=== PATIENT | male | born 1965 | race Caucasian/White ===

== ENCOUNTER 2019-04-13 23:27 | Inpatient (IN) | payer MEDICARE, SELFPAY ==
[2019-04-13 23:29] VITALS: BP 181/84; PULSE 90; RESP 18; TEMP 36.6; O2SAT 83; BMI 29.2
[2019-04-13 23:38] VITALS: O2SAT 95
--- NOTE | 2019-04-13 23:43 | EKG12_ITS ---
Test Reason : SOB Blood Pressure : / mmHG Vent. Rate : 078 BPM Atrial Rate : 078 BPM P-R Int : 150 ms QRS Dur : 082 ms QT Int : 392 ms P-R-T Axes : 083 072 093 degrees QTc Int : 446 ms Normal sinus rhythm Normal ECG Confirmed by RADHA MILLER, ADRIENNE ([id number]), research editor YAZAN VILLALTA ([id number]) on 04/18/2019 2:13:55 PM Referred By: KALPANA Confirmed By:ADRIENNE GARCIA MD
--- NOTE | 2019-04-13 23:44 | ED.DCSUM_ITS ---
History of Present Illness Chief Complaint: Shortness of Breath Narrative: Patient is a 54-year-old male who presents with shortness of breath. He does have a history of COPD and only a quarter of my lung on the left side due to a defect. He uses 2 L of oxygen by nasal cannula at night only at baseline. He was sick last week with congestion cough sore throat and subjective fevers. The symptoms are actually improving except he is continued to feel more short of breath. He has had increased oxygen requirements needing to use 4 L even during the day. He denies any pain. No vomiting or diarrhea. Past Medical History - Allergies and Home Meds Allergies/Adverse Reactions: Allergies aspirin Allergy (Verified 04/13/19 23:32) Unknown zolpidem [From Ambien] Allergy (Verified 04/13/19 23:32) Unknown Primary Care Physician: NOT,DEFINED [NON-STAFF] - Prior records reviewed: No Past Medical History: - - COPD, hypertension Surgical History: - - Shoulder surgeries, hernia repair Review of Systems All systems negative except as indicated General: Reports: Fever, Subjective ENT: Reports: Sore throat, - - Congestion Cardiovascular: Denies: Chest pain Respiratory: Reports: Dyspnea, Cough Gastrointestinal: Denies: Nausea, Vomiting, Diarrhea Physical Exam Vital Signs/Narrative: Vital Signs Temp Pulse Resp BP Pulse Ox 04/13/19 23:38 95 04/13/19 23:29 97.9 F 90 18 181/84 H 83 Inital Vital Signs reviewed: Yes General: Well nourished Head: Normocephalic Eyes: EOMI ENT: Moist mucous membranes Neck: Supple Cardiovascular: Regular rate, Regular rhythm Respiratory: No distress, Decreased Air Movement Abdomen: Soft Skin: Normal color Neurological: Alert Psychological: Normal affect Diagnostic/Tx/Re-eval Impressions Chest X-Ray 04/13/19 23:55 IMPRESSION: No demonstrated acute cardiopulmonary process. Electronically Signed: Diane Nolasco, at 1:37 EST Tel , Service support , 04/13/19 23:55 Chest PA and Lateral [RAD] Stat Laboratory Results 04/13/19 04/13/19 04/14/19 23:55 23:55 00:37 WBC 11.0 RBC 5.21 Hgb 15.3 Hct 49.1 MCV 94.2 H MCH 29.4 MCHC 31.2 L RDW Std Deviation 44.8 H RDW Coeff of [place] 13.2 Plt Count 204 MPV 9.6 Immature Gran % (Auto) 0.400 Neut % (Auto) 88.6 H Lymph % (Auto) 8.3 L [place] % (Auto) 2.3 Eos % (Auto) 0.0 Baso % (Auto) 0.4 Absolute Neuts (auto) 9.8 H Absolute Lymphs (auto) 0.91 Nucleated RBC % 0 Specimen Type ART Sample Site R Radial pH 7.36 Bicarbonate Actual 37.3 H POC Total CO2 39 Base Excess 12 H O2 Saturation 96 ABG pCO2 65.8 H ABG pO2 85 Shaheen Test POS O2 Delivery Device Nasal Can Liter Flow 4.0 Blood Gas Notified Whom ED MD Blood Gas Notified Time 30 Sodium 139 Potassium 4.4 Chloride 100 Carbon Dioxide 34.0 H Anion Gap 5 BUN 13 Creatinine 0.80 Estim Creat Clear Calc 112.43 Est GFR (MDRD) Af Amer 129 Est GFR (MDRD) Non-Af 106 BUN/Creatinine Ratio 16.2 Glucose 154 H Calcium 9.2 - Medical Decision Making Patient was placed on oxygen by nasal cannula here. Even on 4 L his oxygen saturation is 93 to 94%. Laboratory studies as above unremarkable. Chest x-ray shows no acute process. EKG shows normal sinus rhythm at a rate of 78 with no acute ischemic changes. ABG shows normal pH, PCO2 of 65. Patient was treated here with albuterol and Atrovent aerosols as well as IV Solu-Medrol and IV Levaquin. Patient will be discussed with hospitalist and admitted. ED Disposition - Plan for ED Patient: Disposition: Acute Care Hospital [facility] Diagnosis: COPD exacerbation Referrals: NOT,DEFINED [NON-STAFF] -
--- NOTE | 2019-04-13 23:51 | ED.RN ---
NO OLD EKG
--- NOTE | 2019-04-13 23:55 | RAD_ITS ---
STUDY: X-RAY CHEST REASON FOR EXAM: Male, 54 years old. PT HAS BEEN CONFUSED,SOB. Hx of COPD, Anatomical defects. TECHNIQUE: Single AP portable view of the chest. COMPARISON: None. FINDINGS: Subsegmental atelectasis in the left lung base. There is no demonstrated pleural abnormality. Normal size heart. Normal mediastinum and eliazar. Normal visualized pulmonary arteries. Normal visualized aortic arch and descending thoracic aorta. There is a dextroscoliosis of the thoracic spine. Normal visualized ribs, clavicles, and shoulders. There is no demonstrated abnormality of the visualized soft tissue structures of the upper abdomen. RAD/Chest PA and Lateral IMPRESSION: No demonstrated acute cardiopulmonary process. Electronically Signed: Diane Nolasco, at 1:37 EST Tel , Service support ,
[2019-04-13 23:57] LABS: Absolute Lymphocyte Count 0.91 X10^3/uL (0.83-4.51); Absolute Neutrophil Count 9.8 X10^3/uL (2.0-7.7); Basophil# 0.04 X10^3/uL; Basophil% 0.4 % (0-1); Hematocrit 49.1 % (40-54); Hemoglobin 15.3 g/dL (13.0-16.5); Lymphocyte # 0.91 X10^3/ul (4.0); Lymphocyte % 8.3 % (19-41); Mean Corp Hgb Conc 31.2 g/dL (32-36); Mean Corpuscular Hgb 29.4 pg (27.0-32.0); Mean Corpuscular Volume 94.2 fL (80-94); Mean Platelet Vol. 9.6 fl (6.2-12.0); Monocyte# 0.25 X10^3/uL; Monocyte% 2.3 % (0-10); NRBC Flagged by Analyzer 0 % (0-5); Neutrophil # 9.79 X10^3/uL (2.7-7.7); Neutrophil % 88.6 % (47-70); Platelet Count 204 K/mm3 (150-450); RBC Distribution Width CV 13.2 % (11.6-14.6); RBC Distribution Width SD 44.8 fl (35.1-43.9); Red Blood Count 5.21 M/mm3 (4.6-6.2)
[2019-04-14] VITALS (14 sets, daily range): BP systolic 132–163; BP diastolic 67–83; PULSE 77–100; RESP 12–22; TEMP 36.3–37.1; O2SAT 93–98; BMI 28.1; BMI 28.2
[2019-04-14] MEDS: Albuterol 2.5 MG/3 ML VIAL.NEB. INHALATION
[2019-04-14] MEDS: MethylPREDNISolone 125 MG/2 ML Vial IV (00:09)
[2019-04-14 00:16] LABS: Anion Gap 5 (5-15); BUN 13 mg/dL (7-18); BUN/Creat Ratio 16.2 RATIO (10-20); Calcium,Total 9.2 mg/dL (8.5-10.1); Chloride 100 mmol/L (98-107); EST Glomerular Filtration Rate 106 mL/min (>60); Est Glom Filt Rate - Afr Amer 129 mL/min (>60); Estimated Creatinine Clearance 112.43 ml/min; Glucose 154 mg/dL (74-106); Potassium 4.4 mmol/L (3.5-5.1); Sodium Level 139 mmol/L (136-145)
[2019-04-14 00:45] LABS: Allen Test POS; Base Excess 12 mmol/L (-2 to +2); Bicarbonate 37.3 mmol/L (22-26); Blood Gas Specimen Type ART; O2 Delivery Device Nasal Can; PO2 85 mmHG (75-100); SITE R Radial; SO2 96 % (95-99); Time Given 30; Total Carbon Dioxide 39 mmol/L; pCO2 65.8 mmHg (35-45); pH 7.36 (7.35-7.45)
--- NOTE | 2019-04-14 01:50 | HP.PCM_ITS ---
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 Associated with her symptoms is wheezing and a cough productive for white- greenish thick sputum. Patient reported that recently his spouse and nephew had flulike/cold symptoms. Patient was also started on a Medrol Dosepak about a week ago for cough. Past Medical History Medical History: Medical History (Last Updated 04/14/19 @ 03:43 by Sanket Beltran MD) COPD (chronic obstructive pulmonary disease) J44.9 Allergies aspirin Allergy (Verified 04/13/19 23:32) Unknown zolpidem [From Ambien] Allergy (Verified 04/13/19 23:32) Unknown Home Medications: Ambulatory Orders Medication Instructions Recorded Albuterol Inhaler [Ventolin Hfa 2 puff INHALATION Q6H PRN PRN 04/14/19 (SP)] Amlodipine Benzoate 5 mg PO DAILY 04/14/19 Citalopram [Celexa] 10 mg PO DAILY 04/14/19 Fluticasone/Vilanterol [Breo 1 ea IH DAILY 04/14/19 Ellipta Inhaler] Hydrocodone/Acetaminophen [[place] 1 ea PO Q8 PRN 04/14/19 5-325 Tablet] Methadone HCl 10 mg PO Q6H 04/14/19 Methylprednisolone [Medrol] 4 mg PO DAILY 04/14/19 Triamterene/Hctz 37.5/25Mg 1 tab PO DAILY 04/14/19 [Triamterene-Hctz 37.5-25 mg Tb] Surgical History: - - Shoulder surgeries, hernia repair Lives: Spouse/ Significant Other Smoking Status: Current some day smoker Tobacco Use: - - snuff tobacco Alcohol: Occasional - *Family History Maternal History Items: Cancer, Diabetes Paternal History Items: Cancer Review of Systems Constitutional: Denies: Chills, Fever, Weight Change HEENT: Denies: Head Aches, Sinus Congestion, Sinus Drainage Cardiovascular: Denies: Chest Pain, Palpitations Respiratory: Reports: Cough, Shortness of Breath, Sputum production, Wheezing Gastrointestinal: Denies: Abdominal Pain, Nausea, Vomiting Genitourinary: Denies: Dysuria Musculoskeletal: Denies: Joint Pain, Joint Tenderness Skin: Denies: Rash, Wounds Neurological: Denies: Numbness, Tingling, Focal weakness Psychiatric: Denies: Anxiety, Depression, Homicidal Ideations, Suicidal Ideations Hematologic/ Lymphatic: Denies: Easy Bruising, Easy Bleeding VTE Information - Inpt Only VTE Present on Admission: No VTE Mechan Device Prophylaxis: None VTE Pharm Prophylaxis ordered?: Yes Patient Problems: Active and Suspected Problems (Last Updated 04/14/19 @ 03:43 by Sanket Beltran MD) COPD exacerbation (Acute) - Physical Exam Vitals/I&O's: Vital Signs Temp Pulse Resp BP Pulse Ox 97.3 F L 87 18 150/79 H 93 04/14/19 00:44 04/14/19 00:44 04/14/19 00:44 04/14/19 00:44 04/14/19 00:44 Oxygen Flow Rate (L/min) 2 Oxygen Delivery Method Nasal Cannula Weight: 95.254 kg Body Mass Index (BMI) 29.2 General: Alert, Oriented x3, Cooperative HEENT: Atraumatic, PERRLA, EOMI, Normocephalic Neck: Supple, No JVD, Negative Carotid Bruits Lungs: Wheezes Cardiovascular: Regular rate, No murmurs Abdomen: Bowel Sounds Present, Soft, Non Tender Extremities: No edema, Capillary Refill Less than 3 Seconds, - - Aplasia of left upper extremity. Skin: No rashes, No breakdown Musculoskeletal: No Tenderness to Palpation of Joints or Extremities Neurological: Cranial nerves II-XII grossly intact Psych/Mental Status: Normal Affect, Appropriate Laboratory Results 04/13/19 23:55: WBC 11.0, RBC 5.21, Hgb 15.3, Hct 49.1, MCV 94.2 H, MCH 29.4, MCHC 31.2 L, RDW Std Deviation 44.8 H, RDW Coeff of [place] 13.2, Plt Count 204, MPV 9.6, Immature Gran % (Auto) 0.400, Neut % (Auto) 88.6 H, Lymph % (Auto) 8.3 L, [place] % (Auto) 2.3, Eos % (Auto) 0.0, Baso % (Auto) 0.4, Absolute Neuts (auto) 9.8 H, Absolute Lymphs (auto) 0.91, Nucleated RBC % 0 04/13/19 23:55: Sodium 139, Potassium 4.4, Chloride 100, Carbon Dioxide 34.0 H, Anion Gap 5, BUN 13, Creatinine 0.80, Estim Creat Clear Calc 112.43, Est GFR (MDRD) Af Amer 129, Est GFR (MDRD) Non-Af 106, BUN/Creatinine Ratio 16.2, Glucose 154 H, Calcium 9.2 04/14/19 00:37: Specimen Type ART, Sample Site R Radial, pH 7.36, Bicarbonate Actual 37.3 H, POC Total CO2 39, Base Excess 12 H, O2 Saturation 96, ABG pCO2 65.8 H, ABG pO2 85, Shaheen Test POS, O2 Delivery Device Nasal Can, Liter Flow 4.0, Blood Gas Notified Whom ED MD, Blood Gas Notified Time 30 Current Medications Levofloxacin (Levaquin Iv) 500 mg in 100 mls @ 100 mls/hr IV X1 ONE Stop: 04/14/19 02:40 Assessment/Plan All Active Problems (Last Updated 04/14/19 @ 03:43 by Sanket Beltran MD) COPD exacerbation (Acute) The patient is a 54 year old M with a significant history of COPD on 2 L of home oxygen; congenital aplasia of left upper extremity; 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 Acute exacerbation of COPD ABG reviewed. Showed normal pH with elevated bicarbonate and PCO2. Showing a chronic CO2 retainer. CXR independently reviewed confirms no acute cardia pulmonary process. Received DuoNeb at the emergency department. Scheduled DuoNeb ordered. Albuterol as needed On home ICS?lab. ICS continued. Received Solu-Medrol at the emergency department. Solu-Medrol continued. Mucinex ordered. Levaquin was ordered at the emergency department. Levaquin was continued. Oxygen as needed to keep oxygen saturation more than 92%. Chronic right shoulder pain Methadone and [place] continued Hypertension On presentation his blood pressure was not within goal Triamterene and hydrochlorothiazide continued. Trend blood pressures and adjust blood pressure medication Depression Celexa continued Tobacco abuse Many years ago patient tried smoking cigarettes. Now he snuffs tobacco. Counseled. Declined nicotine patch. DVT prophylaxis Subcutaneous Lovenox. Code Visit Inpatient E&M: 82085 Init Hosp L3
[2019-04-14] MEDS: levoFLOXacin IV 500 MG/100 ML BAG 100 MG IV ×2 (02:04→21:49)
[2019-04-14] MEDS: 0.9% Saline Lock 10 ML Syringe IV ×4 (03:52→15:19)
[2019-04-14] MEDS: HYDROcodone Bitartrate/Apap 5/325 Tablet PO ×2 (03:53→20:08)
[2019-04-14] MEDS: Ipratropium/Albuterol Sulfate 3 ML AMPUL.NEB INHALATION ×5 (07:11→18:49)
--- NOTE | 2019-04-14 08:30 | NURSING ---
Pt states he noticed last night they forgot to bring in a cpap. Pt notified that home cpap can be brought in- states he will have his bring.
[2019-04-14] MEDS: Enoxaparin 40 MG/0.4 ML Syringe SC (08:34)
[2019-04-14] MEDS: amLODIPine 5 MG Tablet PO ×2 (08:34→15:16)
[2019-04-14] MEDS: guaiFENesin 1,200 MG Tablet 1200 MG PO ×2 (08:34→21:49)
[2019-04-14] MEDS: Citalopram 10 MG Tablet PO (08:34)
[2019-04-14] MEDS: Triamterene 37.5MG/Hctz 25MG Capsule 1 CAP PO (08:34)
--- NOTE | 2019-04-14 08:46 | NURSING ---
Abena from pharmacy called and notified methadone is not on unit. Verbalized understanding and states will send.
[2019-04-14] MEDS: Methadone 10 MG Tablet PO ×4 (08:52→23:35)
--- NOTE | 2019-04-14 11:40 | CASEMGMT ---
CLEO MARKHAM Face to Face with patient for initial transition planning/care coordination assessment. CLEO MARKHAM introduced self and role at [facility]. Patient sitting in chair, alert and oriented. Patient willing to participate in assessment and is able to answer all questions appropriately. Care providers, pharmacy, and demographics verified. Patient wishes to discharge home, denies need for home health at this time. Patient states he has no further needs or concerns at this time. CM to follow for discharge planning needs that may arise. PCP: Breonna Hassan Specialists: Rhoda buckler and lacer in [facility] Preferred Pharmacy: [facility] Insurance: [facility] Prescription Benefit: yes Living Will/HPOA: none LNOK: Living Arrangements: Patient lives with in 2 story home with bed an bath on first floor. Patient is independent at home. Transportation: self, DME/HHC: Patient states he has cane, Cpap, pulse ox, and oxgyen at home 2lpm at night through [facility] in [place]. CLEO MARKHAM called [facility] and patient has order for 2lpm continuous with concentrator and portability. Disposition Plan: Patient to discharge home with family support and follow-up plans in place. Merry JJ, RN, CM
--- NOTE | 2019-04-14 13:50 | PN_ITS ---
Patient Problems: Active and Suspected Problems (Last Updated 04/14/19 @ 03:43 by Sanket Beltran MD) COPD exacerbation (Acute) Subjective: Patient admitted with shortness of breath progressive worsening for about 1 week along with worsening of cough more than his baseline sputum. Denies fever or chills. 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 Vitals/I&O's: Vital Signs Temp Pulse Resp BP Pulse Ox 97.5 F L 84 12 132/67 H 93 04/14/19 07:57 04/14/19 10:50 04/14/19 10:50 04/14/19 07:57 04/14/19 08:06 Oxygen Flow Rate (L/min) 2 Oxygen Delivery Method Nasal Cannula Weight: 202 lb 1 oz Body Mass Index (BMI) 28.1 Intake and Output for Last 24 Hours 04/12/19 04/13/19 04/14/19 23:59 23:59 23:59 Intake Total 210 / 210 Output Total 100 / 100 Balance 110 / 110 General: Alert, Oriented x3, Cooperative HEENT: Atraumatic, PERRLA, EOMI, Normocephalic Neck: Supple, No JVD, Negative Carotid Bruits Lungs: Diminished - Air entry severely and diffusely diminished in all lung base. Expiratory rhonchi present., Rhonchi, Short of Breath Cardiovascular: Regular rate, Regular Rhythm, Normal S1, Normal S2, No murmurs Abdomen: Bowel Sounds Present, Soft, Non Tender, Non-Distended Extremities: No edema, Capillary Refill Less than 3 Seconds Skin: No rashes, No breakdown Musculoskeletal: No Tenderness to Palpation of Joints or Extremities, - - Left upper extremity agenesis, congenital Neurological: Cranial nerves II-XII grossly intact, Deep Tendon Reflexes 2+/4 and Symmetrical, Neuro grossly intact Psych/Mental Status: Normal Affect, Appropriate Laboratory Results 04/13/19 23:55: WBC 11.0, RBC 5.21, Hgb 15.3, Hct 49.1, MCV 94.2 H, MCH 29.4, MCHC 31.2 L, RDW Std Deviation 44.8 H, RDW Coeff of [place] 13.2, Plt Count 204, MPV 9.6, Immature Gran % (Auto) 0.400, Neut % (Auto) 88.6 H, Lymph % (Auto) 8.3 L, [place] % (Auto) 2.3, Eos % (Auto) 0.0, Baso % (Auto) 0.4, Absolute Neuts (auto) 9.8 H, Absolute Lymphs (auto) 0.91, Nucleated RBC % 0 04/13/19 23:55: Sodium 139, Potassium 4.4, Chloride 100, Carbon Dioxide 34.0 H, Anion Gap 5, BUN 13, Creatinine 0.80, Estim Creat Clear Calc 112.43, Est GFR (MDRD) Af Amer 129, Est GFR (MDRD) Non-Af 106, BUN/Creatinine Ratio 16.2, Glucose 154 H, Calcium 9.2 04/14/19 00:37: Specimen Type ART, Sample Site R Radial, pH 7.36, Bicarbonate Actual 37.3 H, POC Total CO2 39, Base Excess 12 H, O2 Saturation 96, ABG pCO2 65.8 H, ABG pO2 85, Shaheen Test POS, O2 Delivery Device Nasal Can, Liter Flow 4.0, Blood Gas Notified Whom ED MD, Blood Gas Notified Time 30 Current Medications Acetaminophen (Tylenol) 650 mg PO Q6H PRN PRN PRN Reason: Pain Score 1-3/Temp > 100.7 F Hydrocodone Bitart/Acetaminophen ([place] 5mg-325mg) 1 tablet PO Q8H PRN PRN PRN Reason: Pain Score 4-10/10 Last Admin: 04/14/19 03:53 Dose: 1 tablet Documented by: Albuterol Sulfate (Ventolin Aerosols) 2.5 mg INHALATION Q2H PRN PRN PRN Reason: Shortness of Breath/Wheezing Albuterol/Ipratropium (Duoneb) 3 ml INHALATION Q4HWA.RT [facility] Last Admin: 04/14/19 10:50 Dose: 3 ml Documented by: Amlodipine Besylate (Norvasc) 5 mg PO DAILY [facility] Last Admin: 04/14/19 08:34 Dose: 5 mg Documented by: Citalopram Hydrobromide (Celexa) 10 mg PO DAILY [facility] Last Admin: 04/14/19 08:34 Dose: 10 mg Documented by: Dextrose (D50w Syringe) 0 gm IV X1 PRN; Protocol PRN Reason: Hypoglycemia Enoxaparin Sodium (Lovenox) 40 mg SC DAILY@1000 [facility] Last Admin: 04/14/19 08:34 Dose: 40 mg Documented by: Glucagon () 1 mg IM .X1 PRN PRN Reason: Hypoglycemia Guaifenesin (Mucinex) 1,200 mg PO BID [facility] Last Admin: 04/14/19 08:34 Dose: 1,200 mg Documented by: Hydralazine HCl (Apresoline Iv) 5 mg IV Q4H PRN PRN PRN Reason: SBP > 160 Sodium Chloride () 250 mls @ 15 mls/hr IV .[id number] PRN PRN Reason: Saline Flush Levofloxacin (Levaquin Iv) 500 mg in 100 mls @ 100 mls/hr IV Q24H [facility] Stop: 04/18/19 22:59 Melatonin (Melatonin) 3 mg PO QHS PRN PRN PRN Reason: INSOMNIA Methadone HCl () 10 mg PO Q6H [facility] Last Admin: 04/14/19 13:41 Dose: 10 mg Documented by: Methylprednisolone (Solu-Medrol) 40 mg IV Q8 [facility] Last Admin: 04/14/19 08:38 Dose: 40 mg Documented by: Non-Formulary Medication (Fluticasone/Vilanterol) 1 ea IH DAILY [facility] Ondansetron HCl (Zofran) 4 mg IV Q8H PRN PRN PRN Reason: NAUSEA/VOMITING Sodium Chloride () 10 - 40 ml IV UD PRN PRN Reason: SALINE FLUSH Last Admin: 04/14/19 08:35 Dose: 10 ml Documented by: Triamterene/HCTZ (Dyazide (G)) 1 cap PO DAILY [facility] Last Admin: 04/14/19 08:34 Dose: 1 cap Documented by: STROKE Vital Signs/Narrative: Vital Signs Pulse Resp 04/14/19 10:50 84 12 Medical Necessity - Tobacco Use Smoking Status: Current some day smoker Tobacco Use: - Assessment/Plan All Active Problems (Last Updated 04/14/19 @ 03:43 by Sanket Beltran MD) COPD exacerbation (Acute) The patient is a 54 year old M with a significant history of COPD on 2 L of home oxygen; congenital aplasia of left upper extremity; 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 1. Acute exacerbation of COPD: ABG reviewed. 7. on 4 L of oxygen through nasal cannula. Calculated bicarbonate 37. Does not have previous ABG to compare. On DuoNeb, albuterol as needed, IV Solu-Medrol, Mucinex, incentive spirometry and chest physiotherapy. Patient is ambulatory in home and in the community and requires home oxygen with portability. Oxygen therapy to keep pulse ox 90%. ER physician ordered Levaquin continued by admitting hospitalist. Sputum culture, urinary antigens, MRSA nasal screen and respiratory panel ordered. Patient had remote history of smoking in teenage for total about 5 years. 2. Chronic right shoulder pain: On methadone [place] home medication continued. 3. Hypertension: Blood pressure was elevated at time of admission. Currently 149/67. On hydrochlorothiazide, amlodipine and triamterene. Amlodipine increased to 10 mg daily. 4. Anxiety depression: Stable. 5. DVT prophylaxis: On Lovenox. 04/13/19 23:55: WBC 11.0, RBC 5.21, Hgb 15.3, Hct 49.1, MCV 94.2 H, MCH 29.4, MCHC 31.2 L, RDW Std Deviation 44.8 H, RDW Coeff of [place] 13.2, Plt Count 204, MPV 9.6, Immature Gran % (Auto) 0.400, Neut % (Auto) 88.6 H, Lymph % (Auto) 8.3 L, [place] % (Auto) 2.3, Eos % (Auto) 0.0, Baso % (Auto) 0.4, Absolute Neuts (auto) 9.8 H, Absolute Lymphs (auto) 0.91, Nucleated RBC % 0 04/13/19 23:55: Sodium 139, Potassium 4.4, Chloride 100, Carbon Dioxide 34.0 H, Anion Gap 5, BUN 13, Creatinine 0.80, Estim Creat Clear Calc 112.43, Est GFR (MDRD) Af Amer 129, Est GFR (MDRD) Non-Af 106, BUN/Creatinine Ratio 16.2, Glucose 154 H, Calcium 9.2 04/14/19 00:37: Specimen Type ART, Sample Site R Radial, pH 7.36, Bicarbonate Actual 37.3 H, POC Total CO2 39, Base Excess 12 H, O2 Saturation 96, ABG pCO2 65.8 H, ABG pO2 85, Shaheen Test POS, O2 Delivery Device Nasal Can, Liter Flow 4.0, Blood Gas Notified Whom ED MD, Blood Gas Notified Time 30 Clinical Impression(s) from Imaging Studies Chest X-Ray 04/13/19 23:55 IMPRESSION: No demonstrated acute cardiopulmonary process.
[2019-04-14 18:00] LABS: M R Staph aureus DNA By PCR Negative (Negative); Probe Check PASS; Specimen Processing Control PASS
[2019-04-15] VITALS (9 sets, daily range): BP systolic 148–168; BP diastolic 77–95; PULSE 69–92; RESP 16–18; TEMP 36.2–36.9; O2SAT 90–98
[2019-04-15] MEDS: HYDROcodone Bitartrate/Apap 5/325 Tablet PO ×2 (04:05→19:27)
[2019-04-15] MEDS: Methadone 10 MG Tablet PO ×3 (05:34→17:54)
[2019-04-15] MEDS: Ipratropium/Albuterol Sulfate 3 ML AMPUL.NEB INHALATION ×4 (06:47→19:50)
[2019-04-15] MEDS: Triamterene 37.5MG/Hctz 25MG Capsule 1 CAP PO (09:16)
[2019-04-15] MEDS: amLODIPine 5 MG Tablet 10 MG PO (09:16)
[2019-04-15] MEDS: guaiFENesin 1,200 MG Tablet 1200 MG PO ×2 (09:16→21:47)
[2019-04-15] MEDS: Enoxaparin 40 MG/0.4 ML Syringe SC (09:16)
[2019-04-15] MEDS: Citalopram 10 MG Tablet PO (09:16)
--- NOTE | 2019-04-15 12:22 | PCM.PN.HOSP ---
Patient Problems: Active and Suspected Problems (Last Reviewed 04/14/19 @ 14:[address]) COPD exacerbation (Acute) Subjective: Patient shortness of breath is improved. Wheezing and oxygen need has also decreased. No fever or chills. Vitals/I&O's: Vital Signs Temp Pulse Resp BP Pulse Ox 98.1 F 80 18 148/95 H 94 04/15/19 09:11 04/15/19 11:34 04/15/19 11:34 04/15/19 09:11 04/15/19 11:34 Oxygen Flow Rate (L/min) 2 Oxygen Delivery Method Nasal Cannula Weight: 202 lb 1 oz Body Mass Index (BMI) 28.1 Intake and Output for Last 24 Hours 04/13/19 04/14/19 04/15/19 23:59 23:59 23:59 Intake Total 1160 / 1760 900 / 900 Output Total 100 / 100 475 / 475 Balance 1060 / 1660 425 / 425 General: Alert, Oriented x3, Cooperative HEENT: Atraumatic, PERRLA, EOMI, Normocephalic Neck: Supple, No JVD, Negative Carotid Bruits Lungs: Diminished - Air entry is diminished in all lung field mainly left lung base but overall improved compared to yesterday., Rhonchi - Expiratory rhonchi present Cardiovascular: Regular rate, Regular Rhythm, Normal S1, Normal S2, No murmurs Abdomen: Bowel Sounds Present, Soft, Non Tender, Non-Distended Extremities: No edema, Capillary Refill Less than 3 Seconds Skin: No rashes, No breakdown Musculoskeletal: No Tenderness to Palpation of Joints or Extremities, Arthritic Changes, - - Left upper extremity congenital aplasia Neurological: Cranial nerves II-XII grossly intact, Deep Tendon Reflexes 2+/4 and Symmetrical, Neuro grossly intact Psych/Mental Status: Normal Affect, Appropriate Microbiology Past 72 Hours 04/14/19 15:07 Mucosa - Nose Respiratory Panel (PCR) - Final 04/14/19 15:50 Urine, Clean Catch Legionella Antigen - Final 04/14/19 15:50 Urine, Clean Catch Streptococcus pneumoniae Antigen (M - Final Laboratory Results 04/14/19 15:23: MRSA (PCR) Negative Current Medications Acetaminophen (Tylenol) 650 mg PO Q6H PRN PRN PRN Reason: Pain Score 1-3/Temp > 100.7 F Hydrocodone Bitart/Acetaminophen ([place] 5mg-325mg) 1 tablet PO Q8H PRN PRN PRN Reason: Pain Score 4-10/10 Last Admin: 04/15/19 04:05 Dose: 1 tablet Documented by: Albuterol Sulfate (Ventolin Aerosols) 2.5 mg INHALATION Q2H PRN PRN PRN Reason: Shortness of Breath/Wheezing Albuterol/Ipratropium (Duoneb) 3 ml INHALATION Q4HWA.RT [facility] Last Admin: 04/15/19 11:34 Dose: 3 ml Documented by: Amlodipine Besylate (Norvasc) 10 mg PO DAILY [facility] Last Admin: 04/15/19 09:16 Dose: 10 mg Documented by: Citalopram Hydrobromide (Celexa) 10 mg PO DAILY [facility] Last Admin: 04/15/19 09:16 Dose: 10 mg Documented by: Dextrose (D50w Syringe) 0 gm IV X1 PRN; Protocol PRN Reason: Hypoglycemia Enoxaparin Sodium (Lovenox) 40 mg SC DAILY@1000 [facility] Last Admin: 04/15/19 09:16 Dose: 40 mg Documented by: Glucagon () 1 mg IM .X1 PRN PRN Reason: Hypoglycemia Guaifenesin (Mucinex) 1,200 mg PO BID [facility] Last Admin: 04/15/19 09:16 Dose: 1,200 mg Documented by: Hydralazine HCl (Apresoline Iv) 10 mg IV Q4H PRN PRN PRN Reason: SBP > 180 Sodium Chloride () 250 mls @ 15 mls/hr IV .[id number] PRN PRN Reason: Saline Flush Levofloxacin (Levaquin Iv) 500 mg in 100 mls @ 100 mls/hr IV Q24H [facility] Stop: 04/18/19 22:59 Last Infusion: 04/14/19 22:59 Dose: Infused Documented by: Melatonin (Melatonin) 3 mg PO QHS PRN PRN PRN Reason: INSOMNIA Methadone HCl () 10 mg PO Q6H [facility] Last Admin: 04/15/19 12:16 Dose: 10 mg Documented by: Methylprednisolone (Solu-Medrol) 40 mg IV Q8 [facility] Last Admin: 04/15/19 05:35 Dose: 40 mg Documented by: Non-Formulary Medication (Fluticasone/Vilanterol) 1 ea IH DAILY [facility] Ondansetron HCl (Zofran) 4 mg IV Q8H PRN PRN PRN Reason: NAUSEA/VOMITING Sodium Chloride () 10 - 40 ml IV UD PRN PRN Reason: SALINE FLUSH Last Admin: 04/14/19 15:19 Dose: 10 ml Documented by: Triamterene/HCTZ (Dyazide (G)) 1 cap PO DAILY [facility] Last Admin: 04/15/19 09:16 Dose: 1 cap Documented by: STROKE Vital Signs/Narrative: Vital Signs Temp Pulse Resp BP Pulse Ox 04/15/19 11:34 80 18 94 04/15/19 09:23 16 04/15/19 09:11 98.1 F 86 16 148/95 H 95 Medical Necessity - Tobacco Use Smoking Status: Current some day smoker Tobacco Use: - Assessment/Plan All Active Problems (Last Reviewed 04/14/19 @ 14:[address]) COPD exacerbation (Acute) The patient is a 54 year old M with a significant history of COPD on 2 L of home oxygen; congenital aplasia of left upper extremity; 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 1. Acute exacerbation of COPD: ABG reviewed. 7.3660 on 4 L of oxygen through nasal cannula. Calculated bicarbonate 37. Does not have previous ABG to compare. On DuoNeb, albuterol as needed, IV Solu-Medrol, Mucinex, incentive spirometry and chest physiotherapy. Patient is ambulatory in home and in the community and requires home oxygen with portability. Oxygen therapy to keep pulse ox 90%. ER physician ordered Levaquin continued by admitting hospitalist. Sputum culture, urinary antigens, MRSA nasal screen and respiratory panel ordered. Patient had remote history of smoking in teenage for total about 5 years. 04/15/2019: Sputum culture is pending. MRSA nasal screen negative. Urinary antigens for Legionella and Streptococcus are negative. Respiratory panel negative. 2. Chronic right shoulder pain: On methadone [place] home medication continued. 3. Hypertension: Blood pressure was elevated at time of admission. Currently 149/67. On hydrochlorothiazide, amlodipine and triamterene. Amlodipine increased to 10 mg daily. 04/15/2019 blood pressure is stable. Overall blood pressure profile is better than yesterday 4. Anxiety depression: Stable. 5. DVT prophylaxis: On Lovenox. Microbiology Past 72 Hours 04/14/19 15:07 Mucosa - Nose Respiratory Panel (PCR) - Final 04/14/19 15:50 Urine, Clean Catch Legionella Antigen - Final 04/14/19 15:50 Urine, Clean Catch Streptococcus pneumoniae Antigen (M - Final Laboratory Results 04/14/19 15:23: MRSA (PCR) Negative 04/14/19 00:37: Specimen Type ART, Sample Site R Radial, pH 7.36, Bicarbonate Actual 37.3 H, POC Total CO2 39, Base Excess 12 H, O2 Saturation 96, ABG pCO2 65.8 H, ABG pO2 85, [place] Test POS, O2 Delivery Device Nasal Can, Liter Flow 4.0, Blood Gas Notified Whom ED MD, Blood Gas Notified Time 30 Clinical Impression(s) from Imaging Studies Chest X-Ray 04/13/19 23:55 IMPRESSION: No demonstrated acute cardiopulmonary process. Code Visit Inpatient E&M: 33107 Subs Hosp L2
[2019-04-15] MEDS: 0.9% Saline Lock 10 ML Syringe IV ×2 (13:55→21:46)
[2019-04-15] MEDS: levoFLOXacin IV 500 MG/100 ML BAG 100 MG IV (21:46)
[2019-04-16] VITALS (7 sets, daily range): BP systolic 139–157; BP diastolic 80–84; PULSE 80–108; RESP 18; TEMP 36.8; O2SAT 88–93
[2019-04-16] MEDS: 0.9% Saline Lock 10 ML Syringe IV ×2 (00:06→05:23)
[2019-04-16] MEDS: Methadone 10 MG Tablet PO ×3 (00:06→13:08)
[2019-04-16] MEDS: Ipratropium/Albuterol Sulfate 3 ML AMPUL.NEB INHALATION ×2 (07:16→11:24)
[2019-04-16] MEDS: HYDROcodone Bitartrate/Apap 5/325 Tablet PO (08:27)
--- NOTE | 2019-04-16 10:09 | DCINST_ITS ---
- Discharge Diagnoses Current Active Problems: Current Active and Chronic Problems (Last Reviewed 04/14/19 @ 14:[address]) COPD exacerbation (Acute) You will use the following diet at home:: Cardiac Your food should be the consistency of: Regular Discharge Activity: May Not Drive Call your doctor if you observe: Fever of 101 or Higher, Coldness, Increased Pain, Inability to urinate, Inability to have a bowel movement, Shortness of breath, Dizziness, Fainting spells, Swelling in the ankles, Prolonged hiccoughing, Increased palpitations (irregular heartbeat), Uncontrolled pain Allergies/Adverse Reactions: Allergies aspirin Allergy (Verified 04/13/19 23:32) Unknown zolpidem [From Ambien] Allergy (Verified 04/13/19 23:32) Unknown Medications to take at Discharge Albuterol Inhaler [Ventolin Hfa] 2 puff INHALATION Q6H PRN PRN 04/14/19 Citalopram [Celexa] 10 mg PO DAILY 04/14/19 Fluticasone/Vilanterol [Breo Ellipta 100-25 Mcg INH] 1 ea IH DAILY 04/14/19 Hydrocodone/Acetaminophen [[place] 5-325 Tablet] 1 ea PO Q8 PRN 04/14/19 Methadone HCl 10 mg PO Q6H 04/14/19 Triamterene/Hctz 37.5/25Mg [Triamterene-Hctz 37.5-25 mg Tb] 1 tab PO DAILY 04/14/19 Amlodipine [Norvasc] 10 mg PO DAILY #30 tab 04/16/19 Guaifenesin [Mucinex] 1,200 mg PO BID #14 tab 04/16/19 Ipratropium/Albuterol Sulfate [Duoneb] 3 ml INHALATION Q4H PRN PRN #30 ampul.neb 04/16/19 Prednisone 10 mg PO UD #30 tab 04/16/19 The following prescriptions were given: Ipratropium/Albuterol Sulfate [Duoneb] 3 ml INHALATION Q4H PRN PRN #30 ampul.neb PRN Reason: Shortness Of Breath Prescription Printed Guaifenesin [Mucinex] 1,200 mg PO BID #14 tab Prescription Printed Amlodipine [Norvasc] 10 mg PO DAILY #30 tab Prednisone 10 mg PO UD #30 tab Prescription Printed Primary Care Physician: NOT,DEFINED [NON-STAFF] - Please follow up with your Primary Care Physician in: IN 1-2 WEEK Test Results: Test results from this visit will be discussed in further detail at your follow- up appointment, if applicable. Please Follow Up With: Panda Walls, DO When: IN 2-3 WEEKS
--- NOTE | 2019-04-16 10:10 | PCM.DC.SUM ---
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 1. Acute exacerbation of COPD: ABG reviewed. 7. on 4 L of oxygen through nasal cannula. Calculated bicarbonate 37. Does not have previous ABG to compare. On DuoNeb, albuterol as needed, IV Solu-Medrol, Mucinex, incentive spirometry and chest physiotherapy. Patient is ambulatory in home and in the community and requires home oxygen with portability. Oxygen therapy to keep pulse ox 90%. ER physician ordered Levaquin continued by admitting hospitalist. Sputum culture, urinary antigens, MRSA nasal screen and respiratory panel ordered. Patient had remote history of smoking in teenage for total about 5 years. 04/15/2019: Sputum culture is pending. MRSA nasal screen negative. Urinary antigens for Legionella and Streptococcus are negative. Respiratory panel negative. On 04/16/2019: Patient urinary antigens are negative. Respiratory panel negative. Preliminary sputum culture shows normal respiratory irineo. Patient had about 3 days of Levaquin and does not need further. No objective evidence of infection or pneumonia. 2. Chronic right shoulder pain: On methadone [place] home medication continued. 3. Hypertension: Blood pressure was elevated at time of admission. Currently 149/67. On hydrochlorothiazide, amlodipine and triamterene. Amlodipine increased to 10 mg daily. 04/15/2019 blood pressure is stable. Overall blood pressure profile is better than yesterday 4. Anxiety depression: Stable. 5. DVT prophylaxis: On Lovenox. Discharge medication reconciliation done. Discharge follow-up instructions completed. Discharge process discussed with the patient and all questions were answered to patient's satisfaction. Prescription given for tapering dose of prednisone, Mucinex and amlodipine. Amlodipine dose increased to 10 mg daily. Follow with PCP. Follow-up with pulmonary clinic Dr. Walls in 2 to 3 weeks. Need PFT. Total time spent, exact 35 minutes on discharge meds reconciliation, examination, review of imaging and blood test and discussion with the patient on follow-up instructions. Microbiology Past 72 Hours 04/15/19 09:05 Sputum, Expectorated/Coughed Gram Stain - Final 04/15/19 09:05 Sputum, Expectorated/Coughed Respiratory Culture - Preliminary Appears to be normal respiratory irineo. Further studies to follow. 04/14/19 15:07 Mucosa - Nose Respiratory Panel (PCR) - Final 04/14/19 15:50 Urine, Clean Catch Legionella Antigen - Final 04/14/19 15:50 Urine, Clean Catch Streptococcus pneumoniae Antigen (M - Final Patient Problems: Active and Suspected Problems (Last Reviewed 04/14/19 @ 14:[address]) COPD exacerbation (Acute) Subjective: Seen and examined. Patient shortness of breath has resolved. No wheezing. Patient looks comfortable. - Physical Exam Vitals/I&O's: Vital Signs Temp Pulse Resp BP Pulse Ox 98.2 F 108 H 18 157/84 H 92 04/16/19 08:23 04/16/19 09:10 04/16/19 08:23 04/16/19 08:23 04/16/19 08:23 Oxygen Flow Rate (L/min) 2 Oxygen Delivery Method Nasal Cannula Weight: 202 lb 1 oz Body Mass Index (BMI) 28.1 Intake and Output for Last 24 Hours 04/14/19 04/15/19 04/16/19 23:59 23:59 23:59 Intake Total 1160 / 1760 1000 / 1000 Output Total 100 / 100 475 / 475 Balance 1060 / 1660 525 / 525 General: Alert, Oriented x3, Cooperative HEENT: Atraumatic, PERRLA, EOMI, Normocephalic Neck: Supple, No JVD, Negative Carotid Bruits Lungs: Clear to auscultation, No rhonchi, No wheeze, No rales, Diminished - Air entry is diminished but has improved. Cardiovascular: Regular rate, Regular Rhythm, Normal S1, Normal S2, No murmurs Abdomen: Bowel Sounds Present, Soft, Non Tender Extremities: No edema, Capillary Refill Less than 3 Seconds Skin: No rashes, No breakdown Musculoskeletal: No Tenderness to Palpation of Joints or Extremities, - - Congenital left upper extremity APLASIA Neurological: Cranial nerves II-XII grossly intact, Neuro grossly intact Psych/Mental Status: Normal Affect, Appropriate Microbiology Past 72 Hours 04/15/19 09:05 Sputum, Expectorated/Coughed Gram Stain - Final 04/14/19 15:07 Mucosa - Nose Respiratory Panel (PCR) - Final 04/14/19 15:50 Urine, Clean Catch Legionella Antigen - Final 04/14/19 15:50 Urine, Clean Catch Streptococcus pneumoniae Antigen (M - Final Current Medications Acetaminophen (Tylenol) 650 mg PO Q6H PRN PRN PRN Reason: Pain Score 1-3/Temp > 100.7 F Hydrocodone Bitart/Acetaminophen ([place] 5mg-325mg) 1 tablet PO Q8H PRN PRN PRN Reason: Pain Score 4-10/10 Last Admin: 04/16/19 08:27 Dose: 1 tablet Documented by: Albuterol Sulfate (Ventolin Aerosols) 2.5 mg INHALATION Q2H PRN PRN PRN Reason: Shortness of Breath/Wheezing Albuterol/Ipratropium (Duoneb) 3 ml INHALATION Q4HWA.RT COUNTS INCLUDE 234 BEDS AT [facility] Last Admin: 04/16/19 07:16 Dose: 3 ml Documented by: Amlodipine Besylate (Norvasc) 10 mg PO DAILY COUNTS INCLUDE 234 BEDS AT [facility] Last Admin: 04/15/19 09:16 Dose: 10 mg Documented by: Citalopram Hydrobromide (Celexa) 10 mg PO DAILY COUNTS INCLUDE 234 BEDS AT [facility] Last Admin: 04/15/19 09:16 Dose: 10 mg Documented by: Dextrose (D50w Syringe) 0 gm IV X1 PRN; Protocol PRN Reason: Hypoglycemia Enoxaparin Sodium (Lovenox) 40 mg SC DAILY@1000 COUNTS [facility]CLUDE 234 BEDS AT [facility] Last Admin: 04/15/19 09:16 Dose: 40 mg Documented by: Glucagon () 1 mg IM .X1 PRN PRN Reason: Hypoglycemia Guaifenesin (Mucinex) 1,200 mg PO BID COUNTS [facility]CLUDE 234 BEDS AT [facility] Last Admin: 04/15/19 21:47 Dose: 1,200 mg Documented by: Hydralazine HCl (Apresoline Iv) 10 mg IV Q4H PRN PRN PRN Reason: SBP > 180 Sodium Chloride () 250 mls @ 15 mls/hr IV .[id number] PRN PRN Reason: Saline Flush Levofloxacin (Levaquin Iv) 500 mg in 100 mls @ 100 mls/hr IV Q24H COUNTS INCLUDE 234 BEDS AT [facility] Stop: 04/18/19 22:59 Last Infusion: 04/15/19 22:46 Dose: Infused Documented by: Melatonin (Melatonin) 3 mg PO QHS PRN PRN PRN Reason: INSOMNIA Methadone HCl () 10 mg PO Q6H COUNTS INCLUDE 234 BEDS AT [facility] Last Admin: 04/16/19 05:26 Dose: 10 mg Documented by: Methylprednisolone (Solu-Medrol) 40 mg IV Q8 COUNTS INCLUDE 234 BEDS AT [facility] Last Admin: 04/16/19 05:23 Dose: 40 mg Documented by: Non-Formulary Medication (Fluticasone/Vilanterol) 1 ea IH DAILY COUNTS [facility]CLUDE 234 BEDS AT [facility] Ondansetron HCl (Zofran) 4 mg IV Q8H PRN PRN PRN Reason: NAUSEA/VOMITING Sodium Chloride () 10 - 40 ml IV UD PRN PRN Reason: SALINE FLUSH Last Admin: 04/16/19 05:23 Dose: 10 ml Documented by: Triamterene/HCTZ (Dyazide (G)) 1 cap PO DAILY [facility]S [facility]CLUDE 234 BEDS AT [facility] Last Admin: 04/15/19 09:16 Dose: 1 cap Documented by: Discharge Activity: May Not Drive Call your doctor if you observe: Fever of 101 or Higher, Coldness, Increased Pain, Inability to urinate, Inability to have a bowel movement, Shortness of breath, Dizziness, Fainting spells, Swelling in the ankles, Prolonged hiccoughing, Increased palpitations (irregular heartbeat), Uncontrolled pain Home Medications: Medications to take at Discharge Albuterol Inhaler [Ventolin Hfa] 2 puff INHALATION Q6H PRN PRN 04/14/19 Citalopram [Celexa] 10 mg PO DAILY 04/14/19 Fluticasone/Vilanterol [Breo Ellipta 100-25 Mcg INH] 1 ea IH DAILY 04/14/19 Hydrocodone/Acetaminophen [[place] 5-325 Tablet] 1 ea PO Q8 PRN 04/14/19 Methadone HCl 10 mg PO Q6H 04/14/19 Triamterene/Hctz 37.5/25Mg [Triamterene-Hctz 37.5-25 mg Tb] 1 tab PO DAILY 04/14/19 Amlodipine [Norvasc] 10 mg PO DAILY #30 tab 04/16/19 Guaifenesin [Mucinex] 1,200 mg PO BID #14 tab 04/16/19 Prednisone 10 mg PO UD #30 tab 04/16/19 Following Prescrptions Were Given to Patient: Guaifenesin [Mucinex] 1,200 mg PO BID #14 tab Prescription Printed Amlodipine [Norvasc] 10 mg PO DAILY #30 tab Prednisone 10 mg PO UD #30 tab Prescription Printed Primary Care Physician: NOT,DEFINED [NON-STAFF] - Please follow up with your Primary Care Physician in: IN 1-2 WEEK Please Follow Up With: Panda Walls, DO When: IN 2-3 WEEKS Medical Necessity - Tobacco Use Smoking Status: Current some day smoker Tobacco Use: - Meaningful Use Info Meaningful Use Diagnoses (Choose all that apply): None applicable Code Visit Inpatient E&M: 91433 Disch Hosp
[2019-04-16] MEDS: Triamterene 37.5MG/Hctz 25MG Capsule 1 CAP PO (11:19)
[2019-04-16] MEDS: guaiFENesin 1,200 MG Tablet 1200 MG PO (11:19)
[2019-04-16] MEDS: Citalopram 10 MG Tablet PO (11:19)
[2019-04-16] MEDS: amLODIPine 5 MG Tablet 10 MG PO (11:20)
--- NOTE | 2019-04-16 13:10 | NURSING ---
PULSE OX 88% ON ROOM AIR. ALREADY WEARS OXYGEN AT HOME, WILL HAVE O2 TANK IN TRUCK WHEN FAMILY ARRIVES.
--- NOTE | 2019-04-16 13:30 | NURSING ---
DOESN'T HAVE NEBULZIER AT HOME SO CHARLIE SCRIPT D/C'ED BY .
== END 2019-04-16 14:10 | disposition home or self-care (01) | DRG 190 ==
LOC: ED 04-14 01:43 → MS3 04-14 02:08
PROVIDERS: Admitting Provider Hospitalist; Emergency Provider Emergency Medicine; Visit Provider Internal Medicine
DX: J44.1 Chronic obstructive pulmonary disease with (acute) exacerbation (principal); Q33.6 Congenital hypoplasia and dysplasia of lung; I10 Essential (primary) hypertension; M25.511 Pain in right shoulder; G89.29 Other chronic pain; F32.9 Major depressive disorder, single episode, unspecified; F17.220 Nicotine dependence, chewing tobacco, uncomplicated; Z99.81 Dependence on supplemental oxygen; Z79.899 Other long term (current) drug therapy
CPT/HCPCS: 36600; 71046; 80048; 82803; 85025; 87070; 87205; 87449; 87633; 87641; 93005; 94640; 99283; 99406; J7050; A4216

== ENCOUNTER 2019-04-26 19:24 | Inpatient (IN) | payer MEDICARE, SELFPAY ==
[2019-04-14 02:37] VITALS: BMI 28.1
[2019-04-26] VITALS (11 sets, daily range): BP systolic 143–195; BP diastolic 76–88; PULSE 86–103; RESP 18–105; TEMP 36.4–37.2; O2SAT 90–98; BMI 29.0; BMI 27.8; BMI 27.9
--- NOTE | 2019-04-26 19:52 | EKG12_ITS ---
Test Reason : Blood Pressure : / mmHG Vent. Rate : 104 BPM Atrial Rate : 104 BPM P-R Int : 132 ms QRS Dur : 076 ms QT Int : 326 ms P-R-T Axes : 084 075 089 degrees QTc Int : 428 ms Sinus tachycardia Right atrial enlargement Borderline ECG Confirmed by GAMA MILLER, TAZ ([id number]), health editor YAZAN VILLALTA ([id number]) on 04/28/2019 12:39:18 PM Referred By: DC Confirmed By:JATINDER MALLOY MD
--- NOTE | 2019-04-26 19:55 | RAD_ITS ---
STUDY: X-RAY CHEST REASON FOR EXAM: Male, 54 years old. Shortness of breath TECHNIQUE: Frontal view of the chest COMPARISON: X-Ray Chest April 14, 2019 FINDINGS: Evaluation is limited due to rotation. Decreased left hemithorax volume is present. There is a right lower lung zone infiltrate. Left base atelectasis and/or infiltrate is present. The visualized left lung is clear. There is no significant pleural effusion. There is no pneumothorax. The heart is normal in size. The visualized osseous structures are within normal limits. RAD/Chest 1 View (Portable) IMPRESSION: Decreased left hemithorax volume. Right lower lung zone infiltrate. Left base atelectasis and/or infiltrate. Electronically Signed: Brian Buenrostro, at 20:18 EST Tel , Service support ,
[2019-04-26] MEDS: MethylPREDNISolone 125 MG/2 ML Vial IV (20:08)
[2019-04-26] MEDS: Ipratropium/Albuterol Sulfate 3 ML AMPUL.NEB INHALATION (20:21)
[2019-04-26 20:31] LABS: Absolute Lymphocyte Count 0.85 X10^3/uL (0.83-4.51); Absolute Neutrophil Count 18.5 X10^3/uL (2.0-7.7); Basophil# 0.08 X10^3/uL; Basophil% 0.4 % (0-1); Eosinophil# 0.06 X10^3/uL; Eosinophils% 0.3 % (0-5); Hematocrit 51.4 % (40-54); Hemoglobin 16.7 g/dL (13.0-16.5); Lymphocyte # 0.85 X10^3/ul (4.0); Lymphocyte % 4.1 % (19-41); Mean Corp Hgb Conc 32.5 g/dL (32-36); Mean Corpuscular Hgb 30.3 pg (27.0-32.0); Mean Corpuscular Volume 93.3 fL (80-94); Mean Platelet Vol. 10.7 fl (6.2-12.0); Monocyte# 1.01 X10^3/uL; Monocyte% 4.9 % (0-10); NRBC Flagged by Analyzer 0 % (0-5); Neutrophil # 18.54 X10^3/uL (2.7-7.7); Neutrophil % 89.8 % (47-70); POSITIVE MORPHOLOGY YES; Platelet Count 195 K/mm3 (150-450); RBC Distribution Width CV 13.7 % (11.6-14.6); Red Blood Count 5.51 M/mm3 (4.6-6.2); White Blood Count 20.7 K/mm3 (4.4-11.0)
[2019-04-26 20:32] LABS: Differential Indicated SCAN CRITERIA MET
[2019-04-26 20:51] LABS: Anion Gap 7 (5-15); BUN 12 mg/dL (7-18); BUN/Creat Ratio 13.7 RATIO (10-20); Calcium,Total 9.2 mg/dL (8.5-10.1); Chloride 91 mmol/L (98-107); Creatinine, Serum 0.88 mg/dL (0.70-1.30); EST Glomerular Filtration Rate 96 mL/min (>60); Est Glom Filt Rate - Afr Amer 117 mL/min (>60); Estimated Creatinine Clearance 99.08 ml/min; Glucose 250 mg/dL (74-106); Potassium 3.9 mmol/L (3.5-5.1); Sodium Level 130 mmol/L (136-145)
[2019-04-26 20:54] LABS: Differential Comment SCANNED
--- NOTE | 2019-04-26 21:40 | PCM.HP.STD ---
Problem List (1) Sepsis Status: Acute Qualifiers: Sepsis type: sepsis due to unspecified organism Sepsis acute organ dysfunction status: unspecified Qualified Code(s): A41.9 - Sepsis, unspecified organism (2) HCAP (healthcare-associated pneumonia) Status: Acute (3) COPD exacerbation Status: Acute (4) Acute and chronic respiratory failure with hypoxia Status: Acute (5) Hyperglycemia Status: Acute (6) Hyponatremia Status: Acute (7) HTN (hypertension) Status: Chronic Qualifiers: Hypertension type: essential hypertension Qualified Code(s): I10 - Essential (primary) hypertension (8) HLD (hyperlipidemia) Status: Chronic Qualifiers: Hyperlipidemia type: unspecified Qualified Code(s): E78.5 - Hyperlipidemia, unspecified (9) Anxiety and depression Status: Chronic (10) Chronic pain syndrome Status: Chronic (11) Congenital aplasia of lung Status: Chronic History of Present Illness Date of Admission: 04/26/19 Chief Complaint: Dyspnea, cough, chest pain, hypoxic at home The patient is a 54 y/o M w/ PMHx: Congential aplasia LUE, Hx Abnormal L side Lung congenital developement, Chronic COPD w/ Chronic Hypoxic Respiratory Failure (2L NC), HTN, HLD, Anxiety and Depression, Chronic Pain Syndrome who presents to the [facility] ED on 04/26/19 with history of progressively worsening dyspnea, productive cough (yellow-green), wheezing x 2-3 days with subjective fever and chills and concurrent right sided primarily pleuritic chest pain, worse with coughing and with deep breath attempts, 8/10 severity, sharp, admitted recently to the hospital 04/14/19-04/16/19 for COPD exacerbations, noted to have completed his abx and steroids at that time with initial improvement, but worsened recently prompting return to the ED. Work-up in the ED included T 97.9, heart rate 103, BP 171/84, respiratory rate 35, 98% on 4 L nasal cannula, CBC with WC 20.7, hemoglobin 16.7, platelet 195 with left shift, BMP with sodium 130, chloride 91, glucose 250, troponin less than 0.015, lactic acid 1.8, blood culture x2 obtained per ED, chest x-ray with decreased left hemithorax volume with right lower lung zone infiltrate as well as left base atelectasis and/or infiltrate. In the ED patient administered vancomycin, Zosyn, DuoNeb therapies as well as Solu-Medrol. Past Medical History Past Medical History (Chronic Problems): Chronic Problems (Last Reviewed 04/14/19 @ 14:[address]) HTN (hypertension) (Chronic) HLD (hyperlipidemia) (Chronic) Anxiety and depression (Chronic) Chronic pain syndrome (Chronic) Congenital aplasia of lung (Chronic) Medical History: Medical History (Last Reviewed 04/14/19 @ 14:[address]) COPD (chronic obstructive pulmonary disease) J44.9 Allergies aspirin Allergy (Verified 04/26/19 19:28) Unknown zolpidem [From Ambien] Allergy (Verified 04/26/19 19:28) Unknown Home Medications: Ambulatory Orders Medication Instructions Recorded Albuterol Inhaler [Ventolin Hfa] 2 puff INHALATION Q6H PRN PRN 04/14/19 Citalopram [Celexa] 10 mg PO DAILY 04/14/19 Fluticasone/Vilanterol [Breo 1 ea IH DAILY 04/14/19 Ellipta 100-25 Mcg INH] Hydrocodone/Acetaminophen [Ranger 1 ea PO Q8H PRN PRN 04/14/19 5-325 Tablet] Methadone HCl 10 mg PO Q6H 04/14/19 Triamterene/Hctz 37.5/25Mg 1 tab PO DAILY PRN PRN 04/14/19 [Triamterene-Hctz 37.5-25 mg Tb] Amlodipine [Norvasc] 10 mg PO DAILY #30 tab 04/16/19 Guaifenesin [Mucinex] 1,200 mg PO BID #14 tab 04/16/19 Prednisone 10 mg PO UD #30 tab 04/16/19 Dextromethorphan HBr [Robitussin] 15 - 30 mg PO Q6H PRN PRN 04/26/19 Phenylephrine HCl [Sudogest PE] 10 mg PO Q4H PRN PRN 04/26/19 Surgical History: - - Right shoulder surgery x2, appendectomy, hernia repair x6. Psychiatric History: Anxiety, Depression Lives: Spouse/ Significant Other Smoking Status: Former smoker - Patient quit cigarette and tobacco usage approximately 25 years prior to current presentation, prior to this smoked approximately 1 pack/week. Tobacco Use: Non-smoker Alcohol: None Drugs: None - *Family History Maternal History Items: Cancer, Diabetes, Heart Disease Paternal History Items: Cancer, Diabetes, Heart Disease Review of Systems Constitutional: Reports: Anorexia, Chills, Fever, Malaise, Weakness, Fatigue. Denies: Weight Change HEENT: Denies: Head Aches, Sinus Congestion, Sinus Drainage Cardiovascular: Reports: Chest Pain. Denies: Palpitations Respiratory: Reports: Cough, Pleuritic Pain, Shortness of Breath, Shortness of breath at rest, Shortness of breath upon exertion, Sputum production, Wheezing Gastrointestinal: Denies: Abdominal Pain, Nausea, Vomiting Genitourinary: Denies: Dysuria Musculoskeletal: Reports: Back Pain, Joint Pain. Denies: Joint Tenderness Skin: Denies: Rash, Wounds Neurological: Denies: Numbness, Tingling, Focal weakness Psychiatric: Reports: Anxiety, Depression. Denies: Homicidal Ideations, Suicidal Ideations Hematologic/ Lymphatic: Denies: Easy Bruising, Easy Bleeding VTE Information - Inpt Only VTE Present on Admission: No VTE Mechan Device Prophylaxis: SCD's VTE Pharm Prophylaxis ordered?: Yes Patient Problems: Active and Suspected Problems (Last Reviewed 04/14/19 @ 14:[address]) Sepsis (Acute) HCAP (healthcare-associated pneumonia) (Acute) Acute and chronic respiratory failure with hypoxia (Acute) Hyperglycemia (Acute) Hyponatremia (Acute) Subjective: Seated upright in ED bed, fatigued appearance, flushed, mildly diaphoretic, mild increased work of breathing with some accessory muscle usage. Objective: Physical Examination: General: awake, alert, oriented x 3 and cooperative, seated upright in the ED bed, fatigued and ill-appearing, mildly diaphoretic, mildly increased work of breathing with some accessory muscle usage. Skin: Washed color, turgor, no icterus, cyanosis. HEENT: AT/NC, EOMI, PERRLA, dry MM, no carotid bruits or JVD noted. Lungs: Diminished breath sounds throughout, greater bilateral bases, soft distant and expiratory wheeze, mild increased work of breathing and some accessory muscle usage, no rales or obvious rhonchi. Heart: Mildly tachycardic with regular rhythm; no gallop, rub audible. Abdomen: soft, NTTP, ND, normal BS, no HSM. Extremities: no cyanosis, clubbing, or edema, congenital left upper extremity and left chest aplasia. Neurological: patient awake, alert, oriented x 3; cognitive function intact; pupils equally reactive to light and accomodation; cranial nerves II-XII grossly normal, moving all right upper extremity and bilateral lower extremity, chronic left upper extremity and left side of chest aplasia, strength severely global decrease secondary to acute presentation. Psychiatric: affect appears fatigued, ill, no acute evidence of depressive or anxiety feelings. - Physical Exam Vitals/I&O's: Vital Signs Temp Pulse Resp BP Pulse Ox 98.0 F 94 23 H 156/88 H 93 04/26/19 21:27 04/26/19 21:27 04/26/19 21:27 04/26/19 21:27 04/26/19 21:27 Oxygen Flow Rate (L/min) 4 Oxygen Delivery Method Nasal Cannula Weight: 202 lb Body Mass Index (BMI) 29.0 Laboratory Results 04/26/19 19:45: WBC 20.7 H, RBC 5.51, Hgb 16.7 H, Hct 51.4, MCV 93.3, MCH 30.3, MCHC 32.5, RDW Std Deviation 47.0 H, RDW Coeff of [place] 13.7, Plt Count 195, MPV 10.7, Immature Gran % (Auto) 0.500, Neut % (Auto) 89.8 H, Lymph % (Auto) 4.1 L, Holt % (Auto) 4.9, Eos % (Auto) 0.3, Baso % (Auto) 0.4, Absolute Neuts (auto) 18.5 H, Absolute Lymphs (auto) 0.85, Nucleated RBC % 0, Differential Comment SCANNED 04/26/19 19:45: Sodium 130 L, Potassium 3.9, Chloride 91 L, Carbon Dioxide 32.0, Anion Gap 7, BUN 12, Creatinine 0.88, Estim Creat Clear Calc 99.08, Est GFR (MDRD) Af Amer 117, Est GFR (MDRD) Non-Af 96, BUN/Creatinine Ratio 13.7, Glucose 250 H, Calcium 9.2, Troponin I < 0.015 Current Medications Vancomycin HCl 1,250 mg/ (Dextrose) 275 mls @ 250 mls/hr IV X1 ONE Stop: 04/26/19 22:32 Piperacillin Sod/Tazobactam (Sod 4.5 gm/ Sodium Chloride) 100 mls @ 200 mls/hr IV X1 ONE Stop: 04/26/19 21:56 Assessment/Plan All Active Problems (Last Reviewed 04/14/19 @ 14:[address]) COPD exacerbation (Acute) Sepsis (Acute) HCAP (healthcare-associated pneumonia) (Acute) Acute and chronic respiratory failure with hypoxia (Acute) Hyperglycemia (Acute) Hyponatremia (Acute) The patient is a 54 y/o M w/ PMHx: Congential aplasia LUE, Hx Abnormal L side Lung congenital developement, Chronic COPD w/ Chronic Hypoxic Respiratory Failure (2L NC), HTN, HLD, Anxiety and Depression, Chronic Pain Syndrome who presents to the [facility] ED on 04/26/19 with history of progressively worsening dyspnea, productive cough, wheezing x 2-3 days with subjective fever and chills and concurrent right sided primarily pleuritic chest pain, worse with coughing and with deep breath attempts. 1. Acute Sepsis secondary to HCAP Pneumonia and concurrent Acute on Chronic COPD Exacerbation w/ Acute on Chronic Hypoxic Respiratory Failure: Patient with increased work of breathing, accessory muscle usage, increased oxygen use above baseline upon ED presentation. Will admit to the PCU, maintain on oxygen with wean as tolerated to home oxygen supplementation, continue ATC duonebs, PRN albuterol, maintain on IV solumedrol, maintained on IV Zosyn and Vancomycin, HOB, IS parameters w/ pending sputum cultures, respiratory viral panel and urine antigens. Bld cx x 2 obtained in the ED. 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 2. Chest Pain: Likely secondary to #1, more pleuritic in nature however given history will be cautious. EKG in ED with no acute evidence of ischemia, CXR w/ evidence of pneumonia as noted above in #1, initial trop x1. Will place on a monitored bed to assure no acute myocardial infarction with serial cardiac enzymes and EKGs. ASA, NG, morphine. 3. Hyperglycemia: Admission glucose 250, likely from recent steroid usage and stress response, hemoglobin A1c requested. 4. Hyponatremia, mild, hypovolemic: Admission sodium 130, suspected secondary to mild hypovolemia, continue IV fluids, repeat BMP in a.m. 5. Congential Aplasia L Side: Patient with aplasia of the LUE as well as history of abnormal L side Lung congenital developement, complicates #1. 6. Hypertension: Continue home regimen including Norvasc, hydrochlorthiazide, triamterene with hold parameters, PRN hydralazine. 7. Hyperlipidemia: Not on statin, defer to outpatient. 8. Anxiety and depression: We will continue patient home Celexa regimen. 9. Chronic pain syndrome: We will continue patient home methadone regimen. Encourage frequent position changes. 10. DVT prophylaxis: SCDs, Lovenox. 11. 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 He states he does not have a living will currently in place but this was discussed and encourage this to be set up. Discussed CODE status at length including difference between FULL code, DNR-CCA and DNR-CC status. Following discussions about the differences in these status, requested full CODE STATUS. Advanced Care Planning Face to Face Time: 16 minutes. Code Visit Inpatient E&M: 47133 Init Hosp L3 Procedures: 47936 Advncd Care Plan 30 Min
--- NOTE | 2019-04-26 22:41 | ED.DCSUM_ITS ---
- ER Visit Summary Date of Service: 04/26/19 Chief Complaint: Shortness of breath, chest pain, cough, low oxygen. History of Present Illness: The patient is a 54 M with a history of COPD and a recent admission for exacerbation. He presents today with increasing shortness of breath, cough, sputum, and today he is having chest pain which is new. Symptoms are worse with exertion. He denies any history of heart disease, PE, or aortic disease. Denies fevers. Patient is on home oxygen, 2 L. Physical Examination: Blood pressure 195/80 and heart rate 103. Afebrile. 97% on 2 L. Patient in no acute distress. Lungs show extra Tory wheeze diffusely. Heart regular. Lower extremities nontender with no edema. Skin normal in color. Test Results: EKG shows sinus rhythm at a rate of 104 with right atrial enlargement. No sign of acute ischemia or infarction pattern. White count 20.7, hemoglobin 16.7. Sodium 130, chloride 91, glucose 250. Troponin normal. Lactate pending. Cultures pending. Chest x-ray shows right lower lobe infiltrate. Emergency Department Course and Treatment: Patient was placed on a monitor. EKG was done, as above. He was treated with DuoNeb and Solu-Medrol. On reevaluation, he was feeling somewhat better. His white count he otherwise and a right lower lobe infiltrate. He was treated with Zosyn and vancomycin. Cultures are pending. Lactate is pending. Patient will need inpatient care. He was discussed with the hospitalist who will admit for further care. Treatment Plan: As above Disposition: Admission Impression: 1. Right lower lobe pneumonia This note was generated with [employer] dictation software. It may contain incorrect words, spelling, and punctuation that were not noted in review of the chart prior to signing ED Disposition - Plan for ED Patient: Referrals: [facility] Doctor,Out of [Primary Care Provider] -
[2019-04-26 22:50] LABS: Lactic Acid 1.8 mmol/L (0.4-2.0)
[2019-04-26 23:58] LABS: Magnesium 2.1 mg/dL (1.6-2.6)
[2019-04-27] VITALS (16 sets, daily range): BP systolic 124–165; BP diastolic 68–76; PULSE 69–97; RESP 16–24; TEMP 36.4–36.8; O2SAT 92–97
[2019-04-27 00:25] LABS: Hemoglobin A1c 6.9 % (4.2-6.3)
[2019-04-27] MEDS: 0.9% Normal Saline 1,000 ML 125 ML IV ×2 (00:30→09:57)
[2019-04-27 00:35] LABS: Bedside Glucose 250 mg/dL (70-110)
--- NOTE | 2019-04-27 00:42 | PCM.RX.CS ---
Consult Pharmacy has been consulted to manage selected antiobiotic: Vancomycin Type of Consult: New start Suspected Infection: Sepsis, Pneumonia Labs: Sodium 130 mmol/L (136-145) L 04/26/19 19:45 Potassium 3.9 mmol/L (3.5-5.1) 04/26/19 19:45 Chloride 91 mmol/L (98-107) L 04/26/19 19:45 Carbon Dioxide 32.0 mmol/L (21.0-32.0) 04/26/19 19:45 Anion Gap 7 (5-15) 04/26/19 19:45 BUN 12 mg/dL (7-18) 04/26/19 19:45 Creatinine 0.88 mg/dL (0.70-1.30) 04/26/19 19:45 Est GFR (MDRD) Af Amer 117 mL/min (>60) 04/26/19 19:45 Est GFR (MDRD) Non-Af 96 mL/min (>60) 04/26/19 19:45 BUN/Creatinine Ratio 13.7 RATIO (10-20) 04/26/19 19:45 Glucose 250 mg/dL (74-106) H 04/26/19 19:45 Weight used for dosin.1 kg Estimated Creatinine Clearance: 107.28 Goal Trough: 15-20 mcg/mL Pharmacy Plan for Drug Dosing: Pharmacy Service will continue to monitor and adjust dosing as required. Medications Vancomycin HCl (Vancomycin) 1,000 mg in 200 mls @ 200 mls/hr IV Q8H MICHELL Discontinued Medications Vancomycin HCl 1,250 mg/ (Sodium Chloride) 275 mls @ 250 mls/hr IV X1 ONE Stop: 04/26/19 22:50 Last Admin: 04/26/19 22:54 Dose: 250 mls/hr Documented by: Follow-Up Labs: Trough Vancomycin Labs to be done on [date and time ordered]: 04/27 @ [id number]
[2019-04-27] MEDS: guaiFENesin 10 ML UDC (200MG/10ML) 20 ML PO ×2 (00:48→05:41)
[2019-04-27] MEDS: HYDROcodone Bitartrate/Apap 5/325 Tablet PO ×3 (00:48→23:34)
[2019-04-27] MEDS: Insulin Lispro 100 UNIT/ML INSULN.PEN SC ×5 (00:49→21:46)
[2019-04-27] MEDS: Methadone 10 MG Tablet PO ×5 (00:49→23:34)
[2019-04-27 04:12] LABS: Absolute Lymphocyte Count 0.86 X10^3/uL (0.83-4.51); Absolute Neutrophil Count 14.9 X10^3/uL (2.0-7.7); Basophil% 0.6 % (0-1); Eosinophil# 0.06 X10^3/uL; Eosinophils% 0.4 % (0-5); Hematocrit 47.5 % (40-54); Hemoglobin 15.5 g/dL (13.0-16.5); Lymphocyte # 0.86 X10^3/ul (4.0); Lymphocyte % 5.3 % (19-41); Mean Corp Hgb Conc 32.6 g/dL (32-36); Mean Corpuscular Hgb 30.2 pg (27.0-32.0); Mean Corpuscular Volume 92.6 fL (80-94); Mean Platelet Vol. 9.9 fl (6.2-12.0); Monocyte# 0.35 X10^3/uL; Monocyte% 2.1 % (0-10); NRBC Flagged by Analyzer 0 % (0-5); Neutrophil # 14.86 X10^3/uL (2.7-7.7); POSITIVE MORPHOLOGY YES; Platelet Count 149 K/mm3 (150-450); RBC Distribution Width CV 13.7 % (11.6-14.6); RBC Distribution Width SD 46.7 fl (35.1-43.9); Red Blood Count 5.13 M/mm3 (4.6-6.2); White Blood Count 16.3 K/mm3 (4.4-11.0)
[2019-04-27 04:16] LABS: Differential Indicated SCAN CRITERIA MET
[2019-04-27 04:49] LABS: Anion Gap 9 (5-15); BUN 12 mg/dL (7-18); Calcium,Total 8.5 mg/dL (8.5-10.1); Chloride 98 mmol/L (98-107); Cholesterol 146 mg/dL (200); Creatinine, Serum 0.67 mg/dL (0.70-1.30); EST Glomerular Filtration Rate 132 mL/min (>60); Est Glom Filt Rate - Afr Amer 160 mL/min (>60); Estimated Creatinine Clearance 130.14 ml/min; Glucose 240 mg/dL (74-106); High Density Lipoprotein 40 mg/dL; Sodium Level 135 mmol/L (136-145); Triglycerides 110 mg/dL; Very Low Density Lipoprotein 22 mg/dL (5-40)
--- NOTE | 2019-04-27 05:55 | EKG12_ITS ---
Test Reason : CP ADMIT Blood Pressure : / mmHG Vent. Rate : 089 BPM Atrial Rate : 089 BPM P-R Int : 144 ms QRS Dur : 084 ms QT Int : 382 ms P-R-T Axes : 083 073 078 degrees QTc Int : 464 ms Normal sinus rhythm Right atrial enlargement Cannot rule out Anterior infarct , age undetermined Abnormal ECG When compared with ECG of 14-APR-2019 00:07, No significant change was found Confirmed by RADHA MILLER, ADRIENNE ([id number]), news assignment editor YAZAN VILLALTA ([id number]) on 05/01/2019 10:02:26 AM Referred By: OSMANY Confirmed By:ADRIENNE GARCIA MD
[2019-04-27] MEDS: Ipratropium/Albuterol Sulfate 3 ML AMPUL.NEB INHALATION ×4 (06:52→20:37)
--- NOTE | 2019-04-27 06:56 | PCM.CONS.PUL ---
Reason for Consult Date of Consultation: 04/27/19 Reason for Consultation: HCAP, COPD exacerbation, recurrent admission History of Present Illness: The patient is a 54-year-old male, with a history as outlined below, who presented to the emergency department on April 26 with complaints of shortness of breath, hypoxemia and chest pain. 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 The patient reports that he is currently prescribed Breo and as needed albuterol in his home environment. He states that he was previously a social smoker, but quit smoking completely 25 years ago. He did grow up in a smoking household, nonetheless. Over the last few days, the patient has been utilizing his rescue inhaler with increasing frequency. He does report the presence of shortness of breath, chest tightness, wheezing and a productive cough. 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 The patient was just recently admitted to the hospital April 14-, during which time, he was treated for a COPD exacerbation. It appears that the patient was treated for approximately 3 days with Levaquin, which was then discontinued after infectious work-up was unrevealing. The patient was discharged home on Breo, Ventolin and prednisone. Although pulmonary medicine was not consulted to see the patient at that time, he was instructed to follow-up in the pulmonary medicine clinic within 2 weeks of his discharge. The patient reports that he attempted to contact his prior pulmonary provider to schedule a follow-up office visit, at which time, he was notified that the provider had retired. On presentation to the emergency department, the patient was noted to be afebrile and hypertensive with a blood pressure documented to be 195/80 mmHg. Initial laboratory evaluation revealed an elevated white blood cell count to 21,000. Chemistry profile was notable for a sodium of 130 and chloride of 91. Lactate was within normal limits. Troponin was negative. Initial chest x-ray was rotated in nature and revealed a right lower lobe infiltrate. The patient was subsequently started on bronchodilators, steroids and antibiotics. He was admitted to the progressive care unit for further management. Past Medical History Past Medical History (Chronic Problems): Chronic Problems (Last Reviewed 04/14/19 @ 14:[address]) HTN (hypertension) (Chronic) HLD (hyperlipidemia) (Chronic) Anxiety and depression (Chronic) Chronic pain syndrome (Chronic) Congenital aplasia of lung (Chronic) Medical History: Medical History (Last Reviewed 04/14/19 @ 14:[address]) COPD (chronic obstructive pulmonary disease) J44.9 Allergies aspirin Allergy (Verified 04/26/19 19:28) Unknown zolpidem [From Ambien] Allergy (Verified 04/26/19 19:28) Unknown Home Medications: Ambulatory Orders Medication Instructions Recorded Albuterol Inhaler [Ventolin Hfa] 2 puff INHALATION Q6H PRN PRN 04/14/19 Citalopram [Celexa] 10 mg PO DAILY 04/14/19 Fluticasone/Vilanterol [Breo 1 ea IH DAILY 04/14/19 Ellipta 100-25 Mcg INH] Hydrocodone/Acetaminophen [Sunset 1 ea PO Q8H PRN PRN 04/14/19 5-325 Tablet] Methadone HCl 10 mg PO Q6H 04/14/19 Triamterene/Hctz 37.5/25Mg 1 tab PO DAILY PRN PRN 04/14/19 [Triamterene-Hctz 37.5-25 mg Tb] Amlodipine [Norvasc] 10 mg PO DAILY #30 tab 04/16/19 Guaifenesin [Mucinex] 1,200 mg PO BID #14 tab 04/16/19 Prednisone 10 mg PO UD #30 tab 04/16/19 Dextromethorphan HBr [Robitussin] 15 - 30 mg PO Q6H PRN PRN 04/26/19 Phenylephrine HCl [Sudogest PE] 10 mg PO Q4H PRN PRN 04/26/19 Surgical History: - - Right shoulder surgery x2, appendectomy, hernia repair x6. Psychiatric History: Anxiety, Depression Lives: Spouse/ Significant Other Smoking Status: Former smoker Tobacco Use: Non-smoker Alcohol: None Drugs: None - *Family History Maternal History Items: Cancer, Diabetes, Heart Disease Paternal History Items: Cancer, Diabetes, Heart Disease Review of Systems Constitutional: Denies: Chills, Fever Eyes: Denies: Blurred vision, Double vision HEENT: Denies: Head Aches, Sinus Congestion, Sinus Drainage Cardiovascular: Reports: Chest Tightness Respiratory: Reports: Cough, Shortness of Breath, Sputum production, Wheezing Gastrointestinal: Denies: Abdominal Pain, Nausea, Vomiting Genitourinary: Denies: Dysuria Musculoskeletal: Reports: Shoulder Pain Skin: Denies: Rash, Wounds Neurological: Denies: Numbness, Tingling, Focal weakness Psychiatric: Denies: Anxiety, Depression, Homicidal Ideations, Suicidal Ideations Hematologic/ Lymphatic: Denies: Easy Bruising, Easy Bleeding Patient Problems: Active and Suspected Problems (Last Reviewed 04/14/19 @ 14:[address]) Sepsis (Acute) HCAP (healthcare-associated pneumonia) (Acute) Acute and chronic respiratory failure with hypoxia (Acute) Hyperglycemia (Acute) Hyponatremia (Acute) Objective: The patient's most recent lab work, culture data and imaging studies have all been personally reviewed. Strep and urine Legionella antigens were both negative. Respiratory viral panel, sputum culture and blood cultures are pending. - Physical Exam Vitals/I&O's: Vital Signs Temp Pulse Resp BP Pulse Ox 97.5 F L 73 20 H 124/74 H 97 04/27/19 05:22 04/27/19 05:22 04/27/19 05:22 04/27/19 05:22 04/27/19 05:22 Oxygen Flow Rate (L/min) 4 Oxygen Delivery Method Nasal Cannula Weight: 194 lb 3.636 oz Body Mass Index (BMI) 27.8 Intake and Output for Last 24 Hours 04/25/19 04/26/19 04/27/19 23:59 23:59 23:59 Intake Total 300 / 300 375 / 375 Output Total 400 / 400 400 / 400 Balance -100 / -100 -25 / -25 General: Alert, Cooperative, No apparent distress HEENT: Atraumatic, PERRLA, Normocephalic Oral: No Gingival or Mucosal Lesions/ Ulcerations Neck: Supple, No Nodes, Trachea Midline Lungs: Diminished, - - Bilateral expiratory wheezes noted. No conversational dyspnea or accessory muscle use. Cardiovascular: Regular rate, Regular Rhythm, Normal S1, Normal S2 Abdomen: Bowel Sounds Present, Soft, Non Tender Extremities: No clubbing, No cyanosis, No edema, - - Left upper extremity congenital aplasia Skin: No breakdown Musculoskeletal: - - Exaggerated kyphoscoliosis Lymphatic: No Cervical, Supraclavicular, or Inguinal Adenopathy Neurological: Cranial nerves II-XII grossly intact, Neuro grossly intact Psych/Mental Status: Normal Affect, Appropriate Labs (Last 48 Hours) 04/26/19 04/26/19 04/26/19 19:45 19:45 19:45 WBC 20.7 H RBC 5.51 Hgb 16.7 H Hct 51.4 MCV 93.3 MCH 30.3 MCHC 32.5 RDW Std Deviation 47.0 H RDW Coeff of [place] 13.7 Plt Count 195 MPV 10.7 Immature Gran % (Auto) 0.500 Neut % (Auto) 89.8 H Lymph % (Auto) 4.1 L [place] % (Auto) 4.9 Eos % (Auto) 0.3 Baso % (Auto) 0.4 Absolute Neuts (auto) 18.5 H Absolute Lymphs (auto) 0.85 Nucleated RBC % 0 Differential Comment SCANNED Sodium 130 L Potassium 3.9 Chloride 91 L Carbon Dioxide 32.0 Anion Gap 7 BUN 12 Creatinine 0.88 Estim Creat Clear Calc 99.08 Est GFR (MDRD) Af Amer 117 Est GFR (MDRD) Non-Af 96 BUN/Creatinine Ratio 13.7 Glucose 250 H Hemoglobin A1c Lactic Acid Calcium 9.2 Magnesium 2.1 Troponin I < 0.015 Triglycerides Cholesterol LDL Cholesterol VLDL Cholesterol HDL Cholesterol POC Glucose 04/26/19 04/26/19 04/27/19 19:45 21:55 00:28 WBC RBC Hgb Hct MCV MCH MCHC RDW Std Deviation RDW Coeff of [place] Plt Count MPV Immature Gran % (Auto) Neut % (Auto) Lymph % (Auto) [place] % (Auto) Eos % (Auto) Baso % (Auto) Absolute Neuts (auto) Absolute Lymphs (auto) Nucleated RBC % Differential Comment Sodium Potassium Chloride Carbon Dioxide Anion Gap BUN Creatinine Estim Creat Clear Calc Est GFR (MDRD) Af Amer Est GFR (MDRD) Non-Af BUN/Creatinine Ratio Glucose Hemoglobin A1c 6.9 H Lactic Acid 1.8 Calcium Magnesium Troponin I Triglycerides Cholesterol LDL Cholesterol VLDL Cholesterol HDL Cholesterol POC Glucose 250 H 04/27/19 04/27/19 04/27/19 03:52 03:52 03:52 WBC 16.3 H RBC 5.13 Hgb 15.5 Hct 47.5 MCV 92.6 MCH 30.2 MCHC 32.6 RDW Std Deviation 46.7 H RDW Coeff of [place] 13.7 Plt Count 149 L MPV 9.9 Immature Gran % (Auto) 0.600 Neut % (Auto) 91.0 H Lymph % (Auto) 5.3 L [place] % (Auto) 2.1 Eos % (Auto) 0.4 Baso % (Auto) 0.6 Absolute Neuts (auto) 14.9 H Absolute Lymphs (auto) 0.86 Nucleated RBC % 0 Differential Comment Sodium 135 L Potassium 4.0 Chloride 98 Carbon Dioxide 28.0 Anion Gap 9 BUN 12 Creatinine 0.67 L Estim Creat Clear Calc 130.14 Est GFR (MDRD) Af Amer 160 Est GFR (MDRD) Non-Af 132 BUN/Creatinine Ratio 18.0 Glucose 240 H Hemoglobin A1c Lactic Acid Calcium 8.5 Magnesium Troponin I < 0.015 Triglycerides 110 Cholesterol 146 LDL Cholesterol 84 VLDL Cholesterol 22 HDL Cholesterol 40 POC Glucose 04/27/19 06:10 WBC RBC Hgb Hct MCV MCH MCHC RDW Std Deviation RDW Coeff of [place] Plt Count MPV Immature Gran % (Auto) Neut % (Auto) Lymph % (Auto) [place] % (Auto) Eos % (Auto) Baso % (Auto) Absolute Neuts (auto) Absolute Lymphs (auto) Nucleated RBC % Differential Comment Sodium Potassium Chloride Carbon Dioxide Anion Gap BUN Creatinine Estim Creat Clear Calc Est GFR (MDRD) Af Amer Est GFR (MDRD) Non-Af BUN/Creatinine Ratio Glucose Hemoglobin A1c Lactic Acid Calcium Magnesium Troponin I Pending Triglycerides Cholesterol LDL Cholesterol VLDL Cholesterol HDL Cholesterol POC Glucose Microbiology 04/27/19 01:05 Urine, Clean Catch Streptococcus pneumoniae Antigen (M - Final 04/27/19 01:05 Urine, Clean Catch Legionella Antigen - Final Clinical Impression(s) from Imaging Studies Chest X-Ray 04/26/19 19:55 IMPRESSION: Decreased left hemithorax volume. Right lower lung zone infiltrate. Left base atelectasis and/or infiltrate. Electronically Signed: Brian Buenrostro, at 20:18 EST Tel , Service support , Current Medications Acetaminophen (Tylenol) 650 mg PO Q6H PRN PRN PRN Reason: Non-cardiac pain (mod-severe) Hydrocodone Bitart/Acetaminophen (Sunset 5mg-325mg) 1 tablet PO Q8H PRN PRN PRN Reason: Pain Score 1-10/10 Last Admin: 04/27/19 00:48 Dose: 1 tablet Documented by: Al Hydroxide/Mg Hydroxide (Mylanta Ii) 15 - 30 ml PO Q4H PRN PRN PRN Reason: INDIGESTION Albuterol Sulfate (Ventolin Aerosols) 2.5 mg INHALATION Q2H PRN PRN PRN Reason: dyspnea, wheezing Albuterol/Ipratropium (Duoneb) 3 ml INHALATION Q4HWA.RT [facility] Last Admin: 04/27/19 06:52 Dose: 3 ml Documented by: Amlodipine Besylate (Norvasc) 10 mg PO DAILY [facility] Citalopram Hydrobromide (Celexa) 10 mg PO DAILY [facility] Dextrose (D50w Syringe) 0 gm IV X1 PRN; Protocol PRN Reason: Hypoglycemia Enoxaparin Sodium (Lovenox) 40 mg SC DAILY@1000 MICHELL Glucagon () 1 mg IM .X1 PRN PRN Reason: Hypoglycemia Guaifenesin (Robitussin) 20 ml PO Q4H PRN PRN PRN Reason: COUGH Last Admin: 04/27/19 05:41 Dose: 20 ml Documented by: Hydralazine HCl (Apresoline Iv) 10 mg IV Q4H PRN PRN PRN Reason: SBP > 160 Sodium Chloride () 250 mls @ 15 mls/hr IV .[id number] PRN PRN Reason: Saline Flush Sodium Chloride () 1,000 mls @ 125 mls/hr IV .Q8H [facility] Last Admin: 04/27/19 00:30 Dose: 125 mls/hr Documented by: Vancomycin IV Pharmacy to Dose (1 ea/ Sodium Chloride) 500 mls @ 250 mls/hr IV X1 PRN; Protocol PRN Reason: Rx to Dose Piperacillin Sod/Tazobactam (Sod 3.375 gm/ Sodium Chloride) 50 mls @ 12.5 mls/hr IV Q8 [facility] Stop: 05/04/19 06:01 Last Admin: 04/27/19 05:29 Dose: 12.5 mls/hr Documented by: Vancomycin HCl (Vancomycin) 1,000 mg in 200 mls @ 200 mls/hr IV Q8H [facility] Insulin Human Lispro (Humalog Harpreetikpen (Bkc)) 0 unit SC ACHS [facility]; Protocol Last Admin: 04/27/19 00:49 Dose: 3 units Documented by: Magnesium Hydroxide (Milk Of Magnesia) 30 ml PO DAILY PRN PRN Reason: Constipation Melatonin (Melatonin) 3 mg PO QHS PRN PRN PRN Reason: INSOMNIA Methadone HCl () 10 mg PO Q6 [facility] Last Admin: 04/27/19 05:41 Dose: 10 mg Documented by: Methylprednisolone (Solu-Medrol) 40 mg IV Q8 [facility] Last Admin: 04/27/19 05:29 Dose: 40 mg Documented by: Morphine Sulfate () 2 - 4 mg IV Q4H PRN PRN PRN Reason: Pain Score 1-10/10 Morphine Sulfate () 2 - 4 mg IV Q4H PRN PRN PRN Reason: Pain Score 1-10/10 Nitroglycerin (Nitrostat) 0.4 mg SUBLINGUAL Q5M PRN PRN Reason: CARDIAC/CHEST PAIN Ondansetron HCl (Zofran) 4 mg IV Q8H PRN PRN PRN Reason: NAUSEA/VOMITING Sodium Chloride () 10 - 40 ml IV UD PRN PRN Reason: SALINE FLUSH Throat Lozenges (Cepacol Sore Throat Lozenge) 1 lozenge MUCOUS MEM Q2H PRN PRN PRN Reason: Sore Throat/Cough Triamterene/HCTZ (Dyazide (G)) 1 cap PO DAILY PRN PRN PRN Reason: Swelling Assessment/Plan All Active Problems (Last Reviewed 04/14/19 @ 14:[address]) COPD exacerbation (Acute) Sepsis (Acute) HCAP (healthcare-associated pneumonia) (Acute) Acute and chronic respiratory failure with hypoxia (Acute) Hyperglycemia (Acute) Hyponatremia (Acute) RECOMMENDATIONS: 1. Continue empiric antimicrobials, pending infectious work-up. 2. Continue bronchodilators and IV steroids. 3. Wean supplemental oxygen as tolerated. 4. Continue nocturnal trilogy use, per home regimen. 5. Encourage incentive spirometer use and mobilize patient as tolerated. 6. Discontinue supplemental IV fluids. 7. Outpatient pulmonary follow-up within 2 weeks of discharge is recommended. IMPRESSIONS: 1. Acute on chronic combined respiratory failure due to COPD with exacerbation secondary to HCAP The patient has a baseline 2 L/min supplemental oxygen requirement and is a chronic CO2 retainer. The patient was previously being followed by a pulmonary provider in [facility], who has since retired. He currently utilizes a trilogy noninvasive ventilator on a nightly basis. The patient's presenting plain film chest x-ray did reveal evidence of a right lower lobe infiltrate. Therefore, I agree with continuing empiric antimicrobials. Continue bronchodilators and steroids as ordered as well. Respiratory viral panel is pending. Wean supplemental oxygen as tolerated. Encourage incentive spirometer use while in bed. 2. Hypovolemic hyponatremia Resolved with supplemental IV fluids. Given that the patient is tolerating p.o. intake, recommend discontinuation of supplemental IV fluids. 3. Congenital aplasia of left upper extremity/hypertension/hyperlipidemia/anxiety/depression/chronic pain syndrome Complicates care, management, recovery and prognosis. Continue home medications as indicated. This note was generated with [employer] dictation software. It may contain incorrect words, spelling, and punctuation that were not noted in checking the note before signing. Code Visit Inpatient E&M: 85475 Init Hosp L3
--- NOTE | 2019-04-27 07:59 | NURSING ---
Vancomycin not given at this time due to incompatibility of antibiotics and pt. only has 1 IV site. Will pass on to day shift. 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 Primary RN, Philipp Beam aware.
[2019-04-27] MEDS: Vancomycin IV 1,000 MG/200 ML BAG 200 MG IV ×3 (08:15→23:29)
[2019-04-27 09:30] LABS: Bedside Glucose 343 mg/dL (70-110)
[2019-04-27] MEDS: amLODIPine 10 MG Tablet PO (09:34)
[2019-04-27] MEDS: Enoxaparin 40 MG/0.4 ML Syringe SC (09:34)
[2019-04-27] MEDS: Citalopram 10 MG Tablet PO (09:34)
--- NOTE | 2019-04-27 11:07 | PN_ITS ---
<Nadia Cardona - Last Filed: 04/27/19 11:30> Patient Problems: Active and Suspected Problems (Last Reviewed 04/14/19 @ 14:[address]) Sepsis (Acute) HCAP (healthcare-associated pneumonia) (Acute) Acute and chronic respiratory failure with hypoxia (Acute) Hyperglycemia (Acute) Hyponatremia (Acute) Subjective: Patient seen and examined. Feels his breathing is improved. Intermittent productive cough. Denies fever, chills. - Physical Exam Vitals/I&O's: Vital Signs Temp Pulse Resp BP Pulse Ox 97.5 F L 78 16 124/74 H 92 04/27/19 05:22 04/27/19 07:04 04/27/19 06:52 04/27/19 05:22 04/27/19 06:52 Oxygen Flow Rate (L/min) 4 Oxygen Delivery Method Nasal Cannula Weight: 194 lb 3.636 oz Body Mass Index (BMI) 27.8 Intake and Output for Last 24 Hours 04/25/19 04/26/19 04/27/19 23:59 23:59 23:59 Intake Total 300 / 300 1604.17 / 1604.17 Output Total 400 / 400 400 / 400 Balance -100 / -100 1204.17 / 1204.17 General: Alert, Oriented x3, Cooperative HEENT: Atraumatic, PERRLA, EOMI, Normocephalic Neck: Supple, No JVD, Negative Carotid Bruits Lungs: Diminished, Wheezes Cardiovascular: Regular rate, Regular Rhythm, Normal S1, Normal S2, No murmurs Abdomen: Bowel Sounds Present, Soft, Non Tender, Non-Distended Extremities: No clubbing, No cyanosis, No edema, Capillary Refill Less than 3 Seconds, - - Left chest aplasia. Skin: No rashes, No breakdown Musculoskeletal: No Tenderness to Palpation of Joints or Extremities Neurological: Cranial nerves II-XII grossly intact, Neuro grossly intact Psych/Mental Status: Normal Affect, Appropriate Microbiology Past 72 Hours 04/27/19 01:05 Urine, Clean Catch Streptococcus pneumoniae Antigen (M - Final 04/27/19 01:05 Urine, Clean Catch Legionella Antigen - Final Laboratory Results 04/26/19 19:45: WBC 20.7 H, RBC 5.51, Hgb 16.7 H, Hct 51.4, MCV 93.3, MCH 30.3, MCHC 32.5, RDW Std Deviation 47.0 H, RDW Coeff of [place] 13.7, Plt Count 195, MPV 10.7, Immature Gran % (Auto) 0.500, Neut % (Auto) 89.8 H, Lymph % (Auto) 4.1 L, [place] % (Auto) 4.9, Eos % (Auto) 0.3, Baso % (Auto) 0.4, Absolute Neuts (auto) 18.5 H, Absolute Lymphs (auto) 0.85, Nucleated RBC % 0, Differential Comment SCANNED 04/26/19 19:45: Sodium 130 L, Potassium 3.9, Chloride 91 L, Carbon Dioxide 32.0, Anion Gap 7, BUN 12, Creatinine 0.88, Estim Creat Clear Calc 99.08, Est GFR (MDRD) Af Amer 117, Est GFR (MDRD) Non-Af 96, BUN/Creatinine Ratio 13.7, Glucose 250 H, Calcium 9.2, Troponin I < 0.015 04/26/19 19:45: Magnesium 2.1 04/26/19 19:45: Hemoglobin A1c 6.9 H 04/26/19 21:55: Lactic Acid 1.8 04/27/19 00:28: POC Glucose 250 H 04/27/19 03:52: WBC 16.3 H, RBC 5.13, Hgb 15.5, Hct 47.5, MCV 92.6, MCH 30.2, MCHC 32.6, RDW Std Deviation 46.7 H, RDW Coeff of [place] 13.7, Plt Count 149 L, MPV 9.9, Immature Gran % (Auto) 0.600, Neut % (Auto) 91.0 H, Lymph % (Auto) 5.3 L, [place] % (Auto) 2.1, Eos % (Auto) 0.4, Baso % (Auto) 0.6, Absolute Neuts (auto) 14.9 H, Absolute Lymphs (auto) 0.86, Nucleated RBC % 0 04/27/19 03:52: Sodium 135 L, Potassium 4.0, Chloride 98, Carbon Dioxide 28.0, Anion Gap 9, BUN 12, Creatinine 0.67 L, Estim Creat Clear Calc 130.14, Est GFR (MDRD) Af Amer 160, Est GFR (MDRD) Non-Af 132, BUN/Creatinine Ratio 18.0, Glucose 240 H, Calcium 8.5, Triglycerides 110, Cholesterol 146, LDL Cholesterol 84, VLDL Cholesterol 22, HDL Cholesterol 40 04/27/19 03:52: Troponin I < 0.015 04/27/19 06:10: Troponin I < 0.015 04/27/19 09:17: Troponin I < 0.015 04/27/19 09:26: POC Glucose 343 H Current Medications Acetaminophen (Tylenol) 650 mg PO Q6H PRN PRN PRN Reason: Non-cardiac pain (mod-severe) Hydrocodone Bitart/Acetaminophen (Spencer 5mg-325mg) 1 tablet PO Q8H PRN PRN PRN Reason: Pain Score 1-10/10 Last Admin: 04/27/19 00:48 Dose: 1 tablet Documented by: Al Hydroxide/Mg Hydroxide (Mylanta Ii) 15 - 30 ml PO Q4H PRN PRN PRN Reason: INDIGESTION Albuterol Sulfate (Ventolin Aerosols) 2.5 mg INHALATION Q2H PRN PRN PRN Reason: dyspnea, wheezing Albuterol/Ipratropium (Duoneb) 3 ml INHALATION Q4HWA.RT [facility] Last Admin: 04/27/19 11:00 Dose: 3 ml Documented by: Amlodipine Besylate (Norvasc) 10 mg PO DAILY [facility] Last Admin: 04/27/19 09:34 Dose: 10 mg Documented by: Citalopram Hydrobromide (Celexa) 10 mg PO DAILY [facility] Last Admin: 04/27/19 09:34 Dose: 10 mg Documented by: Dextrose (D50w Syringe) 0 gm IV X1 PRN; Protocol PRN Reason: Hypoglycemia Enoxaparin Sodium (Lovenox) 40 mg SC DAILY@1000 [facility] Last Admin: 04/27/19 09:34 Dose: 40 mg Documented by: Glucagon () 1 mg IM .X1 PRN PRN Reason: Hypoglycemia Guaifenesin (Robitussin) 20 ml PO Q4H PRN PRN PRN Reason: COUGH Last Admin: 04/27/19 05:41 Dose: 20 ml Documented by: Hydralazine HCl (Apresoline Iv) 10 mg IV Q4H PRN PRN PRN Reason: SBP > 160 Sodium Chloride () 250 mls @ 15 mls/hr IV .[id number] PRN PRN Reason: Saline Flush Vancomycin IV Pharmacy to Dose (1 ea/ Sodium Chloride) 500 mls @ 250 mls/hr IV X1 PRN; Protocol PRN Reason: Rx to Dose Piperacillin Sod/Tazobactam (Sod 3.375 gm/ Sodium Chloride) 50 mls @ 12.5 mls/hr IV Q8 [facility] Stop: 05/04/19 06:01 Last Infusion: 04/27/19 09:29 Dose: Infused Documented by: Vancomycin HCl (Vancomycin) 1,000 mg in 200 mls @ 200 mls/hr IV Q8H [facility] Last Infusion: 04/27/19 09:53 Dose: Infused Documented by: Insulin Human Lispro (Humalog Kwikpen (Bkc)) 0 unit SC ACHS [facility]; Protocol Last Admin: 04/27/19 09:35 Dose: 5 units Documented by: Magnesium Hydroxide (Milk Of Magnesia) 30 ml PO DAILY PRN PRN Reason: Constipation Melatonin (Melatonin) 3 mg PO QHS PRN PRN PRN Reason: INSOMNIA Methadone HCl () 10 mg PO Q6 [facility] Last Admin: 04/27/19 05:41 Dose: 10 mg Documented by: Methylprednisolone (Solu-Medrol) 40 mg IV Q8 [facility] Last Admin: 04/27/19 05:29 Dose: 40 mg Documented by: Nitroglycerin (Nitrostat) 0.4 mg SUBLINGUAL Q5M PRN PRN Reason: CARDIAC/CHEST PAIN Ondansetron HCl (Zofran) 4 mg IV Q8H PRN PRN PRN Reason: NAUSEA/VOMITING Sodium Chloride () 10 - 40 ml IV UD PRN PRN Reason: SALINE FLUSH Throat Lozenges (Cepacol Sore Throat Lozenge) 1 lozenge MUCOUS MEM Q2H PRN PRN PRN Reason: Sore Throat/Cough Triamterene/HCTZ (Dyazide (G)) 1 cap PO DAILY PRN PRN PRN Reason: Swelling Medical Necessity - Tobacco Use Smoking Status: Former smoker Tobacco Use: Non-smoker Assessment/Plan All Active Problems (Last Reviewed 04/14/19 @ 14:[address]) COPD exacerbation (Acute) Sepsis (Acute) HCAP (healthcare-associated pneumonia) (Acute) Acute and chronic respiratory failure with hypoxia (Acute) Hyperglycemia (Acute) Hyponatremia (Acute) 1. Acute sepsis secondary to healthcare associated pneumonia and acute on chronic COPD exacerbation with chronic hypoxic respiratory failure-chest x-ray admission with right lower lobe infiltrate. Left base atelectasis versus infiltrate. Pulmonary medicine consulted. Continue IV Zosyn and IV vancomycin. IV Solu-Medrol. Albuterol and DuoNeb aerosols. Respiratory panel pending. Urine for strep and Legionella negative. Sputum culture pending. Patient on nocturnal trilogy, continue. Continue supplement oxygen to maintain O2 at or above 90%. Patient wears 2 L nasal cannula at bedtime at baseline. 2. Chest pain, suspect pleuritic as a result of #1-EKG without ST-T changes. Troponin negative. ACS ruled out. 3. Hypovolemic hyponatremia-improved with IV fluids. Trend BMP. 4. Hyperglycemia-hemoglobin A1c 6.9%. Patient has been on frequent steroids recently. Recommend carb control diet and repeat hemoglobin A1c by primary care provider with addition of oral agent if hemoglobin A1c still remains elevated. Accu-Cheks ACHS with SSI. 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 Hypertension-stable, continue home Norvasc, HCTZ, triamterene. 7. Hyperlipidemia- not on statin. 8. Anxiety/depression-continue home Celexa regimen. 9. Chronic pain syndrome-continue home methadone regimen. DVT prophylaxis-Lovenox subcu This patient was seen by Nadia Cardona NP-Joshua under the supervision of Dr. Dupree. <Jose Dupree - Last Filed: 04/27/19 16:14> Subjective: I have seen the patient when he was admitted last time for COPD exacerbation. At that time pneumonia work-up including urinary antigens, respiratory panel sputum culture was negative although patient got Levaquin 500 mg x 3 doses. At that time, patient had commissioning engineer and was advised to follow-up in 2 weeks. After discharge, patient found that his commissioning engineer has retired. Patient claimed that he was using his home inhalers. Patient got admitted for productive cough, shortness of breath but no fever. Patient was seen by commissioning engineer. - Physical Exam Vitals/I&O's: Vital Signs Temp Pulse Resp BP Pulse Ox 98.2 F 83 16 152/68 H 94 04/27/19 14:07 04/27/19 15:02 04/27/19 15:02 04/27/19 14:07 04/27/19 14:07 Oxygen Flow Rate (L/min) 4 Oxygen Delivery Method Nasal Cannula Weight: 194 lb 3.636 oz Body Mass Index (BMI) 27.8 Intake and Output for Last 24 Hours 04/25/19 04/26/19 04/27/19 23:59 23:59 23:59 Intake Total 300 / 300 1844.17 / 1844.17 Output Total 400 / 400 875 / 875 Balance -100 / -100 969.17 / 969.17 General: Alert, Oriented x3, Cooperative HEENT: Atraumatic, PERRLA, EOMI, Normocephalic Neck: Supple, No JVD, Negative Carotid Bruits Lungs: Diminished - Is diffusely diminished., Rhonchi, Short of Breath, Tachypneic, Wheezes Cardiovascular: Regular rate, No murmurs Abdomen: Bowel Sounds Present, Soft, Non Tender, Non-Distended Extremities: No edema, Capillary Refill Less than 3 Seconds, - - Left chest aplasia. 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 Skin: No rashes, No breakdown Musculoskeletal: No Tenderness to Palpation of Joints or Extremities, Arthritic Changes Neurological: Cranial nerves II-XII grossly intact, Deep Tendon Reflexes 2+/4 and Symmetrical, Neuro grossly intact Psych/Mental Status: Normal Affect, Appropriate Microbiology Past 72 Hours 04/26/19 23:40 Mucosa - Nasopharyngeal Respiratory Panel (PCR) - Final 04/27/19 00:20 Sputum, Expectorated/Coughed Gram Stain - Final 04/27/19 01:05 Urine, Clean Catch Streptococcus pneumoniae Antigen (M - Final 04/27/19 01:05 Urine, Clean Catch Legionella Antigen - Final Laboratory Results 04/26/19 19:45: WBC 20.7 H, RBC 5.51, Hgb 16.7 H, Hct 51.4, MCV 93.3, MCH 30.3, MCHC 32.5, RDW Std Deviation 47.0 H, RDW Coeff of [place] 13.7, Plt Count 195, MPV 10.7, Immature Gran % (Auto) 0.500, Neut % (Auto) 89.8 H, Lymph % (Auto) 4.1 L, [place] % (Auto) 4.9, Eos % (Auto) 0.3, Baso % (Auto) 0.4, Absolute Neuts (auto) 18.5 H, Absolute Lymphs (auto) 0.85, Nucleated RBC % 0, Differential Comment SCANNED 04/26/19 19:45: Sodium 130 L, Potassium 3.9, Chloride 91 L, Carbon Dioxide 32.0, Anion Gap 7, BUN 12, Creatinine 0.88, Estim Creat Clear Calc 99.08, Est GFR (MDRD) Af Amer 117, Est GFR (MDRD) Non-Af 96, BUN/Creatinine Ratio 13.7, Glucose 250 H, Calcium 9.2, Troponin I < 0.015 04/26/19 19:45: Magnesium 2.1 04/26/19 19:45: Hemoglobin A1c 6.9 H 04/26/19 21:55: Lactic Acid 1.8 04/27/19 00:28: POC Glucose 250 H 04/27/19 03:52: WBC 16.3 H, RBC 5.13, Hgb 15.5, Hct 47.5, MCV 92.6, MCH 30.2, MCHC 32.6, RDW Std Deviation 46.7 H, RDW Coeff of [place] 13.7, Plt Count 149 L, MPV 9.9, Immature Gran % (Auto) 0.600, Neut % (Auto) 91.0 H, Lymph % (Auto) 5.3 L, [place] % (Auto) 2.1, Eos % (Auto) 0.4, Baso % (Auto) 0.6, Absolute Neuts (auto) 14.9 H, Absolute Lymphs (auto) 0.86, Nucleated RBC % 0 04/27/19 03:52: Sodium 135 L, Potassium 4.0, Chloride 98, Carbon Dioxide 28.0, Anion Gap 9, BUN 12, Creatinine 0.67 L, Estim Creat Clear Calc 130.14, Est GFR (MDRD) Af Amer 160, Est GFR (MDRD) Non-Af 132, BUN/Creatinine Ratio 18.0, Glucose 240 H, Calcium 8.5, Triglycerides 110, Cholesterol 146, LDL Cholesterol 84, VLDL Cholesterol 22, HDL Cholesterol 40 04/27/19 03:52: Troponin I < 0.015 04/27/19 06:10: Troponin I < 0.015 04/27/19 09:17: Troponin I < 0.015 04/27/19 09:26: POC Glucose 343 H 04/27/19 11:54: POC Glucose 290 H Current Medications Acetaminophen (Tylenol) 650 mg PO Q6H PRN PRN PRN Reason: Non-cardiac pain (mod-severe) Hydrocodone Bitart/Acetaminophen (Spencer 5mg-325mg) 1 tablet PO Q8H PRN PRN PRN Reason: Pain Score 1-10/10 Last Admin: 04/27/19 16:00 Dose: 1 tablet Documented by: Al Hydroxide/Mg Hydroxide (Mylanta Ii) 15 - 30 ml PO Q4H PRN PRN PRN Reason: INDIGESTION Albuterol Sulfate (Ventolin Aerosols) 2.5 mg INHALATION Q2H PRN PRN PRN Reason: dyspnea, wheezing Albuterol/Ipratropium (Duoneb) 3 ml INHALATION Q4HWA.RT [facility] Last Admin: 04/27/19 15:02 Dose: 3 ml Documented by: Amlodipine Besylate (Norvasc) 10 mg PO DAILY [facility] Last Admin: 04/27/19 09:34 Dose: 10 mg Documented by: Citalopram Hydrobromide (Celexa) 10 mg PO DAILY [facility] Last Admin: 04/27/19 09:34 Dose: 10 mg Documented by: Dextrose (D50w Syringe) 0 gm IV X1 PRN; Protocol PRN Reason: Hypoglycemia Enoxaparin Sodium (Lovenox) 40 mg SC DAILY@1000 [facility] Last Admin: 04/27/19 09:34 Dose: 40 mg Documented by: Glucagon () 1 mg IM .X1 PRN PRN Reason: Hypoglycemia Guaifenesin (Robitussin) 20 ml PO Q4H PRN PRN PRN Reason: COUGH Last Admin: 04/27/19 05:41 Dose: 20 ml Documented by: Hydralazine HCl (Apresoline Iv) 10 mg IV Q4H PRN PRN PRN Reason: SBP > 160 Sodium Chloride () 250 mls @ 15 mls/hr IV .[id number] PRN PRN Reason: Saline Flush Vancomycin IV Pharmacy to Dose (1 ea/ Sodium Chloride) 500 mls @ 250 mls/hr IV X1 PRN; Protocol PRN Reason: Rx to Dose Piperacillin Sod/Tazobactam (Sod 3.375 gm/ Sodium Chloride) 50 mls @ 12.5 mls/hr IV Q8 [facility] Stop: 05/04/19 06:01 Last Admin: 04/27/19 14:36 Dose: 12.5 mls/hr Documented by: Vancomycin HCl (Vancomycin) 1,000 mg in 200 mls @ 200 mls/hr IV Q8H [facility] Last Admin: 04/27/19 14:37 Dose: 200 mls/hr Documented by: Insulin Human Lispro (Humalog Kwikpen (Bkc)) 0 unit SC ACHS [facility]; Protocol Last Admin: 04/27/19 11:58 Dose: 4 units Documented by: Magnesium Hydroxide (Milk Of Magnesia) 30 ml PO DAILY PRN PRN Reason: Constipation Melatonin (Melatonin) 3 mg PO QHS PRN PRN PRN Reason: INSOMNIA Methadone HCl () 10 mg PO Q6 [facility] Last Admin: 04/27/19 11:58 Dose: 10 mg Documented by: Methylprednisolone (Solu-Medrol) 40 mg IV Q8 [facility] Last Admin: 04/27/19 14:38 Dose: 40 mg Documented by: Nitroglycerin (Nitrostat) 0.4 mg SUBLINGUAL Q5M PRN PRN Reason: CARDIAC/CHEST PAIN Nutritional Formula (Lactose Free) (Glucerna Shake) 120 ml PO 4X/DAY [facility] Ondansetron HCl (Zofran) 4 mg IV Q8H PRN PRN PRN Reason: NAUSEA/VOMITING Sodium Chloride () 10 - 40 ml IV UD PRN PRN Reason: SALINE FLUSH Throat Lozenges (Cepacol Sore Throat Lozenge) 1 lozenge MUCOUS MEM Q2H PRN PRN PRN Reason: Sore Throat/Cough Triamterene/HCTZ (Dyazide (G)) 1 cap PO DAILY PRN PRN PRN Reason: Swelling Assessment/Plan This patient was seen in conjunction with HEAD COACH, Nadia. I have independently interviewed and examined the patient and reviewed pertinent history, examination findings, laboratory and plan of management. I have reviewed the note and agree with the documented findings with the few additional points. In brief, patient is a 54-year-old gentleman with history of COPD and active smoker was admitted for shortness of breath, pleuritic chest pain, productive cough and chest x-ray finding of right lower lobe infiltrate consistent with COPD exacerbation most probably secondary to right lower lobe pneumonia. 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 Pneumonia work-up ordered. Currently on IV vancomycin and Zosyn. Urinary antigens and respiratory panel negative. Blood culture and sputum culture pending. Patient was last admitted on April 14 -April 16 for COPD exacerbation and at that time work-up for pneumonia was negative but has received 3 days of Levaquin during work-up for pneumonia and was discontinued when it was negative. Acute coronary syndrome ruled out. Other active medical issues, hypovolemic hyponatremia. Diabetes mellitus type 2: A1c 6.9% Other chronic comorbidities hypertension, dyslipidemia, anxiety and depression, chronic pain syndrome and congenital left upper extremity apraxia. I have discussed my assessment with HEAD COACHNadia and orders have been reviewed. Code Visit Inpatient E&M: 83994 Subs Hosp L3
[2019-04-27 12:00] LABS: Bedside Glucose 290 mg/dL (70-110)
--- NOTE | 2019-04-27 14:10 | CASEMGMT ---
SW met with patient. Introduced self and role at [facility]. SW discussed Palliative Care with patient and he was open to a referral being made. SW made a Palliative Care referral via phone and fax. Gwendolyn MIGUEL
--- NOTE | 2019-04-27 16:08 | NURSING ---
ALL ASSESSMENTS, VITAL SIGNS, AND MEDICATION ADMINISTRATIONS CHARTED BY NURSING STUDENTS ON 04/27/19 WERE APPROVED AND VERIFIED BY Angel OHARA, CLINICAL INSTRUCTOR.
[2019-04-27 17:26] LABS: Bedside Glucose 288 mg/dL (70-110)
[2019-04-27] MEDS: hydrALAZINE 20 MG/ML Vial 10 MG IV (19:06)
[2019-04-27] MEDS: 0.9% Saline Lock 10 ML Syringe IV (21:31)
[2019-04-27] MEDS: Glucerna Shake 120 ML LIQUID PO (21:50)
[2019-04-27 22:01] LABS: Bedside Glucose 328 mg/dL (70-110)
[2019-04-27 23:19] LABS: Vancomycin, Trough Level 11.2 ug/mL (5.0-15.0)
[2019-04-27] MEDS: Albuterol 2.5 MG/3 ML VIAL.NEB. INHALATION (23:23)
[2019-04-28] VITALS (18 sets, daily range): BP systolic 137–150; BP diastolic 65–79; PULSE 74–89; RESP 16–24; TEMP 36.1–36.6; O2SAT 92–96
--- NOTE | 2019-04-28 00:56 | PCM.RX.CS ---
Consult Pharmacy has been consulted to manage selected antiobiotic: Vancomycin Type of Consult: Follow-up Suspected Infection: Sepsis, Pneumonia Labs: Sodium 135 mmol/L (136-145) L 04/27/19 03:52 Potassium 4.0 mmol/L (3.5-5.1) 04/27/19 03:52 Chloride 98 mmol/L (98-107) 04/27/19 03:52 Carbon Dioxide 28.0 mmol/L (21.0-32.0) 04/27/19 03:52 Anion Gap 9 (5-15) 04/27/19 03:52 BUN 12 mg/dL (7-18) 04/27/19 03:52 Creatinine 0.67 mg/dL (0.70-1.30) L 04/27/19 03:52 Est GFR (MDRD) Af Amer 160 mL/min (>60) 04/27/19 03:52 Est GFR (MDRD) Non-Af 132 mL/min (>60) 04/27/19 03:52 BUN/Creatinine Ratio 18.0 RATIO (10-20) 04/27/19 03:52 Glucose 240 mg/dL (74-106) H 04/27/19 03:52 Vancomycin Trough 11.2 ug/mL (5.0-15.0) 04/27/19 22:25 Microbiology: Microbiology 04/26/19 23:40 Mucosa - Nasopharyngeal Respiratory Panel (PCR) - Final 04/27/19 00:20 Sputum, Expectorated/Coughed Gram Stain - Final 04/27/19 01:05 Urine, Clean Catch Streptococcus pneumoniae Antigen (M - Final 04/27/19 01:05 Urine, Clean Catch Legionella Antigen - Final Goal Trough: 15-20 mcg/mL Pharmacy Plan for Drug Dosing: Pharmacy Service will continue to monitor and adjust dosing as required. Medications Vancomycin HCl 1,500 mg/ (Sodium Chloride) 530 mls @ 250 mls/hr IV Q8H [facility] TROUGH 11.2 INCREASE TO 1500 Q8H NEXT TR 04/29 @ 0630 Follow-Up Labs: Trough Vancomycin Labs to be done on [date and time ordered]: 04/29 @ 0630
[2019-04-28] MEDS: Ipratropium/Albuterol Sulfate 3 ML AMPUL.NEB INHALATION ×6 (03:50→23:38)
[2019-04-28] MEDS: 0.9% Saline Lock 10 ML Syringe IV (05:32)
[2019-04-28] MEDS: Methadone 10 MG Tablet PO ×4 (05:46→23:09)
[2019-04-28 06:36] LABS: Hematocrit 45.3 % (40-54); Hemoglobin 14.4 g/dL (13.0-16.5); Mean Corp Hgb Conc 31.8 g/dL (32-36); Mean Corpuscular Hgb 29.8 pg (27.0-32.0); Mean Corpuscular Volume 93.8 fL (80-94); Mean Platelet Vol. 10.8 fl (6.2-12.0); Platelet Count 168 K/mm3 (150-450); RBC Distribution Width CV 13.4 % (11.6-14.6); RBC Distribution Width SD 46.3 fl (35.1-43.9); Red Blood Count 4.83 M/mm3 (4.6-6.2); White Blood Count 14.7 K/mm3 (4.4-11.0)
[2019-04-28 06:49] LABS: Anion Gap 8 (5-15); BUN 15 mg/dL (7-18); BUN/Creat Ratio 24.3 RATIO (10-20); Calcium,Total 8.8 mg/dL (8.5-10.1); Chloride 101 mmol/L (98-107); Creatinine, Serum 0.62 mg/dL (0.70-1.30); EST Glomerular Filtration Rate 144 mL/min (>60); Est Glom Filt Rate - Afr Amer 175 mL/min (>60); Estimated Creatinine Clearance 140.64 ml/min; Glucose 240 mg/dL (74-106); Sodium Level 138 mmol/L (136-145)
[2019-04-28] MEDS: Insulin Lispro 100 UNIT/ML INSULN.PEN SC ×4 (06:50→22:16)
[2019-04-28 07:15] LABS: Bedside Glucose 259 mg/dL (70-110)
[2019-04-28] MEDS: Citalopram 10 MG Tablet PO (09:12)
[2019-04-28] MEDS: Enoxaparin 40 MG/0.4 ML Syringe SC (09:12)
[2019-04-28] MEDS: amLODIPine 10 MG Tablet PO (09:12)
--- NOTE | 2019-04-28 10:15 | CASEMGMT ---
Addendum entered by Gwendolyn Buchanan 04/28/19 10:23: SW received a call from Toya at [facility] and she will actually be meeting with patient and his today at . Gwendolyn MIGUEL Original Note: SW received a message that Palliative Care will be meeting with patient 11. Gwendolyn MIGUEL
--- NOTE | 2019-04-28 10:46 | PCM.PN.PUL ---
Patient Problems: Active and Suspected Problems (Last Reviewed 04/14/19 @ 14:[address]) Sepsis (Acute) HCAP (healthcare-associated pneumonia) (Acute) Acute and chronic respiratory failure with hypoxia (Acute) Hyperglycemia (Acute) Hyponatremia (Acute) Subjective: The patient was seen and examined at the bedside this morning. Events from the last 24 hours have been reviewed. The patient is currently afebrile, hemodynamically stable and maintaining appropriate oxygen saturations on 4 L/min via nasal cannula. There has been some improvement in his shortness of breath over the last day. Objective: The patient's most recent lab work, culture data and imaging studies have all been personally reviewed. - Physical Exam Vitals/I&O's: Vital Signs Temp Pulse Resp BP Pulse Ox 97.8 F 76 16 137/73 H 94 04/28/19 09:09 04/28/19 09:09 04/28/19 09:09 04/28/19 09:09 04/28/19 09:09 Oxygen Flow Rate (L/min) 4 Oxygen Delivery Method Nasal Cannula Weight: 194 lb 3.636 oz Body Mass Index (BMI) 27.8 Intake and Output for Last 24 Hours 04/26/19 04/27/19 04/28/19 23:59 23:59 23:59 Intake Total 300 / 300 3405.00 / 3405.00 980.25 / 980.25 Output Total 400 / 400 1075 / 1075 275 / 275 Balance -100 / -100 2330.00 / 2330.00 705.25 / 705.25 General: Alert, Cooperative HEENT: Atraumatic, Normocephalic Oral: No Gingival or Mucosal Lesions/ Ulcerations Neck: Supple, No Nodes, Trachea Midline Lungs: Diminished, Wheezes Cardiovascular: Regular rate, Regular Rhythm, Normal S1, Normal S2, No murmurs Abdomen: Bowel Sounds Present, Soft, Non Tender Extremities: No clubbing, No cyanosis, No edema, - - Left upper extremity congenital aplasia Skin: No breakdown Musculoskeletal: No Muscle Wasting Lymphatic: No Cervical, Supraclavicular, or Inguinal Adenopathy Neurological: Neuro grossly intact Psych/Mental Status: Normal Affect, Appropriate Labs (Last 48 Hours) 04/26/19 04/26/19 04/26/19 19:45 19:45 19:45 WBC 20.7 H RBC 5.51 Hgb 16.7 H Hct 51.4 MCV 93.3 MCH 30.3 MCHC 32.5 RDW Std Deviation 47.0 H RDW Coeff of [place] 13.7 Plt Count 195 MPV 10.7 Immature Gran % (Auto) 0.500 Neut % (Auto) 89.8 H Lymph % (Auto) 4.1 L [place] % (Auto) 4.9 Eos % (Auto) 0.3 Baso % (Auto) 0.4 Absolute Neuts (auto) 18.5 H Absolute Lymphs (auto) 0.85 Nucleated RBC % 0 Differential Comment SCANNED Sodium 130 L Potassium 3.9 Chloride 91 L Carbon Dioxide 32.0 Anion Gap 7 BUN 12 Creatinine 0.88 Estim Creat Clear Calc 99.08 Est GFR (MDRD) Af Amer 117 Est GFR (MDRD) Non-Af 96 BUN/Creatinine Ratio 13.7 Glucose 250 H Hemoglobin A1c Lactic Acid Calcium 9.2 Magnesium 2.1 Troponin I < 0.015 Triglycerides Cholesterol LDL Cholesterol VLDL Cholesterol HDL Cholesterol Vancomycin Trough POC Glucose 04/26/19 04/26/19 04/27/19 19:45 21:55 00:28 WBC RBC Hgb Hct MCV MCH MCHC RDW Std Deviation RDW Coeff of [place] Plt Count MPV Immature Gran % (Auto) Neut % (Auto) Lymph % (Auto) [place] % (Auto) Eos % (Auto) Baso % (Auto) Absolute Neuts (auto) Absolute Lymphs (auto) Nucleated RBC % Differential Comment Sodium Potassium Chloride Carbon Dioxide Anion Gap BUN Creatinine Estim Creat Clear Calc Est GFR (MDRD) Af Amer Est GFR (MDRD) Non-Af BUN/Creatinine Ratio Glucose Hemoglobin A1c 6.9 H Lactic Acid 1.8 Calcium Magnesium Troponin I Triglycerides Cholesterol LDL Cholesterol VLDL Cholesterol HDL Cholesterol Vancomycin Trough POC Glucose 250 H 04/27/19 04/27/19 04/27/19 03:52 03:52 03:52 WBC 16.3 H RBC 5.13 Hgb 15.5 Hct 47.5 MCV 92.6 MCH 30.2 MCHC 32.6 RDW Std Deviation 46.7 H RDW Coeff of [place] 13.7 Plt Count 149 L MPV 9.9 Immature Gran % (Auto) 0.600 Neut % (Auto) 91.0 H Lymph % (Auto) 5.3 L [place] % (Auto) 2.1 Eos % (Auto) 0.4 Baso % (Auto) 0.6 Absolute Neuts (auto) 14.9 H Absolute Lymphs (auto) 0.86 Nucleated RBC % 0 Differential Comment Sodium 135 L Potassium 4.0 Chloride 98 Carbon Dioxide 28.0 Anion Gap 9 BUN 12 Creatinine 0.67 L Estim Creat Clear Calc 130.14 Est GFR (MDRD) Af Amer 160 Est GFR (MDRD) Non-Af 132 BUN/Creatinine Ratio 18.0 Glucose 240 H Hemoglobin A1c Lactic Acid Calcium 8.5 Magnesium Troponin I < 0.015 Triglycerides 110 Cholesterol 146 LDL Cholesterol 84 VLDL Cholesterol 22 HDL Cholesterol 40 Vancomycin Trough POC Glucose 04/27/19 04/27/19 04/27/19 06:10 09:17 09:26 WBC RBC Hgb Hct MCV MCH MCHC RDW Std Deviation RDW Coeff of [place] Plt Count MPV Immature Gran % (Auto) Neut % (Auto) Lymph % (Auto) [place] % (Auto) Eos % (Auto) Baso % (Auto) Absolute Neuts (auto) Absolute Lymphs (auto) Nucleated RBC % Differential Comment Sodium Potassium Chloride Carbon Dioxide Anion Gap BUN Creatinine Estim Creat Clear Calc Est GFR (MDRD) Af Amer Est GFR (MDRD) Non-Af BUN/Creatinine Ratio Glucose Hemoglobin A1c Lactic Acid Calcium Magnesium Troponin I < 0.015 < 0.015 Triglycerides Cholesterol LDL Cholesterol VLDL Cholesterol HDL Cholesterol Vancomycin Trough POC Glucose 343 H 04/27/19 04/27/19 04/27/19 11:54 17:07 21:44 WBC RBC Hgb Hct MCV MCH MCHC RDW Std Deviation RDW Coeff of [place] Plt Count MPV Immature Gran % (Auto) Neut % (Auto) Lymph % (Auto) [place] % (Auto) Eos % (Auto) Baso % (Auto) Absolute Neuts (auto) Absolute Lymphs (auto) Nucleated RBC % Differential Comment Sodium Potassium Chloride Carbon Dioxide Anion Gap BUN Creatinine Estim Creat Clear Calc Est GFR (MDRD) Af Amer Est GFR (MDRD) Non-Af BUN/Creatinine Ratio Glucose Hemoglobin A1c Lactic Acid Calcium Magnesium Troponin I Triglycerides Cholesterol LDL Cholesterol VLDL Cholesterol HDL Cholesterol Vancomycin Trough POC Glucose 290 H 288 H 328 H 04/27/19 04/28/19 04/28/19 22:25 06:15 06:15 WBC 14.7 H RBC 4.83 Hgb 14.4 Hct 45.3 MCV 93.8 MCH 29.8 MCHC 31.8 L RDW Std Deviation 46.3 H RDW Coeff of [place] 13.4 Plt Count 168 MPV 10.8 Immature Gran % (Auto) Neut % (Auto) Lymph % (Auto) [place] % (Auto) Eos % (Auto) Baso % (Auto) Absolute Neuts (auto) Absolute Lymphs (auto) Nucleated RBC % Differential Comment Sodium 138 Potassium 4.0 Chloride 101 Carbon Dioxide 29.0 Anion Gap 8 BUN 15 Creatinine 0.62 L Estim Creat Clear Calc 140.64 Est GFR (MDRD) Af Amer 175 Est GFR (MDRD) Non-Af 144 BUN/Creatinine Ratio 24.3 H Glucose 240 H Hemoglobin A1c Lactic Acid Calcium 8.8 Magnesium Troponin I Triglycerides Cholesterol LDL Cholesterol VLDL Cholesterol HDL Cholesterol Vancomycin Trough 11.2 POC Glucose 04/28/19 06:48 WBC RBC Hgb Hct MCV MCH MCHC RDW Std Deviation RDW Coeff of [place] Plt Count MPV Immature Gran % (Auto) Neut % (Auto) Lymph % (Auto) [place] % (Auto) Eos % (Auto) Baso % (Auto) Absolute Neuts (auto) Absolute Lymphs (auto) Nucleated RBC % Differential Comment Sodium Potassium Chloride Carbon Dioxide Anion Gap BUN Creatinine Estim Creat Clear Calc Est GFR (MDRD) Af Amer Est GFR (MDRD) Non-Af BUN/Creatinine Ratio Glucose Hemoglobin A1c Lactic Acid Calcium Magnesium Troponin I Triglycerides Cholesterol LDL Cholesterol VLDL Cholesterol HDL Cholesterol Vancomycin Trough POC Glucose 259 H Microbiology 04/26/19 23:40 Mucosa - Nasopharyngeal Respiratory Panel (PCR) - Final 04/27/19 00:20 Sputum, Expectorated/Coughed Gram Stain - Final 04/27/19 01:05 Urine, Clean Catch Streptococcus pneumoniae Antigen (M - Final 04/27/19 01:05 Urine, Clean Catch Legionella Antigen - Final Clinical Impression(s) from Imaging Studies Chest X-Ray 04/26/19 19:55 IMPRESSION: Decreased left hemithorax volume. Right lower lung zone infiltrate. Left base atelectasis and/or infiltrate. Electronically Signed: Brian Bunerostro, at 20:18 EST Tel , Service support , Current Medications Acetaminophen (Tylenol) 650 mg PO Q6H PRN PRN PRN Reason: Non-cardiac pain (mod-severe) Hydrocodone Bitart/Acetaminophen ([place] 5mg-325mg) 1 tablet PO Q8H PRN PRN PRN Reason: Pain Score 1-10/10 Last Admin: 04/27/19 23:34 Dose: 1 tablet Documented by: Al Hydroxide/Mg Hydroxide (Mylanta Ii) 15 - 30 ml PO Q4H PRN PRN PRN Reason: INDIGESTION Albuterol Sulfate (Ventolin Aerosols) 2.5 mg INHALATION Q2H PRN PRN PRN Reason: dyspnea, wheezing Last Admin: 04/27/19 23:23 Dose: 2.5 mg Documented by: Albuterol/Ipratropium (Duoneb) 3 ml INHALATION Q4HWA.RT [facility] Last Admin: 04/28/19 10:37 Dose: 3 ml Documented by: Amlodipine Besylate (Norvasc) 10 mg PO DAILY [facility] Last Admin: 04/28/19 09:12 Dose: 10 mg Documented by: Citalopram Hydrobromide (Celexa) 10 mg PO DAILY [facility] Last Admin: 04/28/19 09:12 Dose: 10 mg Documented by: Dextrose (D50w Syringe) 0 gm IV X1 PRN; Protocol PRN Reason: Hypoglycemia Enoxaparin Sodium (Lovenox) 40 mg SC DAILY@1000 MICHELL Last Admin: 04/28/19 09:12 Dose: 40 mg Documented by: Glucagon () 1 mg IM .X1 PRN PRN Reason: Hypoglycemia Guaifenesin (Robitussin) 20 ml PO Q4H PRN PRN PRN Reason: COUGH Last Admin: 04/27/19 05:41 Dose: 20 ml Documented by: Hydralazine HCl (Apresoline Iv) 10 mg IV Q4H PRN PRN PRN Reason: SBP > 160 Last Admin: 04/27/19 19:06 Dose: 10 mg Documented by: Sodium Chloride () 250 mls @ 15 mls/hr IV .[id number] PRN PRN Reason: Saline Flush Last Infusion: 04/28/19 05:50 Dose: 0 mls/hr Documented by: Vancomycin IV Pharmacy to Dose (1 ea/ Sodium Chloride) 500 mls @ 250 mls/hr IV X1 PRN; Protocol PRN Reason: Rx to Dose Piperacillin Sod/Tazobactam (Sod 3.375 gm/ Sodium Chloride) 50 mls @ 12.5 mls/hr IV Q8 [facility] Stop: 05/04/19 06:01 Last Infusion: 04/28/19 10:22 Dose: Infused Documented by: Vancomycin HCl 1,500 mg/ (Sodium Chloride) 530 mls @ 250 mls/hr IV Q8H [facility] Last Infusion: 04/28/19 10:21 Dose: Infused Documented by: Insulin Human Lispro (Humalog Kwikpen (Bkc)) 0 unit SC ACHS [facility]; Protocol Last Admin: 04/28/19 06:50 Dose: 3 units Documented by: Magnesium Hydroxide (Milk Of Magnesia) 30 ml PO DAILY PRN PRN Reason: Constipation Melatonin (Melatonin) 3 mg PO QHS PRN PRN PRN Reason: INSOMNIA Methadone HCl () 10 mg PO Q6 [facility] Last Admin: 04/28/19 05:46 Dose: 10 mg Documented by: Methylprednisolone (Solu-Medrol) 40 mg IV Q8 [facility] Last Admin: 04/28/19 05:32 Dose: 40 mg Documented by: Nitroglycerin (Nitrostat) 0.4 mg SUBLINGUAL Q5M PRN PRN Reason: CARDIAC/CHEST PAIN Nutritional Formula (Lactose Free) (Glucerna Shake) 120 ml PO 4X/DAY [facility] Last Admin: 04/28/19 09:12 Dose: Not Given Documented by: Ondansetron HCl (Zofran) 4 mg IV Q8H PRN PRN PRN Reason: NAUSEA/VOMITING Sodium Chloride () 10 - 40 ml IV UD PRN PRN Reason: SALINE FLUSH Last Admin: 04/28/19 05:32 Dose: 10 ml Documented by: Throat Lozenges (Cepacol Sore Throat Lozenge) 1 lozenge MUCOUS MEM Q2H PRN PRN PRN Reason: Sore Throat/Cough Triamterene/HCTZ (Dyazide (G)) 1 cap PO DAILY PRN PRN PRN Reason: Swelling Medical Necessity - Tobacco Use Smoking Status: Former smoker Tobacco Use: Non-smoker Assessment/Plan All Active Problems (Last Reviewed 04/14/19 @ 14:[address]) COPD exacerbation (Acute) Sepsis (Acute) HCAP (healthcare-associated pneumonia) (Acute) Acute and chronic respiratory failure with hypoxia (Acute) Hyperglycemia (Acute) Hyponatremia (Acute) RECOMMENDATIONS: 1. Continue empiric antimicrobials, pending infectious work-up. 2. Continue bronchodilators and IV steroids. 3. Wean supplemental oxygen as tolerated. 4. Continue nocturnal trilogy use, per home regimen. 5. Encourage incentive spirometer use and mobilize patient as tolerated. 6. Outpatient pulmonary follow-up within 2 weeks of discharge is recommended. IMPRESSIONS: 1. Acute on chronic combined respiratory failure due to COPD with exacerbation secondary to HCAP The patient has a baseline 2 L/min supplemental oxygen requirement and is a chronic CO2 retainer. The patient was previously being followed by a pulmonary provider in [facility], who has since retired. He currently utilizes a trilogy noninvasive ventilator on a nightly basis. The patient's presenting plain film chest x-ray did reveal evidence of a right lower lobe infiltrate. Therefore, I agree with continuing empiric antimicrobials. Continue bronchodilators and steroids as ordered as well. Wean supplemental oxygen as tolerated. Encourage incentive spirometer use while in bed. 2. Congenital aplasia of left upper extremity/hypertension/hyperlipidemia/anxiety/depression/chronic pain syndrome Complicates care, management, recovery and prognosis. Continue home medications as indicated. This note was generated with [employer] dictation software. It may contain incorrect words, spelling, and punctuation that were not noted in checking the note before signing. Code Visit Inpatient E&M: 38945 Subs Hosp L2
--- NOTE | 2019-04-28 11:30 | CASEMGMT ---
CLEO MARKHAM Re-admission note: Prior admission: Admitted 04/14/19 w/diagnoses Acute COPD Exac. Discharged home on 04/16/19. Current admission: Re-admitted 04/26/19 w/diagnoses of HCAP, COPD, Sepsis, CP. CLEO MARKHAM to room to talk with pt/ at this time. Pt previously discharged home w/scripts Mucinex, Norvasc, and Prednisone, which pt/ state they did pickle sorter and pt has been taking as prescribed. Originally a script was printed for Duoneb, but [facility] note states this was switched to inhaler d/t pt did not have a nebulizer at home. Had instructions @ discharge to follow-up with PCP in 1-[address] Walls in 2-3 weeks. Pt/ report that he has not been to any follow-up appts since last admission. states they made an appt with his PCP but had to cancel it and it was rescheduled for May 08. He also tried to reach his pressure controller he saw previously in [place], but found out he had just recently retired. Pt would like to get established with either Dr Walls or Dr Harrell once he is discharged. [employer] CM, Merry, made aware. Discussed home oxygen orders with pt/. They clarified that pt does have an order for O2 continuously but that he has not had to wear it during the day. states his pulse ox usually runs 96-97% on RA during the day. Pt does have a Noninvasive Ventilator (that he got brenden Garcia) that he uses at night w/O2 @ 2L/M bleed in. reports that they have had to increase the O2 @ night to 3-4 L/M recently. (Per Qasim's, current orders are for 2L/m continuously per CLEO Morgan note last admission). Pt/ state that pt has not worked since prior to his last admission. His last day he worked was Apr 12 and then he has been laid off for the season. /pt state they do not have financial concerns at this time and do not wish to talk with SW at this time for resources. states, I feel like it is a blessing in disguise so he can get better and not have to go back to work for awhile. /pt voice no other concerns/needs at this time. Instructed to ask for CM/SW if any further concerns/needs arise. They voice understanding. Asha MORELANDN RN CM
[2019-04-28 11:36] LABS: Bedside Glucose 357 mg/dL (70-110)
--- NOTE | 2019-04-28 13:12 | PN_ITS ---
Patient Problems: Active and Suspected Problems (Last Reviewed 04/14/19 @ 14:[address]) Sepsis (Acute) HCAP (healthcare-associated pneumonia) (Acute) Acute and chronic respiratory failure with hypoxia (Acute) Hyperglycemia (Acute) Hyponatremia (Acute) Subjective: Patient seen and examined. at bedside. Patient reports breathing improved although he still does not feel at his baseline. Continues to have significant wheezing. Patient feels like he is not yet ready to go home. - Physical Exam Vitals/I&O's: Vital Signs Temp Pulse Resp BP Pulse Ox 97.8 F 86 22 H 137/73 H 94 04/28/19 09:09 04/28/19 10:37 04/28/19 10:37 04/28/19 09:09 04/28/19 09:09 Oxygen Flow Rate (L/min) 4 Oxygen Delivery Method Nasal Cannula Weight: 194 lb 3.636 oz Body Mass Index (BMI) 27.8 Intake and Output for Last 24 Hours 04/26/19 04/27/19 04/28/19 23:59 23:59 23:59 Intake Total 300 / 300 3405.00 / 3405.00 1220.25 / 1220.25 Output Total 400 / 400 1075 / 1075 275 / 275 Balance -100 / -100 2330.00 / 2330.00 945.25 / 945.25 General: Alert, Oriented x3, Cooperative HEENT: Atraumatic, PERRLA, EOMI, Normocephalic Neck: Supple, No JVD, Negative Carotid Bruits Lungs: Diminished, Wheezes Cardiovascular: Regular rate, Regular Rhythm, Normal S1, Normal S2, No murmurs Abdomen: Bowel Sounds Present, Soft, Non Tender, Non-Distended Extremities: No clubbing, No cyanosis, No edema, Capillary Refill Less than 3 Seconds, - - Left chest aplasia. Skin: No rashes, No breakdown Musculoskeletal: No Tenderness to Palpation of Joints or Extremities Neurological: Cranial nerves II-XII grossly intact, Neuro grossly intact Psych/Mental Status: Normal Affect, Appropriate Microbiology Past 72 Hours 04/27/19 00:20 Sputum, Expectorated/Coughed Gram Stain - Final 04/27/19 00:20 Sputum, Expectorated/Coughed Respiratory Culture - Preliminary Beta hemolytic organism 04/26/19 23:40 Mucosa - Nasopharyngeal Respiratory Panel (PCR) - Final 04/27/19 01:05 Urine, Clean Catch Streptococcus pneumoniae Antigen (M - Final 04/27/19 01:05 Urine, Clean Catch Legionella Antigen - Final Laboratory Results 04/27/19 17:07: POC Glucose 288 H 04/27/19 21:44: POC Glucose 328 H 04/27/19 22:25: Vancomycin Trough 11.2 04/28/19 06:15: WBC 14.7 H, RBC 4.83, Hgb 14.4, Hct 45.3, MCV 93.8, MCH 29.8, MCHC 31.8 L, RDW Std Deviation 46.3 H, RDW Coeff of [place] 13.4, Plt Count 168, MPV 10.8 04/28/19 06:15: Sodium 138, Potassium 4.0, Chloride 101, Carbon Dioxide 29.0, Anion Gap 8, BUN 15, Creatinine 0.62 L, Estim Creat Clear Calc 140.64, Est GFR (MDRD) Af Amer 175, Est GFR (MDRD) Non-Af 144, BUN/Creatinine Ratio 24.3 H, Glucose 240 H, Calcium 8.8 04/28/19 06:48: POC Glucose 259 H 04/28/19 11:23: POC Glucose 357 H Current Medications Acetaminophen (Tylenol) 650 mg PO Q6H PRN PRN PRN Reason: Non-cardiac pain (mod-severe) Hydrocodone Bitart/Acetaminophen ([place] 5mg-325mg) 1 tablet PO Q8H PRN PRN PRN Reason: Pain Score 1-10/10 Last Admin: 04/27/19 23:34 Dose: 1 tablet Documented by: Al Hydroxide/Mg Hydroxide (Mylanta Ii) 15 - 30 ml PO Q4H PRN PRN PRN Reason: INDIGESTION Albuterol Sulfate (Ventolin Aerosols) 2.5 mg INHALATION Q2H PRN PRN PRN Reason: dyspnea, wheezing Last Admin: 04/27/19 23:23 Dose: 2.5 mg Documented by: Albuterol/Ipratropium (Duoneb) 3 ml INHALATION Q4HWA.RT [facility] Last Admin: 04/28/19 10:37 Dose: 3 ml Documented by: Amlodipine Besylate (Norvasc) 10 mg PO DAILY [facility] Last Admin: 04/28/19 09:12 Dose: 10 mg Documented by: Citalopram Hydrobromide (Celexa) 10 mg PO DAILY [facility] Last Admin: 04/28/19 09:12 Dose: 10 mg Documented by: Dextrose (D50w Syringe) 0 gm IV X1 PRN; Protocol PRN Reason: Hypoglycemia Enoxaparin Sodium (Lovenox) 40 mg SC DAILY@1000 MICHELL Last Admin: 04/28/19 09:12 Dose: 40 mg Documented by: Glucagon () 1 mg IM .X1 PRN PRN Reason: Hypoglycemia Guaifenesin (Robitussin) 20 ml PO Q4H PRN PRN PRN Reason: COUGH Last Admin: 04/27/19 05:41 Dose: 20 ml Documented by: Hydralazine HCl (Apresoline Iv) 10 mg IV Q4H PRN PRN PRN Reason: SBP > 160 Last Admin: 04/27/19 19:06 Dose: 10 mg Documented by: Sodium Chloride () 250 mls @ 15 mls/hr IV .[id number] PRN PRN Reason: Saline Flush Last Infusion: 04/28/19 05:50 Dose: 0 mls/hr Documented by: Vancomycin IV Pharmacy to Dose (1 ea/ Sodium Chloride) 500 mls @ 250 mls/hr IV X1 PRN; Protocol PRN Reason: Rx to Dose Piperacillin Sod/Tazobactam (Sod 3.375 gm/ Sodium Chloride) 50 mls @ 12.5 mls/hr IV Q8 [facility] Stop: 05/04/19 06:01 Last Infusion: 04/28/19 10:22 Dose: Infused Documented by: Vancomycin HCl 1,500 mg/ (Sodium Chloride) 530 mls @ 250 mls/hr IV Q8H [facility] Last Infusion: 04/28/19 10:21 Dose: Infused Documented by: Insulin Human Lispro (Humalog Kwikpen (Bkc)) 0 unit SC ACHS [facility]; Protocol Last Admin: 04/28/19 11:24 Dose: 6 units Documented by: Magnesium Hydroxide (Milk Of Magnesia) 30 ml PO DAILY PRN PRN Reason: Constipation Melatonin (Melatonin) 3 mg PO QHS PRN PRN PRN Reason: INSOMNIA Methadone HCl () 10 mg PO Q6 [facility] Last Admin: 04/28/19 11:23 Dose: 10 mg Documented by: Methylprednisolone (Solu-Medrol) 40 mg IV Q8 [facility] Last Admin: 04/28/19 05:32 Dose: 40 mg Documented by: Nitroglycerin (Nitrostat) 0.4 mg SUBLINGUAL Q5M PRN PRN Reason: CARDIAC/CHEST PAIN Nutritional Formula (Lactose Free) (Glucerna Shake) 120 ml PO 4X/DAY [facility] Last Admin: 04/28/19 09:12 Dose: Not Given Documented by: Ondansetron HCl (Zofran) 4 mg IV Q8H PRN PRN PRN Reason: NAUSEA/VOMITING Sodium Chloride () 10 - 40 ml IV UD PRN PRN Reason: SALINE FLUSH Last Admin: 04/28/19 05:32 Dose: 10 ml Documented by: Throat Lozenges (Cepacol Sore Throat Lozenge) 1 lozenge MUCOUS MEM Q2H PRN PRN PRN Reason: Sore Throat/Cough Triamterene/HCTZ (Dyazide (G)) 1 cap PO DAILY PRN PRN PRN Reason: Swelling Medical Necessity - Tobacco Use Smoking Status: Former smoker Tobacco Use: Non-smoker Assessment/Plan All Active Problems (Last Reviewed 04/14/19 @ 14:[address]) COPD exacerbation (Acute) Sepsis (Acute) HCAP (healthcare-associated pneumonia) (Acute) Acute and chronic respiratory failure with hypoxia (Acute) Hyperglycemia (Acute) Hyponatremia (Acute) 1. Acute sepsis secondary to healthcare associated pneumonia and acute on chronic COPD exacerbation with chronic hypoxic respiratory failure-chest x-ray admission with right lower lobe infiltrate. Left base atelectasis versus infiltrate. Pulmonary medicine consulted. Continue IV Zosyn and IV vancomycin. IV Solu-Medrol. Albuterol and DuoNeb aerosols. Respiratory panel negative. Urine for strep and Legionella negative. Sputum culture preliminary growing beta-hemolytic organism. Patient on nocturnal trilogy, continue. Continue supplement oxygen to maintain O2 at or above 90%. Patient wears 2 L nasal cannula at bedtime at baseline. Walking pulse ox prior to discharge. Anticipate transition to oral antibiotic and oral prednisone tomorrow. 2. Chest pain, suspect pleuritic as a result of #1-EKG without ST-T changes. Troponin negative. ACS ruled out. 3. Hypovolemic hyponatremia-resolved with IV fluids. Trend BMP. 4. Type 2 diabetes mellitus-hemoglobin A1c 6.9%. Recommend addition of oral regimen at discharge and repeat hemoglobin A 1C by primary care provider. Accu- Cheks ACHS with SSI. 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 Hypertension-stable, continue home Norvasc, HCTZ, triamterene. 7. Hyperlipidemia- not on statin. 8. Anxiety/depression-continue home Celexa regimen. 9. Chronic pain syndrome-continue home methadone regimen. DVT prophylaxis-Lovenox subcu This patient was seen by SERGIO Ray under the supervision of Dr. Mcclain.
[2019-04-28] MEDS: Insulin Lispro 100 UNIT/ML INSULN.PEN 10 UNIT SC (14:44)
[2019-04-28 15:05] LABS: Bedside Glucose 282 mg/dL (70-110)
--- NOTE | 2019-04-28 15:25 | CASEMGMT ---
Patient signed papers for Palliative Care. Gwendolyn CHANDRA MSW
[2019-04-28 17:25] LABS: Bedside Glucose 213 mg/dL (70-110)
[2019-04-28] MEDS: Glucerna Shake 120 ML LIQUID PO (22:11)
[2019-04-28 22:40] LABS: Bedside Glucose 261 mg/dL (70-110)
[2019-04-29] VITALS (14 sets, daily range): BP systolic 141–159; BP diastolic 75–81; PULSE 70–88; RESP 16–26; TEMP 36.6–36.8; O2SAT 94–96
[2019-04-29] MEDS: Ipratropium/Albuterol Sulfate 3 ML AMPUL.NEB INHALATION ×6 (03:55→23:22)
[2019-04-29] MEDS: Methadone 10 MG Tablet PO ×3 (05:15→17:03)
[2019-04-29] MEDS: Insulin Lispro 100 UNIT/ML INSULN.PEN SC ×4 (06:39→22:15)
[2019-04-29 06:46] LABS: Bedside Glucose 253 mg/dL (70-110)
[2019-04-29 07:21] LABS: Vancomycin, Trough Level 19.2 ug/mL (5.0-15.0)
[2019-04-29] MEDS: 0.9% Saline Lock 10 ML Syringe IV (07:29)
[2019-04-29] MEDS: Citalopram 10 MG Tablet PO (08:40)
[2019-04-29] MEDS: amLODIPine 10 MG Tablet PO (08:41)
[2019-04-29] MEDS: Enoxaparin 40 MG/0.4 ML Syringe SC (08:41)
--- NOTE | 2019-04-29 10:05 | PCM.PN.PUL ---
Patient Problems: Active and Suspected Problems (Last Reviewed 04/14/19 @ 14:[address]) Sepsis (Acute) HCAP (healthcare-associated pneumonia) (Acute) Acute and chronic respiratory failure with hypoxia (Acute) Hyperglycemia (Acute) Hyponatremia (Acute) Subjective: The patient was seen and examined at the bedside this morning. Events from the last 24 hours have been reviewed. The patient is currently afebrile, hemodynamically stable and maintaining appropriate oxygen saturations on 3 L/min via nasal cannula. While the patient does report subjective improvement in his breathing quality, he does report that he continues to wheeze. Objective: The patient's most recent lab work, culture data and imaging studies have all been personally reviewed. Sputum culture was positive for group A streptococcus. - Physical Exam Vitals/I&O's: Vital Signs Temp Pulse Resp BP Pulse Ox 97.8 F 74 16 141/80 H 96 04/29/19 08:35 04/29/19 08:35 04/29/19 08:35 04/29/19 08:35 04/29/19 08:35 Oxygen Flow Rate (L/min) 3 Oxygen Delivery Method Nasal Cannula Weight: 194 lb 3.636 oz Body Mass Index (BMI) 27.8 Intake and Output for Last 24 Hours 04/27/19 04/28/19 04/29/19 23:59 23:59 23:59 Intake Total 3405.00 / 3405.00 2400.25 / 2400.25 837.5 / 837.5 Output Total 1075 / 1075 775 / 775 300 / 300 Balance 2330.00 / 2330.00 1625.25 / 1625.25 537.5 / 537.5 General: Alert, Oriented x3, Cooperative, No apparent distress HEENT: Atraumatic, PERRLA, Normocephalic Oral: No Gingival or Mucosal Lesions/ Ulcerations Neck: Supple, No Nodes, Trachea Midline Lungs: Diminished, Wheezes Cardiovascular: Regular rate, Regular Rhythm, Normal S1, Normal S2, No murmurs Abdomen: Bowel Sounds Present, Soft, Non Tender Extremities: No clubbing, No cyanosis, No edema, - - Left upper extremity congenital aplasia Skin: No breakdown Musculoskeletal: No Tenderness to Palpation of Joints or Extremities, No Muscle Wasting Lymphatic: No Cervical, Supraclavicular, or Inguinal Adenopathy Neurological: Cranial nerves II-XII grossly intact, Neuro grossly intact Psych/Mental Status: Normal Affect, Appropriate Labs (Last 48 Hours) 04/27/19 04/27/19 04/27/19 11:54 17:07 21:44 WBC RBC Hgb Hct MCV MCH MCHC RDW Std Deviation RDW Coeff of [place] Plt Count MPV Sodium Potassium Chloride Carbon Dioxide Anion Gap BUN Creatinine Estim Creat Clear Calc Est GFR (MDRD) Af Amer Est GFR (MDRD) Non-Af BUN/Creatinine Ratio Glucose Calcium Vancomycin Trough POC Glucose 290 H 288 H 328 H 04/27/19 04/28/19 04/28/19 22:25 06:15 06:15 WBC 14.7 H RBC 4.83 Hgb 14.4 Hct 45.3 MCV 93.8 MCH 29.8 MCHC 31.8 L RDW Std Deviation 46.3 H RDW Coeff of [place] 13.4 Plt Count 168 MPV 10.8 Sodium 138 Potassium 4.0 Chloride 101 Carbon Dioxide 29.0 Anion Gap 8 BUN 15 Creatinine 0.62 L Estim Creat Clear Calc 140.64 Est GFR (MDRD) Af Amer 175 Est GFR (MDRD) Non-Af 144 BUN/Creatinine Ratio 24.3 H Glucose 240 H Calcium 8.8 Vancomycin Trough 11.2 POC Glucose 04/28/19 04/28/19 04/28/19 06:48 11:23 14:36 WBC RBC Hgb Hct MCV MCH MCHC RDW Std Deviation RDW Coeff of [place] Plt Count MPV Sodium Potassium Chloride Carbon Dioxide Anion Gap BUN Creatinine Estim Creat Clear Calc Est GFR (MDRD) Af Amer Est GFR (MDRD) Non-Af BUN/Creatinine Ratio Glucose Calcium Vancomycin Trough POC Glucose 259 H 357 H 282 H 04/28/19 04/28/19 04/29/19 17:06 22:13 06:34 WBC RBC Hgb Hct MCV MCH MCHC RDW Std Deviation RDW Coeff of [place] Plt Count MPV Sodium Potassium Chloride Carbon Dioxide Anion Gap BUN Creatinine Estim Creat Clear Calc Est GFR (MDRD) Af Amer Est GFR (MDRD) Non-Af BUN/Creatinine Ratio Glucose Calcium Vancomycin Trough 19.2 H POC Glucose 213 H 261 H 04/29/19 06:38 WBC RBC Hgb Hct MCV MCH MCHC RDW Std Deviation RDW Coeff of [place] Plt Count MPV Sodium Potassium Chloride Carbon Dioxide Anion Gap BUN Creatinine Estim Creat Clear Calc Est GFR (MDRD) Af Amer Est GFR (MDRD) Non-Af BUN/Creatinine Ratio Glucose Calcium Vancomycin Trough POC Glucose 253 H Microbiology 04/27/19 00:20 Sputum, Expectorated/Coughed Gram Stain - Final 04/27/19 00:20 Sputum, Expectorated/Coughed Respiratory Culture - Final Streptococcus group A 04/26/19 23:40 Mucosa - Nasopharyngeal Respiratory Panel (PCR) - Final Clinical Impression(s) from Imaging Studies Chest X-Ray 04/26/19 19:55 IMPRESSION: Decreased left hemithorax volume. Right lower lung zone infiltrate. Left base atelectasis and/or infiltrate. Electronically Signed: Brian Buenrostro, at 20:18 EST Tel , Service support , Current Medications Acetaminophen (Tylenol) 650 mg PO Q6H PRN PRN PRN Reason: Non-cardiac pain (mod-severe) Hydrocodone Bitart/Acetaminophen ([place] 5mg-325mg) 1 tablet PO Q8H PRN PRN PRN Reason: Pain Score 1-10/10 Last Admin: 04/27/19 23:34 Dose: 1 tablet Documented by: Al Hydroxide/Mg Hydroxide (Mylanta Ii) 15 - 30 ml PO Q4H PRN PRN PRN Reason: INDIGESTION Albuterol Sulfate (Ventolin Aerosols) 2.5 mg INHALATION Q2H PRN PRN PRN Reason: dyspnea, wheezing Last Admin: 04/27/19 23:23 Dose: 2.5 mg Documented by: Albuterol/Ipratropium (Duoneb) 3 ml INHALATION Q4HWA.RT [facility] Last Admin: 04/29/19 06:34 Dose: 3 ml Documented by: Amlodipine Besylate (Norvasc) 10 mg PO DAILY [facility] Last Admin: 04/29/19 08:41 Dose: 10 mg Documented by: Citalopram Hydrobromide (Celexa) 10 mg PO DAILY [facility] Last Admin: 04/29/19 08:40 Dose: 10 mg Documented by: Dextrose (D50w Syringe) 0 gm IV X1 PRN; Protocol PRN Reason: Hypoglycemia Enoxaparin Sodium (Lovenox) 40 mg SC DAILY@1000 [facility] Last Admin: 04/29/19 08:41 Dose: 40 mg Documented by: Glucagon () 1 mg IM .X1 PRN PRN Reason: Hypoglycemia Guaifenesin (Robitussin) 20 ml PO Q4H PRN PRN PRN Reason: COUGH Last Admin: 04/27/19 05:41 Dose: 20 ml Documented by: Hydralazine HCl (Apresoline Iv) 10 mg IV Q4H PRN PRN PRN Reason: SBP > 160 Last Admin: 04/27/19 19:06 Dose: 10 mg Documented by: Sodium Chloride () 250 mls @ 15 mls/hr IV .[id number] PRN PRN Reason: Saline Flush Last Infusion: 04/28/19 05:50 Dose: 0 mls/hr Documented by: Vancomycin IV Pharmacy to Dose (1 ea/ Sodium Chloride) 500 mls @ 250 mls/hr IV X1 PRN; Protocol PRN Reason: Rx to Dose Piperacillin Sod/Tazobactam (Sod 3.375 gm/ Sodium Chloride) 50 mls @ 12.5 mls/hr IV Q8 [facility] Stop: 05/04/19 06:01 Last Infusion: 04/29/19 06:39 Dose: 12.5 mls/hr Documented by: Vancomycin HCl 1,500 mg/ (Sodium Chloride) 530 mls @ 250 mls/hr IV Q8H [facility] Last Admin: 04/29/19 06:39 Dose: 250 mls/hr Documented by: Insulin Glargine (Lantus (Bkc)) 10 units SC DAILY [facility] Last Admin: 04/29/19 08:40 Dose: 10 u Documented by: Insulin Human Lispro (Humalog Kwikpen (Bkc)) 0 unit SC ACHS [facility]; Protocol Last Admin: 04/29/19 06:39 Dose: 6 units Documented by: Magnesium Hydroxide (Milk Of Magnesia) 30 ml PO DAILY PRN PRN Reason: Constipation Melatonin (Melatonin) 3 mg PO QHS PRN PRN PRN Reason: INSOMNIA Methadone HCl () 10 mg PO Q6 [facility] Last Admin: 04/29/19 05:15 Dose: 10 mg Documented by: Methylprednisolone (Solu-Medrol) 40 mg IV Q8 [facility] Last Admin: 04/29/19 05:15 Dose: 40 mg Documented by: Nitroglycerin (Nitrostat) 0.4 mg SUBLINGUAL Q5M PRN PRN Reason: CARDIAC/CHEST PAIN Nutritional Formula (Lactose Free) (Glucerna Shake) 120 ml PO 4X/DAY [facility] Last Admin: 04/29/19 08:40 Dose: Not Given Documented by: Ondansetron HCl (Zofran) 4 mg IV Q8H PRN PRN PRN Reason: NAUSEA/VOMITING Sodium Chloride () 10 - 40 ml IV UD PRN PRN Reason: SALINE FLUSH Last Admin: 04/29/19 07:29 Dose: 10 ml Documented by: Throat Lozenges (Cepacol Sore Throat Lozenge) 1 lozenge MUCOUS MEM Q2H PRN PRN PRN Reason: Sore Throat/Cough Triamterene/HCTZ (Dyazide (G)) 1 cap PO DAILY PRN PRN PRN Reason: Swelling Medical Necessity - Tobacco Use Smoking Status: Former smoker Tobacco Use: Non-smoker Assessment/Plan All Active Problems (Last Reviewed 04/14/19 @ 14:[address]) COPD exacerbation (Acute) Sepsis (Acute) HCAP (healthcare-associated pneumonia) (Acute) Acute and chronic respiratory failure with hypoxia (Acute) Hyperglycemia (Acute) Hyponatremia (Acute) RECOMMENDATIONS: 1. Continue antimicrobials, bronchodilators and steroids. 2. Wean supplemental oxygen as tolerated. 3. Continue nocturnal trilogy use, per home regimen. 4. Encourage incentive spirometer use and mobilize patient as tolerated. 5. Outpatient pulmonary follow-up within 2 weeks of discharge is recommended. IMPRESSIONS: 1. Acute on chronic combined respiratory failure due to COPD with exacerbation secondary to HCAP The patient has a baseline 2 L/min supplemental oxygen requirement and is a chronic CO2 retainer. The patient was previously being followed by a pulmonary provider in [facility], who has since retired. He currently utilizes a trilogy noninvasive ventilator on a nightly basis. The patient's presenting plain film chest x-ray did reveal evidence of a right lower lobe infiltrate. Subsequent sputum culture was positive for group A streptococcus. Continue antimicrobials, bronchodilators and steroids. Continue to wean supplemental oxygen as tolerated. Encourage incentive spirometer use and mobilize patient as tolerated. 2. Congenital aplasia of left upper extremity/hypertension/hyperlipidemia/anxiety/depression/chronic pain syndrome Complicates care, management, recovery and prognosis. Continue home medications as indicated. This note was generated with [employer] dictation software. It may contain incorrect words, spelling, and punctuation that were not noted in checking the note before signing. Code Visit Inpatient E&M: 52119 Subs Hosp L2
--- NOTE | 2019-04-29 10:44 | CM.UR ---
Patient requested nebulizer as he doesn't have one currently at home. Dr. Mcclain ordered one and I took rx into patient. He states he goes to [facility]'s pharmacy. I called the pharmacy to see if they have nebulizers. States that they do however they are not contracted to bill [facility] so they will not be able to supply one. States he can purchase one outright for $45. spoke with patient. Have [employer] coming for another patient on this floor and can check with them to see if they will deliver nebulizer since they are coming anyway. He is agreeable. Go Ding RN, CCM.
[2019-04-29 11:21] LABS: Bedside Glucose 211 mg/dL (70-110)
[2019-04-29] MEDS: HYDROcodone Bitartrate/Apap 5/325 Tablet PO (13:11)
--- NOTE | 2019-04-29 13:39 | PCM.PROGNOTE ---
Patient Problems: Active and Suspected Problems (Last Reviewed 04/14/19 @ 14:[address]) Sepsis (Acute) HCAP (healthcare-associated pneumonia) (Acute) Acute and chronic respiratory failure with hypoxia (Acute) Hyperglycemia (Acute) Hyponatremia (Acute) Subjective: Patient seen and examined. Breathing improved. Continues to have wheezing on exam. We will continue IV steroids through today, anticipate discharge tomorrow if continued improvement. - Physical Exam Vitals/I&O's: Vital Signs Temp Pulse Resp BP Pulse Ox 97.8 F 87 18 141/80 H 96 04/29/19 08:35 04/29/19 10:30 04/29/19 10:30 04/29/19 08:35 04/29/19 08:35 Oxygen Flow Rate (L/min) 4 Oxygen Delivery Method Nasal Cannula Weight: 194 lb 3.636 oz Body Mass Index (BMI) 27.8 Intake and Output for Last 24 Hours 04/27/19 04/28/19 04/29/19 23:59 23:59 23:59 Intake Total 3405.00 / 3405.00 2400.25 / 2400.25 2600.0 / 2600.0 Output Total 1075 / 1075 775 / 775 1225 / 1225 Balance 2330.00 / 2330.00 1625.25 / 1625.25 1375.0 / 1375.0 General: Alert, Oriented x3, Cooperative HEENT: Atraumatic, PERRLA, EOMI, Normocephalic Neck: Supple, No JVD, Negative Carotid Bruits Lungs: Diminished, Wheezes Cardiovascular: Regular rate, Regular Rhythm, Normal S1, Normal S2, No murmurs Abdomen: Bowel Sounds Present, Soft, Non Tender, Non-Distended Extremities: No clubbing, No cyanosis, No edema, Capillary Refill Less than 3 Seconds, - - Left chest aplasia. Skin: No rashes, No breakdown Musculoskeletal: No Tenderness to Palpation of Joints or Extremities Neurological: Cranial nerves II-XII grossly intact, Neuro grossly intact Psych/Mental Status: Normal Affect, Appropriate Microbiology Past 72 Hours 04/27/19 00:20 Sputum, Expectorated/Coughed Gram Stain - Final 04/27/19 00:20 Sputum, Expectorated/Coughed Respiratory Culture - Final Streptococcus group A 04/26/19 23:40 Mucosa - Nasopharyngeal Respiratory Panel (PCR) - Final 04/27/19 01:05 Urine, Clean Catch Streptococcus pneumoniae Antigen (M - Final 04/27/19 01:05 Urine, Clean Catch Legionella Antigen - Final Laboratory Results 04/28/19 14:36: POC Glucose 282 H 04/28/19 17:06: POC Glucose 213 H 04/28/19 22:13: POC Glucose 261 H 04/29/19 06:34: Vancomycin Trough 19.2 H 04/29/19 06:38: POC Glucose 253 H 04/29/19 11:14: POC Glucose 211 H Current Medications Acetaminophen (Tylenol) 650 mg PO Q6H PRN PRN PRN Reason: Non-cardiac pain (mod-severe) Hydrocodone Bitart/Acetaminophen ([place] 5mg-325mg) 1 tablet PO Q8H PRN PRN PRN Reason: Pain Score 1-10/10 Last Admin: 04/29/19 13:11 Dose: 1 tablet Documented by: Al Hydroxide/Mg Hydroxide (Mylanta Ii) 15 - 30 ml PO Q4H PRN PRN PRN Reason: INDIGESTION Albuterol Sulfate (Ventolin Aerosols) 2.5 mg INHALATION Q2H PRN PRN PRN Reason: dyspnea, wheezing Last Admin: 04/27/19 23:23 Dose: 2.5 mg Documented by: Albuterol/Ipratropium (Duoneb) 3 ml INHALATION Q4HWA.RT [facility] Last Admin: 04/29/19 10:30 Dose: 3 ml Documented by: Amlodipine Besylate (Norvasc) 10 mg PO DAILY [facility] Last Admin: 04/29/19 08:41 Dose: 10 mg Documented by: Citalopram Hydrobromide (Celexa) 10 mg PO DAILY [facility] Last Admin: 04/29/19 08:40 Dose: 10 mg Documented by: Dextrose (D50w Syringe) 0 gm IV X1 PRN; Protocol PRN Reason: Hypoglycemia Enoxaparin Sodium (Lovenox) 40 mg SC DAILY@1000 [facility] Last Admin: 04/29/19 08:41 Dose: 40 mg Documented by: Glucagon () 1 mg IM .X1 PRN PRN Reason: Hypoglycemia Guaifenesin (Robitussin) 20 ml PO Q4H PRN PRN PRN Reason: COUGH Last Admin: 04/27/19 05:41 Dose: 20 ml Documented by: Hydralazine HCl (Apresoline Iv) 10 mg IV Q4H PRN PRN PRN Reason: SBP > 160 Last Admin: 04/27/19 19:06 Dose: 10 mg Documented by: Sodium Chloride () 250 mls @ 15 mls/hr IV .[id number] PRN PRN Reason: Saline Flush Last Infusion: 04/28/19 05:50 Dose: 0 mls/hr Documented by: Vancomycin IV Pharmacy to Dose (1 ea/ Sodium Chloride) 500 mls @ 250 mls/hr IV X1 PRN; Protocol PRN Reason: Rx to Dose Piperacillin Sod/Tazobactam (Sod 3.375 gm/ Sodium Chloride) 50 mls @ 12.5 mls/hr IV Q8 [facility] Stop: 05/04/19 06:01 Last Infusion: 04/29/19 10:25 Dose: Infused Documented by: Vancomycin HCl 1,500 mg/ (Sodium Chloride) 530 mls @ 250 mls/hr IV Q8H [facility] Last Infusion: 04/29/19 09:00 Dose: Infused Documented by: Insulin Glargine (Lantus (Bk)) 10 units SC DAILY [facility] Last Admin: 04/29/19 08:40 Dose: 10 u Documented by: Insulin Human Lispro (Humalog Kwikpen (Bk)) 0 unit SC ACHS [facility]; Protocol Last Admin: 04/29/19 11:41 Dose: 6 units Documented by: Magnesium Hydroxide (Milk Of Magnesia) 30 ml PO DAILY PRN PRN Reason: Constipation Melatonin (Melatonin) 3 mg PO QHS PRN PRN PRN Reason: INSOMNIA Methadone HCl () 10 mg PO Q6 [facility] Last Admin: 04/29/19 11:40 Dose: 10 mg Documented by: Methylprednisolone (Solu-Medrol) 40 mg IV Q8 [facility] Last Admin: 04/29/19 05:15 Dose: 40 mg Documented by: Nitroglycerin (Nitrostat) 0.4 mg SUBLINGUAL Q5M PRN PRN Reason: CARDIAC/CHEST PAIN Nutritional Formula (Lactose Free) (Glucerna Shake) 120 ml PO 4X/DAY [facility] Last Admin: 04/29/19 08:40 Dose: Not Given Documented by: Ondansetron HCl (Zofran) 4 mg IV Q8H PRN PRN PRN Reason: NAUSEA/VOMITING Sodium Chloride () 10 - 40 ml IV UD PRN PRN Reason: SALINE FLUSH Last Admin: 04/29/19 07:29 Dose: 10 ml Documented by: Throat Lozenges (Cepacol Sore Throat Lozenge) 1 lozenge MUCOUS MEM Q2H PRN PRN PRN Reason: Sore Throat/Cough Triamterene/HCTZ (Dyazide (G)) 1 cap PO DAILY PRN PRN PRN Reason: Swelling Medical Necessity - Tobacco Use Smoking Status: Former smoker Tobacco Use: Non-smoker Assessment/Plan All Active Problems (Last Reviewed 04/14/19 @ 14:[address]) COPD exacerbation (Acute) Sepsis (Acute) HCAP (healthcare-associated pneumonia) (Acute) Acute and chronic respiratory failure with hypoxia (Acute) Hyperglycemia (Acute) Hyponatremia (Acute) 1. Acute sepsis secondary to healthcare associated pneumonia and acute on chronic COPD exacerbation with chronic hypoxic respiratory failure-chest x-ray admission with right lower lobe infiltrate. Left base atelectasis versus infiltrate. Pulmonary medicine consulted. Continue IV Zosyn and IV vancomycin. IV Solu-Medrol. Albuterol and DuoNeb aerosols. Respiratory panel negative. Urine for strep and Legionella negative. Sputum culture preliminary growing strep group A. Patient on nocturnal trilogy, continue. Continue supplement oxygen to maintain O2 at or above 90%. Patient wears 2 L nasal cannula at bedtime at baseline. Walking pulse ox prior to discharge. Anticipate transition to oral antibiotic and oral prednisone tomorrow. Patient requesting nebulizer at discharge, prescription given to case management to assist with this. 2. Chest pain, suspect pleuritic as a result of #1-EKG without ST-T changes. Troponin negative. ACS ruled out. 3. Hypovolemic hyponatremia-resolved with IV fluids. Trend BMP. 4. Type 2 diabetes mellitus-hemoglobin A1c 6.9%. Recommend addition of oral regimen at discharge and repeat hemoglobin A 1C by primary care provider. Accu-Cheks ACHS with SSI. 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 Hypertension-stable, continue home Norvasc, HCTZ, triamterene. 7. Hyperlipidemia- not on statin. 8. Anxiety/depression-continue home Celexa regimen. 9. Chronic pain syndrome-continue home methadone regimen. DVT prophylaxis-Lovenox subcu This patient was seen by SERGIO Ray under the supervision of Dr. Mcclain.
[2019-04-29 16:26] LABS: Bedside Glucose 279 mg/dL (70-110)
[2019-04-29 22:21] LABS: Bedside Glucose 190 mg/dL (70-110)
[2019-04-30] VITALS (7 sets, daily range): BP systolic 120–148; BP diastolic 69–77; PULSE 68–89; RESP 16–18; TEMP 36.6–36.8; O2SAT 93
[2019-04-30] MEDS: Methadone 10 MG Tablet PO ×3 (00:05→11:53)
[2019-04-30] MEDS: Ipratropium/Albuterol Sulfate 3 ML AMPUL.NEB INHALATION ×3 (02:36→11:57)
[2019-04-30] MEDS: Insulin Lispro 100 UNIT/ML INSULN.PEN SC ×2 (06:47→11:49)
[2019-04-30 06:56] LABS: Bedside Glucose 262 mg/dL (70-110)
[2019-04-30] MEDS: HYDROcodone Bitartrate/Apap 5/325 Tablet PO (07:13)
--- NOTE | 2019-04-30 09:59 | PCM.PN.PUL ---
Patient Problems: Active and Suspected Problems (Last Reviewed 04/14/19 @ 14:[address]) Sepsis (Acute) HCAP (healthcare-associated pneumonia) (Acute) Acute and chronic respiratory failure with hypoxia (Acute) Hyperglycemia (Acute) Hyponatremia (Acute) Subjective: The patient was seen and examined at the bedside this morning. Events from the last 24 hours have been reviewed. The patient is currently afebrile, hemodynamically stable and maintaining appropriate oxygen saturations on 3 L/min via nasal cannula. The patient is currently sitting in his bedside recliner. He does admit that his breathing quality has improved substantially over the last 24 hours. He is no longer wheezing. Objective: The patient's most recent lab work, culture data and imaging studies have all been personally reviewed. Sputum culture was positive only for 3+ group A streptococcus. - Physical Exam Vitals/I&O's: Vital Signs Temp Pulse Resp BP Pulse Ox 97.9 F 68 18 120/69 93 04/30/19 08:35 04/30/19 08:35 04/30/19 08:35 04/30/19 08:35 04/30/19 08:35 Oxygen Flow Rate (L/min) 3 Oxygen Delivery Method Nasal Cannula Weight: 194 lb 3.636 oz Body Mass Index (BMI) 27.8 Intake and Output for Last 24 Hours 04/28/19 04/29/19 04/30/19 23:59 23:59 23:59 Intake Total 2400.25 / 2400.25 4850.0 / 5150.0 500 / 500 Output Total 775 / 775 1225 / 1225 Balance 1625.25 / 1625.25 3625.0 / 3925.0 500 / 500 General: Alert, Cooperative, No apparent distress HEENT: Atraumatic, PERRLA, Normocephalic Oral: No Gingival or Mucosal Lesions/ Ulcerations Neck: Supple, No Nodes, Trachea Midline Lungs: No rhonchi, No wheeze, No rales, Diminished Cardiovascular: Regular rate, Regular Rhythm, Normal S1, Normal S2, No murmurs Abdomen: Bowel Sounds Present, Soft, Non Tender Extremities: No clubbing, No cyanosis, No edema, - - Left upper extremity congenital aplasia Skin: No breakdown Musculoskeletal: No Tenderness to Palpation of Joints or Extremities, No Muscle Wasting Lymphatic: No Cervical, Supraclavicular, or Inguinal Adenopathy Neurological: Neuro grossly intact Psych/Mental Status: Normal Affect, Appropriate Microbiology Past 72 Hours 04/26/19 22:25 Blood Culture (Wb) - Right Hand Blood Culture - Preliminary No growth in 48 hours. 04/26/19 19:45 Blood Culture (Wb) - Anticubital Right Blood Culture - Preliminary No growth in 48 hours. 04/27/19 00:20 Sputum, Expectorated/Coughed Gram Stain - Final 04/27/19 00:20 Sputum, Expectorated/Coughed Respiratory Culture - Final Streptococcus group A 04/26/19 23:40 Mucosa - Nasopharyngeal Respiratory Panel (PCR) - Final Laboratory Results 04/29/19 11:14: POC Glucose 211 H 04/29/19 16:12: POC Glucose 279 H 04/29/19 22:13: POC Glucose 190 H 04/30/19 06:45: POC Glucose 262 H Current Medications Acetaminophen (Tylenol) 650 mg PO Q6H PRN PRN PRN Reason: Non-cardiac pain (mod-severe) Hydrocodone Bitart/Acetaminophen ([place] 5mg-325mg) 1 tablet PO Q8H PRN PRN PRN Reason: Pain Score 1-10/10 Last Admin: 04/30/19 07:13 Dose: 1 tablet Documented by: Al Hydroxide/Mg Hydroxide (Mylanta Ii) 15 - 30 ml PO Q4H PRN PRN PRN Reason: INDIGESTION Albuterol Sulfate (Ventolin Aerosols) 2.5 mg INHALATION Q2H PRN PRN PRN Reason: dyspnea, wheezing Last Admin: 04/27/19 23:23 Dose: 2.5 mg Documented by: Albuterol/Ipratropium (Duoneb) 3 ml INHALATION Q4HWA.RT [facility] Last Admin: 04/30/19 06:51 Dose: 3 ml Documented by: Amlodipine Besylate (Norvasc) 10 mg PO DAILY [facility] Last Admin: 04/29/19 08:41 Dose: 10 mg Documented by: Citalopram Hydrobromide (Celexa) 10 mg PO DAILY [facility] Last Admin: 04/29/19 08:40 Dose: 10 mg Documented by: Dextrose (D50w Syringe) 0 gm IV X1 PRN; Protocol PRN Reason: Hypoglycemia Enoxaparin Sodium (Lovenox) 40 mg SC DAILY@1000 MICHELL Last Admin: 04/29/19 08:41 Dose: 40 mg Documented by: Glucagon () 1 mg IM .X1 PRN PRN Reason: Hypoglycemia Guaifenesin (Robitussin) 20 ml PO Q4H PRN PRN PRN Reason: COUGH Last Admin: 04/27/19 05:41 Dose: 20 ml Documented by: Hydralazine HCl (Apresoline Iv) 10 mg IV Q4H PRN PRN PRN Reason: SBP > 160 Last Admin: 04/27/19 19:06 Dose: 10 mg Documented by: Sodium Chloride () 250 mls @ 15 mls/hr IV .[id number] PRN PRN Reason: Saline Flush Last Infusion: 04/28/19 05:50 Dose: 0 mls/hr Documented by: Piperacillin Sod/Tazobactam (Sod 3.375 gm/ Sodium Chloride) 50 mls @ 12.5 mls/hr IV Q8 [facility] Stop: 05/04/19 06:01 Last Admin: 04/30/19 05:36 Dose: 12.5 mls/hr Documented by: Insulin Glargine (Lantus (Bkc)) 10 units SC DAILY [facility] Last Admin: 04/29/19 08:40 Dose: 10 u Documented by: Insulin Human Lispro (Humalog Kwikpen (Bk)) 0 unit SC ACHS [facility]; Protocol Last Admin: 04/30/19 06:47 Dose: 9 units Documented by: Magnesium Hydroxide (Milk Of Magnesia) 30 ml PO DAILY PRN PRN Reason: Constipation Melatonin (Melatonin) 3 mg PO QHS PRN PRN PRN Reason: INSOMNIA Methadone HCl () 10 mg PO Q6 [facility] Last Admin: 04/30/19 05:36 Dose: 10 mg Documented by: Methylprednisolone (Solu-Medrol) 40 mg IV Q8 [facility] Last Admin: 04/30/19 05:36 Dose: 40 mg Documented by: Nitroglycerin (Nitrostat) 0.4 mg SUBLINGUAL Q5M PRN PRN Reason: CARDIAC/CHEST PAIN Nutritional Formula (Lactose Free) (Glucerna Shake) 120 ml PO 4X/DAY [facility] Last Admin: 04/29/19 22:22 Dose: Not Given Documented by: Ondansetron HCl (Zofran) 4 mg IV Q8H PRN PRN PRN Reason: NAUSEA/VOMITING Sodium Chloride () 10 - 40 ml IV UD PRN PRN Reason: SALINE FLUSH Last Admin: 04/29/19 07:29 Dose: 10 ml Documented by: Throat Lozenges (Cepacol Sore Throat Lozenge) 1 lozenge MUCOUS MEM Q2H PRN PRN PRN Reason: Sore Throat/Cough Triamterene/HCTZ (Dyazide (G)) 1 cap PO DAILY PRN PRN PRN Reason: Swelling Medical Necessity - Tobacco Use Smoking Status: Former smoker Tobacco Use: Non-smoker Assessment/Plan All Active Problems (Last Reviewed 04/14/19 @ 14:[address]) COPD exacerbation (Acute) Sepsis (Acute) HCAP (healthcare-associated pneumonia) (Acute) Acute and chronic respiratory failure with hypoxia (Acute) Hyperglycemia (Acute) Hyponatremia (Acute) RECOMMENDATIONS: 1. Continue antimicrobials, bronchodilators and steroids. Okay to transition to p.o. antimicrobial regimen with plans to complete 7 days of treatment. 2. Wean supplemental oxygen as tolerated. 3. Continue nocturnal trilogy use, per home regimen. 4. Encourage incentive spirometer use and mobilize patient as tolerated. 5. Outpatient pulmonary follow-up within 2 weeks of discharge is recommended. IMPRESSIONS: 1. Acute on chronic combined respiratory failure due to COPD with exacerbation secondary to HCAP The patient has a baseline 2 L/min supplemental oxygen requirement and is a chronic CO2 retainer. The patient was previously being followed by a pulmonary provider in [facility], who has since retired. He currently utilizes a trilogy noninvasive ventilator on a nightly basis. The patient's presenting plain film chest x-ray did reveal evidence of a right lower lobe infiltrate. Subsequent sputum culture was positive for group A streptococcus. Continue antimicrobials, bronchodilators and steroids. Recommend a 7-day treatment course of antibiotics. Prednisone can be weaned following discharge. Continue to wean supplemental oxygen as tolerated. Encourage incentive spirometer use and mobilize patient as tolerated. Perform walking oximetry study prior to consideration for discharge home. The patient should follow-up in the pulmonary medicine clinic within 2 weeks of his discharge to establish care. 2. Congenital aplasia of left upper extremity/hypertension/hyperlipidemia/anxiety/depression/chronic pain syndrome Complicates care, management, recovery and prognosis. Continue home medications as indicated. This note was generated with [employer] software. It may contain incorrect words, spelling, and punctuation that were not noted in checking the note before signing. Code Visit Inpatient E&M: 63412 Subs Hosp L2
[2019-04-30] MEDS: Citalopram 10 MG Tablet PO (10:07)
[2019-04-30] MEDS: Enoxaparin 40 MG/0.4 ML Syringe SC (10:08)
[2019-04-30] MEDS: amLODIPine 10 MG Tablet PO (10:09)
--- NOTE | 2019-04-30 10:48 | DCINST_ITS ---
- Discharge Diagnoses Current Active Problems: Current Active and Chronic Problems (Last Reviewed 04/14/19 @ 14:[address]) Sepsis (Acute) HCAP (healthcare-associated pneumonia) (Acute) Acute and chronic respiratory failure with hypoxia (Acute) Hyperglycemia (Acute) Hyponatremia (Acute) HTN (hypertension) (Chronic) HLD (hyperlipidemia) (Chronic) Anxiety and depression (Chronic) Chronic pain syndrome (Chronic) Congenital aplasia of lung (Chronic) You will use the following diet at home:: Calorie/Carbohydrate Controlled (specify 1200, 1400, etc), Cardiac Discharge Activity: Return to Normal Activity Call your doctor if you observe: Fever of 101 or Higher, Shortness of breath, Dizziness, Fainting spells, Chest pain Allergies/Adverse Reactions: Allergies aspirin Allergy (Verified 04/26/19 19:28) Unknown zolpidem [From Ambien] Allergy (Verified 04/26/19 19:28) Unknown Medications to take at Discharge Citalopram [Celexa] 10 mg PO DAILY 04/14/19 Fluticasone/Vilanterol [Breo Ellipta 100-25 Mcg INH] 1 ea IH DAILY 04/14/19 Hydrocodone/Acetaminophen [[place] 5-325 Tablet] 1 ea PO Q8H PRN PRN 04/14/19 Methadone HCl 10 mg PO Q6H 04/14/19 Triamterene/Hctz 37.5/25Mg [Triamterene-Hctz 37.5-25 mg Tb] 1 tab PO DAILY PRN PRN 04/14/19 Amlodipine [Norvasc] 10 mg PO DAILY #30 tab 04/16/19 Guaifenesin [Mucinex] 1,200 mg PO BID #14 tab 04/16/19 Dextromethorphan HBr [Robitussin] 15 - 30 mg PO Q6H PRN PRN 04/26/19 Phenylephrine HCl [Sudogest PE] 10 mg PO Q4H PRN PRN 04/26/19 Albuterol Aerosols [Ventolin Aerosols] 2.5 mg INHALATION Q2H PRN PRN #120 vial.neb. 04/30/19 Amox/Clavulanate Tablet [Augmentin Tablet] 875 mg PO Q12H #8 tab 04/30/19 Metformin HCl 500 mg PO BID #60 tab 04/30/19 Prednisone See Taper PO DAILY #30 tab 04/30/19 The following prescriptions were given: Amox/Clavulanate Tablet [Augmentin Tablet] 875 mg PO Q12H #8 tab Transmission Status: Pending to [facility] Metformin HCl 500 mg PO BID #60 tab Transmission Status: Pending to [facility] Prednisone See Taper PO DAILY #30 tab Transmission Status: Pending to [facility] Albuterol Aerosols [Ventolin Aerosols] 2.5 mg INHALATION Q2H PRN PRN #120 vial.neb. PRN Reason: dyspnea, wheezing Transmission Status: Pending to [facility] Test Results: Test results from this visit will be discussed in further detail at your follow- up appointment, if applicable. Please Follow Up With: Jaime Fortune When: 1 Week Please Follow Up With: Panda Walls DO When: 2 Weeks, may see AUTO BODY REPAIRER/PA Proposed Discharge Date: 04/30/19
--- NOTE | 2019-04-30 10:50 | DS.PCM_ITS ---
Discharge Date and Diagnosis Date of Admission: 04/26/19 Date of Discharge: 04/30/19 - Primary Discharge Diagnosis Active and Suspected Problems (Last Reviewed 04/14/19 @ 14:[address]) 1. Acute sepsis secondary to healthcare associated pneumonia with associated acute on chronic COPD exacerbation and chronic hypoxic respiratory failure 2. Chest pain, suspect pleuritic as a result of #1-ACS ruled out. 3. Hypovolemic hyponatremia-resolved with IV fluids. 4. Type 2 diabetes mellitus, new diagnosis 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 Hypertension 7. Hyperlipidemia 8. Anxiety/depression 9. Chronic pain syndrome - Secondary Discharge Diagnosis Chronic Problems (Last Reviewed 04/14/19 @ 14:[address]) HTN (hypertension) (Chronic) HLD (hyperlipidemia) (Chronic) Anxiety and depression (Chronic) Chronic pain syndrome (Chronic) Congenital aplasia of lung (Chronic) Hospital Course and Treatment Imaging Results: Diagnostic Data Chest X-Ray 04/26/19 19:55 IMPRESSION: Decreased left hemithorax volume. Right lower lung zone infiltrate. Left base atelectasis and/or infiltrate. Electronically Signed: Brian Buenrostro, at 20:18 EST Tel , Service support , Dr. Walls- Pulmonary Medicine Operations: None Procedures: None Summary of Care Provided: The patient is a 54 year old M admitted 04/26/2019 due to dyspnea, cough, chest pain and hypoxia at home. 1. Acute sepsis secondary to healthcare associated pneumonia with associated acute on chronic COPD exacerbation and chronic hypoxic respiratory failure-chest x-ray admission with right lower lobe infiltrate. Left base atelectasis versus infiltrate. Pulmonary medicine consulted. Patient received IV Zosyn and IV vancomycin during admission. Discharged on Augmentin 875 mg twice daily to complete 7-day course of antibiotics. Prednisone taper at discharge respiratory panel negative. Urine for strep and Legionella negative. Sputum culture grew strep group A. Patient on nocturnal trilogy, continue. Continue supplement oxygen to maintain O2 at or above 90%. Patient wears 2 L nasal cannula at bedtime at baseline. Patient will need to wear 2 L nasal cannula continuously at discharge. Patient requested nebulizer which was obtained for him prior to discharge. He may continue albuterol aerosols as needed every 2 hours. Follow- up with primary care provider in 1 week. Follow-up with pulmonary medicine in 2 weeks. 2. Chest pain, suspect pleuritic as a result of #1-EKG without ST-T changes. Troponin negative. ACS ruled out. 3. Hypovolemic hyponatremia-resolved with IV fluids. 4. Type 2 diabetes mellitus-hemoglobin A1c 6.9%. Initiated on metformin 500 mg twice daily. Prescription given for glucometer and testing supplies. Recommend checking glucose twice daily and follow-up with primary care physician. 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 Hypertension-stable, continue home Norvasc, HCTZ, triamterene. 7. Hyperlipidemia- not on statin. 8. Anxiety/depression-continue home Celexa regimen. 9. Chronic pain syndrome-continue home methadone regimen. General: Alert, Oriented x3, Cooperative HEENT: Atraumatic, PERRLA, EOMI, Normocephalic Neck: Supple, No JVD, Negative Carotid Bruits Lungs: Diminished, Wheezes Cardiovascular: Regular rate, Regular Rhythm, Normal S1, Normal S2, No murmurs Abdomen: Bowel Sounds Present, Soft, Non Tender, Non-Distended Extremities: No clubbing, No cyanosis, No edema, Capillary Refill Less than 3 Seconds, - - Left chest aplasia. Skin: No rashes, No breakdown Musculoskeletal: No Tenderness to Palpation of Joints or Extremities Neurological: Cranial nerves II-XII grossly intact, Neuro grossly intact Psych/Mental Status: Normal Affect, Appropriate Patient seen and examined prior to discharge. Physical assessment as noted above. Patient is stable for discharge with follow up recommendations as noted above. This patient was seen by SERGIO Ray under the supervision of Dr. Mcclain. - Physical Exam Vitals/I&O's: Vital Signs Temp Pulse Resp BP Pulse Ox 97.9 F 68 18 120/69 93 04/30/19 08:35 04/30/19 08:35 04/30/19 08:35 04/30/19 08:35 04/30/19 08:35 Oxygen Flow Rate (L/min) 3 Oxygen Delivery Method Nasal Cannula Weight: 194 lb 3.636 oz Body Mass Index (BMI) 27.8 Intake and Output for Last 24 Hours 04/28/19 04/29/19 04/30/19 23:59 23:59 23:59 Intake Total 2400.25 / 2400.25 4850.0 / 5150.0 550 / 550 Output Total 775 / 775 1225 / 1225 Balance 1625.25 / 1625.25 3625.0 / 3925.0 550 / 550 Microbiology Past 72 Hours 04/26/19 22:25 Blood Culture (Wb) - Right Hand Blood Culture - Preliminary No growth in 48 hours. 04/26/19 19:45 Blood Culture (Wb) - Anticubital Right Blood Culture - Preliminary No growth in 48 hours. 04/27/19 00:20 Sputum, Expectorated/Coughed Gram Stain - Final 04/27/19 00:20 Sputum, Expectorated/Coughed Respiratory Culture - Final Streptococcus group A 04/26/19 23:40 Mucosa - Nasopharyngeal Respiratory Panel (PCR) - Final Laboratory Results 04/29/19 11:14: POC Glucose 211 H 04/29/19 16:12: POC Glucose 279 H 04/29/19 22:13: POC Glucose 190 H 04/30/19 06:45: POC Glucose 262 H Current Medications Acetaminophen (Tylenol) 650 mg PO Q6H PRN PRN PRN Reason: Non-cardiac pain (mod-severe) Hydrocodone Bitart/Acetaminophen ([place] 5mg-325mg) 1 tablet PO Q8H PRN PRN PRN Reason: Pain Score 1-10/10 Last Admin: 04/30/19 07:13 Dose: 1 tablet Documented by: Al Hydroxide/Mg Hydroxide (Mylanta Ii) 15 - 30 ml PO Q4H PRN PRN PRN Reason: INDIGESTION Albuterol Sulfate (Ventolin Aerosols) 2.5 mg INHALATION Q2H PRN PRN PRN Reason: dyspnea, wheezing Last Admin: 04/27/19 23:23 Dose: 2.5 mg Documented by: Albuterol/Ipratropium (Duoneb) 3 ml INHALATION Q4HWA.RT [facility] Last Admin: 04/30/19 06:51 Dose: 3 ml Documented by: Amlodipine Besylate (Norvasc) 10 mg PO DAILY [facility] Last Admin: 04/30/19 10:09 Dose: 10 mg Documented by: Citalopram Hydrobromide (Celexa) 10 mg PO DAILY [facility] Last Admin: 04/30/19 10:07 Dose: 10 mg Documented by: Dextrose (D50w Syringe) 0 gm IV X1 PRN; Protocol PRN Reason: Hypoglycemia Enoxaparin Sodium (Lovenox) 40 mg SC DAILY@1000 MICHELL Last Admin: 04/30/19 10:08 Dose: 40 mg Documented by: Glucagon () 1 mg IM .X1 PRN PRN Reason: Hypoglycemia Guaifenesin (Robitussin) 20 ml PO Q4H PRN PRN PRN Reason: COUGH Last Admin: 04/27/19 05:41 Dose: 20 ml Documented by: Hydralazine HCl (Apresoline Iv) 10 mg IV Q4H PRN PRN PRN Reason: SBP > 160 Last Admin: 04/27/19 19:06 Dose: 10 mg Documented by: Sodium Chloride () 250 mls @ 15 mls/hr IV .[id number] PRN PRN Reason: Saline Flush Last Infusion: 04/28/19 05:50 Dose: 0 mls/hr Documented by: Piperacillin Sod/Tazobactam (Sod 3.375 gm/ Sodium Chloride) 50 mls @ 12.5 mls/hr IV Q8 [facility] Stop: 05/04/19 06:01 Last Infusion: 04/30/19 09:40 Dose: Infused Documented by: Insulin Glargine (Lantus (Bkc)) 10 units SC DAILY [facility] Last Admin: 04/30/19 10:07 Dose: 10 u Documented by: Insulin Human Lispro (Humalog Kwikpen (Bk)) 0 unit SC ACHS [facility]; Protocol Last Admin: 04/30/19 06:47 Dose: 9 units Documented by: Magnesium Hydroxide (Milk Of Magnesia) 30 ml PO DAILY PRN PRN Reason: Constipation Melatonin (Melatonin) 3 mg PO QHS PRN PRN PRN Reason: INSOMNIA Methadone HCl () 10 mg PO Q6 [facility] Last Admin: 04/30/19 05:36 Dose: 10 mg Documented by: Methylprednisolone (Solu-Medrol) 40 mg IV Q8 [facility] Last Admin: 04/30/19 05:36 Dose: 40 mg Documented by: Nitroglycerin (Nitrostat) 0.4 mg SUBLINGUAL Q5M PRN PRN Reason: CARDIAC/CHEST PAIN Nutritional Formula (Lactose Free) (Glucerna Shake) 120 ml PO 4X/DAY [facility] Last Admin: 04/30/19 10:07 Dose: Not Given Documented by: Ondansetron HCl (Zofran) 4 mg IV Q8H PRN PRN PRN Reason: NAUSEA/VOMITING Sodium Chloride () 10 - 40 ml IV UD PRN PRN Reason: SALINE FLUSH Last Admin: 04/29/19 07:29 Dose: 10 ml Documented by: Throat Lozenges (Cepacol Sore Throat Lozenge) 1 lozenge MUCOUS MEM Q2H PRN PRN PRN Reason: Sore Throat/Cough Triamterene/HCTZ (Dyazide (G)) 1 cap PO DAILY PRN PRN PRN Reason: Swelling Discharge Diet: Low fat/ Low Cholesterol, Carb Control Diet Discharge Activity: Return to Normal Activity Call your doctor if you observe: Fever of 101 or Higher, Shortness of breath, Dizziness, Fainting spells, Chest pain Home Medications: Medications to take at Discharge Citalopram [Celexa] 10 mg PO DAILY 04/14/19 Fluticasone/Vilanterol [Breo Ellipta 100-25 Mcg INH] 1 ea IH DAILY 04/14/19 Hydrocodone/Acetaminophen [[place] 5-325 Tablet] 1 ea PO Q8H PRN PRN 04/14/19 Methadone HCl 10 mg PO Q6H 04/14/19 Triamterene/Hctz 37.5/25Mg [Triamterene-Hctz 37.5-25 mg Tb] 1 tab PO DAILY PRN PRN 04/14/19 Amlodipine [Norvasc] 10 mg PO DAILY #30 tab 04/16/19 Guaifenesin [Mucinex] 1,200 mg PO BID #14 tab 04/16/19 Dextromethorphan HBr [Robitussin] 15 - 30 mg PO Q6H PRN PRN 04/26/19 Phenylephrine HCl [Sudogest PE] 10 mg PO Q4H PRN PRN 04/26/19 Albuterol Aerosols [Ventolin Aerosols] 2.5 mg INHALATION Q2H PRN PRN #120 vial.neb. 04/30/19 Amox/Clavulanate Tablet [Augmentin Tablet] 875 mg PO Q12H #8 tab 04/30/19 Metformin HCl 500 mg PO BID #60 tab 04/30/19 Prednisone See Taper PO DAILY #30 tab 04/30/19 Following Prescrptions Were Given to Patient: Amox/Clavulanate Tablet [Augmentin Tablet] 875 mg PO Q12H #8 tab Transmission Status: Pending to [facility] Metformin HCl 500 mg PO BID #60 tab Transmission Status: Pending to [facility] Prednisone See Taper PO DAILY #30 tab Transmission Status: Pending to [facility] Albuterol Aerosols [Ventolin Aerosols] 2.5 mg INHALATION Q2H PRN PRN #120 vial.neb. PRN Reason: dyspnea, wheezing Transmission Status: Pending to [facility] Primary Care Physician: EDMUNDO FORTUNE [Other] Please Follow Up With: Edmundo Fortune When: 1 Week Please Follow Up With: Panda Walls DO When: 2 Weeks, may see VOCATIONAL COORDINATOR/PA Disposition: Home Minutes spent on discharge:: 35 Patient Condition:: Stable Medical Necessity - Tobacco Use Smoking Status: Former smoker Tobacco Use: Non-smoker Meaningful Use Info Meaningful Use Diagnoses (Choose all that apply): None applicable
[2019-04-30 11:30] LABS: Bedside Glucose 263 mg/dL (70-110)
== END 2019-04-30 14:12 | disposition home or self-care (01) | DRG 871 ==
LOC: ED 20:11 → PCU 23:05
PROVIDERS: Internal Medicine; Nurse Practitioner Family; Admitting Provider Family Medicine; Emergency Provider Emergency Medicine; Visit Provider Internal Medicine
DX: A41.9 Sepsis, unspecified organism (principal); J96.21 Acute and chronic respiratory failure with hypoxia; J18.9 Pneumonia, unspecified organism; E87.1 Hypo-osmolality and hyponatremia; J44.1 Chronic obstructive pulmonary disease with (acute) exacerbation; J44.0 Chronic obstructive pulmonary disease with (acute) lower respiratory infection; E86.1 Hypovolemia; Z99.81 Dependence on supplemental oxygen; Y95 Nosocomial condition; E11.9 Type 2 diabetes mellitus without complications; Q71.0 Congenital complete absence of upper limb; E78.5 Hyperlipidemia, unspecified; F32.9 Major depressive disorder, single episode, unspecified; F41.9 Anxiety disorder, unspecified; G89.4 Chronic pain syndrome; I10 Essential (primary) hypertension; R07.89 Other chest pain; Z79.899 Other long term (current) drug therapy; Z87.891 Personal history of nicotine dependence
CPT/HCPCS: 36415; 71045; 80048; 80061; 80202; 82962; 83036; 83605; 83735; 84484; 85025; 85027; 87040; 87070; 87077; 87205; 87449; 87633; 93005; 94640; 94760; 97116; 97162; 97166; 99251; 99285; J7030; J7040; J7050; A4216; G0463

== ENCOUNTER → 2019-06-20 08:12 | Outpatient (CLI) | payer MEDICARE, SELFPAY ==
[2019-05-24 07:55] VITALS: BMI 27.8
--- NOTE | 2019-06-21 08:22 | PFT ---
INTRODUCTION: The patient is a 54-year-old male that presents for pulmonary function studies secondary to a diagnosis of COPD. Respiratory therapy reports good patient effort. Bronchodilators were used during testing. INTERPRETATION: Forced expiration spirometry demonstrates the presence of a very severe large airways obstructive ventilatory defect. There was no significant response to aerosolized bronchodilators, based upon strict ATS criteria. Spirograms are of fair quality and plateau gradually. Body plethysmography was performed and reveals a decreased TLC to 3.27 L, 47% of predicted, indicative of a severe restrictive ventilatory impairment. The remainder of the lung volumes are symmetrically reduced. Diffusing capacity by single breath CO is severely reduced at 37% of predicted. IMPRESSION: Irreversible very severe mixed ventilatory defect with symmetric reduction in diffusing capacity.
== END ==
PROVIDERS: Referring Provider Nurse Practitioner Acute Care; Visit Provider Nurse Practitioner Acute Care
DX: J44.9 Chronic obstructive pulmonary disease, unspecified (principal)
CPT/HCPCS: 94060; 94726; 94729

== ENCOUNTER 2019-07-25 17:04 | Inpatient (IN) | payer MEDICARE, SELFPAY ==
[2019-07-05 08:03] VITALS: BMI 27.8
[2019-07-25] VITALS (20 sets, daily range): BP systolic 109–148; BP diastolic 58–90; PULSE 74–94; RESP 12–32; TEMP 36.6–38.3; O2SAT 87–94; BMI 30.7; BMI 27.6; BMI 26.0
--- NOTE | 2019-07-25 17:27 | EKG12_ITS ---
Test Reason : Blood Pressure : / mmHG Vent. Rate : 093 BPM Atrial Rate : 093 BPM P-R Int : 150 ms QRS Dur : 090 ms QT Int : 330 ms P-R-T Axes : 069 055 035 degrees QTc Int : 410 ms Normal sinus rhythm Cannot rule out Inferior infarct , age undetermined Abnormal ECG Confirmed by FRANNIE JAMIL ([id number]), editor & co founder STACY RESTREPO ([id number]) on 07/27/2019 9:42:40 AM Referred By: Lili Vargas Confirmed By:FRANNIE JAMIL
--- NOTE | 2019-07-25 17:29 | ED.VIS.DYS ---
History of Present Illness Chief Complaint: Shortness of Breath Informant: Patient, Relative Onset: Days - 2 Activity at onset: - - gradual onset Timing: Continuous Quality: Dyspnea on exertion, Wheezing Current Severity: Moderate Maximum Severity: Severe Worsened by: Coughing, Exertion. Not Worsened By: Lying flat Relieved by: Albuterol, Oxygen, Rest Associated Symptoms: Bloody Sputum - small amount today, Cough, Fever, Green sputum. Negative for: Ear pain, Sore throat Chest Pain: None Narrative: Patient with a history of COPD on 2 L of oxygen nasal cannula at home all the time, presenting with what feels like a flareup for the last 2 days. He has used his albuterol aerosols twice today, which has helped. He has felt malaised but not too weak to get around. His and several family members have had influenza lately. Denies any history of heart problems that he knows of. Has had some swelling in his legs for the last several weeks or months. - Past Medical History (1) Hyponatremia Status: Chronic (2) Stage 4 very severe COPD by GOLD classification Status: Chronic Comment: FEV1 23% of predicted (3) Anxiety and depression Status: Chronic (4) Chronic pain syndrome Status: Chronic (5) Congenital aplasia of lung Status: Chronic (6) HLD (hyperlipidemia) Status: Chronic (7) HTN (hypertension) Status: Chronic (8) BIA (obstructive sleep apnea) Status: Chronic (9) Scoliosis of thoracic spine Status: Chronic Past Medical History - Allergies and Home Meds Allergies/Adverse Reactions: Allergies aspirin Allergy (Verified 07/25/19 17:08) Unknown zolpidem [From Ambien] Allergy (Verified 07/25/19 17:08) Unknown Primary Care Physician: [facility] Doctor,Out of [NON-STAFF] - Surgical History: - - Right shoulder surgery x2, appendectomy, hernia repair x6. Lives: Spouse/ Significant Other Drugs: None - Family History Maternal Family History: Reports: Cancer, Diabetes, Heart Disease Paternal Family History: Reports: Cancer, Diabetes, Heart Disease Review of Systems General: Reports: Chills, Fever, Malaise. Denies: Sweats Eyes: Denies: Visual changes - bilaterally, Diplopia ENT: Denies: Bilateral ear pain, Rhinorrhea, Sore throat Cardiovascular: Denies: Chest pain, Palpitations, Heart racing Respiratory: Reports: Dyspnea, Cough, Sputum, Dyspnea on exertion. Denies: Orthopnea Gastrointestinal: Denies: Abdominal pain, Nausea, Vomiting, Diarrhea, Melena, Hematochezia Genitourinary: Denies: Dysuria, Hematuria, Frequency Musculoskeletal: Reports: Swelling. Denies: Neck pain, Back pain, Extremity Pain Skin: Denies: Rash, Wounds Neurological: Denies: Headache, Weakness, Numbness Physical Exam Vital Signs/Narrative: Vital Signs Temp Pulse Resp BP Pulse Ox 07/25/19 17:04 101 F H 94 18 148/90 H 92 Inital Vital Signs reviewed: Yes General: Well nourished, Well developed, No Acute Distress Head: Normocephalic, Atraumatic Eyes: Perrl, EOMI ENT: Moist mucous membranes, No rhinorrhea, - - POP clear Neck: Supple, Nontender, No lymphadenopathy, No JVD Cardiovascular: Regular rate, Regular rhythm, No murmurs Respiratory: No distress, Chest nontender, Diminished - throughout, worse on left Abdomen: Soft, Nontender, Nondistended, Normal bowel sounds Back: Nontender, Normal Inspection, - - severe thoracic scoliosis. Negative for: CVA tenderness Extremities: Nontender, Edema - 1+ BLE to midshins, symmetric, - - congenital deformity of LUE; small residual limb present. Negative for: Calf Tenderness Skin: Normal color, No rash, No Trauma Neurological: Alert, Oriented x3, Cranial nerves II-XII grossly intact, Normal Strength, Normal Sensation Psychological: Normal affect, Normal Mood Diagnostic/Tx/Re-eval Impressions Chest X-Ray 07/25/19 18:20 IMPRESSION: Dense right middle lobe opacification and prominent right lung base mass. Recommend chest CT for further evaluation. Electronically Signed: Reinier Rosado, at 19:55 EST Tel , Service support , 07/25/19 18:20 Chest PA and Lateral [RAD] Stat 07/25/19 17:45 Mucosa - Nose Influenza Types A,B Direct FA ([facility]) - Final Laboratory Results 07/25/19 07/25/19 07/25/19 19:30 19:30 19:30 WBC 28.2 H RBC 4.57 L Hgb 13.4 Hct 42.1 MCV 92.1 MCH 29.3 MCHC 31.8 L RDW Std Deviation 42.5 RDW Coeff of [place] 12.7 Plt Count 107 L MPV 10.6 Immature Gran % (Auto) 1.100 H Neut % (Auto) 93.1 H Lymph % (Auto) 3.8 L [place] % (Auto) 1.2 Eos % (Auto) 0.3 Baso % (Auto) 0.5 Absolute Neuts (auto) 26.2 H Absolute Lymphs (auto) 1.07 Nucleated RBC % 0 Differential Comment SEE COMMENT Diff Path Review May foll Platelet Estimate SLT DEC RBC Morphology N CHROM Anisocytosis RARE Macrocytosis RARE Sodium 137 Potassium 3.3 L Chloride 97 L Carbon Dioxide 37.0 H Anion Gap 3 L BUN 15 Creatinine 0.93 Estim Creat Clear Calc 96.71 Est GFR (MDRD) Af Amer 109 Est GFR (MDRD) Non-Af 90 BUN/Creatinine Ratio 16.1 Glucose 171 H Lactic Acid 1.4 Calcium 9.1 Troponin I < 0.015 - Rhythm Strip Rhythm Strip: Sinus Rhythm Rate: 93 Ectopy: None - EKG Initial EKG Interpretation: Sinus Rhythm, No Acute Injury Pattern, Non-Specific ST Changes - inferiorly Prior: Unchanged Treatment - Dyspnea: Oxygen, Albuterol, Atrovent, Antibiotics, Steroid Repeat Evaluation: No change - Medical Decision Making Prior to treatment, patient was 88% on 4 L nasal cannula. I moved it up to 5, he took some deep breaths to his nose which helped. He was in no distress. Aerosols were ordered and given but he did not have significant improvement and sounded gurgly. His x-ray shows a right upper lobe infiltrate on my interpretation, 2 views. Therefore septic work-up obtained and antibiotics ordered, more aerosols. These did not help and he became worse so we started him on BiPAP which is helping. He is tolerating it. ABG is pending. Plan is for admission to ICU. Discussed with Dr. Beltran; based on the chest x-ray results he is requesting a CT for further evaluation and would like it performed as CT angiography. He will follow-up on the results. I will order the scan, and after it is performed and nurses called report he will be admitted. He is much more clinically stable on BiPAP, and his blood pressure and heart rate are stable as well. ED Disposition - Plan for ED Patient: Disposition: Acute Care [facility] Diagnosis: Sepsis due to pneumonia, COPD exacerbation, Acute respiratory failure with hypoxia Referrals: [facility] Doctor,Out of [NON-STAFF] -
[2019-07-25] MEDS: MethylPREDNISolone 125 MG/2 ML Vial IV (17:49)
[2019-07-25] MEDS: Acetaminophen 500 MG Tablet 1000 MG PO (17:49)
[2019-07-25] MEDS: Ipratropium/Albuterol Sulfate 3 ML AMPUL.NEB INHALATION ×2 (17:54→23:52)
[2019-07-25] MEDS: Albuterol 2.5 MG/3 ML VIAL.NEB. INHALATION ×3 (17:54→19:28)
--- NOTE | 2019-07-25 18:20 | RAD_ITS ---
STUDY: X-RAY CHEST REASON FOR EXAM: Male, 54 years old. SOB WITH COUGH TECHNIQUE: PA and lateral views of the chest. COMPARISON: 04/26/2019. FINDINGS: Cardiac silhouette unremarkable. Pulmonary vascularity unremarkable. Aorta unremarkable. There is dense opacification in the region of the right middle lobe. There is a large mass at the right base. Upper abdomen unremarkable. Osseous structures intact. No pneumothorax. RAD/Chest PA and Lateral IMPRESSION: Dense right middle lobe opacification and prominent right lung base mass. Recommend chest CT for further evaluation. Electronically Signed: Reinier Rosado, at 19:55 EST Tel , Service support ,
[2019-07-25 19:44] LABS: Absolute Lymphocyte Count 1.07 X10^3/uL (0.83-4.51); Absolute Neutrophil Count 26.2 X10^3/uL (2.0-7.7); Basophil# 0.13 X10^3/uL; Basophil% 0.5 % (0-1); Eosinophil# 0.09 X10^3/uL; Eosinophils% 0.3 % (0-5); Hematocrit 42.1 % (40-54); Hemoglobin 13.4 g/dL (13.0-16.5); Lymphocyte # 1.07 X10^3/ul (4.0); Lymphocyte % 3.8 % (19-41); Mean Corp Hgb Conc 31.8 g/dL (32-36); Mean Corpuscular Hgb 29.3 pg (27.0-32.0); Mean Corpuscular Volume 92.1 fL (80-94); Mean Platelet Vol. 10.6 fl (6.2-12.0); Monocyte# 0.33 X10^3/uL; Monocyte% 1.2 % (0-10); NRBC Flagged by Analyzer 0 % (0-5); Neutrophil # 26.22 X10^3/uL (2.7-7.7); Neutrophil % 93.1 % (47-70); POSITIVE DIFFERENTIAL YES; POSITIVE MORPHOLOGY YES; Platelet Count 107 K/mm3 (150-450); RBC Distribution Width CV 12.7 % (11.6-14.6); RBC Distribution Width SD 42.5 fl (35.1-43.9); Red Blood Count 4.57 M/mm3 (4.6-6.2); White Blood Count 28.2 K/mm3 (4.4-11.0)
[2019-07-25 19:53] LABS: Differential Indicated SCAN CRITERIA MET
[2019-07-25 19:59] LABS: Anion Gap 3 (5-15); BUN 15 mg/dL (7-18); BUN/Creat Ratio 16.1 RATIO (10-20); Calcium,Total 9.1 mg/dL (8.5-10.1); Chloride 97 mmol/L (98-107); Creatinine, Serum 0.93 mg/dL (0.70-1.30); EST Glomerular Filtration Rate 90 mL/min (>60); Est Glom Filt Rate - Afr Amer 109 mL/min (>60); Estimated Creatinine Clearance 96.71 ml/min; Glucose 171 mg/dL (74-106); Potassium 3.3 mmol/L (3.5-5.1); Sodium Level 137 mmol/L (136-145)
[2019-07-25 20:06] LABS: Lactic Acid 1.4 mmol/L (0.4-1.9)
[2019-07-25 20:13] LABS: Anisocytosis RARE; Macrocytosis RARE; Platelet Estimate SLT DEC (ADEQ); Red Cell Morphology N CHROM NORMAL (NORM C&C)
--- NOTE | 2019-07-25 20:33 | HP.PCM_ITS ---
Problem List (1) Sepsis Status: Acute Qualifiers: Sepsis type: sepsis due to unspecified organism Sepsis acute organ dysfunction status: unspecified Qualified Code(s): A41.9 - Sepsis, unspecified organism (2) Scoliosis of thoracic spine Status: Chronic (3) Sepsis due to pneumonia Status: Acute (4) Acute respiratory failure with hypoxia Status: Acute (5) BIA (obstructive sleep apnea) Status: Chronic (6) Stage 4 very severe COPD by GOLD classification Status: Chronic Comment: FEV1 23% of predicted (7) H/O shoulder surgery Status: Chronic (8) History of appendectomy Status: Chronic (9) COPD (chronic obstructive pulmonary disease) Status: Chronic (10) COPD exacerbation Status: Acute (11) Acute and chronic respiratory failure with hypoxia Status: Acute (12) Hyperglycemia Status: Acute (13) Hyponatremia Status: Chronic (14) HLD (hyperlipidemia) Status: Chronic Qualifiers: Hyperlipidemia type: unspecified Qualified Code(s): E78.5 - Hyperlipidemia, unspecified (15) Anxiety and depression Status: Chronic (16) Chronic pain syndrome Status: Chronic (17) Congenital aplasia of lung Status: Chronic History of Present Illness Date of Admission: 07/25/19 Chief Complaint: sob The patient is a 54 year old M with a significant history of COPD stage IV on 2 L to 2.5L of home oxygen; former tobacco abuse; congenital agenesis of left upper extremity; 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 Associated with symptoms is productive cough with yellow sputum; and wheezing. Also on the day of presentation patient developed hemoptysis. For now patient has had hypoxia requiring his baseline oxygen to be increased to a fall to 4.5 L with oxygen saturation improving to 87 to 88%. On the day of presentation when patient got of his BiPAP at home his oxygen saturation was about 60%. Patient spouse, patient's and patient's nephew had flulike/cold symptoms about 3 weeks ago. Past Medical History Past Medical History (Chronic Problems): Chronic Problems (Last Reviewed 07/26/19 @ 07:44 by Sanket Beltran MD) Scoliosis of thoracic spine (Chronic) BIA (obstructive sleep apnea) (Chronic) Stage 4 very severe COPD by GOLD classification (Chronic) FEV1 23% of predicted H/O shoulder surgery (Chronic) History of appendectomy (Chronic) COPD (chronic obstructive pulmonary disease) (Chronic) Hyponatremia (Chronic) HLD (hyperlipidemia) (Chronic) Anxiety and depression (Chronic) Chronic pain syndrome (Chronic) Congenital aplasia of lung (Chronic) Medical History: Medical History (Last Reviewed 07/26/19 @ 07:44 by Sanket Beltran MD) Inguinal hernia (Resolved) K40.90 COPD (chronic obstructive pulmonary disease) (Chronic) J44.9 COPD exacerbation (Acute) J44.1 Sepsis (Acute) A41.9 HCAP (healthcare-associated pneumonia) (Inactive) J18.9 Acute and chronic respiratory failure with hypoxia (Acute) J96.21 Hyperglycemia (Acute) R73.9 Hyponatremia (Chronic) E87.1 HTN (hypertension) (Inactive) I10 HLD (hyperlipidemia) (Chronic) E78.5 Anxiety and depression (Chronic) F41.9, F32.9 Chronic pain syndrome (Chronic) G89.4 Congenital aplasia of lung (Chronic) Q33.3 Allergies aspirin Allergy (Verified 07/25/19 17:08) Unknown zolpidem [From Ambien] Allergy (Verified 07/25/19 17:08) Unknown Home Medications: Ambulatory Orders Medication Instructions Recorded Citalopram [Celexa] 10 mg PO DAILY 04/14/19 Hydrocodone/Acetaminophen [[place] 1 ea PO Q8H PRN PRN 04/14/19 5-325 Tablet] Methadone HCl 10 mg PO Q6H 04/14/19 Albuterol Aerosols [Ventolin 2.5 mg INHALATION Q2H PRN PRN #120 04/30/19 Aerosols] vial.neb. Amlodipine [Norvasc] 10 mg PO DAILY 07/25/19 Fluticasone/Umeclidin/Vilan[place] 1 inh INHALATION DAILY 07/25/19 [Trelegy Ellipta 100-62.5-25] Metformin HCl 500 mg PO BID 07/25/19 Tizanidine HCl [Zanaflex] 4 mg PO DAILY 07/25/19 Torsemide 20 mg PO DAILY 07/25/19 Surgical History: Surgical History (Last Reviewed 07/26/19 @ 07:44 by Sanket Beltran MD) H/O shoulder surgery (Chronic) Z98.890 History of appendectomy (Chronic) Z90.49 Surgical History: - - Right shoulder surgery x2, appendectomy, hernia repair x6. Psychiatric History: Anxiety, Depression Lives: Spouse/ Significant Other Smoking Status: Former smoker Drugs: None - *Family History Maternal History Items: Cancer, Diabetes, Heart Disease Paternal History Items: Cancer, Diabetes, Heart Disease Review of Systems Constitutional: Reports: Anorexia, Chills, Fever - Low-grade fever HEENT: Denies: Head Aches, Sinus Congestion, Sinus Drainage Cardiovascular: Denies: Chest Pain, Palpitations Respiratory: Reports: Cough, Hemoptysis, Shortness of Breath, Wheezing Gastrointestinal: Denies: Abdominal Pain, Nausea, Vomiting Genitourinary: Denies: Dysuria Musculoskeletal: Reports: Shoulder Pain. Denies: Joint Pain, Joint Tenderness Skin: Denies: Rash, Wounds Neurological: Denies: Numbness, Tingling, Focal weakness Psychiatric: Denies: Anxiety, Depression, Homicidal Ideations, Suicidal Ideations Hematologic/ Lymphatic: Denies: Easy Bruising, Easy Bleeding VTE Information - Inpt Only VTE Present on Admission: No VTE Mechan Device Prophylaxis: None VTE Pharm Prophylaxis ordered?: Yes Patient Problems: Active and Suspected Problems (Last Reviewed 07/26/19 @ 07:44 by Sanket Beltran MD) Sepsis due to pneumonia (Acute) Acute respiratory failure with hypoxia (Acute) COPD exacerbation (Acute) - Physical Exam Vitals/I&O's: Vital Signs Temp Pulse Resp BP Pulse Ox 101 F H 76 22 H 118/66 90 07/25/19 17:04 07/25/19 20:17 07/25/19 20:17 07/25/19 20:02 07/25/19 20:17 Oxygen Flow Rate (L/min) 4 Oxygen Delivery Method Bi-pap Weight: 89.7 kg Body Mass Index (BMI) 27.6 General: Alert, Oriented x3, Cooperative HEENT: Atraumatic, PERRLA, EOMI, Normocephalic Neck: Supple, No JVD, Negative Carotid Bruits Lungs: Diminished Cardiovascular: Regular rate, Normal S1, Normal S2, No murmurs Abdomen: Bowel Sounds Present, Soft, Non Tender Extremities: No edema, Capillary Refill Less than 3 Seconds, - - Agenesis of left upper extremity. Skin: No rashes, No breakdown Musculoskeletal: No Tenderness to Palpation of Joints or Extremities Neurological: Cranial nerves II-XII grossly intact Psych/Mental Status: Normal Affect, Appropriate Microbiology Past 72 Hours 07/25/19 17:45 Mucosa - Nose Influenza Types A,B Direct FA ([facility]) - Final Laboratory Results 07/25/19 19:30: WBC 28.2 H, RBC 4.57 L, Hgb 13.4, Hct 42.1, MCV 92.1, MCH 29.3, MCHC 31.8 L, RDW Std Deviation 42.5, RDW Coeff of [place] 12.7, Plt Count 107 L, MPV 10.6, Immature Gran % (Auto) 1.100 H, Neut % (Auto) 93.1 H, Lymph % (Auto) 3.8 L, [place] % (Auto) 1.2, Eos % (Auto) 0.3, Baso % (Auto) 0.5, Absolute Neuts (auto) 26.2 H, Absolute Lymphs (auto) 1.07, Nucleated RBC % 0, Differential Comment SEE COMMENT, Diff Path Review October foll, Platelet Estimate SLT DEC, RBC Morphology N CHROM, Anisocytosis RARE, Macrocytosis RARE 07/25/19 19:30: Sodium 137, Potassium 3.3 L, Chloride 97 L, Carbon Dioxide 37.0 H, Anion Gap 3 L, BUN 15, Creatinine 0.93, Estim Creat Clear Calc 96.71, Est GFR (MDRD) Af Amer 109, Est GFR (MDRD) Non-Af 90, BUN/Creatinine Ratio 16.1, Glucose 171 H, Calcium 9.1, Troponin I < 0.015 07/25/19 19:30: Lactic Acid 1.4 Assessment/Plan All Active Problems (Last Reviewed 07/26/19 @ 07:44 by Sanket Beltran MD) Sepsis due to pneumonia (Acute) Acute respiratory failure with hypoxia (Acute) Inguinal hernia (Resolved) COPD exacerbation (Acute) Sepsis (Acute) Acute and chronic respiratory failure with hypoxia (Acute) Hyperglycemia (Acute) The patient is a 54 year old M with a significant history of COPD stage IV on 2 L to 2.5L of home oxygen; former tobacco abuse; congenital agenesis of left upper extremity; 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 A CT chest was recommended. CTA showed right upper lobe and right lower lobe consolidation compatible with pneumonia. Influenza screen was negative. Respiratory pathogen panel ordered. Respiratory Gram stain and culture pending Antibiotics: Ceftriaxone and azithromycin ordered for the emergency department; continued. DuoNeb scheduled. Albuterol as needed Legionella antigen screen and Strep antigen ordered Acute exacerbation of COPD ABG reviewed. Showed normal pH with elevated bicarbonate and PCO2. Showing a chronic CO2 retainer. Received DuoNeb at the emergency department. Scheduled DuoNeb ordered. Albuterol as needed On home ICS?LABA-LAMA. ICS continued. Received Solu-Medrol at the emergency department. Solu-Medrol continued. Mucinex ordered. Antibiotics as above Oxygen as needed to keep oxygen saturation more than 92%. Chronic right shoulder pain Methadone and [place] continued Hypertension On presentation his blood pressure was not within goal Amlodipine continued. Trend blood pressures and adjust blood pressure medication Diabetes mellitus with hyperglycemia Hold home metformin. Accu-Cheks with correction scale insulin ordered. Depression Celexa continued DVT prophylaxis Subcutaneous Lovenox. Code Visit Inpatient E&M: 43675 Init Hosp L3
--- NOTE | 2019-07-25 20:39 | CT_ITS ---
HISTORY: SOB,HEMOPTYSIS, PNEUMONIA. Hx of COPD ADDITIONAL HISTORY: None provided. TECHNIQUE: CT angiogram images of the chest were obtained with 75 mL [id number]-370 IV contrast as per pulmonary angiogram protocol. 3D MIP images used to aid in evaluation for pulmonary embolism. Number of images including paperwork: 1142 A radiation dose optimization technique was used for this scan. COMPARISON: None FINDINGS: PULMONARY ARTERIES: No pulmonary arterial filling defects. AORTA AND GREAT VESSELS: Unremarkable. HEART/PERICARDIUM: Unremarkable. MEDIASTINUM: Unremarkable. ADENOPATHY: Mild mediastinal and right hilar adenopathy, probably reactive. THYROID: Unremarkable visualized portions. LUNG PARENCHYMA: Right upper lobe and right lower lobe consolidation with air bronchograms. Mild left lower lobe opacity with volume loss, likely atelectasis. PLEURAL SPACES: Unremarkable. UPPER ABDOMEN: Decreased hepatic density consistent with steatosis. OSSEOUS AND SOFT TISSUE STRUCTURES: No acute skeletal findings. S-shaped thoracolumbar scoliosis. CT/CTA Chest W/WO Contrast IMPRESSION: 1. No pulmonary embolus detected. 2. Right upper lobe and right lower lobe consolidation compatible with pneumonia. Radiographic follow-up recommended to ensure resolution. 3. Additional findings above. Individualized dose optimization techniques were used for this CT. at 2224 Reported and signed by: Evi Gipson MD Electronically Signed: Evi Gipson MD at 22:24 EST Tel , Service support ,
[2019-07-25 20:46] LABS: Allen Test POS; Base Excess 14 mmol/L (-2 to +2); Bicarbonate 38.9 mmol/L (22-26); Blood Gas Specimen Type ART; EPAP 6; FI02 40; IPAP 14; PO2 63 mmHG (75-100); RR 12; SITE R Radial; SO2 90 % (95-99); Time Given 2035; Total Carbon Dioxide 41 mmol/L; pCO2 63.7 mmHg (35-45); pH 7.39 (7.35-7.45)
[2019-07-25] MEDS: 0.9% Normal Saline 1,000 ML 75 ML IV (22:39)
[2019-07-25] MEDS: guaiFENesin 1,200 MG Tablet 1200 MG PO (22:40)
[2019-07-25] MEDS: Methadone 10 MG Tablet PO (22:40)
[2019-07-25 23:05] LABS: Bedside Glucose 207 mg/dL (70-110)
[2019-07-25] MEDS: Insulin Lispro 100 UNIT/ML INSULN.PEN SC (23:09)
[2019-07-25 23:17] LABS: M R Staph aureus DNA By PCR Negative (Negative); Probe Check PASS; Specimen Processing Control PASS
[2019-07-26] VITALS (36 sets, daily range): BP systolic 89–152; BP diastolic 51–96; PULSE 60–82; RESP 12–25; TEMP 36.1–36.9; O2SAT 91–96
[2019-07-26] MEDS: Ipratropium/Albuterol Sulfate 3 ML AMPUL.NEB INHALATION ×5 (03:52→23:24)
[2019-07-26 04:47] LABS: Absolute Lymphocyte Count 0.99 X10^3/uL (0.83-4.51); Absolute Neutrophil Count 18.7 X10^3/uL (2.0-7.7); Basophil% 0.5 % (0-1); Eosinophil# 0.13 X10^3/uL; Eosinophils% 0.6 % (0-5); Hematocrit 40.5 % (40-54); Hemoglobin 12.9 g/dL (13.0-16.5); Lymphocyte # 0.99 X10^3/ul (4.0); Lymphocyte % 4.9 % (19-41); Mean Corp Hgb Conc 31.9 g/dL (32-36); Mean Corpuscular Hgb 29.4 pg (27.0-32.0); Mean Corpuscular Volume 92.3 fL (80-94); Mean Platelet Vol. 11.1 fl (6.2-12.0); Monocyte# 0.26 X10^3/uL; Monocyte% 1.3 % (0-10); NRBC Flagged by Analyzer 0 % (0-5); Neutrophil # 18.66 X10^3/uL (2.7-7.7); Neutrophil % 91.7 % (47-70); POSITIVE COUNT YES; POSITIVE MORPHOLOGY YES; Platelet Count 95 K/mm3 (150-450); RBC Distribution Width CV 12.8 % (11.6-14.6); RBC Distribution Width SD 43.4 fl (35.1-43.9); Red Blood Count 4.39 M/mm3 (4.6-6.2); White Blood Count 20.4 K/mm3 (4.4-11.0)
[2019-07-26 04:56] LABS: Anion Gap 5 (5-15); BUN 13 mg/dL (7-18); BUN/Creat Ratio 15.1 RATIO (10-20); Calcium,Total 9.3 mg/dL (8.5-10.1); Chloride 97 mmol/L (98-107); Creatinine, Serum 0.86 mg/dL (0.70-1.30); Differential Indicated SCAN CRITERIA MET; EST Glomerular Filtration Rate 98 mL/min (>60); Est Glom Filt Rate - Afr Amer 119 mL/min (>60); Estimated Creatinine Clearance 101.39 ml/min; Glucose 170 mg/dL (74-106); Magnesium 1.9 mg/dL (1.6-2.6); Potassium 4.3 mmol/L (3.5-5.1); Sodium Level 138 mmol/L (136-145)
[2019-07-26] MEDS: 0.9% Saline Lock 10 ML Syringe IV (05:48)
[2019-07-26] MEDS: Methadone 10 MG Tablet PO ×4 (05:49→23:16)
[2019-07-26] MEDS: Insulin Lispro 100 UNIT/ML INSULN.PEN SC ×2 (05:51→11:57)
[2019-07-26 06:06] LABS: Bedside Glucose 156 mg/dL (70-110)
[2019-07-26 07:09] LABS: Differential Comment SCANNED; Toxic Granulation 2+
--- NOTE | 2019-07-26 07:38 | PN_ITS ---
Patient Problems: Active and Suspected Problems (Last Reviewed 07/26/19 @ 07:44 by Sanket Beltran MD) Sepsis due to pneumonia (Acute) Acute respiratory failure with hypoxia (Acute) COPD exacerbation (Acute) Reason for Visit: Acute on chronic combined hypoxic and hypercarbic respiratory failure secondary to COPD exacerbation, Objective: The patient has been admitted 3 times since April 2019 for COPD exacerbation. In is admitted with acute sepsis secondary to healthcare acid pneumonia secondary to COPD exacerbation and respiratory failure He was seen by urgent care technician Dr. Walls and had PFT in June. Is using oxygen 2 to 3 L/min as needed during day and continuously at night. He checks pulse oximetry. This time, patient admitted with shortness of breath for about 3 to 4 days, wheezing. He also had hemoptysis on day of admission. Cough with yellow productive sputum. Pulse ox was found 87 to 88%. Patient was put on BiPAP 40% FiO2 and admitted in ICU Vitals/I&O's: Vital Signs Temp Pulse Resp BP Pulse Ox 98.1 F 82 23 H 132/67 H 94 07/26/19 06:00 07/26/19 07:00 07/26/19 07:00 07/26/19 07:00 07/26/19 07:00 Oxygen Flow Rate (L/min) 4 Oxygen Delivery Method Nasal Cannula Weight: 187 lb 13.341 oz Body Mass Index (BMI) 26.0 Intake and Output for Last 24 Hours 07/24/19 07/25/19 07/26/19 23:59 23:59 23:59 Intake Total 640 / 640 456.25 / 456.25 Output Total 150 / 150 250 / 250 Balance 490 / 490 206.25 / 206.25 General: Alert, Oriented x3, Cooperative HEENT: Atraumatic, PERRLA, EOMI, Normocephalic Neck: Supple, No JVD, Negative Carotid Bruits Lungs: No rales, Diminished - Air entry severely diminished in all lung cruz. 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, Rhonchi, Short of Breath Cardiovascular: Regular rate, Regular Rhythm, Normal S1, Normal S2, No murmurs Abdomen: Bowel Sounds Present, Soft, Non Tender, Non-Distended Extremities: Capillary Refill Less than 3 Seconds, Edema - Mild pedal edema Skin: No rashes, No breakdown Musculoskeletal: No Tenderness to Palpation of Joints or Extremities, Arthritic Changes Neurological: Cranial nerves II-XII grossly intact Psych/Mental Status: Normal Affect, Appropriate Microbiology Past 72 Hours 07/25/19 19:30 Blood Culture (Wb) - Right Forearm Blood Culture - Preliminary 07/25/19 23:00 Urine, Clean Catch Streptococcus pneumoniae Antigen (M - Final Streptococcus pneumonia Ag 07/25/19 23:00 Urine, Clean Catch Legionella Antigen - Final 07/25/19 17:45 Mucosa - Nose Influenza Types A,B Direct FA (CATHY) - Final Laboratory Results 07/25/19 17:45: MRSA (PCR) Negative 07/25/19 19:30: WBC 28.2 H, RBC 4.57 L, Hgb 13.4, Hct 42.1, MCV 92.1, MCH 29.3, MCHC 31.8 L, RDW Std Deviation 42.5, RDW Coeff of Bethany 12.7, Plt Count 107 L, MPV 10.6, Immature Gran % (Auto) 1.100 H, Neut % (Auto) 93.1 H, Lymph % (Auto) 3.8 L , [place] % (Auto) 1.2, Eos % (Auto) 0.3, Baso % (Auto) 0.5, Absolute Neuts (auto) 26.2 H, Absolute Lymphs (auto) 1.07, Nucleated RBC % 0, Differential Comment SEE COMMENT, Diff Path Review October foll, Platelet Estimate SLT DEC, RBC Morphology N CHROM, Anisocytosis RARE, Macrocytosis RARE 07/25/19 19:30: Sodium 137, Potassium 3.3 L, Chloride 97 L, Carbon Dioxide 37.0 H, Anion Gap 3 L, BUN 15, Creatinine 0.93, Estim Creat Clear Calc 96.71, Est GFR (MDRD) Af Amer 109, Est GFR (MDRD) Non-Af 90, BUN/Creatinine Ratio 16.1, Glucose 171 H, Calcium 9.1, Troponin I < 0.015 07/25/19 19:30: Lactic Acid 1.4 07/25/19 20:41: Specimen Type ART, Sample Site R Radial, pH 7.39, Bicarbonate Actual 38.9 H, POC Total CO2 41, Base Excess 14 H, O2 Saturation 90 L, O2 % 40, ABG pCO2 63.7 H, ABG pO2 63 L, [place] Test POS, Respiration Rate 12, O2 Delivery Device Bi / C PAP, EPAP 6, IPAP 14, Blood Gas Notified Whom ED , Blood Gas Notified Time 203407/25/19 23:02: POC Glucose 207 H 07/26/19 04:35: Sodium 138, Potassium 4.3, Chloride 97 L, Carbon Dioxide 36.0 H, Anion Gap 5, BUN 13, Creatinine 0.86, Estim Creat Clear Calc 101.39, Est GFR (MDRD) Af Amer 119, Est GFR (MDRD) Non-Af 98, BUN/Creatinine Ratio 15.1, Glucose 170 H, Calcium 9.3, Magnesium 1.9 07/26/19 04:35: WBC 20.4 H, RBC 4.39 L, Hgb 12.9 L, Hct 40.5, MCV 92.3, MCH 29.4, MCHC 31.9 L, RDW Std Deviation 43.4, RDW Coeff of Beth[place] 12.8, Plt Count 95 L , MPV 11.1, Immature Gran % (Auto) 1.000 H, Neut % (Auto) 91.7 H, Lymph % (Auto) 4.9 L, [place] % (Auto) 1.3, Eos % (Auto) 0.6, Baso % (Auto) 0.5, Absolute Neuts (auto) 18.7 H, Absolute Lymphs (auto) 0.99, Nucleated RBC % 0, Differential Comment SCANNED, Toxic Granulation 2+ 07/26/19 04:35: Phosphorus Pending 07/26/19 05:51: POC Glucose 156 H Current Medications Acetaminophen (Tylenol) 650 mg PO Q6H PRN PRN PRN Reason: Pain Score 1-10/Temp > 100.7 F Hydrocodone Bitart/Acetaminophen (Omer 5mg-325mg) 1 tablet PO Q8H PRN PRN PRN Reason: Pain Score 6-10/10 Albuterol Sulfate (Ventolin Aerosols) 2.5 mg INHALATION Q2H PRN PRN PRN Reason: sob/wheezing Albuterol/Ipratropium (Duoneb) 3 ml INHALATION Q4H.RT MICHLEL Last Admin: 07/26/19 03:52 Dose: 3 ml Documented by: Amlodipine Besylate (Norvasc) 10 mg PO DAILY MICHELL Citalopram Hydrobromide (Celexa) 10 mg PO DAILY [facility] Enoxaparin Sodium (Lovenox) 40 mg SC DAILY [facility] Glucagon () 1 mg IM .X1 PRN PRN Reason: Hypoglycemia Guaifenesin (Mucinex) 1,200 mg PO BID [facility] Last Admin: 07/25/19 22:40 Dose: 1,200 mg Documented by: Sodium Chloride () 1,000 mls @ 75 mls/hr IV .[id number] [facility] Stop: 07/26/19 11:14 Last Infusion: 07/26/19 06:00 Dose: 75 mls/hr Documented by: Ceftriaxone Sodium 2 gm/ (Sodium Chloride) 50 mls @ 100 mls/hr IV Q24H [facility] Azithromycin 500 mg/ Dextrose 255 mls @ 250 mls/hr IV Q24H [facility] Dextrose (Dextrose 10%-Water) 250 mls @ 999 mls/hr IV .Q16M PRN; Protocol PRN Reason: HYPOGLYCEMIA Sodium Chloride () 250 mls @ 15 mls/hr IV .[id number] PRN PRN Reason: Saline Flush Sodium Chloride () 250 mls @ 15 mls/hr IV .[id number] PRN PRN Reason: Additional IVPB Infusion Insulin Human Lispro (Humalog Kwikpen (Bkc)) 0 unit SC Q6 [facility]; Protocol Last Admin: 07/26/19 05:51 Dose: 1 u Documented by: Melatonin (Melatonin) 3 mg PO QHS PRN PRN PRN Reason: INSOMNIA Methadone HCl () 10 mg PO Q6 [facility] Last Admin: 07/26/19 05:49 Dose: 10 mg Documented by: Methylprednisolone (Solu-Medrol) 40 mg IV Q8 [facility] Last Admin: 07/26/19 05:49 Dose: 40 mg Documented by: Nutritional Formula (Lactose Free) (Ensure Enlive) 120 ml PO 4X/DAY [facility] Ondansetron HCl (Zofran) 4 mg IV Q8H PRN PRN PRN Reason: NAUSEA/VOMITING Senna/Docusate Sodium (Senokot-S, Rosalie-Colace) 2 tablet PO BID PRN PRN Reason: Constipation Sodium Chloride () 10 - 40 ml IV UD PRN PRN Reason: SALINE FLUSH Last Admin: 07/26/19 05:48 Dose: 20 ml Documented by: Tizanidine HCl (Zanaflex) 4 mg PO DAILY MICHELL STROKE Vital Signs/Narrative: Vital Signs Temp Pulse Resp BP Pulse Ox 07/26/19 07:00 82 23 H 132/67 H 94 07/26/19 06:00 98.1 F 74 25 H 129/75 H 95 07/26/19 05:00 77 21 H 117/66 94 07/26/19 04:00 72 23 H 112/63 95 07/26/19 03:52 73 24 H 94 Medical Necessity - Tobacco Use Smoking Status: Never smoker Assessment/Plan All Active Problems (Last Reviewed 07/26/19 @ 07:44 by Sanket Beltran MD) Sepsis due to pneumonia (Acute) Acute respiratory failure with hypoxia (Acute) Inguinal hernia (Resolved) COPD exacerbation (Acute) Sepsis (Acute) Acute and chronic respiratory failure with hypoxia (Acute) Hyperglycemia (Acute) The patient is a 54 year old M with a significant history of COPD stage IV on 2?3 L of home oxygen mainly at night; former tobacco abuse, quit 30 years ago; congenital agenesis of left upper extremity; HTN admitted with progressive worsening of shortness of breath, wheezing, productive cough with yellow- greenish sputum and acute on chronic respiratory failure Patient had pulmonary function test completed on June 20, 2019 interpreted as showing an irreversible very severe mixed ventilatory defect with a symmetric reduction in diffusing capacity. FVC 26% of predicted, FEV1 23% of predicted, FEV1/FVC 91% of predicted, TLC 47% of predicted, RV 80% of predicted and DLCO 37% of predicted. 1. SIRS (tachypnea, hypoxia and leukocytosis with left shift) sepsis sepsis secondary to multifocal/multilobar community-acquired pneumonia: CT chest and chest x-ray independently reviewed. CT chest shows dense opacification of right middle lobe predominantly but also on right upper and right lower lobe with air bronchograms. Mild left lower lobe opacity with volume loss secondary to ate lectasis and congenital agenesis of left lung. Left upper lobe agenesis. PE ruled out. Pneumonia work-up ordered. ABG reviewed. on 40% FiO2 14/6 BiPAP suggestive of chronic CO2 retainer and goes along with the PFT test. Continue DuoNeb, albuterol, IV Solu-Medrol, incentive spirometry and chest physiotherapy. [employer] is been consulted. On IV Levaquin. On BiPAP. Lactic acid normal. During previous admission also patient was treated with Levaquin. 2. Acute on chronic combined hypoxic and hypercarbic respiratory failure secondary to COPD exacerbation and pneumonia: As mentioned above. Keep pulse ox about 90% 3. Chronic right shoulder pain. Methadone, tizanidine and Omer continued 4. Mild pedal edema, suspicion of right-sided heart failure with history of COPD stage IV, and hypertension: Patient on torsemide 20 mg daily, amlodipine 10 mg daily. BNP and 2D echo ordered. Blood pressure 132/67. 5. Depression Celexa continued 6. Ex-smoker: Quit about 30 years ago. Now he snuffs tobacco. Counseled. Declined nicotine patch. 7. DVT prophylaxis Subcutaneous Lovenox. Clinical Impression(s) from Imaging Studies Chest X-Ray 07/25/19 18:20 IMPRESSION: Dense right middle lobe opacification and prominent right lung base mass. Recommend chest CT for further evaluation. Chest CTA 07/25/19 20:39 IMPRESSION: 1. No pulmonary embolus detected. 2. Right upper lobe and right lower lobe consolidation compatible with pneumonia. Radiographic follow-up recommended to ensure resolution. 3. Additional findings above. Individualized dose optimization techniques were used for this CT. Microbiology Past 72 Hours 07/25/19 19:43 Blood Culture (Wb) - Right Hand Blood Culture - Preliminary 07/25/19 19:30 Blood Culture (Wb) - Right Forearm Blood Culture - Preliminary 07/25/19 23:00 Urine, Clean Catch Streptococcus pneumoniae Antigen (M - Final Streptococcus pneumonia Ag 07/25/19 23:00 Urine, Clean Catch Legionella Antigen - Final 07/25/19 17:45 Mucosa - Nose Influenza Types A,B Direct FA (CATHY) - Final Laboratory Results 07/25/19 17:45: MRSA (PCR) Negative 07/25/19 19:30: WBC 28.2 H, RBC 4.57 L, Hgb 13.4, Hct 42.1, MCV 92.1, MCH 29.3, MCHC 31.8 L, RDW Std Deviation 42.5, RDW Coeff of Beth[place] 12.7, Plt Count 107 L, MPV 10.6, Immature Gran % (Auto) 1.100 H, Neut % (Auto) 93.1 H, Lymph % (Auto) 3.8 L , [place] % (Auto) 1.2, Eos % (Auto) 0.3, Baso % (Auto) 0.5, Absolute Neuts (auto) 26.2 H, Absolute Lymphs (auto) 1.07, Nucleated RBC % 0, Differential Comment SEE COMMENT, Diff Path Review [place], Platelet Estimate SLT DEC, RBC Morphology N CHROM, Anisocytosis RARE, Macrocytosis RARE 07/25/19 19:30: Sodium 137, Potassium 3.3 L, Chloride 97 L, Carbon Dioxide 37.0 H, Anion Gap 3 L, BUN 15, Creatinine 0.93, Estim Creat Clear Calc 96.71, Est GFR (MDRD) Af Amer 109, Est GFR (MDRD) Non-Af 90, BUN/Creatinine Ratio 16.1, Glucose 171 H, Calcium 9.1, Troponin I < 0.015 07/25/19 19:30: Lactic Acid 1.4 07/25/19 20:41: Specimen Type ART, Sample Site R Radial, pH 7.39, Bicarbonate Actual 38.9 H, POC Total CO2 41, Base Excess 14 H, O2 Saturation 90 L, O2 % 40, ABG pCO2 63.7 H, ABG pO2 63 L, Shhaeen Test POS, Respiration Rate 12, O2 Delivery Device Bi / C PAP, EPAP 6, IPAP 14, Blood Gas Notified Whom ED , Blood Gas Notified Time 203407/25/19 23:02: POC Glucose 207 H 07/26/19 04:35: Sodium 138, Potassium 4.3, Chloride 97 L, Carbon Dioxide 36.0 H, Anion Gap 5, BUN 13, Creatinine 0.86, Estim Creat Clear Calc 101.39, Est GFR (MDRD) Af Amer 119, Est GFR (MDRD) Non-Af 98, BUN/Creatinine Ratio 15.1, Glucose 170 H, Calcium 9.3, Magnesium 1.9 07/26/19 04:35: WBC 20.4 H, RBC 4.39 L, Hgb 12.9 L, Hct 40.5, MCV 92.3, MCH 29.4, MCHC 31.9 L, RDW Std Deviation 43.4, RDW Coeff of Beth[place] 12.8, Plt Count 95 L, MPV 11.1, Immature Gran % (Auto) 1.000 H, Neut % (Auto) 91.7 H, Lymph % (Auto) 4.9 L, [place] % (Auto) 1.3, Eos % (Auto) 0.6, Baso % (Auto) 0.5, Absolute Neuts (auto) 18.7 H, Absolute Lymphs (auto) 0.99, Nucleated RBC % 0, Differential Comment SCANNED, Toxic Granulation 2+ 07/26/19 04:35: Phosphorus Pending 07/26/19 05:51: POC Glucose 156 H Code Visit Inpatient E&M: 05195 Subs Hosp L3
--- NOTE | 2019-07-26 09:06 | ECHOCS_ITS ---
Reason For Study: leg edema Procedure This was a 2D Doppler, Color Flow transthoracic echocardiogram. The study was technically limited. The study was technically difficult. Limited views were obtained. Contrast injection was performed. Exam performed portable in ICU/CCU. Left Ventricle Normal size and thickness. The estimated ejection fraction is 65 %. Stage 1 diastolic dysfunction. No regional wall motion abnormalities noted. Right Ventricle Normal size and thickness. Normal systolic function. Atria Normal left atrium. Normal right atrium. Normal atrial septum. Mitral Valve The mitral valve is structurally normal. No prolapse or stenosis seen. Tricuspid Valve Normal tricuspid valve. Unable to estimate RV systolic pressure due to insufficient tricuspid regurgitant envelope. Aortic Valve Normal aortic valve. Pulmonic Valve The pulmonic valve is not well visualized. Great Vessels Normal aortic root. Normal arch. Normal inferior vena cava. Inferior vena cava collapse with sniff. Pericardium/Pleural No pericardial effusion. Medication Diluted definity 6.0ml given slow IV push to enhance endocardial definition. MMode/2D Measurements & Calculations LVIDd: 4.5 cm LVPWd: 0.98 cm LAV(MOD-bp): 41.3 ml LVIDs: 3.1 cm FS: 32.4 % RVDd: 2.8 cm LAV(MOD-bp) Indexed: 20.1 ml/m2 LAV(MOD-sp2): 49.5 ml LAV(MOD-sp4): 29.7 ml LA dimension(2D): 3.3 cm LA A4 area: 12.4 cm2 RA A4 area: 12.5 cm2 Time Measurements MV dec time: 0.17 sec Doppler Measurements & Calculations MV E max sang: 72.7 cm/sec Lat Peak E' Sang: 9.7 cm/sec Med Peak E' Sang: 7.7 cm/sec MV A max sang: 85.2 cm/sec E/E' lat: 7.5 E/E' med: 9.5 MV E/A: 0.85 Ao V2 max: 99.1 cm/sec LV V1 max: 89.8 cm/sec Ao max P.9 mmHg LV V1 max P.2 mmHg Interpretation Summary The estimated ejection fraction is 65 %. Stage 1 diastolic dysfunction. Unable to estimate RV systolic pressure due to insufficient tricuspid regurgitant envelope. The study was technically difficult. Contrast injection was performed. There is no comparison study available. Ordering Physician: Jose Dupree Referring Physician: OTD Performed By: Pura Garcia RDCS, RVT
[2019-07-26 09:30] LABS: Phosphorus 1.7 mg/dL (2.5-4.9)
[2019-07-26] MEDS: Furosemide 40 MG Tablet PO (09:35)
[2019-07-26] MEDS: guaiFENesin 1,200 MG Tablet 1200 MG PO ×2 (09:35→21:19)
[2019-07-26] MEDS: tiZANidine HCl 2 MG Tablet 4 MG PO (09:35)
[2019-07-26] MEDS: Enoxaparin 40 MG/0.4 ML Syringe SC (09:35)
[2019-07-26] MEDS: amLODIPine 10 MG Tablet PO (09:35)
[2019-07-26] MEDS: Citalopram 10 MG Tablet PO (09:35)
[2019-07-26] MEDS: HYDROcodone Bitartrate/Apap 5/325 Tablet PO ×2 (09:38→19:51)
[2019-07-26 09:41] LABS: BNP,B-Type NATRIURETIC PEPTIDE 141.3 pg/mL (0-100)
--- NOTE | 2019-07-26 10:23 | CON.PCM_ITS ---
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, thoracic region (2) Acute respiratory failure with hypoxia Status: Acute (3) BIA (obstructive sleep apnea) Status: Chronic (4) Stage 4 very severe COPD by GOLD classification Status: Chronic Comment: FEV1 23% of predicted (5) Inguinal hernia Status: Resolved (6) H/O shoulder surgery Status: Chronic (7) HTN (hypertension) Status: Inactive Qualifiers: Hypertension type: essential hypertension Qualified Code(s): I10 - Essential (primary) hypertension (8) HLD (hyperlipidemia) Status: Chronic Qualifiers: Hyperlipidemia type: unspecified Qualified Code(s): E78.5 - Hyperlipidemia, unspecified (9) Anxiety and depression Status: Chronic (10) Chronic pain syndrome Status: Chronic (11) Congenital aplasia of lung Status: Chronic Reason for Consult Date of Consultation: 07/26/19 Reason for Consultation: Respiratory failure History of Present Illness: The patient is a 54 year old M, with past medical history listed below, who presented [facility] on 07/25/2019 secondary to 48 hours of progressive shortness of breath, wheezing and productive cough. Patient had reported some mild hemoptysis, but overall describes the sputum is green. Patient had reported some fever. Patient has a history of COPD on 2 L nasal cannula at baseline. Patient had been using albuterol aerosols at home with some improvement, but continued to feel malaise and unable to move around. Patient reportedly has been around people with similar type symptoms. Patient had noted some swelling of his legs over the last weeks or months. In the ER, patient was noted to be 88% on 4 L nasal cannula. Chest x-ray showed a right upper and right lower lobe infiltrate. Patient was placed on antibiotics and given more aerosols. Patient continued to deteriorate and required BiPAP rescue. Patient was admitted to the intensive care unit. As part of the work-up, patient did have a pneumococcal antigen that came back positive. She was also noted to have a white blood cell count of 28.2 with 93% neutrophils. Potassium was 3.3, but renal function was normal at 0.93. Patient was transferred to the intensive care unit and reported some subjective improvement following BiPAP therapy. This morning, patient was taken off of BiPAP and is tolerating it okay. Patient continues to have a productive cough but overall feels subjectively improved from coming into the hospital. Microbiology is called and stated patient is growing gram-positive cocci in sirisha ins in less than 12 hours, but patient has remained hemodynamically stable thus far. Patient is normally seen by Dr. Walls over in our office. Patient does have COPD with an FEV1 of 23% predicted. Patient also has a history of a left arm amputation and obstructive sleep apnea. Patient does have chronic pain syndrome. Review of systems otherwise negative from a constitutional, HEENT, respiratory, cardiovascular, GI, genitourinary, musculoskeletal, skin, neurologic, psychiatric and hematologic system unless stated above. Past Medical History Past Medical History (Chronic Problems): Chronic Problems (Last Reviewed 07/26/19 @ 07:44 by Sanket Beltran MD) Scoliosis of thoracic spine (Chronic) BIA (obstructive sleep apnea) (Chronic) Stage 4 very severe COPD by GOLD classification (Chronic) FEV1 23% of predicted H/O shoulder surgery (Chronic) History of appendectomy (Chronic) COPD (chronic obstructive pulmonary disease) (Chronic) Hyponatremia (Chronic) HLD (hyperlipidemia) (Chronic) Anxiety and depression (Chronic) Chronic pain syndrome (Chronic) Congenital aplasia of lung (Chronic) Medical History: Medical History (Last Reviewed 07/26/19 @ 07:44 by Sanket Beltran MD) Inguinal hernia (Resolved) K40.90 COPD (chronic obstructive pulmonary disease) (Chronic) J44.9 COPD exacerbation (Acute) J44.1 Sepsis (Acute) A41.9 HCAP (healthcare-associated pneumonia) (Inactive) J18.9 Acute and chronic respiratory failure with hypoxia (Acute) J96.21 Hyperglycemia (Acute) R73.9 Hyponatremia (Chronic) E87.1 HTN (hypertension) (Inactive) I10 HLD (hyperlipidemia) (Chronic) E78.5 Anxiety and depression (Chronic) F41.9, F32.9 Chronic pain syndrome (Chronic) G89.4 Congenital aplasia of lung (Chronic) Q33.3 Allergies aspirin Allergy (Verified 07/25/19 17:08) Unknown zolpidem [From Ambien] Allergy (Verified 07/25/19 17:08) Unknown Home Medications: Ambulatory Orders Medication Instructions Recorded Citalopram [Celexa] 10 mg PO DAILY 04/14/19 Hydrocodone/Acetaminophen [[place] 1 ea PO Q8H PRN PRN 04/14/19 5-325 Tablet] Methadone HCl 10 mg PO Q6H 04/14/19 Albuterol Aerosols [Ventolin 2.5 mg INHALATION Q2H PRN PRN #120 04/30/19 Aerosols] vial.neb. Amlodipine [Norvasc] 10 mg PO DAILY 07/25/19 Fluticasone/Umeclidin/Vilanter 1 inh INHALATION DAILY 07/25/19 [Trelegy Ellipta 100-62.5-25] Metformin HCl 500 mg PO BID 07/25/19 Tizanidine HCl [Zanaflex] 4 mg PO DAILY 07/25/19 Torsemide 20 mg PO DAILY 07/25/19 Surgical History: Surgical History (Last Reviewed 07/26/19 @ 07:44 by Sanket Beltran MD) H/O shoulder surgery (Chronic) Z98.890 History of appendectomy (Chronic) Z90.49 Surgical History: - - Right shoulder surgery x2, appendectomy, hernia repair x6. Psychiatric History: Anxiety, Depression Lives: Spouse/ Significant Other Smoking Status: Former smoker Drugs: None - *Family History Maternal History Items: Cancer, Diabetes, Heart Disease Paternal History Items: Cancer, Diabetes, Heart Disease Review of Systems Comment: See HPI Patient Problems: Active and Suspected Problems (Last Reviewed 07/26/19 @ 07:44 by Sanket Beltran MD) Sepsis due to pneumonia (Acute) Acute respiratory failure with hypoxia (Acute) COPD exacerbation (Acute) Objective: All imaging was personally reviewed. Significant right-sided infiltrates ap preciated. Previous PFT with advanced COPD. - Physical Exam Vitals/I&O's: Vital Signs Temp Pulse Resp BP Pulse Ox 36.7 C 82 24 H 132/67 H 94 07/26/19 06:00 07/26/19 07:43 07/26/19 07:43 07/26/19 07:00 07/26/19 07:00 Oxygen Flow Rate (L/min) 4 Oxygen Delivery Method Nasal Cannula Weight: 85.2 kg Body Mass Index (BMI) 26.0 Intake and Output for Last 24 Hours 07/24/19 07/25/19 07/26/19 23:59 23:59 23:59 Intake Total 640 / 640 456.25 / 456.25 Output Total 150 / 150 250 / 250 Balance 490 / 490 206.25 / 206.25 General: Alert, Oriented x3, Cooperative, - - Mild conversational dyspnea. Appears older than stated age HEENT: Atraumatic, PERRLA, EOMI, Normocephalic, - - Slight scleral injection without icterus Oral: Moist Mucosa, No Gingival or Mucosal Lesions/ Ulcerations Neck: Supple, No JVD, No Nodes, Trachea Midline Lungs: No rales, Diminished, Rhonchi - Bilateral, Wheezes - Bilateral Cardiovascular: Normal S1, Normal S2, No murmurs, No rub noted, No Gallop, Tachycardic Abdomen: Bowel Sounds Present, Soft, Non Tender, Non-Distended Extremities: No clubbing, No cyanosis, No edema, - - Left arm amputation Skin: No rashes, No breakdown, - - No splinter hemorrhages appreciated Musculoskeletal: No Tenderness to Palpation of Joints or Extremities Lymphatic: No Cervical, Supraclavicular, or Inguinal Adenopathy Neurological: Cranial nerves II-XII grossly intact, Neuro grossly intact, Motor Exam 5/5 strength throughout Psych/Mental Status: Alert and oriented to time, place, person, mood and affect Microbiology Past 72 Hours 07/25/19 19:43 Blood Culture (Wb) - Right Hand Blood Culture - Preliminary 07/25/19 19:30 Blood Culture (Wb) - Right Forearm Blood Culture - Preliminary 07/25/19 23:00 Urine, Clean Catch Streptococcus pneumoniae Antigen (M - Final Streptococcus pneumonia Ag 07/25/19 23:00 Urine, Clean Catch Legionella Antigen - Final 07/25/19 17:45 Mucosa - Nose Influenza Types A,B Direct FA (CATHY) - Final Laboratory Results 07/25/19 17:45: MRSA (PCR) Negative 07/25/19 19:30: WBC 28.2 H, RBC 4.57 L, Hgb 13.4, Hct 42.1, MCV 92.1, MCH 29.3, MCHC 31.8 L, RDW Std Deviation 42.5, RDW Coeff of Bethany 12.7, Plt Count 107 L, MPV 10.6, Immature Gran % (Auto) 1.100 H, Neut % (Auto) 93.1 H, Lymph % (Auto) 3.8 L, [place] % (Auto) 1.2, Eos % (Auto) 0.3, Baso % (Auto) 0.5, Absolute Neuts (auto) 26.2 H, Absolute Lymphs (auto) 1.07, Nucleated RBC % 0, Differential Comment SEE COMMENT, Diff Path Review Belle ferrell, Platelet Estimate SLT DEC, RBC Morphology N CHROM, Anisocytosis RARE, Macrocytosis RARE 07/25/19 19:30: Sodium 137, Potassium 3.3 L, Chloride 97 L, Carbon Dioxide 37.0 H, Anion Gap 3 L, BUN 15, Creatinine 0.93, Estim Creat Clear Calc 96.71, Est GFR (MDRD) Af Amer 109, Est GFR (MDRD) Non-Af 90, BUN/Creatinine Ratio 16.1, Glucose 171 H, Calcium 9.1, Troponin I < 0.015 07/25/19 19:30: Lactic Acid 1.4 07/25/19 20:41: Specimen Type ART, Sample Site R Radial, pH 7.39, Bicarbonate Actual 38.9 H, POC Total CO2 41, Base Excess 14 H, O2 Saturation 90 L, O2 % 40, ABG pCO2 63.7 H, ABG pO2 63 L, [place] Test POS, Respiration Rate 12, O2 Delivery Device Bi / C PAP, EPAP 6, IPAP 14, Blood Gas Notified Whom ED , Blood Gas Notified Time 203407/25/19 23:02: POC Glucose 207 H 07/26/19 04:35: Sodium 138, Potassium 4.3, Chloride 97 L, Carbon Dioxide 36.0 H, Anion Gap 5, BUN 13, Creatinine 0.86, Estim Creat Clear Calc 101.39, Est GFR (MDRD) Af Amer 119, Est GFR (MDRD) Non-Af 98, BUN/Creatinine Ratio 15.1, Glucose 170 H, Calcium 9.3, Magnesium 1.9 07/26/19 04:35: WBC 20.4 H, RBC 4.39 L, Hgb 12.9 L, Hct 40.5, MCV 92.3, MCH 29.4, MCHC 31.9 L, RDW Std Deviation 43.4, RDW Coeff of Bethany 12.8, Plt Count 95 L , MPV 11.1, Immature Gran % (Auto) 1.000 H, Neut % (Auto) 91.7 H, Lymph % (Auto) 4.9 L, [place] % (Auto) 1.3, Eos % (Auto) 0.6, Baso % (Auto) 0.5, Absolute Neuts (auto) 18.7 H, Absolute Lymphs (auto) 0.99, Nucleated RBC % 0, Differential Comment SCANNED, Toxic Granulation 2+ 07/26/19 04:35: Phosphorus 1.7 L 07/26/19 04:35: B-Natriuretic Peptide 141.3 H 07/26/19 05:51: POC Glucose 156 H Current Medications Acetaminophen (Tylenol) 650 mg PO Q6H PRN PRN PRN Reason: Pain Score 1-10/Temp > 100.7 F Hydrocodone Bitart/Acetaminophen ([place] 5mg-325mg) 1 tablet PO Q8H PRN PRN PRN Reason: Pain Score 6-10/10 Last Admin: 07/26/19 09:38 Dose: 1 tablet Documented by: Albuterol Sulfate (Ventolin Aerosols) 2.5 mg INHALATION Q2H PRN PRN PRN Reason: sob/wheezing Albuterol/Ipratropium (Duoneb) 3 ml INHALATION Q4H.RT [facility] Last Admin: 07/26/19 07:43 Dose: 3 ml Documented by: Amlodipine Besylate (Norvasc) 10 mg PO DAILY [facility] Last Admin: 07/26/19 09:35 Dose: 10 mg Documented by: Citalopram Hydrobromide (Celexa) 10 mg PO DAILY [facility] Last Admin: 07/26/19 09:35 Dose: 10 mg Documented by: Enoxaparin Sodium (Lovenox) 40 mg SC DAILY [facility] Last Admin: 07/26/19 09:35 Dose: 40 mg Documented by: Furosemide (Lasix) 40 mg PO DAILY [facility] Last Admin: 07/26/19 09:35 Dose: 40 mg Documented by: Glucagon () 1 mg IM .X1 PRN PRN Reason: Hypoglycemia Guaifenesin (Mucinex) 1,200 mg PO BID [facility] Last Admin: 07/26/19 09:35 Dose: 1,200 mg Documented by: Sodium Chloride () 1,000 mls @ 75 mls/hr IV .[id number] [facility] Stop: 07/26/19 11:14 Last Infusion: 07/26/19 06:00 Dose: 75 mls/hr Documented by: Ceftriaxone Sodium 2 gm/ (Sodium Chloride) 50 mls @ 100 mls/hr IV Q24H MICHELL Azithromycin 500 mg/ Dextrose 255 mls @ 250 mls/hr IV Q24H MICHELL Dextrose (Dextrose 10%-Water) 250 mls @ 999 mls/hr IV .Q16M PRN; Protocol PRN Reason: HYPOGLYCEMIA Sodium Chloride () 250 mls @ 15 mls/hr IV .[id number] PRN PRN Reason: Saline Flush Sodium Chloride () 250 mls @ 15 mls/hr IV .[id number] PRN PRN Reason: Additional IVPB Infusion Insulin Human Lispro (Humalog Kwikpen (Bkc)) 0 unit SC Q6 MICHELL; Protocol Last Admin: 07/26/19 05:51 Dose: 1 u Documented by: Melatonin (Melatonin) 3 mg PO QHS PRN PRN PRN Reason: INSOMNIA Methadone HCl () 10 mg PO Q6 [facility] Last Admin: 07/26/19 05:49 Dose: 10 mg Documented by: Methylprednisolone (Solu-Medrol) 40 mg IV Q8 [facility] Last Admin: 07/26/19 05:49 Dose: 40 mg Documented by: Ondansetron HCl (Zofran) 4 mg IV Q8H PRN PRN PRN Reason: NAUSEA/VOMITING Senna/Docusate Sodium (Senokot-S, Rosalie-Colace) 2 tablet PO BID PRN PRN Reason: Constipation Sodium Chloride () 10 - 40 ml IV UD PRN PRN Reason: SALINE FLUSH Last Admin: 07/26/19 05:48 Dose: 20 ml Documented by: Tizanidine HCl (Zanaflex) 4 mg PO DAILY [facility] Last Admin: 07/26/19 09:35 Dose: 4 mg Documented by: Clinical Impression(s) from Imaging Studies Chest X-Ray 07/25/19 18:20 IMPRESSION: Dense right middle lobe opacification and prominent right lung base mass. Recommend chest CT for further evaluation. Electronically Signed: Reinier Rosado, at 19:55 EST Tel , Service support , Chest CTA 07/25/19 20:39 IMPRESSION: 1. No pulmonary embolus detected. 2. Right upper lobe and right lower lobe consolidation compatible with pneumonia. Radiographic follow-up recommended to ensure resolution. 3. Additional findings above. Individualized dose optimization techniques were used for this CT. at 2224 Reported and signed by: Evi Gipson MD Electronically Signed: Evi Gipson MD at 22:24 EST Tel , Service support , Assessment/Plan Active and Suspected Problems (Last Reviewed 07/26/19 @ 07:44 by Sanket Beltran MD) Sepsis due to pneumonia (Acute) Acute respiratory failure with hypoxia (Acute) COPD exacerbation (Acute) RECOMMENDATIONS: 1. BiPAP rescue as necessary. Continue BiPAP with sleep 2. Continue empiric antibiotics, steroids and mucolytic 3. Keep saturations 90 to 94% to avoid paradoxical CO2 retention 4. Possibly repeat blood cultures if continues to be febrile 5. Okay to continue patient's baseline pain regimen IMPRESSIONS: 1. Acute on chronic hypoxic respiratory failure secondary to pneumococcal pneumonia/COPD exacerbation Patient with extensive right-sided infiltrates and congenital defects of the left lung. Patient appears to be tolerating this well at this time. Patient does have advanced COPD by PFT criteria. Agree with IV steroids, antibiotics and mucolytic. Patient appears to be responding to therapy well. Would continue BiPAP with sleep and rescue during the day. 2. Severe sepsis secondary to pneumococcal pneumonia Blood cultures are positive at this time. Patient does have an echocardiogram ordered for bilateral pedal edema, but this will also evaluate for possible endocarditis. Pneumococcal antigen is positive and gram-positive cocci in chains grew within the blood within 12 hours. Patient may have issues with hypotension requiring pressor therapy. If patient continues to be febrile, repeat blood cultures may be indicated to document clearance. 3. Chronic pain syndrome/depression/history of smoking/pedal edema Complicates care, management, recovery and prognosis. Likely okay to continue with baseline medications. Continue to watch for apnea given narcotics. Code Visit Inpatient E&M: [id number] Init Hosp L3
--- NOTE | 2019-07-26 11:50 | CASEMGMT ---
RN CM PROJECT INTERN CM to room to meet with patient for initial transition planning/care coordination assessment. RN SHAHRZAD introduced self and role at [facility]. Pt voices understanding and consents to assessment at this time. Pt sitting up in chair in room in no distress at this time. Pt is oriented but is sleepy and dozed off a few times during assessment. He would awaken easily and able to answer questions appropriately. Pt stated, I think it's from that muscle relaxer. Care providers, pharmacy, and demographics verified/updated at this time. PCP: Dr Jaime Fortune Specialists: Dr Walls--detail manager Preferred Pharmacy: [facility] in [place] Insurance: [facility]. States does not have supplemental/secondary insurance. Prescription Benefit: Yes. Living Will/HPOA: States does not have LW or HCPOA . Interested in more information and would like to talk with SW to complete paperwork. KENYA, Merry Kothari, made aware LNOK: Felisha. Living Arrangements: Lives with his in 2-story home w/one step to enter. FFSU. States is independent w/ADL's. /pt share home mgmt tasks. Transportation: Pt states drives self and states no transportation concerns at this time. also drives. DME: States has the following DME: O2 @ 2 L/M via N/C through [facility]. Call placed to [facility] and confirmed current orders are for 2 L/M continuously. Pt has both concentrator and portability. Pt states his can bring in portable tank to go home on @ d/c Pt also has BIPAP, nebulizer, and glucometer Pt states no need for further DME at this time. HHC/SNF: No history of either, denies needs, and no needs identified. Pt wishes to return home and states has no concerns with going home at time of discharge. CM to follow for home oxygen needs any discharge planning/needs. Pt voices no further concerns/needs at this time. Advised pt to ask for CM if any further questions/concerns/needs arise. Voices understanding. At the end of assessment, pt stated felt like he needed his BIPAP mask on. Pt then took a drink of water, started coughing, and had emesis of water. Pt stated, I've never done that before. RNHeydi, made aware of this and also that pt is requesting his BIPAP. PLAN: Home Has home O2 @ 2 L/M via n/c. May need Home O2 testing completed. Follow for any increased oxygen needs @ d/c. consult for AD. Banuelos DME: Asha JJ RN CM
[2019-07-26 12:05] LABS: Bedside Glucose 216 mg/dL (70-110)
[2019-07-26 12:32] LABS: Pathologist Review Reviewed
[2019-07-26 17:16] LABS: Bedside Glucose 135 mg/dL (70-110)
[2019-07-26 21:30] LABS: Bedside Glucose 139 mg/dL (70-110)
[2019-07-27] VITALS (34 sets, daily range): BP systolic 94–168; BP diastolic 50–134; PULSE 60–89; RESP 12–25; TEMP 36.3–36.7; O2SAT 88–98
[2019-07-27] MEDS: Ipratropium/Albuterol Sulfate 3 ML AMPUL.NEB INHALATION ×6 (02:36→22:46)
[2019-07-27 05:04] LABS: Absolute Lymphocyte Count 0.92 X10^3/uL (0.83-4.51); Absolute Neutrophil Count 11.7 X10^3/uL (2.0-7.7); Basophil# 0.02 X10^3/uL; Basophil% 0.2 % (0-1); Hematocrit 34.6 % (40-54); Hemoglobin 10.9 g/dL (13.0-16.5); Lymphocyte # 0.92 X10^3/ul (4.0); Lymphocyte % 7.1 % (19-41); Mean Corp Hgb Conc 31.5 g/dL (32-36); Mean Corpuscular Hgb 28.8 pg (27.0-32.0); Mean Corpuscular Volume 91.5 fL (80-94); Mean Platelet Vol. 11.9 fl (6.2-12.0); Monocyte# 0.21 X10^3/uL; Monocyte% 1.6 % (0-10); NRBC Flagged by Analyzer 0 % (0-5); Neutrophil # 11.72 X10^3/uL (2.7-7.7); Neutrophil % 90.7 % (47-70); POSITIVE COUNT YES; Platelet Count 85 K/mm3 (150-450); RBC Distribution Width CV 12.8 % (11.6-14.6); RBC Distribution Width SD 42.7 fl (35.1-43.9); Red Blood Count 3.78 M/mm3 (4.6-6.2); White Blood Count 12.9 K/mm3 (4.4-11.0)
[2019-07-27 05:08] LABS: Differential Indicated SCAN CRITERIA MET
[2019-07-27] MEDS: Methadone 10 MG Tablet PO ×4 (05:24→23:01)
[2019-07-27] MEDS: 0.9% Saline Lock 10 ML Syringe IV ×2 (05:24→21:25)
[2019-07-27 05:38] LABS: Anion Gap 4 (5-15); BUN 21 mg/dL (7-18); BUN/Creat Ratio 31.1 RATIO (10-20); Calcium,Total 9.4 mg/dL (8.5-10.1); Chloride 96 mmol/L (98-107); Creatinine, Serum 0.68 mg/dL (0.70-1.30); EST Glomerular Filtration Rate 130 mL/min (>60); Est Glom Filt Rate - Afr Amer 157 mL/min (>60); Estimated Creatinine Clearance 132.27 ml/min; Glucose 154 mg/dL (74-106); Magnesium 2.4 mg/dL (1.6-2.6); Phosphorus 2.6 mg/dL (2.5-4.9); Sodium Level 136 mmol/L (136-145)
[2019-07-27 06:16] LABS: Differential Comment SCANNED
--- NOTE | 2019-07-27 07:06 | PN_ITS ---
Subjective: Patient did well overnight. No acute issues were reported. Patient is still requiring 4 L nasal cannula when not on the BiPAP. Patient does report improved production with cough and subjectively feels improved compared to previous. General: Alert, Oriented x3, Cooperative, - - Mild conversational dyspnea. HEENT: Atraumatic, PERRLA, EOMI, Normocephalic, - - Slight scleral injection without icterus Oral: Moist Mucosa, No Gingival or Mucosal Lesions/ Ulcerations Neck: Supple, No JVD, No Nodes, Trachea Midline Lungs: No rales, Diminished, Rhonchi, Wheezes, - - Symmetric expansion. Cardiovascular: Regular rate, Regular Rhythm, Normal S1, Normal S2, No murmurs, No rub noted, No Gallop Abdomen: Bowel Sounds Present, Soft, Non Tender, Non-Distended Extremities: No clubbing, No cyanosis, Edema - 1+ anasarca, - - Left arm amputation Skin: No rashes, No breakdown Musculoskeletal: No Tenderness to Palpation of Joints or Extremities Lymphatic: No Cervical, Supraclavicular, or Inguinal Adenopathy Neurological: Cranial nerves II-XII grossly intact, Neuro grossly intact, Motor Exam 5/5 strength throughout Psych/Mental Status: Alert and oriented to time, place, person, mood and affect Vital Signs Temp Pulse Resp BP Pulse Ox 36.7 C 84 20 H 130/62 H 91 07/27/19 05:00 07/27/19 07:00 07/27/19 07:00 07/27/19 07:00 07/27/19 07:00 Oxygen Flow Rate (L/min) 4 Oxygen Delivery Method Nasal Cannula Weight: 85.2 kg Body Mass Index (BMI) 26.0 Intake and Output for Last 24 Hours 07/25/19 07/26/19 07/27/19 23:59 23:59 23:59 Intake Total 640 / 640 1670.00 / 1910.00 480 / 480 Output Total 150 / 150 925 / 925 500 / 500 Balance 490 / 490 745.00 / 985.00 - Labs (Last 48 Hours) 07/25/19 07/25/19 07/25/19 17:45 19:30 19:30 WBC 28.2 H RBC 4.57 L Hgb 13.4 Hct 42.1 MCV 92.1 MCH 29.3 MCHC 31.8 L RDW Std Deviation 42.5 RDW Coeff of Beth[place] 12.7 Plt Count 107 L MPV 10.6 Immature Gran % (Auto) 1.100 H Neut % (Auto) 93.1 H Lymph % (Auto) 3.8 L [place] % (Auto) 1.2 Eos % (Auto) 0.3 Baso % (Auto) 0.5 Absolute Neuts (auto) 26.2 H Absolute Lymphs (auto) 1.07 Nucleated RBC % 0 Differential Comment SEE COMMENT Diff Path Review Reviewed Toxic Granulation Platelet Estimate SLT DEC RBC Morphology N CHROM Anisocytosis RARE Macrocytosis RARE Specimen Type Sample Site pH Bicarbonate Actual POC Total CO2 Base Excess O2 Saturation O2 % ABG pCO2 ABG pO2 Shaheen Test Respiration Rate O2 Delivery Device EPAP IPAP Blood Gas Notified Whom Blood Gas Notified Time Sodium 137 Potassium 3.3 L Chloride 97 L Carbon Dioxide 37.0 H Anion Gap 3 L BUN 15 Creatinine 0.93 Estim Creat Clear Calc 96.71 Est GFR (MDRD) Af Amer 109 Est GFR (MDRD) Non-Af 90 BUN/Creatinine Ratio 16.1 Glucose 171 H Lactic Acid Calcium 9.1 Phosphorus Magnesium Troponin I < 0.015 B-Natriuretic Peptide MRSA (PCR) Negative POC Glucose 07/25/19 07/25/19 07/25/19 19:30 20:41 23:02 WBC RBC Hgb Hct MCV MCH MCHC RDW Std Deviation RDW Coeff of [place] Plt Count MPV Immature Gran % (Auto) Neut % (Auto) Lymph % (Auto) [place] % (Auto) Eos % (Auto) Baso % (Auto) Absolute Neuts (auto) Absolute Lymphs (auto) Nucleated RBC % Differential Comment Diff Path Review Toxic Granulation Platelet Estimate RBC Morphology Anisocytosis Macrocytosis Specimen Type ART Sample Site R Radial pH 7.39 Bicarbonate Actual 38.9 H POC Total CO2 41 Base Excess 14 H O2 Saturation 90 L O2 % 40 ABG pCO2 63.7 H ABG pO2 63 L Shaheen Test POS Respiration Rate 12 O2 Delivery Device Bi / C PAP EPAP 6 IPAP 14 Blood Gas Notified Whom ED Blood Gas Notified Time 2034 Sodium Potassium Chloride Carbon Dioxide Anion Gap BUN Creatinine Estim Creat Clear Calc Est GFR (MDRD) Af Amer Est GFR (MDRD) Non-Af BUN/Creatinine Ratio Glucose Lactic Acid 1.4 Calcium Phosphorus Magnesium Troponin I B-Natriuretic Peptide MRSA (PCR) POC Glucose 207 H 07/26/19 07/26/19 07/26/19 04:35 04:35 04:35 WBC 20.4 H RBC 4.39 L Hgb 12.9 L Hct 40.5 MCV 92.3 MCH 29.4 MCHC 31.9 L RDW Std Deviation 43.4 RDW Coeff of Beth[place] 12.8 Plt Count 95 L MPV 11.1 Immature Gran % (Auto) 1.000 H Neut % (Auto) 91.7 H Lymph % (Auto) 4.9 L [place] % (Auto) 1.3 Eos % (Auto) 0.6 Baso % (Auto) 0.5 Absolute Neuts (auto) 18.7 H Absolute Lymphs (auto) 0.99 Nucleated RBC % 0 Differential Comment SCANNED Diff Path Review Toxic Granulation 2+ Platelet Estimate RBC Morphology Anisocytosis Macrocytosis Specimen Type Sample Site pH Bicarbonate Actual POC Total CO2 Base Excess O2 Saturation O2 % ABG pCO2 ABG pO2 Shaheen Test Respiration Rate O2 Delivery Device EPAP IPAP Blood Gas Notified Whom Blood Gas Notified Time Sodium 138 Potassium 4.3 Chloride 97 L Carbon Dioxide 36.0 H Anion Gap 5 BUN 13 Creatinine 0.86 Estim Creat Clear Calc 101.39 Est GFR (MDRD) Af Amer 119 Est GFR (MDRD) Non-Af 98 BUN/Creatinine Ratio 15.1 Glucose 170 H Lactic Acid Calcium 9.3 Phosphorus 1.7 L Magnesium 1.9 Troponin I B-Natriuretic Peptide MRSA (PCR) POC Glucose 07/26/19 07/26/19 07/26/19 04:35 05:51 11:56 WBC RBC Hgb Hct MCV MCH MCHC RDW Std Deviation RDW Coeff of [place] Plt Count MPV Immature Gran % (Auto) Neut % (Auto) Lymph % (Auto) [place] % (Auto) Eos % (Auto) Baso % (Auto) Absolute Neuts (auto) Absolute Lymphs (auto) Nucleated RBC % Differential Comment Diff Path Review Toxic Granulation Platelet Estimate RBC Morphology Anisocytosis Macrocytosis Specimen Type Sample Site pH Bicarbonate Actual POC Total CO2 Base Excess O2 Saturation O2 % ABG pCO2 ABG pO2 Shaheen Test Respiration Rate O2 Delivery Device EPAP IPAP Blood Gas Notified Whom Blood Gas Notified Time Sodium Potassium Chloride Carbon Dioxide Anion Gap BUN Creatinine Estim Creat Clear Calc Est GFR (MDRD) Af Amer Est GFR (MDRD) Non-Af BUN/Creatinine Ratio Glucose Lactic Acid Calcium Phosphorus Magnesium Troponin I B-Natriuretic Peptide 141.3 H MRSA (PCR) POC Glucose 156 H 216 H 07/26/19 07/26/19 07/27/19 17:08 21:26 04:50 WBC 12.9 H RBC 3.78 L Hgb 10.9 L Hct 34.6 L MCV 91.5 MCH 28.8 MCHC 31.5 L RDW Std Deviation 42.7 RDW Coeff of [place] 12.8 Plt Count 85 L MPV 11.9 Immature Gran % (Auto) 0.400 Neut % (Auto) 90.7 H Lymph % (Auto) 7.1 L [place] % (Auto) 1.6 Eos % (Auto) 0.0 Baso % (Auto) 0.2 Absolute Neuts (auto) 11.7 H Absolute Lymphs (auto) 0.92 Nucleated RBC % 0 Differential Comment SCANNED Diff Path Review Toxic Granulation Platelet Estimate RBC Morphology Anisocytosis Macrocytosis Specimen Type Sample Site pH Bicarbonate Actual POC Total CO2 Base Excess O2 Saturation O2 % ABG pCO2 ABG pO2 Shaheen Test Respiration Rate O2 Delivery Device EPAP IPAP Blood Gas Notified Whom Blood Gas Notified Time Sodium Potassium Chloride Carbon Dioxide Anion Gap BUN Creatinine Estim Creat Clear Calc Est GFR (MDRD) Af Amer Est GFR (MDRD) Non-Af BUN/Creatinine Ratio Glucose Lactic Acid Calcium Phosphorus Magnesium Troponin I B-Natriuretic Peptide MRSA (PCR) POC Glucose 135 H 139 H 07/27/19 05:15 WBC RBC Hgb Hct MCV MCH MCHC RDW Std Deviation RDW Coeff of [place] Plt Count MPV Immature Gran % (Auto) Neut % (Auto) Lymph % (Auto) [place] % (Auto) Eos % (Auto) Baso % (Auto) Absolute Neuts (auto) Absolute Lymphs (auto) Nucleated RBC % Differential Comment Diff Path Review Toxic Granulation Platelet Estimate RBC Morphology Anisocytosis Macrocytosis Specimen Type Sample Site pH Bicarbonate Actual POC Total CO2 Base Excess O2 Saturation O2 % ABG pCO2 ABG pO2 Shaheen Test Respiration Rate O2 Delivery Device EPAP IPAP Blood Gas Notified Whom Blood Gas Notified Time Sodium 136 Potassium 4.0 Chloride 96 L Carbon Dioxide 36.0 H Anion Gap 4 L BUN 21 H Creatinine 0.68 L Estim Creat Clear Calc 132.27 Est GFR (MDRD) Af Amer 157 Est GFR (MDRD) Non-Af 130 BUN/Creatinine Ratio 31.1 H Glucose 154 H Lactic Acid Calcium 9.4 Phosphorus 2.6 Magnesium 2.4 Troponin I B-Natriuretic Peptide MRSA (PCR) POC Glucose Microbiology 07/26/19 09:50 Sputum, Expectorated/Coughed Gram Stain - Final 07/25/19 17:45 Mucosa - Nose Respiratory Panel (PCR) - Final 07/25/19 19:43 Blood Culture (Wb) - Right Hand Blood Culture - Preliminary Gram Positive Cocci 07/25/19 19:30 Blood Culture (Wb) - Right Forearm Bacteria Detection (PCR) - Final Streptococcus pneumoniae 07/25/19 19:30 Blood Culture (Wb) - Right Forearm Blood Culture - Preliminary Streptococcus pneumoniae 07/25/19 23:00 Urine, Clean Catch Streptococcus pneumoniae Antigen (M - Final Streptococcus pneumonia Ag 07/25/19 23:00 Urine, Clean Catch Legionella Antigen - Final 07/25/19 17:45 Mucosa - Nose Influenza Types A,B Direct FA (CATHY) - Final Medical Necessity - Tobacco Use Smoking Status: Former smoker Assessment/Plan All Active Problems (Last Reviewed 07/26/19 @ 07:44 by Sanket Beltran MD) Sepsis due to pneumonia (Acute) Acute respiratory failure with hypoxia (Acute) Inguinal hernia (Resolved) COPD exacerbation (Acute) Sepsis (Acute) Acute and chronic respiratory failure with hypoxia (Acute) Hyperglycemia (Acute) RECOMMENDATIONS: 1. BiPAP rescue as necessary. Continue BiPAP with sleep 2. Continue empiric antibiotics, steroids and mucolytic. Add vest therapy 3. Keep saturations 90 to 94% to avoid paradoxical CO2 retention 4. Possibly repeat blood cultures if continues to be febrile 5. Okay to continue patient's baseline pain regimen IMPRESSIONS: 1. Acute on chronic hypoxic respiratory failure secondary to pneumococcal pneumonia/COPD exacerbation Patient with extensive right-sided infiltrates and congenital defects of the left lung. Patient appears to be tolerating this well at this time. Patient does have advanced COPD by PFT criteria. Agree with IV steroids, antibiotics and mucolytic. Keep steroids at current dosing for now. Patient appears to be responding to therapy well. Would continue BiPAP with sleep and rescue during the day. Add vest therapy to help with pulmonary toileting. 2. Severe sepsis secondary to pneumococcal pneumonia Blood cultures are positive at this time. Patient does have an echocardiogram ordered for bilateral pedal edema, but this will also evaluate for possible endocarditis. Pneumococcal antigen is positive and gram-positive cocci in chains grew within the blood within 12 hours. Patient may have issues with hypotension requiring pressor therapy. If patient continues to be febrile, repeat blood cultures may be indicated to document clearance. 3. Chronic pain syndrome/depression/history of smoking/pedal edema Complicates care, management, recovery and prognosis. Likely okay to continue with baseline medications. Continue to watch for apnea given narcotics. Code Visit Inpatient E&M: 10646 Subs Hosp L3
[2019-07-27 07:10] LABS: Bedside Glucose 167 mg/dL (70-110)
[2019-07-27] MEDS: HYDROcodone Bitartrate/Apap 5/325 Tablet PO (08:34)
[2019-07-27] MEDS: Insulin Lispro 100 UNIT/ML INSULN.PEN SC ×3 (08:36→21:19)
--- NOTE | 2019-07-27 09:37 | PCM.PN.HOSP ---
Patient Problems: Active and Suspected Problems (Last Reviewed 07/26/19 @ 07:44 by Sanket Beltran MD) Sepsis due to pneumonia (Acute) Acute respiratory failure with hypoxia (Acute) COPD exacerbation (Acute) Reason for Visit: Streptococcus pneumoniae bacteremia secondary to bilateral multifocal pneumonia Subjective: Patient is still on 4 L of oxygen, pulse ox 91%. No fever. Urinary antigen and blood cultures positive for Streptococcus pneumoniae. Respiratory panel negative. Patient has productive yellow sputum, significant amount. Denies chest pain. Objective: General: Alert, Oriented x3, Cooperative HEENT: Atraumatic, PERRLA, EOMI, Normocephalic Neck: Supple, No JVD, Negative Carotid Bruits Lungs: No rales,Air entry severely diminished in all lung cruz. Expiratory rhonchi and coarse rales present in the right lung base. 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 Cardiovascular: Regular rate, Regular Rhythm, Normal S1, Normal S2, No murmurs Abdomen: Bowel Sounds Present, Soft, Non Tender, Non-Distended Extremities: Capillary Refill Less than 3 Seconds, Edema - Mild pedal edema Skin: No rashes, No breakdown Musculoskeletal: No Tenderness to Palpation of Joints or Extremities, Arthritic Changes Neurological: Cranial nerves II-XII grossly intact Psych/Mental Status: Normal Affect, Appropriate Vitals/I&O's: Vital Signs Temp Pulse Resp BP Pulse Ox 98.0 F 82 16 130/62 H 91 07/27/19 05:00 07/27/19 07:21 07/27/19 07:21 07/27/19 07:00 07/27/19 07:21 Oxygen Flow Rate (L/min) 4 Oxygen Delivery Method Nasal Cannula Weight: 187 lb 13.341 oz Body Mass Index (BMI) 26.0 Intake and Output for Last 24 Hours 07/25/19 07/26/19 07/27/19 23:59 23:59 23:59 Intake Total 640 / 640 1670.00 / 1910.00 480 / 480 Output Total 150 / 150 925 / 925 500 / 500 Balance 490 / 490 745.00 / 985.00 - / 20 Microbiology Past 72 Hours 07/26/19 09:50 Sputum, Expectorated/Coughed Gram Stain - Final 07/25/19 17:45 Mucosa - Nose Respiratory Panel (PCR) - Final 07/25/19 19:43 Blood Culture (Wb) - Right Hand Blood Culture - Preliminary Gram Positive Cocci 07/25/19 19:30 Blood Culture (Wb) - Right Forearm Bacteria Detection (PCR) - Final Streptococcus pneumoniae 07/25/19 19:30 Blood Culture (Wb) - Right Forearm Blood Culture - Preliminary Streptococcus pneumoniae 07/25/19 23:00 Urine, Clean Catch Streptococcus pneumoniae Antigen (M - Final Streptococcus pneumonia Ag 07/25/19 23:00 Urine, Clean Catch Legionella Antigen - Final 07/25/19 17:45 Mucosa - Nose Influenza Types A,B Direct FA (CATHY) - Final Laboratory Results 07/25/19 19:30: Diff Path Review Reviewed 07/26/19 04:35: B-Natriuretic Peptide 141.3 H 07/26/19 11:56: POC Glucose 216 H 07/26/19 17:08: POC Glucose 135 H 07/26/19 21:26: POC Glucose 139 H 07/27/19 04:50: WBC 12.9 H, RBC 3.78 L, Hgb 10.9 L, Hct 34.6 L, MCV 91.5, MCH 28.8, MCHC 31.5 L, RDW Std Deviation 42.7, RDW Coeff of Beth[place] 12.8, Plt Count 85 L, MPV 11.9, Immature Gran % (Auto) 0.400, Neut % (Auto) 90.7 H, Lymph % (Auto) 7.1 L, [place] % (Auto) 1.6, Eos % (Auto) 0.0, Baso % (Auto) 0.2, Absolute Neuts (auto) 11.7 H, Absolute Lymphs (auto) 0.92, Nucleated RBC % 0, Differential Comment SCANNED 07/27/19 05:15: Sodium 136, Potassium 4.0, Chloride 96 L, Carbon Dioxide 36.0 H, Anion Gap 4 L, BUN 21 H, Creatinine 0.68 L, Estim Creat Clear Calc 132.27, Est GFR (MDRD) Af Amer 157, Est GFR (MDRD) Non-Af 130, BUN/Creatinine Ratio 31.1 H, Glucose 154 H, Calcium 9.4, Phosphorus 2.6, Magnesium 2.4 07/27/19 07:05: POC Glucose 167 H Current Medications Acetaminophen (Tylenol) 650 mg PO Q6H PRN PRN PRN Reason: Pain Score 1-10/Temp > 100.7 F Hydrocodone Bitart/Acetaminophen ([place] 5mg-325mg) 1 tablet PO Q8H PRN PRN PRN Reason: Pain Score 6-10/10 Last Admin: 07/27/19 08:34 Dose: 1 tablet Documented by: Albuterol Sulfate (Ventolin Aerosols) 2.5 mg INHALATION Q2H PRN PRN PRN Reason: sob/wheezing Albuterol/Ipratropium (Duoneb) 3 ml INHALATION Q4H.RT [facility] Last Admin: 07/27/19 07:20 Dose: 3 ml Documented by: Amlodipine Besylate (Norvasc) 10 mg PO DAILY [facility] Last Admin: 07/26/19 09:35 Dose: 10 mg Documented by: Citalopram Hydrobromide (Celexa) 10 mg PO DAILY [facility] Last Admin: 07/26/19 09:35 Dose: 10 mg Documented by: Enoxaparin Sodium (Lovenox) 40 mg SC DAILY [facility] Last Admin: 07/26/19 09:35 Dose: 40 mg Documented by: Furosemide (Lasix) 40 mg PO DAILY [facility] Last Admin: 07/26/19 09:35 Dose: 40 mg Documented by: Glucagon () 1 mg IM .X1 PRN PRN Reason: Hypoglycemia Guaifenesin (Mucinex) 1,200 mg PO BID [facility] Last Admin: 07/26/19 21:19 Dose: 1,200 mg Documented by: Ceftriaxone Sodium 2 gm/ (Sodium Chloride) 50 mls @ 100 mls/hr IV Q24H [facility] Last Infusion: 07/26/19 21:46 Dose: Infused Documented by: Azithromycin 500 mg/ Dextrose 255 mls @ 250 mls/hr IV Q24H [facility] Last Infusion: 07/26/19 23:08 Dose: Infused Documented by: Dextrose (Dextrose 10%-Water) 250 mls @ 999 mls/hr IV .Q16M PRN; Protocol PRN Reason: HYPOGLYCEMIA Sodium Chloride () 250 mls @ 15 mls/hr IV .[id number] PRN PRN Reason: Saline Flush Sodium Chloride () 250 mls @ 15 mls/hr IV .[id number] PRN PRN Reason: Additional IVPB Infusion Insulin Human Lispro (Humalog Kwikpen (Bkc)) 0 unit SC ACHS [facility]; Protocol Last Admin: 07/27/19 08:36 Dose: 1 u Documented by: Melatonin (Melatonin) 3 mg PO QHS PRN PRN PRN Reason: INSOMNIA Methadone HCl () 10 mg PO Q6 [facility] Last Admin: 07/27/19 05:24 Dose: 10 mg Documented by: Methylprednisolone (Solu-Medrol) 40 mg IV Q8 [facility] Last Admin: 07/27/19 05:24 Dose: 40 mg Documented by: Ondansetron HCl (Zofran) 4 mg IV Q8H PRN PRN PRN Reason: NAUSEA/VOMITING Senna/Docusate Sodium (Senokot-S, Rosalie-Colace) 2 tablet PO BID PRN PRN Reason: Constipation Sodium Chloride () 10 - 40 ml IV UD PRN PRN Reason: SALINE FLUSH Last Admin: 07/27/19 05:24 Dose: 30 ml Documented by: Tizanidine HCl (Zanaflex) 4 mg PO DAILY [facility] Last Admin: 07/26/19 09:35 Dose: 4 mg Documented by: STROKE Vital Signs/Narrative: Vital Signs Pulse Resp BP Pulse Ox 07/27/19 07:21 82 16 91 07/27/19 07:00 84 20 H 130/62 H 91 07/27/19 06:00 76 20 H 129/64 H 91 Medical Necessity - Tobacco Use Smoking Status: Former smoker Assessment/Plan All Active Problems (Last Reviewed 07/26/19 @ 07:44 by Sanket Beltran MD) Sepsis due to pneumonia (Acute) Acute respiratory failure with hypoxia (Acute) Inguinal hernia (Resolved) COPD exacerbation (Acute) Sepsis (Acute) Acute and chronic respiratory failure with hypoxia (Acute) Hyperglycemia (Acute) The patient is a 54 year old M with a significant history of COPD stage IV on 2?3 L of home oxygen mainly at night; former tobacco abuse, quit 30 years ago; congenital agenesis of left upper extremity; HTN admitted with progressive worsening of shortness of breath, wheezing, productive cough with yellow-greenish sputum and acute on chronic respiratory failure Patient had pulmonary function test completed on June 20, 2019 interpreted as showing an irreversible very severe mixed ventilatory defect with a symmetric reduction in diffusing capacity. FVC 26% of predicted, FEV1 23% of predicted, FEV1/FVC 91% of predicted, TLC 47% of predicted, RV 80% of predicted and DLCO 37% of predicted. 1. SIRS (tachypnea, hypoxia and leukocytosis with left shift) sepsis sepsis secondary to multifocal/multilobar community-acquired pneumonia: CT chest and chest x-ray independently reviewed. CT chest shows dense opacification of right middle lobe predominantly but also on right upper and right lower lobe with air bronchograms. Mild left lower lobe opacity with volume loss secondary to atelectasis and congenital agenesis of left lung. Left upper lobe agenesis. PE ruled out. Pneumonia work-up ordered. ABG reviewed. 7. on 40% FiO2 14/6 BiPAP suggestive of chronic CO2 retainer and goes along with the PFT test. Continue DuoNeb, albuterol, IV Solu-Medrol, incentive spirometry and chest physiotherapy. [employer] is been consulted. On IV Levaquin. On BiPAP. Lactic acid normal. 07/27/2019: Urine for Streptococcus pneumoniae and both blood cultures positive for Streptococcus pneumoniae. Currently on Rocephin and Zithromax. ID consult. Patient had Levaquin during previous admission 2. Acute on chronic combined hypoxic and hypercarbic respiratory failure secondary to COPD exacerbation and pneumonia: As mentioned above. Keep pulse ox about 90% High oxygen 3. Chronic right shoulder pain. Methadone, tizanidine and [place] continued 4. Mild pedal edema, suspicion of right-sided heart failure with history of COPD stage IV, and hypertension: Patient on torsemide 20 mg daily, amlodipine 10 mg daily. BNP and 2D echo ordered. Blood pressure 132/67. 5. Depression Celexa continued 6. Ex-smoker: Quit about 30 years ago. Now he snuffs tobacco. Counseled. Declined nicotine patch. 7. DVT prophylaxis Subcutaneous Lovenox. Clinical Impression(s) from Imaging Studies Chest X-Ray 07/25/19 18:20 IMPRESSION: Dense right middle lobe opacification and prominent right lung base mass. Recommend chest CT for further evaluation. Chest CTA 07/25/19 20:39 IMPRESSION: 1. No pulmonary embolus detected. 2. Right upper lobe and right lower lobe consolidation compatible with pneumonia. Radiographic follow-up recommended to ensure resolution. 3. Additional findings above. Individualized dose optimization techniques were used for this CT. Microbiology Past 72 Hours 07/26/19 09:50 Sputum, Expectorated/Coughed Gram Stain - Final 07/25/19 17:45 Mucosa - Nose Respiratory Panel (PCR) - Final 07/25/19 19:43 Blood Culture (Wb) - Right Hand Blood Culture - Preliminary Gram Positive Cocci 07/25/19 19:30 Blood Culture (Wb) - Right Forearm Bacteria Detection (PCR) - Final Streptococcus pneumoniae 07/25/19 19:30 Blood Culture (Wb) - Right Forearm Blood Culture - Preliminary Streptococcus pneumoniae 07/25/19 23:00 Urine, Clean Catch Streptococcus pneumoniae Antigen (M - Final Streptococcus pneumonia Ag 07/25/19 23:00 Urine, Clean Catch Legionella Antigen - Final 07/25/19 17:45 Mucosa - Nose Influenza Types A,B Direct FA (CATHY) - Final Laboratory Results 07/25/19 19:30: Diff Path Review Reviewed 07/26/19 11:56: POC Glucose 216 H 07/26/19 17:08: POC Glucose 135 H 07/26/19 21:26: POC Glucose 139 H 07/27/19 04:50: WBC 12.9 H, RBC 3.78 L, Hgb 10.9 L, Hct 34.6 L, MCV 91.5, MCH 28.8, MCHC 31.5 L, RDW Std Deviation 42.7, RDW Coeff of Beth[place] 12.8, Plt Count 85 L, MPV 11.9, Immature Gran % (Auto) 0.400, Neut % (Auto) 90.7 H, Lymph % (Auto) 7.1 L, [place] % (Auto) 1.6, Eos % (Auto) 0.0, Baso % (Auto) 0.2, Absolute Neuts (auto) 11.7 H, Absolute Lymphs (auto) 0.92, Nucleated RBC % 0, Differential Comment SCANNED 07/27/19 05:15: Sodium 136, Potassium 4.0, Chloride 96 L, Carbon Dioxide 36.0 H, Anion Gap 4 L, BUN 21 H, Creatinine 0.68 L, Estim Creat Clear Calc 132.27, Est GFR (MDRD) Af Amer 157, Est GFR (MDRD) Non-Af 130, BUN/Creatinine Ratio 31.1 H, Glucose 154 H, Calcium 9.4, Phosphorus 2.6, Magnesium 2.4 07/27/19 07:05: POC Glucose 167 H Code Visit Inpatient E&M: 09162 Subs Hosp L3
[2019-07-27] MEDS: guaiFENesin 1,200 MG Tablet 1200 MG PO ×2 (10:14→21:07)
[2019-07-27] MEDS: Citalopram 10 MG Tablet PO (10:14)
[2019-07-27] MEDS: tiZANidine HCl 2 MG Tablet 4 MG PO ×2 (10:14→23:01)
[2019-07-27] MEDS: Furosemide 40 MG Tablet PO (10:14)
[2019-07-27] MEDS: amLODIPine 10 MG Tablet PO (10:15)
[2019-07-27] MEDS: Enoxaparin 40 MG/0.4 ML Syringe SC (10:15)
--- NOTE | 2019-07-27 10:16 | CASEMGMT ---
RN CM Note: Participated in ICU interdisciplinary rounds. Pt is awake, alert, remains on 4L NC. Has Home oxygen and portability for dc. Pt uses vest therapy @ home and family to bring vest in for use in hospital. Pt to ambulate with nursing, and if needed, PT/OT will be consulted. DC Plan: Anticipate home on discharge. Ivory JJ RN ACM
--- NOTE | 2019-07-27 11:26 | CASEMGMT ---
Social Work SW attended interdisciplinary rounds. No family present. Pt planning to return home at d/c. SW met with pt after rounds and discussed Advance Directives. SW explained Living will and Health Care Power of [employer]. Pt states he would like to speak with his prior to completing paperwork. SW left rack card with AD information and encouraged pt to call this SW if he would like to complete AD while at the hospital. GHADA Patiño
[2019-07-27 13:10] LABS: Bedside Glucose 213 mg/dL (70-110)
--- NOTE | 2019-07-27 14:50 | CPS ---
He is using his vest from home with the treatments per Dr. Harrell.
[2019-07-27 17:16] LABS: Bedside Glucose 145 mg/dL (70-110)
[2019-07-27 21:25] LABS: Bedside Glucose 227 mg/dL (70-110)
[2019-07-28] VITALS (26 sets, daily range): BP systolic 122–151; BP diastolic 64–84; PULSE 59–102; RESP 12–24; TEMP 36.1–36.7; O2SAT 92–97
[2019-07-28] MEDS: Ipratropium/Albuterol Sulfate 3 ML AMPUL.NEB INHALATION ×4 (02:59→19:23)
[2019-07-28] MEDS: Methadone 10 MG Tablet PO ×3 (05:59→17:39)
[2019-07-28] MEDS: 0.9% Saline Lock 10 ML Syringe IV ×2 (05:59→21:23)
[2019-07-28 06:55] LABS: Bedside Glucose 190 mg/dL (70-110)
--- NOTE | 2019-07-28 07:01 | PCM.PN.INT ---
Subjective: Patient did well overnight. Patient did wear BiPAP while sleeping, but is still requiring 4 L nasal cannula to maintain saturations. No fever was documented overnight. No fluid boluses were required for hypotension. Patient continues to have a cough that is productive of sputum and is using his home vest with good results. General: Alert, Oriented x3, Cooperative, No apparent distress, Well developed, Well nourished, - - No conversational dyspnea. Cough with deep inhalation. HEENT: Atraumatic, PERRLA, EOMI, Normocephalic, - - No scleral icterus or injection noted Oral: Moist Mucosa, No Gingival or Mucosal Lesions/ Ulcerations Neck: Supple, No JVD, No Nodes, Trachea Midline Lungs: No rhonchi, No rales, Diminished, Wheezes - At end exhalation Cardiovascular: Regular rate, Regular Rhythm, Normal S1, Normal S2, No murmurs, No rub noted, No Gallop Abdomen: Bowel Sounds Present, Soft, Non Tender, Non-Distended Extremities: No clubbing, No cyanosis, No edema, Capillary Refill Less than 3 Seconds, - - Left arm amputation Skin: No rashes, No breakdown Musculoskeletal: No Tenderness to Palpation of Joints or Extremities Lymphatic: No Cervical, Supraclavicular, or Inguinal Adenopathy Neurological: Cranial nerves II-XII grossly intact, Neuro grossly intact, Motor Exam 5/5 strength throughout Psych/Mental Status: Alert and oriented to time, place, person, mood and affect Vital Signs Temp Pulse Resp BP Pulse Ox 36.7 C 72 19 H 124/79 H 94 07/28/19 04:00 07/28/19 06:58 07/28/19 06:58 07/28/19 06:00 07/28/19 06:58 Oxygen Flow Rate (L/min) 4 Oxygen Delivery Method Nasal Cannula Weight: 87 kg Body Mass Index (BMI) 26.0 Intake and Output for Last 24 Hours 07/26/19 07/27/19 07/28/19 23:59 23:59 23:59 Intake Total 1670.00 / 1910.00 2435 / 2435 60 / 60 Output Total 925 / 925 1850 / 1850 300 / 300 Balance 745.00 / 985.00 585 / 585 -240 / -240 Labs (Last 48 Hours) 07/25/19 07/26/1920 19:30 04:35 04:35 WBC RBC Hgb Hct MCV MCH MCHC RDW Std Deviation RDW Coeff of [place] Plt Count MPV Immature Gran % (Auto) Neut % (Auto) Lymph % (Auto) [place] % (Auto) Eos % (Auto) Baso % (Auto) Absolute Neuts (auto) Absolute Lymphs (auto) Nucleated RBC % Differential Comment SCANNED Diff Path Review Reviewed Toxic Granulation 2+ Sodium Potassium Chloride Carbon Dioxide Anion Gap BUN Creatinine Estim Creat Clear Calc Est GFR (MDRD) Af Amer Est GFR (MDRD) Non-Af BUN/Creatinine Ratio Glucose Calcium Phosphorus 1.7 L Magnesium B-Natriuretic Peptide POC Glucose 07/26/19 07/26/19 07/26/19 04:35 11:56 17:08 WBC RBC Hgb Hct MCV MCH MCHC RDW Std Deviation RDW Coeff of [place] Plt Count MPV Immature Gran % (Auto) Neut % (Auto) Lymph % (Auto) [place] % (Auto) Eos % (Auto) Baso % (Auto) Absolute Neuts (auto) Absolute Lymphs (auto) Nucleated RBC % Differential Comment Diff Path Review Toxic Granulation Sodium Potassium Chloride Carbon Dioxide Anion Gap BUN Creatinine Estim Creat Clear Calc Est GFR (MDRD) Af Amer Est GFR (MDRD) Non-Af BUN/Creatinine Ratio Glucose Calcium Phosphorus Magnesium B-Natriuretic Peptide 141.3 H POC Glucose 216 H 135 H 07/26/19 07/27/19 07/27/19 21:26 04:50 05:15 WBC 12.9 H RBC 3.78 L Hgb 10.9 L Hct 34.6 L MCV 91.5 MCH 28.8 MCHC 31.5 L RDW Std Deviation 42.7 RDW Coeff of [place] 12.8 Plt Count 85 L MPV 11.9 Immature Gran % (Auto) 0.400 Neut % (Auto) 90.7 H Lymph % (Auto) 7.1 L [place] % (Auto) 1.6 Eos % (Auto) 0.0 Baso % (Auto) 0.2 Absolute Neuts (auto) 11.7 H Absolute Lymphs (auto) 0.92 Nucleated RBC % 0 Differential Comment SCANNED Diff Path Review Toxic Granulation Sodium 136 Potassium 4.0 Chloride 96 L Carbon Dioxide 36.0 H Anion Gap 4 L BUN 21 H Creatinine 0.68 L Estim Creat Clear Calc 132.27 Est GFR (MDRD) Af Amer 157 Est GFR (MDRD) Non-Af 130 BUN/Creatinine Ratio 31.1 H Glucose 154 H Calcium 9.4 Phosphorus 2.6 Magnesium 2.4 B-Natriuretic Peptide POC Glucose 139 H 07/27/19 07/27/19 07/27/19 07:05 13:04 17:11 WBC RBC Hgb Hct MCV MCH MCHC RDW Std Deviation RDW Coeff of [place] Plt Count MPV Immature Gran % (Auto) Neut % (Auto) Lymph % (Auto) [place] % (Auto) Eos % (Auto) Baso % (Auto) Absolute Neuts (auto) Absolute Lymphs (auto) Nucleated RBC % Differential Comment Diff Path Review Toxic Granulation Sodium Potassium Chloride Carbon Dioxide Anion Gap BUN Creatinine Estim Creat Clear Calc Est GFR (MDRD) Af Amer Est GFR (MDRD) Non-Af BUN/Creatinine Ratio Glucose Calcium Phosphorus Magnesium B-Natriuretic Peptide POC Glucose 167 H 213 H 145 H 07/27/19 07/28/19 21:18 06:52 WBC RBC Hgb Hct MCV MCH MCHC RDW Std Deviation RDW Coeff of [place] Plt Count MPV Immature Gran % (Auto) Neut % (Auto) Lymph % (Auto) [place] % (Auto) Eos % (Auto) Baso % (Auto) Absolute Neuts (auto) Absolute Lymphs (auto) Nucleated RBC % Differential Comment Diff Path Review Toxic Granulation Sodium Potassium Chloride Carbon Dioxide Anion Gap BUN Creatinine Estim Creat Clear Calc Est GFR (MDRD) Af Amer Est GFR (MDRD) Non-Af BUN/Creatinine Ratio Glucose Calcium Phosphorus Magnesium B-Natriuretic Peptide POC Glucose 227 H 190 H Microbiology 07/26/19 09:50 Sputum, Expectorated/Coughed Gram Stain - Final 07/26/19 09:50 Sputum, Expectorated/Coughed Respiratory Culture - Preliminary Appears to be normal respiratory irineo. Further studies to follow. 07/25/19 17:45 Mucosa - Nose Respiratory Panel (PCR) - Final 07/25/19 19:43 Blood Culture (Wb) - Right Hand Blood Culture - Preliminary Gram Positive Cocci 07/25/19 19:30 Blood Culture (Wb) - Right Forearm Bacteria Detection (PCR) - Final Streptococcus pneumoniae 07/25/19 19:30 Blood Culture (Wb) - Right Forearm Blood Culture - Preliminary Streptococcus pneumoniae Medical Necessity - Tobacco Use Smoking Status: Former smoker Assessment/Plan All Active Problems (Last Reviewed 07/26/19 @ 07:[address] Sanket Beltran MD) Sepsis due to pneumonia (Acute) Acute respiratory failure with hypoxia (Acute) Inguinal hernia (Resolved) COPD exacerbation (Acute) Sepsis (Acute) Acute and chronic respiratory failure with hypoxia (Acute) Hyperglycemia (Acute) RECOMMENDATIONS: 1. BiPAP rescue as necessary. Continue BiPAP with sleep 2. Continue empiric antibiotics. Decrease steroids. 3. Keep saturations 90 to 94% to avoid paradoxical CO2 retention. Walking oximetry prior to discharge 4. Likely not necessary to repeat blood cultures 5. Okay to continue patient's baseline pain regimen 6. Okay to leave the intensive care unit from my perspective IMPRESSIONS: 1. Acute on chronic hypoxic respiratory failure secondary to pneumococcal pneumonia/COPD exacerbation Patient with extensive right-sided infiltrates and congenital defects of the left lung. Patient appears to be tolerating this well at this time. Patient does have advanced COPD by PFT criteria. Steroids will be decreased. Likely transition to prednisone tomorrow and wean over the next 12 to 14 days. Would continue with BiPAP with sleep, but not necessary during the day. Patient has a home vest for pulmonary toileting. Continue to wean oxygen as tolerated. Patient will need a walking oximetry prior to discharge. 2. Severe sepsis secondary to pneumococcal pneumonia Blood cultures are positive at this time. Patient does have an echocardiogram ordered for bilateral pedal edema, but this will also evaluate for possible endocarditis. Pneumococcal antigen is positive and gram-positive cocci in chains grew within the blood within 12 hours. Patient has responded very well to therapy, so repeat blood cultures are likely not necessary. 3. Chronic pain syndrome/depression/history of smoking/pedal edema Complicates care, management, recovery and prognosis. Likely okay to continue with baseline medications. Continue to watch for apnea given narcotics. Code Visit Inpatient E&M: 76237 Subs Hosp L3
--- NOTE | 2019-07-28 07:53 | CPS ---
pt already did his Vest, had nursing help him put vest on.
[2019-07-28] MEDS: Insulin Lispro 100 UNIT/ML INSULN.PEN SC ×4 (08:02→21:24)
[2019-07-28 08:44] LABS: Absolute Lymphocyte Count 0.64 X10^3/uL (0.83-4.51); Absolute Neutrophil Count 6.4 X10^3/uL (2.0-7.7); Basophil# 0.01 X10^3/uL; Basophil% 0.1 % (0-1); Hematocrit 37.8 % (40-54); Lymphocyte # 0.64 X10^3/ul (4.0); Lymphocyte % 8.8 % (19-41); Mean Corp Hgb Conc 31.7 g/dL (32-36); Mean Corpuscular Hgb 29.2 pg (27.0-32.0); Mean Platelet Vol. 11.1 fl (6.2-12.0); Monocyte# 0.18 X10^3/uL; Monocyte% 2.5 % (0-10); NRBC Flagged by Analyzer 0 % (0-5); Neutrophil # 6.44 X10^3/uL (2.7-7.7); Neutrophil % 88.1 % (47-70); Platelet Count 171 K/mm3 (150-450); RBC Distribution Width CV 12.8 % (11.6-14.6); RBC Distribution Width SD 42.7 fl (35.1-43.9); Red Blood Count 4.11 M/mm3 (4.6-6.2); White Blood Count 7.3 K/mm3 (4.4-11.0)
[2019-07-28 09:02] LABS: Anion Gap 4 (5-15); BUN 21 mg/dL (7-18); BUN/Creat Ratio 27.5 RATIO (10-20); Calcium,Total 9.4 mg/dL (8.5-10.1); Chloride 100 mmol/L (98-107); Creatinine, Serum 0.76 mg/dL (0.70-1.30); EST Glomerular Filtration Rate 113 mL/min (>60); Est Glom Filt Rate - Afr Amer 137 mL/min (>60); Estimated Creatinine Clearance 118.34 ml/min; Glucose 186 mg/dL (74-106); Potassium 3.8 mmol/L (3.5-5.1); Sodium Level 139 mmol/L (136-145)
[2019-07-28] MEDS: Citalopram 10 MG Tablet PO (09:46)
[2019-07-28] MEDS: guaiFENesin 1,200 MG Tablet 1200 MG PO ×2 (09:46→21:22)
[2019-07-28] MEDS: Enoxaparin 40 MG/0.4 ML Syringe SC (09:46)
[2019-07-28] MEDS: amLODIPine 10 MG Tablet PO (09:46)
[2019-07-28] MEDS: Furosemide 40 MG Tablet PO (09:46)
--- NOTE | 2019-07-28 09:52 | CASEMGMT ---
RN CM Note: participated in ICU interdisciplinary rounds. Pt sitting in chair, able to participate. Plan is to continue vest therapy. Pt is on 3L NC (has Home oxygen @ 2L NC with portability). Continue IV solumedrol and IV antibiotics. DC PLAN: anticipate home on dc, pt/ot evals pending.Ivory JJ RN ACM
--- NOTE | 2019-07-28 10:02 | PCM.PN.HOSP ---
Patient Problems: Active and Suspected Problems (Last Reviewed 07/26/19 @ 07:[address] Sanket Beltran MD) Sepsis due to pneumonia (Acute) Acute respiratory failure with hypoxia (Acute) COPD exacerbation (Acute) Subjective: Patient seen and examined. He had no complaints. Shortness of breath had improved. He is on 3 L of oxygen, his baseline is 2 L of oxygen at home. He still coughing and states it is occasionally productive. Sputum is clearing up. He denies any chest pain or palpitation, dizziness, nausea vomiting or diarrhea. Review of systems otherwise negative. Labs and vitals reviewed. Still mildly tachypneic with respiratory rate of 21. Chemistry is unremarkable. WBC is down to 7.3 today. No fluid boluses were required for hypotension. Vitals/I&O's: Vital Signs Temp Pulse Resp BP Pulse Ox 97.7 F L 92 21 H 147/82 H 94 07/28/19 10:00 07/28/19 10:00 07/28/19 10:00 07/28/19 10:00 07/28/19 10:00 Oxygen Flow Rate (L/min) 3 Oxygen Delivery Method Nasal Cannula Weight: 191 lb 12.835 oz Body Mass Index (BMI) 26.0 Intake and Output for Last 24 Hours 07/26/19 07/27/19 07/28/19 23:59 23:59 23:59 Intake Total 1670.00 / 1910.00 2435 / 2435 60 / 60 Output Total 925 / 925 1850 / 1850 300 / 300 Balance 745.00 / 985.00 585 / 585 -240 / -240 General: Alert, Oriented x3, Cooperative, No apparent distress HEENT: Atraumatic, PERRLA, EOMI, Normocephalic Oral: Moist Mucosa Neck: Supple, No JVD, Negative Carotid Bruits Lungs: - - mildly decreased breath sounds bibasally, no wheezes or crackles. on 3L of oxygen by nasal canula Cardiovascular: Regular rate, Regular Rhythm, Normal S1, Normal S2, No murmurs Abdomen: Bowel Sounds Present, Soft, Non Tender Extremities: No edema, Capillary Refill Less than 3 Seconds Skin: No rashes, No breakdown Musculoskeletal: No Tenderness to Palpation of Joints or Extremities, - - LUE amputation Lymphatic: No Cervical, Supraclavicular, or Inguinal Adenopathy Neurological: Cranial nerves II-XII grossly intact, Neuro grossly intact Psych/Mental Status: Normal Affect, Appropriate, Alert and oriented to time, place, person, mood and affect Microbiology Past 72 Hours 07/25/19 19:43 Blood Culture (Wb) - Right Hand Blood Culture - Final Gram Positive Cocci 07/25/19 19:30 Blood Culture (Wb) - Right Forearm Bacteria Detection (PCR) - Final Streptococcus pneumoniae 07/25/19 19:30 Blood Culture (Wb) - Right Forearm Blood Culture - Final Streptococcus pneumoniae 07/26/19 09:50 Sputum, Expectorated/Coughed Gram Stain - Final 07/26/19 09:50 Sputum, Expectorated/Coughed Respiratory Culture - Preliminary Appears to be normal respiratory irineo. Further studies to follow. 07/25/19 17:45 Mucosa - Nose Respiratory Panel (PCR) - Final 07/25/19 23:00 Urine, Clean Catch Streptococcus pneumoniae Antigen (M - Final Streptococcus pneumonia Ag 07/25/19 23:00 Urine, Clean Catch Legionella Antigen - Final 07/25/19 17:45 Mucosa - Nose Influenza Types A,B Direct FA (CATHY) - Final Laboratory Results 07/27/19 13:04: POC Glucose 213 H 07/27/19 17:11: POC Glucose 145 H 07/27/19 21:18: POC Glucose 227 H 07/28/19 06:52: POC Glucose 190 H 07/28/19 08:40: WBC 7.3, RBC 4.11 L, Hgb 12.0 L, Hct 37.8 L, MCV 92.0, MCH 29.2, MCHC 31.7 L, RDW Std Deviation 42.7, RDW Coeff of [place] 12.8, Plt Count 171, MPV 11.1, Immature Gran % (Auto) 0.500, Neut % (Auto) 88.1 H, Lymph % (Auto) 8.8 L, [place] % (Auto) 2.5, Eos % (Auto) 0.0, Baso % (Auto) 0.1, Absolute Neuts (auto) 6.4, Absolute Lymphs (auto) 0.64 L, Nucleated RBC % 0 07/28/19 08:40: Sodium 139, Potassium 3.8, Chloride 100, Carbon Dioxide 35.0 H, Anion Gap 4 L, BUN 21 H, Creatinine 0.76, Estim Creat Clear Calc 118.34, Est GFR (MDRD) Af Amer 137, Est GFR (MDRD) Non-Af 113, BUN/Creatinine Ratio 27.5 H, Glucose 186 H, Calcium 9.4 Current Medications Acetaminophen (Tylenol) 650 mg PO Q6H PRN PRN PRN Reason: Pain Score 1-10/Temp > 100.7 F Hydrocodone Bitart/Acetaminophen ([place] 5mg-325mg) 1 tablet PO Q8H PRN PRN PRN Reason: Pain Score 6-10/10 Last Admin: 07/27/19 08:34 Dose: 1 tablet Documented by: Albuterol Sulfate (Ventolin Aerosols) 2.5 mg INHALATION Q2H PRN PRN PRN Reason: sob/wheezing Albuterol/Ipratropium (Duoneb) 3 ml INHALATION Q6H.RT [facility] Amlodipine Besylate (Norvasc) 10 mg PO DAILY [facility] Last Admin: 07/28/19 09:46 Dose: 10 mg Documented by: Citalopram Hydrobromide (Celexa) 10 mg PO DAILY [facility] Last Admin: 07/28/19 09:46 Dose: 10 mg Documented by: Enoxaparin Sodium (Lovenox) 40 mg SC DAILY [facility] Last Admin: 07/28/19 09:46 Dose: 40 mg Documented by: Furosemide (Lasix) 40 mg PO DAILY [facility] Last Admin: 07/28/19 09:46 Dose: 40 mg Documented by: Glucagon () 1 mg IM .X1 PRN PRN Reason: Hypoglycemia Guaifenesin (Mucinex) 1,200 mg PO BID [facility] Last Admin: 07/28/19 09:46 Dose: 1,200 mg Documented by: Ceftriaxone Sodium 2 gm/ (Sodium Chloride) 50 mls @ 100 mls/hr IV Q24H [facility] Last Infusion: 07/27/19 21:37 Dose: Infused Documented by: Dextrose (Dextrose 10%-Water) 250 mls @ 999 mls/hr IV .Q16M PRN; Protocol PRN Reason: HYPOGLYCEMIA Sodium Chloride () 250 mls @ 15 mls/hr IV .[id number] PRN PRN Reason: Saline Flush Sodium Chloride () 250 mls @ 15 mls/hr IV .[id number] PRN PRN Reason: Additional IVPB Infusion Insulin Human Lispro (Humalog Kwikpen (Bkc)) 0 unit SC ACHS [facility]; Protocol Last Admin: 07/28/19 08:02 Dose: 1 u Documented by: Melatonin (Melatonin) 3 mg PO QHS PRN PRN PRN Reason: INSOMNIA Methadone HCl () 10 mg PO Q6 [facility] Last Admin: 07/28/19 05:59 Dose: 10 mg Documented by: Methylprednisolone (Solu-Medrol) 40 mg IV Q12 [facility] Ondansetron HCl (Zofran) 4 mg IV Q8H PRN PRN PRN Reason: NAUSEA/VOMITING Senna/Docusate Sodium (Senokot-S, Rosalie-Colace) 2 tablet PO BID PRN PRN Reason: Constipation Sodium Chloride () 10 - 40 ml IV UD PRN PRN Reason: SALINE FLUSH Last Admin: 07/28/19 05:59 Dose: 10 ml Documented by: Tizanidine HCl (Zanaflex) 4 mg PO QHS [facility] Last Admin: 07/27/19 23:01 Dose: 4 mg Documented by: STROKE Vital Signs/Narrative: Vital Signs Temp Pulse Resp BP Pulse Ox 07/28/19 10:00 97.7 F L 92 21 H 147/82 H 94 07/28/19 09:00 81 24 H 133/71 H 94 07/28/19 08:00 97 F L 73 22 H 142/82 H 95 07/28/19 07:24 72 07/28/19 07:00 67 23 H 122/66 H 97 07/28/19 06:58 72 19 H 94 Medical Necessity - Tobacco Use Smoking Status: Former smoker Assessment/Plan All Active Problems (Last Reviewed 07/26/19 @ 07:[address] Sanket Beltran MD) Sepsis due to pneumonia (Acute) Acute respiratory failure with hypoxia (Acute) Inguinal hernia (Resolved) COPD exacerbation (Acute) Sepsis (Acute) Acute and chronic respiratory failure with hypoxia (Acute) Hyperglycemia (Acute) 1. Severe sepsis due to community acquired pneumonia now on 3L of oxygen. Sputum and blood cultured Strep pneumoniae pulmonology on board on IV ceftriaxone and azithromycin Continue steroids. To transition to p.o. prednisone tomorrow and wean over 12 to 14 days. Currently using BiPAP at night with sleep. Utilizing home vest for pulmonary toileting. Titrate oxygen to maintain saturation above 90%. His baseline oxygen is 2 L. 2D echo showed EF of 65% with stage I diastolic dysfunction and no evidence of vegetations. Unable to assess RVSP 2. Acute on chronic hypoxic respiratory failure due to pneumococcal pneumonia and COPD exacerbation As under 1. Continue breathing treatments and steroids as well as chest physiotherapy and incentive spirometry. 3. Community-acquired pneumonia due to strep pneumonia As under 1. 4. Metabolic alkalosis: Bicarb is up to 36. This is likely compensatory due to elevated PCO2 on ABG which was 63.7 on admission. This is likely also exacerbated by the Lasix that patient is on. Will monitor and if it trends up, will consider stopping lasix 5. Chronic pain syndrome: On methadone, Wade and tizanidine. 6. Hypertension: On amlodipine 10 mg daily and torsemide 20 mg daily. 7. History of COPD: Per sheet catcher, does have COPD per PFTs. Management as under 1 and 2. 8. Depression: On Celexa DVT prophylaxis: Lovenox. Code Visit Inpatient E&M: 13191 Subs Hosp L2
--- NOTE | 2019-07-28 10:49 | CASEMGMT ---
Social Work SW met with pt and Felisha and assisted with completing Health Care POA (pt naming Felisha) and Living will. Copy placed on chart and original given to pt. GHADA Patiño
[2019-07-28 11:31] LABS: Bedside Glucose 257 mg/dL (70-110)
--- NOTE | 2019-07-28 15:35 | CON.PCM_ITS ---
Problem List (1) Sepsis due to pneumonia Status: Acute Reason for Consult: pneumonia Consulted by: Dr. Montoya History of Present Illness: The patient is a 54 year old M with COPD on home O2, congenital L lung defect, presented 07/25 with 2 weeks of progressive cough, SOB, fever, nausea, not feeling well. Family members have been sick recently with URI. Has not gotten pneumonia shot in the past. Was coughing up green sputum, then turned bloody. Came to ED, admitted on azithro/ceftriaxone. Feeling much better. Sputum, bcx, and UAg showing strep. Full ROS performed and neg except as noted above. - Medical History Past Medical History (Chronic Problems): Chronic Problems (Last Reviewed 07/26/19 @ 07:[address] Sanket Beltran MD) Scoliosis of thoracic spine (Chronic) BIA (obstructive sleep apnea) (Chronic) Stage 4 very severe COPD by GOLD classification (Chronic) FEV1 23% of predicted H/O shoulder surgery (Chronic) History of appendectomy (Chronic) COPD (chronic obstructive pulmonary disease) (Chronic) Hyponatremia (Chronic) HLD (hyperlipidemia) (Chronic) Anxiety and depression (Chronic) Chronic pain syndrome (Chronic) Congenital aplasia of lung (Chronic) Allergies/Adverse Reactions: Allergies aspirin Allergy (Verified 07/25/19 17:08) Unknown zolpidem [From Ambien] Allergy (Verified 07/25/19 17:08) Unknown Home Medications: Ambulatory Orders Medication Instructions Recorded Citalopram [Celexa] 10 mg PO DAILY 04/14/19 Hydrocodone/Acetaminophen [[place] 1 ea PO Q8H PRN PRN 04/14/19 5-325 Tablet] Methadone HCl 10 mg PO Q6H 04/14/19 Albuterol Aerosols [Ventolin 2.5 mg INHALATION Q2H PRN PRN #120 04/30/19 Aerosols] vial.neb. Amlodipine [Norvasc] 10 mg PO DAILY 07/25/19 Fluticasone/Umeclidin/Vilanter 1 inh INHALATION DAILY 07/25/19 [Trelegy Ellipta 100-62.5-25] Metformin HCl 500 mg PO BID 07/25/19 Tizanidine HCl [Zanaflex] 4 mg PO QHS 07/25/19 Torsemide 20 mg PO DAILY 07/25/19 - Social History SMOKING STATUS:: Former smoker Vital Signs Temp Pulse Resp BP Pulse Ox 97.7 F L 102 H 21 H 147/82 H 93 07/28/19 10:00 07/28/19 15:09 07/28/19 13:23 07/28/19 10:00 07/28/19 13:23 Oxygen Flow Rate (L/min) 3 Oxygen Delivery Method Nasal Cannula Weight: 87 kg Body Mass Index (BMI) 26.0 Microbiology Past 72 Hours 07/26/19 09:50 Gram Stain - Final Sputum, Expectorated/Coughed Respiratory Culture - Final Beta streptococcus 07/25/19 19:43 Blood Culture - Final Blood Culture (Wb) - Right Hand Gram Positive Cocci 07/25/19 19:30 Bacteria Detection (PCR) - Final Blood Culture (Wb) - Right Forearm Streptococcus pneumoniae Blood Culture - Final Streptococcus pneumoniae 07/25/19 17:45 Respiratory Panel (PCR) - Final Mucosa - Nose 07/25/19 23:00 Streptococcus pneumoniae Antigen (M - Final Urine, Clean Catch Streptococcus pneumonia Ag 07/25/19 23:00 Legionella Antigen - Final Urine, Clean Catch 07/25/19 17:45 Influenza Types A,B Direct FA (CATHY) - Final Mucosa - Nose Laboratory Tests Past 24 Hrs 07/28/19 07/28/19 08:40 08:40 WBC 7.3 RBC 4.11 L Hgb 12.0 L Hct 37.8 L MCV 92.0 MCH 29.2 MCHC 31.7 L RDW Std Deviation 42.7 RDW Coeff of [place] 12.8 Plt Count 171 MPV 11.1 Immature Gran % (Auto) 0.500 Neut % (Auto) 88.1 H Lymph % (Auto) 8.8 L [place] % (Auto) 2.5 Eos % (Auto) 0.0 Baso % (Auto) 0.1 Absolute Neuts (auto) 6.4 Absolute Lymphs (auto) 0.64 L Nucleated RBC % 0 Sodium 139 Potassium 3.8 Chloride 100 Carbon Dioxide 35.0 H Anion Gap 4 L BUN 21 H Creatinine 0.76 Estim Creat Clear Calc 118.34 Est GFR (MDRD) Af Amer 137 Est GFR (MDRD) Non-Af 113 BUN/Creatinine Ratio 27.5 H Glucose 186 H Calcium 9.4 - Other Studies Radiology: [] reviewed Other Studies: [] Route of nutrition/ use of supplements: [] Nutritional Intake: [] IV Site: [] Rajput Catheter: [] - Physical Exam General: Alert, Oriented x3, Cooperative, No apparent distress HEENT: Atraumatic, PERRLA, EOMI Neck: Supple, No Nodes Lungs: Rhonchi - some R sided rhonchi Cardiovascular: Regular rate, Regular Rhythm, No murmurs Abdomen: Soft, Non Tender, Non-Distended Extremities: No edema Skin: No rashes IV Site: Peripheral, without redness Musculoskeletal: No Tenderness to Palpation of Joints or Extremities Neurological: Cranial nerves II-XII grossly intact - Assessment/Plan Antibiotics: [] Assessment/Plan: [] Active and Suspected Problems (Last Reviewed 07/26/19 @ 07:[address] Sanket Beltran MD) Sepsis due to pneumonia (Acute) Acute respiratory failure with hypoxia (Acute) COPD exacerbation (Acute) Spneumo CAP with bacteremia - overall much improved. Sepsis resolved. On ceftriaxone, will continue while inpatient. Plan will be for 10-14 days total of abx, plan will be for discharge on po amoxicillin 875mg bid, stop date 08/05/19. PCN CATHY was less than 2, so this is appropriate for treatment of bacteremia/pneumonia. Will follow, thank you.
[2019-07-28] MEDS: HYDROcodone Bitartrate/Apap 5/325 Tablet PO (15:57)
[2019-07-28 16:45] LABS: Bedside Glucose 199 mg/dL (70-110)
[2019-07-28] MEDS: tiZANidine HCl 2 MG Tablet 4 MG PO (21:21)
[2019-07-28 21:45] LABS: Bedside Glucose 207 mg/dL (70-110)
[2019-07-29] VITALS (9 sets, daily range): BP systolic 138–150; BP diastolic 77–81; PULSE 62–87; RESP 12–23; TEMP 36.5–36.6; O2SAT 90–95
[2019-07-29] MEDS: Methadone 10 MG Tablet PO ×2 (00:11→06:00)
[2019-07-29] MEDS: Ipratropium/Albuterol Sulfate 3 ML AMPUL.NEB INHALATION ×2 (00:35→06:45)
[2019-07-29] MEDS: HYDROcodone Bitartrate/Apap 5/325 Tablet PO (04:15)
[2019-07-29 06:39] LABS: Absolute Lymphocyte Count 0.62 X10^3/uL (0.83-4.51); Absolute Neutrophil Count 6.6 X10^3/uL (2.0-7.7); Basophil# 0.01 X10^3/uL; Basophil% 0.1 % (0-1); Hematocrit 37.3 % (40-54); Hemoglobin 11.7 g/dL (13.0-16.5); Lymphocyte # 0.62 X10^3/ul (4.0); Lymphocyte % 8.3 % (19-41); Mean Corp Hgb Conc 31.4 g/dL (32-36); Mean Corpuscular Hgb 28.6 pg (27.0-32.0); Mean Corpuscular Volume 91.2 fL (80-94); Mean Platelet Vol. 10.7 fl (6.2-12.0); Monocyte# 0.21 X10^3/uL; Monocyte% 2.8 % (0-10); NRBC Flagged by Analyzer 0 % (0-5); Neutrophil # 6.56 X10^3/uL (2.7-7.7); Neutrophil % 87.6 % (47-70); Platelet Count 178 K/mm3 (150-450); RBC Distribution Width CV 12.8 % (11.6-14.6); RBC Distribution Width SD 42.4 fl (35.1-43.9); Red Blood Count 4.09 M/mm3 (4.6-6.2); White Blood Count 7.5 K/mm3 (4.4-11.0)
[2019-07-29] MEDS: Insulin Lispro 100 UNIT/ML INSULN.PEN SC ×2 (06:47→11:17)
[2019-07-29 06:50] LABS: Bedside Glucose 179 mg/dL (70-110)
[2019-07-29 07:10] LABS: Anion Gap 5 (5-15); BUN 21 mg/dL (7-18); BUN/Creat Ratio 29.6 RATIO (10-20); Calcium,Total 8.9 mg/dL (8.5-10.1); Chloride 97 mmol/L (98-107); Creatinine, Serum 0.71 mg/dL (0.70-1.30); EST Glomerular Filtration Rate 123 mL/min (>60); Est Glom Filt Rate - Afr Amer 149 mL/min (>60); Estimated Creatinine Clearance 126.68 ml/min; Glucose 195 mg/dL (74-106); Potassium 3.7 mmol/L (3.5-5.1); Sodium Level 136 mmol/L (136-145)
--- NOTE | 2019-07-29 08:55 | PN_ITS ---
Subjective: The patient was seen and examined at the bedside this morning. Events from the last 24 hours have been reviewed. The patient is currently afebrile, hemodynamically stable and maintaining appropriate oxygen saturations on 3 L/min via nasal cannula. The patient is currently sitting in his bedside recliner. He reports that he feels as if his breathing quality has returned back to baseline. Objective: The patient's most recent lab work, culture data and imaging studies have all been personally reviewed. Sputum culture was positive for Streptococcus pneumoniae. Blood cultures were also positive for Streptococcus pneumonia. - Physical Exam Vitals/I&O's: Vital Signs Temp Pulse Resp BP Pulse Ox 97.7 F L 80 18 138/77 H 95 07/29/19 04:21 07/29/19 07:27 07/29/19 08:04 07/29/19 04:21 07/29/19 06:45 Oxygen Flow Rate (L/min) 3 Oxygen Delivery Method Nasal Cannula Weight: 191 lb 12.835 oz Body Mass Index (BMI) 26.0 Intake and Output for Last 24 Hours 07/27/19 07/28/19 07/29/19 23:59 23:59 23:59 Intake Total 2435 / 2435 1691.25 / 1691.25 240 / 240 Output Total 1850 / 1850 1050 / 1050 Balance 585 / 585 641.25 / 641.25 240 / 240 General: Alert, Cooperative, No apparent distress, - - Sitting in bedside recliner HEENT: Atraumatic, PERRLA, Normocephalic Oral: No Gingival or Mucosal Lesions/ Ulcerations Neck: Supple, No Nodes, Trachea Midline Lungs: No rhonchi, No wheeze, No rales, Diminished Cardiovascular: Regular rate, Regular Rhythm, Normal S1, Normal S2 Abdomen: Bowel Sounds Present, Soft, Non Tender Extremities: No clubbing, No cyanosis, No edema, - - Left upper extremity amputation Skin: No breakdown Musculoskeletal: No Tenderness to Palpation of Joints or Extremities, No Muscle Wasting Lymphatic: No Cervical, Supraclavicular, or Inguinal Adenopathy Neurological: Cranial nerves II-XII grossly intact, Neuro grossly intact Psych/Mental Status: Alert and oriented to time, place, person, mood and affect Labs (Last 48 Hours) 07/27/19 07/27/19 07/27/19 13:04 17:11 21:18 WBC RBC Hgb Hct MCV MCH MCHC RDW Std Deviation RDW Coeff of [place] Plt Count MPV Immature Gran % (Auto) Neut % (Auto) Lymph % (Auto) [place] % (Auto) Eos % (Auto) Baso % (Auto) Absolute Neuts (auto) Absolute Lymphs (auto) Nucleated RBC % Sodium Potassium Chloride Carbon Dioxide Anion Gap BUN Creatinine Estim Creat Clear Calc Est GFR (MDRD) Af Amer Est GFR (MDRD) Non-Af BUN/Creatinine Ratio Glucose Calcium POC Glucose 213 H 145 H 227 H 07/28/19 07/28/19 07/28/19 06:52 08:40 08:40 WBC 7.3 RBC 4.11 L Hgb 12.0 L Hct 37.8 L MCV 92.0 MCH 29.2 MCHC 31.7 L RDW Std Deviation 42.7 RDW Coeff of [place] 12.8 Plt Count 171 MPV 11.1 Immature Gran % (Auto) 0.500 Neut % (Auto) 88.1 H Lymph % (Auto) 8.8 L [place] % (Auto) 2.5 Eos % (Auto) 0.0 Baso % (Auto) 0.1 Absolute Neuts (auto) 6.4 Absolute Lymphs (auto) 0.64 L Nucleated RBC % 0 Sodium 139 Potassium 3.8 Chloride 100 Carbon Dioxide 35.0 H Anion Gap 4 L BUN 21 H Creatinine 0.76 Estim Creat Clear Calc 118.34 Est GFR (MDRD) Af Amer 137 Est GFR (MDRD) Non-Af 113 BUN/Creatinine Ratio 27.5 H Glucose 186 H Calcium 9.4 POC Glucose 190 H 07/28/19 07/28/19 07/28/19 11:22 16:37 21:20 WBC RBC Hgb Hct MCV MCH MCHC RDW Std Deviation RDW Coeff of [place] Plt Count MPV Immature Gran % (Auto) Neut % (Auto) Lymph % (Auto) [place] % (Auto) Eos % (Auto) Baso % (Auto) Absolute Neuts (auto) Absolute Lymphs (auto) Nucleated RBC % Sodium Potassium Chloride Carbon Dioxide Anion Gap BUN Creatinine Estim Creat Clear Calc Est GFR (MDRD) Af Amer Est GFR (MDRD) Non-Af BUN/Creatinine Ratio Glucose Calcium POC Glucose 257 H 199 H 207 H 02/07/29/19 07/29/19 06:00 06:00 06:41 WBC 7.5 RBC 4.09 L Hgb 11.7 L Hct 37.3 L MCV 91.2 MCH 28.6 MCHC 31.4 L RDW Std Deviation 42.4 RDW Coeff of [place] 12.8 Plt Count 178 MPV 10.7 Immature Gran % (Auto) 1.200 H Neut % (Auto) 87.6 H Lymph % (Auto) 8.3 L [place] % (Auto) 2.8 Eos % (Auto) 0.0 Baso % (Auto) 0.1 Absolute Neuts (auto) 6.6 Absolute Lymphs (auto) 0.62 L Nucleated RBC % 0 Sodium 136 Potassium 3.7 Chloride 97 L Carbon Dioxide 34.0 H Anion Gap 5 BUN 21 H Creatinine 0.71 Estim Creat Clear Calc 126.68 Est GFR (MDRD) Af Amer 149 Est GFR (MDRD) Non-Af 123 BUN/Creatinine Ratio 29.6 H Glucose 195 H Calcium 8.9 POC Glucose 179 H Microbiology 07/26/19 09:50 Sputum, Expectorated/Coughed Gram Stain - Final 07/26/19 09:50 Sputum, Expectorated/Coughed Respiratory Culture - Final Beta streptococcus 07/25/19 19:43 Blood Culture (Wb) - Right Hand Blood Culture - Final Gram Positive Cocci 07/25/19 19:30 Blood Culture (Wb) - Right Forearm Bacteria Detection (PCR) - Final Streptococcus pneumoniae 07/25/19 19:30 Blood Culture (Wb) - Right Forearm Blood Culture - Final Streptococcus pneumoniae Clinical Impression(s) from Imaging Studies Chest X-Ray 07/25/19 18:20 IMPRESSION: Dense right middle lobe opacification and prominent right lung base mass. Recommend chest CT for further evaluation. Electronically Signed: Reinier Rosado, at 19:55 EST Tel , Service support , Chest CTA 07/25/19 20:39 IMPRESSION: 1. No pulmonary embolus detected. 2. Right upper lobe and right lower lobe consolidation compatible with pneumonia. Radiographic follow-up recommended to ensure resolution. 3. Additional findings above. Individualized dose optimization techniques were used for this CT. at 2224 Reported and signed by: Evi Gipson MD Electronically Signed: Evi Gipson MD at 22:24 EST Tel , Service support , Current Medications Acetaminophen (Tylenol) 650 mg PO Q6H PRN PRN PRN Reason: Pain Score 1-10/Temp > 100.7 F Hydrocodone Bitart/Acetaminophen ([place] 5mg-325mg) 1 tablet PO Q8H PRN PRN PRN Reason: Pain Score 6-10/10 Last Admin: 07/29/19 04:15 Dose: 1 tablet Documented by: Albuterol Sulfate (Ventolin Aerosols) 2.5 mg INHALATION Q2H PRN PRN PRN Reason: sob/wheezing Albuterol/Ipratropium (Duoneb) 3 ml INHALATION Q6H.RT [facility] Last Admin: 07/29/19 06:45 Dose: 3 ml Documented by: Amlodipine Besylate (Norvasc) 10 mg PO DAILY [facility] Last Admin: 07/28/19 09:46 Dose: 10 mg Documented by: Citalopram Hydrobromide (Celexa) 10 mg PO DAILY [facility] Last Admin: 07/28/19 09:46 Dose: 10 mg Documented by: Enoxaparin Sodium (Lovenox) 40 mg SC DAILY [facility] Last Admin: 07/28/19 09:46 Dose: 40 mg Documented by: Furosemide (Lasix) 40 mg PO DAILY [facility] Last Admin: 07/28/19 09:46 Dose: 40 mg Documented by: Glucagon () 1 mg IM .X1 PRN PRN Reason: Hypoglycemia Guaifenesin (Mucinex) 1,200 mg PO BID [facility] Last Admin: 07/28/19 21:22 Dose: 1,200 mg Documented by: Ceftriaxone Sodium 2 gm/ (Sodium Chloride) 50 mls @ 100 mls/hr IV Q24H [facility] Last Infusion: 07/28/19 21:52 Dose: Infused Documented by: Dextrose (Dextrose 10%-Water) 250 mls @ 999 mls/hr IV .Q16M PRN; Protocol PRN Reason: HYPOGLYCEMIA Sodium Chloride () 250 mls @ 15 mls/hr IV .[id number] PRN PRN Reason: Saline Flush Last Infusion: 07/28/19 22:23 Dose: 0 mls/hr Documented by: Sodium Chloride () 250 mls @ 15 mls/hr IV .[id number] PRN PRN Reason: Additional IVPB Infusion Insulin Human Lispro (Humalog Kwikpen (Bkc)) 0 unit SC ACHS [facility]; Protocol Last Admin: 07/29/19 06:47 Dose: 1 u Documented by: Melatonin (Melatonin) 3 mg PO QHS PRN PRN PRN Reason: INSOMNIA Methadone HCl () 10 mg PO Q6 [facility] Last Admin: 07/29/19 06:00 Dose: 10 mg Documented by: Methylprednisolone (Solu-Medrol) 40 mg IV Q12 [facility] Last Admin: 07/28/19 21:22 Dose: 40 mg Documented by: Ondansetron HCl (Zofran) 4 mg IV Q8H PRN PRN PRN Reason: NAUSEA/VOMITING Senna/Docusate Sodium (Senokot-S, Rosalie-Colace) 2 tablet PO BID PRN PRN Reason: Constipation Sodium Chloride () 10 - 40 ml IV UD PRN PRN Reason: SALINE FLUSH Last Admin: 07/28/19 21:23 Dose: 20 ml Documented by: Tizanidine HCl (Zanaflex) 4 mg PO QHS [facility] Last Admin: 07/28/19 21:21 Dose: 4 mg Documented by: Medical Necessity - Tobacco Use Smoking Status: Former smoker Assessment/Plan All Active Problems (Last Reviewed 07/26/19 @ 07:[address] Sanket Beltran MD) Sepsis due to pneumonia (Acute) Acute respiratory failure with hypoxia (Acute) Inguinal hernia (Resolved) COPD exacerbation (Acute) Sepsis (Acute) Acute and chronic respiratory failure with hypoxia (Acute) Hyperglycemia (Acute) RECOMMENDATIONS: 1. Continue to wean supplemental oxygen as tolerated. 2. Transition from IV steroids to prednisone 40 mg daily. Plan for taper at discharge. 3. Encourage incentive spirometer use and mobilize patient as tolerated. 4. Continue antimicrobials per infectious diseases recommendations. 5. Perform walking oximetry study prior to consideration for discharge home. 6. The patient should follow-up in the pulmonary medicine clinic within 2 weeks of his discharge. 7. The patient is stable for discharge home from a pulmonary perspective. IMPRESSIONS: 1. Acute on chronic hypoxic respiratory failure secondary to pneumococcal pneumonia/COPD exacerbation Improving clinically with antimicrobial therapy, bronchodilators and steroids. Plan to continue antibiotics per infectious diseases recommendations. Continue aggressive bronchopulmonary hygiene. Okay from my perspective to transition to prednisone, with plans for a taper at discharge. Continue to wean supplemental oxygen as tolerated. Perform walking oximetry study prior to consideration for discharge home. Outpatient pulmonary follow-up within 2 weeks of discharge is warranted. 2. Severe sepsis secondary to pneumococcal pneumonia Improved. Continue antibiotics per ID recommendations. Plan to discharge on amoxicillin through July. 3. Chronic pain syndrome/depression/history of smoking/pedal edema Complicates care, management, recovery and prognosis. Okay to continue home medications as indicated. This note was generated with [employer]) dictation software. It may contain incorrect words, spelling, and punctuation that were not noted in checking the note before signing. Code Visit Inpatient E&M: 77730 Subs Hosp L2
[2019-07-29] MEDS: Citalopram 10 MG Tablet PO (09:40)
[2019-07-29] MEDS: Furosemide 40 MG Tablet PO (09:40)
[2019-07-29] MEDS: amLODIPine 10 MG Tablet PO (09:40)
[2019-07-29] MEDS: guaiFENesin 1,200 MG Tablet 1200 MG PO (09:40)
[2019-07-29] MEDS: Enoxaparin 40 MG/0.4 ML Syringe SC (09:41)
--- NOTE | 2019-07-29 09:44 | PCM.DC ---
- Discharge Diagnoses Current Active Problems: Current Active and Chronic Problems (Last Reviewed 07/26/19 @ 07:[address] Sanket Beltran MD) Sepsis due to pneumonia (Acute) Acute respiratory failure with hypoxia (Acute) COPD exacerbation (Acute) You will use the following diet at home:: Cardiac Your food should be the consistency of: Regular Your liquids should be the consistency of: Regular/Thin Discharge Activity: Return to Normal Activity Weight Bearing Status: Weight bearing as tolerated Call your doctor if you observe: Fever of 101 or Higher, Shortness of breath, Fainting spells Instructions: Inside the ICU (Intensive Care Unit), Understanding Ventilators, Treating Pneumonia, Pneumonia Additional Instructions: use oxygen as needed for shortness of breath Allergies/Adverse Reactions: Allergies aspirin Allergy (Verified 07/25/19 17:08) Unknown zolpidem [From Ambien] Allergy (Verified 07/25/19 17:08) Unknown Medications to take at Discharge Citalopram [Celexa] 10 mg PO DAILY 04/14/19 Hydrocodone/Acetaminophen [[place] 5-325 Tablet] 1 ea PO Q8H PRN PRN 04/14/19 Methadone HCl 10 mg PO Q6H 04/14/19 Albuterol Aerosols [Ventolin Aerosols] 2.5 mg INHALATION Q2H PRN PRN #120 vial.neb. 04/30/19 Amlodipine [Norvasc] 10 mg PO DAILY 07/25/19 Fluticasone/Umeclidin/Vilanter [Trelegy Ellipta 100-62.5-25] 1 inh INHALATION DAILY 07/25/19 Metformin HCl 500 mg PO BID 07/25/19 Tizanidine HCl [Zanaflex] 4 mg PO QHS 07/25/19 Torsemide 20 mg PO DAILY 07/25/19 Amoxicillin 875 mg PO BID #14 tab 07/29/19 Guaifenesin [Mucinex] 1,200 mg PO BID #30 tab 07/29/19 MethylPREDNISolone DosePak [Medrol DosePak] 4 mg PO UD #1 box 07/29/19 The following prescriptions were given: Amoxicillin 875 mg PO BID #14 tab Transmission Status: Pending to [facility] MethylPREDNISolone DosePak [Medrol DosePak] 4 mg PO UD #1 box Transmission Status: Pending to [facility] Guaifenesin [Mucinex] 1,200 mg PO BID #30 tab Transmission Status: Pending to [facility] Primary Care Physician: Halima Doctor,Out of [NON-STAFF] - Test Results: Test results from this visit will be discussed in further detail at your follow-up appointment, if applicable. Please Follow Up With: Panda Walls DO When: 1-2 weeks Please Follow Up With: Claire Berumen MD When: 1-2 weeks to establish PCP relationship Proposed Discharge Date: 07/29/19
--- NOTE | 2019-07-29 09:48 | PCM.DC.SUM ---
Discharge Date and Diagnosis Date of Admission: 07/25/19 Date of Discharge: 07/29/19 - Primary Discharge Diagnosis Active and Suspected Problems (Last Reviewed 07/26/19 @ 07:[address] Sankte Beltran MD) Sepsis due to pneumonia (Acute) Acute respiratory failure with hypoxia (Acute) COPD exacerbation (Acute) - Secondary Discharge Diagnosis Chronic Problems (Last Reviewed 07/26/19 @ 07:[address] Sanket Beltran MD) Scoliosis of thoracic spine (Chronic) BIA (obstructive sleep apnea) (Chronic) Stage 4 very severe COPD by GOLD classification (Chronic) FEV1 23% of predicted H/O shoulder surgery (Chronic) History of appendectomy (Chronic) COPD (chronic obstructive pulmonary disease) (Chronic) Hyponatremia (Chronic) HLD (hyperlipidemia) (Chronic) Anxiety and depression (Chronic) Chronic pain syndrome (Chronic) Congenital aplasia of lung (Chronic) Hospital Course and Treatment Imaging Results: Diagnostic Data Chest X-Ray 07/25/19 18:20 IMPRESSION: Dense right middle lobe opacification and prominent right lung base mass. Recommend chest CT for further evaluation. Electronically Signed: Reinier Rosado, at 19:55 EST Tel , Service support , Chest CTA 07/25/19 20:39 IMPRESSION: 1. No pulmonary embolus detected. 2. Right upper lobe and right lower lobe consolidation compatible with pneumonia. Radiographic follow-up recommended to ensure resolution. 3. Additional findings above. Individualized dose optimization techniques were used for this CT. at 2224 Reported and signed by: Evi Gipson MD Electronically Signed: Evi Gipson MD at 22:24 EST Tel , Service support , critical care- Dr Harrell Operations: None Procedures: None Summary of Care Provided: The patient is a 54 year old M with a PMH as outlined below; he was admitted via the Ed on 07/25/2019 with a complaint of worsening shortness of breath, wheezing and productive cough. Cough was productive of greenish sputum, with some associated fever. He was on baseline 2 L of nasal cannula oxygen at home on account of COPD and had been using his breathing treatments but still symptoms are not improved. On admission he was found to be saturating at 88% on 4 L of nasal cannula and my cell count was 28.2 with 93% neutrophils. Potassium was mildly low at 3.3 and creatinine was 0.93. Chest x-ray done showed right upper and right lower lobe infiltrate. She deteriorated on oxygen and required BiPAP. Urine for strep pneumonia was positive. He was admitted and managed for sepsis due to community acquired pneumonia. Blood cultures were obtained. He was started on IV ceftriaxone and azithromycin. He was also managed for acute exacerbation of COPD and ABG showed normal pH with elevated PCO2 and bicarb which was likely due to chronic compensation for chronically elevated CO2. Was also started on steroids. Patient was admitted in the ICU. Patient responded to therapy with IV steroids, antibiotics and mucolytic's as well as breathing treatments and required BiPAP initially with sleep and rescue during the day. Blood cultures were also positive for strep pneumonia he had an echocardiogram which showed EF of 65% with stage I diastolic dysfunction and no regional wall motion abnormalities noted. There was no evidence of valve vegetations. He also had CTA of the chest which showed no PE and right upper lobe and right lower lobe consolidation compatible with pneumonia. Patient improved markedly and subsequently not requiring BiPAP during the day. He was transferred out of the ICU to the regular floor on 07/28/2019. He was transitioned back to his baseline 2 L of oxygen and was saturating well. Patient remained stable and was discharged home on 07/29/2019 with a prescription for p.o. amoxicillin 875 mg twice daily for total of 7 days. 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 Patient seen and examined prior to discharge. He felt well and had no complaints and was eager to be discharged. He was comfortably eating breakfast and denied any fever, chills, shortness of breath, nausea vomiting, chest pain, abdominal pain, diarrhea vomiting. Review of systems otherwise negative. Labs and vitals reviewed. Home medications reviewed and reconciled. o/e: Vital Signs Height 5 ft 11 in Weight: 191 lb 12.835 oz Weight in Pounds 191.8 lbs Pulse Ox 94 Temperature 97.9 F Pulse Rate 87 Respiratory Rate 18 Blood Pressure [BP] 147/82 Blood Pressure 150/81 Blood Pressure Position [BP] Sitting Blood Pressure Position Standing [] General: Alert, Oriented x3, Cooperative, No apparent distress HEENT: Atraumatic, PERRLA, EOMI, Normocephalic Oral: Moist Mucosa Neck: Supple, No JVD, Negative Carotid Bruits Lungs: - - mildly decreased breath sounds bibasally, no wheezes or crackles. on 2L of oxygen by nasal canula Cardiovascular: Regular rate, Regular Rhythm, Normal S1, Normal S2, No murmurs Abdomen: Bowel Sounds Present, Soft, Non Tender Extremities: No edema, Capillary Refill Less than 3 Seconds Skin: No rashes, No breakdown Musculoskeletal: No Tenderness to Palpation of Joints or Extremities, - - LUE amputation Lymphatic: No Cervical, Supraclavicular, or Inguinal Adenopathy Neurological: Cranial nerves II-XII grossly intact, Neuro grossly intact Psych/Mental Status: Normal Affect, Appropriate, Alert and oriented to time, place, person, mood and affect Plan is as above, to discharge home with a prescription for p.o. amoxicillin 875 mg twice daily for 7 days and also a prescription for Prednisone taper. - Physical Exam Vitals/I&O's: Vital Signs Temp Pulse Resp BP Pulse Ox 97.7 F L 80 18 138/77 H 95 07/29/19 04:21 07/29/19 07:27 07/29/19 08:04 07/29/19 04:21 07/29/19 06:45 Oxygen Flow Rate (L/min) 3 Oxygen Delivery Method Nasal Cannula Weight: 191 lb 12.835 oz Body Mass Index (BMI) 26.0 Intake and Output for Last 24 Hours 07/27/19 07/28/19 07/29/19 23:59 23:59 23:59 Intake Total 2435 / 2435 1691.25 / 1691.25 240 / 240 Output Total 1850 / 1850 1050 / 1050 Balance 585 / 585 641.25 / 641.25 240 / 240 Microbiology Past 72 Hours 07/26/19 09:50 Sputum, Expectorated/Coughed Gram Stain - Final 07/26/19 09:50 Sputum, Expectorated/Coughed Respiratory Culture - Final Beta streptococcus 07/25/19 19:43 Blood Culture (Wb) - Right Hand Blood Culture - Final Gram Positive Cocci 07/25/19 19:30 Blood Culture (Wb) - Right Forearm Bacteria Detection (PCR) - Final Streptococcus pneumoniae 07/25/19 19:30 Blood Culture (Wb) - Right Forearm Blood Culture - Final Streptococcus pneumoniae 07/25/19 17:45 Mucosa - Nose Respiratory Panel (PCR) - Final Laboratory Results 07/28/19 11:22: POC Glucose 257 H 07/28/19 16:37: POC Glucose 199 H 07/28/19 21:20: POC Glucose 207 H 07/29/19 06:00: WBC 7.5, RBC 4.09 L, Hgb 11.7 L, Hct 37.3 L, MCV 91.2, MCH 28.6, MCHC 31.4 L, RDW Std Deviation 42.4, RDW Coeff of [place] 12.8, Plt Count 178, MPV 10.7, Immature Gran % (Auto) 1.200 H, Neut % (Auto) 87.6 H, Lymph % (Auto) 8.3 L, [place] % (Auto) 2.8, Eos % (Auto) 0.0, Baso % (Auto) 0.1, Absolute Neuts (auto) 6.6, Absolute Lymphs (auto) 0.62 L, Nucleated RBC % 0 07/29/19 06:00: Sodium 136, Potassium 3.7, Chloride 97 L, Carbon Dioxide 34.0 H, Anion Gap 5, BUN 21 H, Creatinine 0.71, Estim Creat Clear Calc 126.68, Est GFR (MDRD) Af Amer 149, Est GFR (MDRD) Non-Af 123, BUN/Creatinine Ratio 29.6 H, Glucose 195 H, Calcium 8.9 07/29/19 06:41: POC Glucose 179 H Current Medications Acetaminophen (Tylenol) 650 mg PO Q6H PRN PRN PRN Reason: Pain Score 1-10/Temp > 100.7 F Hydrocodone Bitart/Acetaminophen (Collins 5mg-325mg) 1 tablet PO Q8H PRN PRN PRN Reason: Pain Score 6-10/10 Last Admin: 07/29/19 04:15 Dose: 1 tablet Documented by: Albuterol Sulfate (Ventolin Aerosols) 2.5 mg INHALATION Q2H PRN PRN PRN Reason: sob/wheezing Albuterol/Ipratropium (Duoneb) 3 ml INHALATION Q6H.RT [facility] Last Admin: 07/29/19 06:45 Dose: 3 ml Documented by: Amlodipine Besylate (Norvasc) 10 mg PO DAILY [facility] Last Admin: 07/28/19 09:46 Dose: 10 mg Documented by: Citalopram Hydrobromide (Celexa) 10 mg PO DAILY [facility] Last Admin: 07/28/19 09:46 Dose: 10 mg Documented by: Enoxaparin Sodium (Lovenox) 40 mg SC DAILY [facility] Last Admin: 07/28/19 09:46 Dose: 40 mg Documented by: Furosemide (Lasix) 40 mg PO DAILY [facility] Last Admin: 07/28/19 09:46 Dose: 40 mg Documented by: Glucagon () 1 mg IM .X1 PRN PRN Reason: Hypoglycemia Guaifenesin (Mucinex) 1,200 mg PO BID [facility] Last Admin: 07/28/19 21:22 Dose: 1,200 mg Documented by: Ceftriaxone Sodium 2 gm/ (Sodium Chloride) 50 mls @ 100 mls/hr IV Q24H [facility] Last Infusion: 07/28/19 21:52 Dose: Infused Documented by: Dextrose (Dextrose 10%-Water) 250 mls @ 999 mls/hr IV .Q16M PRN; Protocol PRN Reason: HYPOGLYCEMIA Sodium Chloride () 250 mls @ 15 mls/hr IV .[id number] PRN PRN Reason: Saline Flush Last Infusion: 07/28/19 22:23 Dose: 0 mls/hr Documented by: Sodium Chloride () 250 mls @ 15 mls/hr IV .[id number] PRN PRN Reason: Additional IVPB Infusion Insulin Human Lispro (Humalog Kwikpen (Bkc)) 0 unit SC ACHS [facility]; Protocol Last Admin: 07/29/19 06:47 Dose: 1 u Documented by: Melatonin (Melatonin) 3 mg PO QHS PRN PRN PRN Reason: INSOMNIA Methadone HCl () 10 mg PO Q6 [facility] Last Admin: 07/29/19 06:00 Dose: 10 mg Documented by: Methylprednisolone (Solu-Medrol) 40 mg IV Q12 [facility] Last Admin: 07/28/19 21:22 Dose: 40 mg Documented by: Ondansetron HCl (Zofran) 4 mg IV Q8H PRN PRN PRN Reason: NAUSEA/VOMITING Senna/Docusate Sodium (Senokot-S, Rosalie-Colace) 2 tablet PO BID PRN PRN Reason: Constipation Sodium Chloride () 10 - 40 ml IV UD PRN PRN Reason: SALINE FLUSH Last Admin: 07/28/19 21:23 Dose: 20 ml Documented by: Tizanidine HCl (Zanaflex) 4 mg PO QHS [facility] Last Admin: 07/28/19 21:21 Dose: 4 mg Documented by: Discharge Diet: Low fat/ Low Cholesterol Discharge Activity: Return to Normal Activity Weight Bearing Status: Weight bearing as tolerated Call your doctor if you observe: Fever of 101 or Higher, Shortness of breath, Fainting spells Home Medications: Medications to take at Discharge Citalopram [Celexa] 10 mg PO DAILY 04/14/19 Hydrocodone/Acetaminophen [Collins 5-325 Tablet] 1 ea PO Q8H PRN PRN 04/14/19 Methadone HCl 10 mg PO Q6H 04/14/19 Albuterol Aerosols [Ventolin Aerosols] 2.5 mg INHALATION Q2H PRN PRN #120 vial.neb. 04/30/19 Amlodipine [Norvasc] 10 mg PO DAILY 07/25/19 Fluticasone/Umeclidin/Vilanter [Trelegy Ellipta 100-62.5-25] 1 inh INHALATION DAILY 07/25/19 Metformin HCl 500 mg PO BID 07/25/19 Tizanidine HCl [Zanaflex] 4 mg PO QHS 07/25/19 Torsemide 20 mg PO DAILY 07/25/19 Amoxicillin 875 mg PO BID #14 tab 07/29/19 Guaifenesin [Mucinex] 1,200 mg PO BID #30 tab 07/29/19 MethylPREDNISolone DosePak [Medrol DosePak] 4 mg PO UD #1 box 07/29/19 Following Prescrptions Were Given to Patient: Amoxicillin 875 mg PO BID #14 tab Transmission Status: Received by [facility] MethylPREDNISolone DosePak [Medrol DosePak] 4 mg PO UD #1 box Transmission Status: Received by [facility] Guaifenesin [Mucinex] 1,200 mg PO BID #30 tab Transmission Status: Received by [facility] Primary Care Physician: Halima Doctor,Out of [NON-STAFF] - Please Follow Up With: Panda Walls DO When: 1-2 weeks Please Follow Up With: Claire Berumen MD When: 1-2 weeks to establish PCP relationship Patient Instructions: Treating Pneumonia, Inside the ICU (Intensive Care Unit), Understanding Ventilators, Pneumonia Disposition: Home Minutes spent on discharge:: 40 Patient Condition:: Stable Medical Necessity - Tobacco Use Smoking Status: Former smoker Meaningful Use Info Meaningful Use Diagnoses (Choose all that apply): None applicable Code Visit Inpatient E&M: 70321 Disch Hosp
[2019-07-29 11:36] LABS: Bedside Glucose 199 mg/dL (70-110)
--- NOTE | 2019-07-31 16:03 | CASEMGMT ---
Case Management DC F/u Call: DC Date: 07/29/2019 DC Diagnosis: Sepsis due to pneumonia (Acute), Acute respiratory failure with hypoxia (Acute), COPD exacerbation (Acute) DC Disposition: Home Lace/Strata: 18/09 Called patient cell phone listed on demographics, patient answered, introduced self and role. Patient states that he is doing ok. 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 Confirmed received all DC medications prior to Dc from hospital. Denies any issues, concerns, or questions with ACI, medications, or f/u. Thanked patient for receiving care with [facility] and ended conversation. Kassandra Bro RNCM
== END 2019-07-29 11:40 | disposition home or self-care (01) | DRG 871 ==
LOC: ED 19:19 → ICU 21:20 → PCU 07-28 18:10
PROVIDERS: Internal Medicine; Internal Medicine Critical Care Medicine; Admitting Provider Hospitalist; Emergency Provider Emergency Medicine; Visit Provider Student in an Organized Health Care Education/Training Program
DX: A40.3 Sepsis due to Streptococcus pneumoniae (principal); J96.21 Acute and chronic respiratory failure with hypoxia; J13 Pneumonia due to Streptococcus pneumoniae; R65.20 Severe sepsis without septic shock; J44.1 Chronic obstructive pulmonary disease with (acute) exacerbation; J44.0 Chronic obstructive pulmonary disease with (acute) lower respiratory infection; Z99.81 Dependence on supplemental oxygen; G47.33 Obstructive sleep apnea (adult) (pediatric); F32.9 Major depressive disorder, single episode, unspecified; F41.9 Anxiety disorder, unspecified; G89.4 Chronic pain syndrome; E78.5 Hyperlipidemia, unspecified; M41.9 Scoliosis, unspecified; M25.511 Pain in right shoulder; Z87.891 Personal history of nicotine dependence
CPT/HCPCS: 36415; 36600; 71046; 71275; 80048; 82803; 82962; 83605; 83735; 83880; 84100; 84484; 85025; 87040; 87070; 87149; 87186; 87205; 87449; 87633; 87641; 87804; 93005; 93306; 94002; 94003; 94640; 97802; 99251; 99285; J7030; J7050; Q9957; Q9967; A4216; C8929; G0463; J0696

== ENCOUNTER 2019-12-18 18:58 | Inpatient (IN) | payer MEDICARE, SELFPAY ==
[2019-09-08 12:55] VITALS: BMI 26.0
[2019-12-18] VITALS (7 sets, daily range): BP systolic 140–172; BP diastolic 66–82; PULSE 85–105; RESP 18–28; TEMP 36.4–38.6; O2SAT 95–97; BMI 26.5; BMI 25.9; BMI 26.0
--- NOTE | 2019-12-18 19:27 | EKG12_ITS ---
Test Reason : DYSRHYTHMIA Blood Pressure : / mmHG Vent. Rate : 095 BPM Atrial Rate : 095 BPM P-R Int : 154 ms QRS Dur : 088 ms QT Int : 342 ms P-R-T Axes : 067 049 065 degrees QTc Int : 429 ms Normal sinus rhythm Normal ECG Confirmed by TALIA MILLER, JENNA ([id number]), newspaper or periodical editor STACY RESTREPO ([id number]) on 12/20/2019 1:16:42 PM Referred By: PIPER Confirmed By:JENNA MELGAR MD
--- NOTE | 2019-12-18 19:29 | ED.DCSUM_ITS ---
History of Present Illness Chief Complaint: Shortness of Breath Informant: Patient, Family Narrative: 84-year-old male with history of COPD who lives on 2 L of oxygen at baseline presents with shortness of breath and cough. Apparently started with sore throat 2 days ago which has progressed to a cough today. He has had a fever greater than 102 at home. Today he was having difficulty getting his sats above the low 80s on their home pulse ox. He was given breathing treatments. In the ED he is on his baseline 2 L and is satting 96 to 98%. Past Medical History - Allergies and Home Meds Allergies/Adverse Reactions: Allergies aspirin Allergy (Verified 12/18/19 18:59) Unknown zolpidem [From Ambien] Allergy (Verified 12/18/19 18:59) Unknown Past Medical History: - - Prediabetic, hypertension, COPD Surgical History: - - Right shoulder surgery x2, appendectomy, hernia repair x6. Smoking Status: Current every day smoker Alcohol: None Drugs: None - Family History Maternal Family History: Reports: Cancer, Diabetes, Heart Disease Paternal Family History: Reports: Cancer, Diabetes, Heart Disease Review of Systems General: Reports: Chills, Fever Eyes: Denies: Visual changes - bilaterally, Diplopia ENT: Denies: Rhinorrhea, Sore throat Cardiovascular: Denies: Chest pain, Palpitations Respiratory: Reports: Dyspnea, Cough Gastrointestinal: Reports: Abdominal pain. Denies: Nausea, Vomiting Genitourinary: Denies: Dysuria Musculoskeletal: Reports: Myalgias Skin: Denies: Rash, Abscess Neurological: Reports: Headache. Denies: Weakness Endocrine: Denies: Polyuria, Polydipsia Allergy: Reports: Uticaria Physical Exam Vital Signs/Narrative: Vital Signs Temp Pulse Resp BP Pulse Ox 12/18/19 19:00 101.4 F H 103 H 18 172/82 H 97 Inital Vital Signs reviewed: Yes General: No Acute Distress Head: Normocephalic, Atraumatic Eyes: Perrl, EOMI ENT: Moist mucous membranes, Dry mucous membranes Neck: Supple, Nontender Cardiovascular: Regular rate, Regular rhythm Respiratory: Wheezing, Decreased Air Movement Abdomen: Soft Skin: Normal color, No rash Neurological: Alert, Oriented x3 Psychological: Normal affect Diagnostic/Tx/Re-eval - Rhythm Strip Rhythm Strip: Sinus Rhythm Rate: 95 - WA interval 34 msQTc 429 ms QRS duration 38 ms - Medical Decision Making Clinical Impression(s) from Imaging Studies Chest X-Ray 12/18/19 19:47 IMPRESSION: Patchy bilateral pulmonary opacities suspicious for pneumonia possible atypical viral pneumonia Stable thoracic dextroscoliosis Electronically Signed: Pacheco Hu, at 20:03 EDT Tel , Service support , Laboratory Data 12/18/19 12/18/19 12/18/19 19:33 19:33 19:45 WBC 8.4 RBC 5.16 Hgb 14.7 Hct 45.6 MCV 88.4 MCH 28.5 MCHC 32.2 RDW Std Deviation 43.3 RDW Coeff of [place] 13.3 Plt Count 185 MPV 10.2 Immature Gran % (Auto) 0.200 Neut % (Auto) 85.4 H Lymph % (Auto) 6.6 L [place] % (Auto) 7.1 Eos % (Auto) 0.5 Baso % (Auto) 0.2 Absolute Neuts (auto) 7.1 Absolute Lymphs (auto) 0.55 L Nucleated RBC % 0 Differential Comment SEE COMMENT Platelet Estimate ADEQUATE RBC Morphology NORM C+C Sodium 135 L Potassium 4.2 Chloride 100 Carbon Dioxide 31.0 Anion Gap 4 L BUN 11 Creatinine 0.83 Estim Creat Clear Calc 105.05 Est GFR (MDRD) Af Amer 124 Est GFR (MDRD) Non-Af 102 BUN/Creatinine Ratio 13.2 Glucose 112 H Calcium 8.8 Total Bilirubin 0.50 AST 24 ALT 25 Alkaline Phosphatase 80 Troponin I < 0.015 Total Protein 8.2 Albumin 3.9 Globulin 4.3 H Albumin/Globulin Ratio 0.9 Procalcitonin COVID-19 ([facility]) Not Detected 12/18/19 20:08 WBC RBC Hgb Hct MCV MCH MCHC RDW Std Deviation RDW Coeff of [place] Plt Count MPV Immature Gran % (Auto) Neut % (Auto) Lymph % (Auto) [place] % (Auto) Eos % (Auto) Baso % (Auto) Absolute Neuts (auto) Absolute Lymphs (auto) Nucleated RBC % Differential Comment Platelet Estimate RBC Morphology Sodium Potassium Chloride Carbon Dioxide Anion Gap BUN Creatinine Estim Creat Clear Calc Est GFR (MDRD) Af Amer Est GFR (MDRD) Non-Af BUN/Creatinine Ratio Glucose Calcium Total Bilirubin AST ALT Alkaline Phosphatase Troponin I Total Protein Albumin Globulin Albumin/Globulin Ratio Procalcitonin 0.07 COVID-19 ([facility]) 54-year-old male presenting with exacerbation of COPD secondary believes his COVID?19. He had fevers and coughs which are make it worse. He is also hypoxic at home earlier today when checked on pulse ox. Patient does live on 2 L all the time. Today his chest x-ray does show infiltrates concerning for COVID?19. His blood work is consistent with a proven infection. Troponin is negative. EKG is sinus rhythm without signs of ischemia. Given his risk factors, age I believe he should be admitted for monitoring. His COVID swab had not returned prior to admission. Admitting physician requested Rocephin azithromycin to be started. Patient is stable on admission Impression: 1. Pneumonia 2. Febrile illness 3. Dyspnea 4. Reported hypoxia 5. Possible exposure to COVID?19 ED Disposition - Plan for ED Patient: Disposition: Acute Care Hospital [facility]
[2019-12-18] MEDS: Acetaminophen 500 MG Tablet 1000 MG PO (19:35)
[2019-12-18] MEDS: MethylPREDNISolone 125 MG/2 ML Vial IV (19:35)
[2019-12-18] MEDS: Albuterol 2.5 MG/3 ML VIAL.NEB. INHALATION (19:37)
[2019-12-18] MEDS: Ipratropium/Albuterol Sulfate 3 ML AMPUL.NEB INHALATION (19:37)
[2019-12-18 19:45] LABS: Absolute Lymphocyte Count 0.55 X10^3/uL (0.83-4.51); Absolute Neutrophil Count 7.1 X10^3/uL (2.0-7.7); Basophil# 0.02 X10^3/uL; Basophil% 0.2 % (0-1); Eosinophil# 0.04 X10^3/uL; Eosinophils% 0.5 % (0-5); Hematocrit 45.6 % (40-54); Hemoglobin 14.7 g/dL (13.0-16.5); Lymphocyte # 0.55 X10^3/ul (4.0); Lymphocyte % 6.6 % (19-41); Mean Corp Hgb Conc 32.2 g/dL (32-36); Mean Corpuscular Hgb 28.5 pg (27.0-32.0); Mean Corpuscular Volume 88.4 fL (80-94); Mean Platelet Vol. 10.2 fl (6.2-12.0); Monocyte# 0.59 X10^3/uL; Monocyte% 7.1 % (0-10); NRBC Flagged by Analyzer 0 % (0-5); Neutrophil # 7.14 X10^3/uL (2.7-7.7); Neutrophil % 85.4 % (47-70); POSITIVE DIFFERENTIAL YES; Platelet Count 185 K/mm3 (150-450); RBC Distribution Width CV 13.3 % (11.6-14.6); RBC Distribution Width SD 43.3 fl (35.1-43.9); Red Blood Count 5.16 M/mm3 (4.6-6.2); White Blood Count 8.4 K/mm3 (4.4-11.0)
--- NOTE | 2019-12-18 19:47 | RAD_ITS ---
STUDY: X-RAY CHEST REASON FOR EXAM: Male, 54 years old. PT C/O SORE THROAT STARTING YESTERDAY, FEVER, COUGH AND SOB TODAY. TECHNIQUE: Portable chest COMPARISON: 08/23/2019 FINDINGS: There is stable thoracic dextroscoliosis. There are patchy bilateral pulmonary opacities. Normal size heart. Normal mediastinum and eliazar. Normal visualized pulmonary arteries. Normal visualized aortic arch and descending thoracic aorta. Normal visualized thoracic spine. Normal visualized ribs, clavicles, and shoulders. There is no demonstrated abnormality of the visualized soft tissue structures of the upper abdomen. RAD/Chest 1 View (Portable) IMPRESSION: Patchy bilateral pulmonary opacities suspicious for pneumonia possible atypical viral pneumonia Stable thoracic dextroscoliosis Electronically Signed: Pacheco Hu, at 20:03 EDT Tel , Service support ,
--- NOTE | 2019-12-18 20:05 | CPS ---
x1 Albuterol given to pt. in ED as well
[2019-12-18 20:21] LABS: Differential Indicated SCAN CRITERIA MET
[2019-12-18 20:44] LABS: ALB/GLOB Ratio 0.9 RATIO (0.9-2.4); AST(SGOT) 24 U/L (15-37); Alanine Aminotransfer ALT/SGPT 25 U/L (16-61); Albumin, Serum 3.9 g/dL (3.2-5.0); Alkaline Phosphatase 80 U/L (45-117); Anion Gap 4 (5-15); BUN 11 mg/dL (7-18); BUN/Creat Ratio 13.2 RATIO (10-20); Calcium,Total 8.8 mg/dL (8.5-10.1); Chloride 100 mmol/L (98-107); Creatinine, Serum 0.83 mg/dL (0.70-1.30); EST Glomerular Filtration Rate 102 mL/min (>60); Est Glom Filt Rate - Afr Amer 124 mL/min (>60); Estimated Creatinine Clearance 105.05 ml/min; Globulin 4.3 g/dL (2.2-4.2); Glucose 112 mg/dL (74-106); Potassium 4.2 mmol/L (3.5-5.1); Protein, Total 8.2 g/dL (6.4-8.2); Sodium Level 135 mmol/L (136-145)
[2019-12-18 21:09] LABS: Procalcitonin 0.07 ng/mL (0.00-0.09)
[2019-12-18 21:23] LABS: Platelet Estimate ADEQUATE (ADEQ); Red Cell Morphology NORM C+C NORMAL (NORM C&C)
[2019-12-18] MEDS: Ceftriaxone 1 GM/50 ML BAG IV (21:34)
--- NOTE | 2019-12-18 21:49 | HP.PCM_ITS ---
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 Despite use of home oxygen patient has had difficulty maintaining his oxygen saturation above 80% today and was having an increased work of breathing along with a temperature of 102. For the most part the patient remains isolated at home ,however, he was exposed to a nephew over the last weekend who had a cough but was not diagnosed with known COVID. At the time of my evaluation the COVID-19 test was pending. Chest x-ray reveals patchy infiltrates consistent with a viral pneumonia. White blood cell count was within normal limits. Temperature is reported as 102 at home but was afebrile here at the emergency room. He does complain of cough however none was observed during my evaluation. The patient will be admitted to the isolation unit pending results of his COVID-19 test. He will be treated with broad- spectrum antibiotics for bacterial pneumonia and COPD exacerbation along with suspected COVID 19 until proven otherwise. The patient has maintained his oxygen saturation well after receiving steroids and oxygen therapy in the emergency room Past Medical History Past Medical History (Chronic Problems): Chronic Problems (Last Reviewed 09/08/19 @ 12:[address] Panda Walls, DO) Scoliosis of thoracic spine (Chronic) BIA (obstructive sleep apnea) (Chronic) Stage 4 very severe COPD by GOLD classification (Chronic) FEV1 23% of predicted H/O shoulder surgery (Chronic) History of appendectomy (Chronic) COPD (chronic obstructive pulmonary disease) (Chronic) Hyponatremia (Chronic) HTN (hypertension) (Chronic) HLD (hyperlipidemia) (Chronic) Anxiety and depression (Chronic) Chronic pain syndrome (Chronic) Congenital aplasia of lung (Chronic) Medical History: Medical History (Last Reviewed 09/08/19 @ 12:[address] Panda Walls, DO) Inguinal hernia (Resolved) K40.90 COPD (chronic obstructive pulmonary disease) (Chronic) J44.9 COPD exacerbation (Acute) J44.1 Sepsis (Acute) A41.9 HCAP (healthcare-associated pneumonia) (Inactive) J18.9 Acute and chronic respiratory failure with hypoxia (Acute) J96.21 Hyperglycemia (Acute) R73.9 Hyponatremia (Chronic) E87.1 HTN (hypertension) (Inactive) I10 HLD (hyperlipidemia) (Chronic) E78.5 Anxiety and depression (Chronic) F41.9, F32.9 Chronic pain syndrome (Chronic) G89.4 Congenital aplasia of lung (Chronic) Q33.3 Allergies aspirin Allergy (Verified 12/18/19 18:59) Unknown zolpidem [From Ambien] Allergy (Verified 12/18/19 18:59) Unknown Home Medications: Ambulatory Orders Medication Instructions Recorded Citalopram [Celexa] 10 mg PO DAILY 04/14/19 Hydrocodone/Acetaminophen [[place] 1 ea PO Q8H PRN PRN 04/14/19 5-325 Tablet] Methadone HCl 10 mg PO Q6H 04/14/19 Albuterol Aerosols [Ventolin 2.5 mg INHALATION Q2H PRN PRN #120 04/30/19 Aerosols] vial.neb. Amlodipine [Norvasc] 10 mg PO DAILY 07/25/19 Fluticasone/Umeclidin/Vilanter 1 inh INHALATION DAILY 07/25/19 [Trelegy Ellipta 100-62.5-25] Metformin HCl 500 mg PO BID 07/25/19 Tizanidine HCl [Zanaflex] 2 - 4 mg PO QHS PRN 07/25/19 Torsemide 20 mg PO DAILY PRN 07/25/19 albuterol sulfate 90 mcg/actuation 2 puff INHALATION Q4H PRN #1 ea 09/08/19 aerosol inhaler fluticasone fur. 100 mcg-umeclid 1 inh INHALATION DAILY #1 ea 09/08/19 62.5 mcg-vilant 25 mcg inhalat.powder Surgical History: Surgical History (Last Reviewed 09/08/19 @ 12:[address] Panda Walls, DO) H/O shoulder surgery (Chronic) Z98.890 History of appendectomy (Chronic) Z90.49 Surgical History: - - Right shoulder surgery x2, appendectomy, hernia repair x6. Psychiatric History: Anxiety, Depression Smoking Status: Former smoker Tobacco Use: Chew Alcohol: None Drugs: None - *Family History Maternal History Items: Cancer, Diabetes, Heart Disease Paternal History Items: Cancer, Diabetes, Heart Disease Review of Systems Constitutional: Reports: Fever. Denies: Chills, Weight Change HEENT: Denies: Head Aches, Sinus Congestion, Sinus Drainage Cardiovascular: Denies: Chest Pain, Palpitations Respiratory: Reports: Cough, Shortness of breath at rest. Denies: Sputum production Gastrointestinal: Denies: Abdominal Pain, Nausea, Vomiting Genitourinary: Denies: Dysuria Musculoskeletal: Reports: - - congenita absence of left shoulder/arm. Denies: Joint Pain, Joint Tenderness Skin: Denies: Rash, Wounds Neurological: Denies: Numbness, Tingling, Focal weakness Psychiatric: Denies: Anxiety, Depression, Homicidal Ideations, Suicidal Ideations Hematologic/ Lymphatic: Denies: Easy Bruising, Easy Bleeding VTE Information - Inpt Only VTE Present on Admission: No VTE Mechan Device Prophylaxis: None VTE Pharm Prophylaxis ordered?: Yes Patient Problems: Active and Suspected Problems (Last Reviewed 09/08/19 @ 12:[address] Panda Walls, DO) Atypical pneumonia (Acute) - Physical Exam Vitals/I&O's: Vital Signs Temp Pulse Resp BP Pulse Ox 98.8 F 98 24 H 155/81 H 95 12/18/19 21:30 12/18/19 21:30 12/18/19 21:30 12/18/19 21:30 12/18/19 21:30 Oxygen Flow Rate (L/min) 2 Oxygen Delivery Method Nasal Cannula Weight: 185 lb Body Mass Index (BMI) 26.5 General: Alert, Oriented x3, Cooperative HEENT: Atraumatic, Normocephalic Neck: Supple, Negative Carotid Bruits Lungs: Clear to auscultation, Normal air movement, No rhonchi, No wheeze, No rales Cardiovascular: Regular rate, Normal S1, Normal S2, No murmurs Abdomen: Bowel Sounds Present, Soft, Non Tender Extremities: No edema Skin: No rashes, No breakdown Musculoskeletal: No Tenderness to Palpation of Joints or Extremities Neurological: Neuro grossly intact Psych/Mental Status: Normal Affect, Appropriate Laboratory Results 12/18/19 19:33: WBC 8.4, RBC 5.16, Hgb 14.7, Hct 45.6, MCV 88.4, MCH 28.5, MCHC 32.2, RDW Std Deviation 43.3, RDW Coeff of [place] 13.3, Plt Count 185, MPV 10.2, Immature Gran % (Auto) 0.200, Neut % (Auto) 85.4 H, Lymph % (Auto) 6.6 L, [place] % (Auto) 7.1, Eos % (Auto) 0.5, Baso % (Auto) 0.2, Absolute Neuts (auto) 7.1, Absolute Lymphs (auto) 0.55 L, Nucleated RBC % 0, Differential Comment SEE COMMENT, Platelet Estimate ADEQUATE, RBC Morphology NORM C+C 12/18/19 19:33: Sodium 135 L, Potassium 4.2, Chloride 100, Carbon Dioxide 31.0, Anion Gap 4 L, BUN 11, Creatinine 0.83, Estim Creat Clear Calc 105.05, Est GFR (MDRD) Af Amer 124, Est GFR (MDRD) Non-Af 102, BUN/Creatinine Ratio 13.2, Glucose 112 H, Calcium 8.8, Total Bilirubin 0.50, AST 24, ALT 25, Alkaline Phosphatase 80, Troponin I < 0.015, Total Protein 8.2, Albumin 3.9, Globulin 4.3 H, Albumin/Globulin Ratio 0.9 12/18/19 19:45: COVID-19 (REED) Pending 12/18/19 20:08: Procalcitonin 0.07 Current Medications Azithromycin 500 mg/ Dextrose 255 mls @ 250 mls/hr IV X1 ONE Stop: 12/18/19 22:04 Assessment/Plan All Active Problems (Last Reviewed 09/08/19 @ 12:[address] Panda Walls, DO) Sepsis due to pneumonia (Acute) Acute respiratory failure with hypoxia (Acute) Atypical pneumonia (Acute) Inguinal hernia (Resolved) COPD exacerbation (Acute) Sepsis (Acute) Acute and chronic respiratory failure with hypoxia (Acute) Hyperglycemia (Acute) Chronic Problems (Last Reviewed 09/08/19 @ 12:[address] Panda Walls, DO) Scoliosis of thoracic spine (Chronic) BIA (obstructive sleep apnea) (Chronic) Stage 4 very severe COPD by GOLD classification (Chronic) FEV1 23% of predicted H/O shoulder surgery (Chronic) History of appendectomy (Chronic) COPD (chronic obstructive pulmonary disease) (Chronic) Hyponatremia (Chronic) HTN (hypertension) (Chronic) HLD (hyperlipidemia) (Chronic) Anxiety and depression (Chronic) Chronic pain syndrome (Chronic) Congenital aplasia of lung (Chronic) Plan 1. Acute respiratory distress/COPD exacerbation/atypical pneumonia?Place patient into the ICU isolation until COVID test results are available. We will continue Rocephin and azithromycin for now. Albuterol inhaler via HFA 2 puffs every 4 hours as needed?Solu-Medrol IV every [address] [facility] Repeat CBC BMP in the morning 2. Hypertension?continue home medications 3. Hyperlipidemia?continue statin 4. Anxiety depression continue home medications patient is stable 5. DVT prophylaxis?low molecular weight heparin Inpatient E&M: 35725 Init Hosp L3
[2019-12-18] MEDS: metFORMIN HCl 500 MG Tablet PO (23:48)
[2019-12-18] MEDS: Methadone 10 MG Tablet PO (23:59)
[2019-12-19 00:06] LABS: Bedside Glucose 231 mg/dL (70-110)
[2019-12-19] MEDS: HYDROcodone Bitartrate/Apap 5/325 Tablet PO (02:41)
[2019-12-19 03:09] VITALS: PULSE 75
[2019-12-19 05:14] VITALS: BP 129/62; PULSE 67; RESP 16; TEMP 36.1; O2SAT 95
[2019-12-19] MEDS: Methadone 10 MG Tablet PO ×2 (06:00→08:10)
[2019-12-19] MEDS: 0.9% Saline Lock 10 ML Syringe IV (06:01)
[2019-12-19 06:30] LABS: Absolute Neutrophil Count 5.8 X10^3/uL (2.0-7.7); Hematocrit 45.6 % (40-54); Hemoglobin 14.5 g/dL (13.0-16.5); Lymphocyte % 7.8 % (19-41); Mean Corp Hgb Conc 31.8 g/dL (32-36); Mean Corpuscular Hgb 28.5 pg (27.0-32.0); Mean Corpuscular Volume 89.6 fL (80-94); Mean Platelet Vol. 10.4 fl (6.2-12.0); Monocyte# 0.06 X10^3/uL; Monocyte% 0.9 % (0-10); NRBC Flagged by Analyzer 0 % (0-5); Neutrophil # 5.84 X10^3/uL (2.7-7.7); Neutrophil % 91.1 % (47-70); POSITIVE DIFFERENTIAL YES; Platelet Count 192 K/mm3 (150-450); RBC Distribution Width CV 13.3 % (11.6-14.6); RBC Distribution Width SD 43.5 fl (35.1-43.9); Red Blood Count 5.09 M/mm3 (4.6-6.2); White Blood Count 6.4 K/mm3 (4.4-11.0)
[2019-12-19 06:31] LABS: Differential Indicated SCAN CRITERIA MET
[2019-12-19 06:44] LABS: Anion Gap 7 (5-15); BUN 10 mg/dL (7-18); BUN/Creat Ratio 13.8 RATIO (10-20); Calcium,Total 8.9 mg/dL (8.5-10.1); Chloride 99 mmol/L (98-107); Creatinine, Serum 0.72 mg/dL (0.70-1.30); EST Glomerular Filtration Rate 120 mL/min (>60); Est Glom Filt Rate - Afr Amer 145 mL/min (>60); Estimated Creatinine Clearance 124.92 ml/min; Glucose 155 mg/dL (74-106); Potassium 4.1 mmol/L (3.5-5.1); Sodium Level 138 mmol/L (136-145)
[2019-12-19 06:47] LABS: Differential Comment SCANNED; Reactive Lymphocyte RARE
[2019-12-19 07:00] VITALS: PULSE 67
--- NOTE | 2019-12-19 07:14 | PN_ITS ---
Patient Problems: Active and Suspected Problems (Last Reviewed 09/08/19 @ 12:[address] Panda Walls, DO) Atypical pneumonia (Acute) Reason for Visit: Acute respiratory distress secondary to atypical pneumonia. Stage IV COPD Objective: 54 gentleman Vitals/I&O's: Vital Signs Temp Pulse Resp BP Pulse Ox 97.0 F L 67 16 129/62 H 95 12/19/19 05:14 12/19/19 05:14 12/19/19 05:14 12/19/19 05:14 12/19/19 05:14 Oxygen Flow Rate (L/min) 2 Oxygen Delivery Method Nasal Cannula Weight: 186 lb 15.232 oz Body Mass Index (BMI) 25.9 Intake and Output for Last 24 Hours 12/17/19 12/18/19 12/19/19 23:59 23:59 23:59 Intake Total 50 / 150 355 / 355 Output Total 600 / 600 Balance 50 / -50 -245 / -245 Microbiology Past 72 Hours 12/18/19 19:45 Mucosa - Nasopharyngeal Respiratory Panel (PCR) - Final Rhinovirus Laboratory Results 12/18/19 19:33: WBC 8.4, RBC 5.16, Hgb 14.7, Hct 45.6, MCV 88.4, MCH 28.5, MCHC 32.2, RDW Std Deviation 43.3, RDW Coeff of [place] 13.3, Plt Count 185, MPV 10.2, Immature Gran % (Auto) 0.200, Neut % (Auto) 85.4 H, Lymph % (Auto) 6.6 L, [place] % (Auto) 7.1, Eos % (Auto) 0.5, Baso % (Auto) 0.2, Absolute Neuts (auto) 7.1, Absolute Lymphs (auto) 0.55 L, Nucleated RBC % 0, Differential Comment SEE COMMENT, Platelet Estimate ADEQUATE, RBC Morphology NORM C+C 12/18/19 19:33: Sodium 135 L, Potassium 4.2, Chloride 100, Carbon Dioxide 31.0, Anion Gap 4 L, BUN 11, Creatinine 0.83, Estim Creat Clear Calc 105.05, Est GFR (MDRD) Af Amer 124, Est GFR (MDRD) Non-Af 102, BUN/Creatinine Ratio 13.2, Glucose 112 H, Calcium 8.8, Total Bilirubin 0.50, AST 24, ALT 25, Alkaline Phosphatase 80, Troponin I < 0.015, Total Protein 8.2, Albumin 3.9, Globulin 4.3 H, Albumin/Globulin Ratio 0.9 12/18/19 19:45: COVID-19 (REED) Not Detected 12/18/19 20:08: Procalcitonin 0.07 12/18/19 23:51: POC Glucose 231 H 12/19/19 06:10: Sodium 138, Potassium 4.1, Chloride 99, Carbon Dioxide 32.0, Anion Gap 7, BUN 10, Creatinine 0.72, Estim Creat Clear Calc 124.92, Est GFR (MDRD) Af Amer 145, Est GFR (MDRD) Non-Af 120, BUN/Creatinine Ratio 13.8, Glucose 155 H, Calcium 8.9 12/19/19 06:10: WBC 6.4, RBC 5.09, Hgb 14.5, Hct 45.6, MCV 89.6, MCH 28.5, MCHC 31.8 L, RDW Std Deviation 43.5, RDW Coeff of [place] 13.3, Plt Count 192, MPV 10.4, Immature Gran % (Auto) 0.200, Neut % (Auto) 91.1 H, Lymph % (Auto) 7.8 L, [place] % (Auto) 0.9, Eos % (Auto) 0.0, Baso % (Auto) 0.0, Absolute Neuts (auto) 5.8, Absolute Lymphs (auto) 0.50 L, Nucleated RBC % 0, Differential Comment SCANNED, Reactive Lymphocytes RARE Current Medications Hydrocodone Bitart/Acetaminophen ([place] 5mg-325mg) 1 tablet PO Q8H PRN PRN PRN Reason: PAIN -03/16 Last Admin: 12/19/19 02:41 Dose: 1 tablet Documented by: Albuterol Sulfate (Ventolin Hfa (Sp)) 2 puff INHALATION Q4H PRN PRN PRN Reason: shortness of breath/wheezing Amlodipine Besylate (Norvasc) 10 mg PO DAILY MICHELL Citalopram Hydrobromide (Celexa) 10 mg PO DAILY MICHELL Dextrose (D50w Syringe) 0 gm IV X1 PRN; Protocol PRN Reason: Hypoglycemia Enoxaparin Sodium (Lovenox) 40 mg SC DAILY MICHELL Furosemide (Lasix) 40 mg PO DAILY PRN PRN PRN Reason: Swelling Glucagon () 1 mg IM .X1 PRN PRN Reason: Hypoglycemia Sodium Chloride () 250 mls @ 15 mls/hr IV .[id number] PRN PRN Reason: Saline Flush Sodium Chloride () 250 mls @ 15 mls/hr IV .[id number] PRN PRN Reason: Additional IVPB Infusion Azithromycin 500 mg/ Dextrose 255 mls @ 250 mls/hr IV Q24@2200 [facility] Ceftriaxone Sodium (Rocephin) 1 gm in 50 mls @ 100 mls/hr IV Q24@2200 [facility] Metformin HCl (Glucophage) 500 mg PO BIDCM [facility] Last Admin: 12/18/19 23:48 Dose: 500 mg Documented by: Methadone HCl () 10 mg PO 0400,1000,1600,2200 [facility] Last Admin: 12/19/19 06:00 Dose: 10 mg Documented by: Methylprednisolone (Solu-Medrol) 40 mg IV Q8 [facility] Stop: 12/19/19 22:01 Last Admin: 12/19/19 06:00 Dose: 40 mg Documented by: Miscellaneous Information (Pocket Chamber) 1 each INHALATION PRN PRN PRN Reason: use with albuterol MDI Sodium Chloride () 10 - 40 ml IV UD PRN PRN Reason: SALINE FLUSH Last Admin: 12/19/19 06:01 Dose: 20 ml Documented by: STROKE Vital Signs/Narrative: Vital Signs Temp Pulse Resp BP Pulse Ox 12/19/19 05:14 97.0 F L 67 16 129/62 H 95 Medical Necessity - Tobacco Use Smoking Status: Former smoker Tobacco Use: Chew Assessment/Plan All Active Problems (Last Reviewed 09/08/19 @ 12:[address] Panda Walls, DO) Sepsis due to pneumonia (Acute) Acute respiratory failure with hypoxia (Acute) Atypical pneumonia (Acute) Inguinal hernia (Resolved) COPD exacerbation (Acute) Sepsis (Acute) Acute and chronic respiratory failure with hypoxia (Acute) Hyperglycemia (Acute) 54-year-old gentleman with history of stage IV COPD on 2 L of home oxygen who was admitted with acute shortness of breath, cough and fever for 1 day along with hypoxia, difficulty in the oxygen saturation of 80% is being admitted in ICU for COPD exacerbation secondary to atypical/viral pneumonia. Temperature was 102.4 Fahrenheit at home. Chest x-ray showed patchy infiltrate consistent with viral pneumonia. Assessment and plan 1. Acute respiratory insufficiency secondary to COPD exacerbation from atypical pneumonia: Patient is in COVID precaution/isolation. COVID-19 PCR is negative. On Rocephin and Zithromax. On bronchodilator, Solu-Medrol, incentive spirometry and chest physiotherapy. 2. pulmonary conditions: COPD, stage IV obstructive sleep apnea, chronic hypoxic respiratory failure. Patient had PFT in June 2019 which showed severe mixed ventilatory defect with symmetric reduction in diffusion capacity.. TLC 3.27 L, 47% of predicted.Patient has FEV1 23% of predicted. 2. Hypertension?continue home medications 3. Hyperlipidemia?continue statin 4. Anxiety depression continue home medications patient is stable 5. DVT prophylaxis?low molecular weight heparin
[2019-12-19 07:27] VITALS: O2SAT 95
[2019-12-19 07:57] VITALS: BP 135/78; PULSE 65; RESP 16; TEMP 36.4; O2SAT 92
[2019-12-19] MEDS: Citalopram 10 MG Tablet PO (08:10)
[2019-12-19] MEDS: amLODIPine 10 MG Tablet PO (08:10)
[2019-12-19] MEDS: metFORMIN HCl 500 MG Tablet PO (08:10)
[2019-12-19] MEDS: Enoxaparin 40 MG/0.4 ML Syringe SC (08:11)
--- NOTE | 2019-12-19 08:57 | PCM.DC ---
- Discharge Diagnoses Current Active Problems: Current Active and Chronic Problems (Last Reviewed 09/08/19 @ 12:[address] Panda Walls, DO) Atypical pneumonia (Acute) You will use the following diet at home:: Cardiac Your food should be the consistency of: Regular Discharge Activity: May Not Drive Weight Bearing Status: Weight bearing as tolerated Call your doctor if you observe: Fever of 101 or Higher, Coldness, Increased Pain, Numbness or Tingling, Inability to urinate, Inability to have a bowel movement, Shortness of breath, Dizziness, Fainting spells, Swelling in the ankles, Chest pain, Prolonged hiccoughing, Increased palpitations (irregular heartbeat), Calf discomfort, Uncontrolled pain Allergies/Adverse Reactions: Allergies aspirin Allergy (Verified 12/18/19 18:59) Unknown zolpidem [From Ambien] Allergy (Verified 12/18/19 18:59) Unknown Medications to take at Discharge Citalopram [Celexa] 10 mg PO DAILY 04/14/19 Hydrocodone/Acetaminophen [[place] 5-325 Tablet] 1 ea PO Q8H PRN PRN 04/14/19 Methadone HCl 10 mg PO Q6H 04/14/19 Albuterol Aerosols [Ventolin Aerosols] 2.5 mg INHALATION Q2H PRN PRN #120 vial.neb. 04/30/19 Amlodipine [Norvasc] 10 mg PO DAILY 07/25/19 Fluticasone/Umeclidin/Vilanter [Trelegy Ellipta 100-62.5-25] 1 inh INHALATION DAILY 07/25/19 Metformin HCl 500 mg PO BID 07/25/19 Tizanidine HCl [Zanaflex] 2 - 4 mg PO QHS PRN 07/25/19 Torsemide 20 mg PO DAILY PRN 07/25/19 albuterol sulfate 90 mcg/actuation aerosol inhaler 2 puff INHALATION Q4H PRN #1 ea 09/08/19 fluticasone fur. 100 mcg-umeclid 62.5 mcg-vilant 25 mcg inhalat.powder 1 inh INHALATION DAILY #1 ea 09/08/19 Azithromycin [Zithromax] 500 mg PO DAILY #4 tab 12/19/19 Prednisone 10 mg PO DAILY #30 tab 12/19/19 The following prescriptions were given: Prednisone 10 mg PO DAILY #30 tab Transmission Status: Received by [facility] Azithromycin [Zithromax] 500 mg PO DAILY #4 tab Transmission Status: Received by [facility] Primary Care Physician: Halima Doctor,Out of [NON-STAFF] - Please follow up with your Primary Care Physician in: in 2 weeks Test Results: Test results from this visit will be discussed in further detail at your follow-up appointment, if applicable. Please Follow Up With: Panda Walls, DO When: in 2 week
--- NOTE | 2019-12-19 08:58 | DS.PCM_ITS ---
Discharge Date and Diagnosis Date of Admission: 12/18/19 Date of Discharge: 12/19/19 - Primary Discharge Diagnosis Acute Problems: Active Problems (Last Reviewed 09/08/19 @ 12:[address] Panda Walls, DO) Atypical pneumonia (Acute) - Secondary Discharge Diagnosis Chronic Problems: Chronic Problems (Last Reviewed 09/08/19 @ 12:[address] 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 Temperature was 102.4 Fahrenheit at home. Chest x-ray showed patchy infiltrate consistent with viral pneumonia. Assessment and plan 1. Acute respiratory insufficiency secondary to COPD exacerbation from rhinovirus pneumonia: Patient is in COVID precaution/isolation. COVID-19 PCR is negative. Patient was started on Rocephin and Zithromax. On bronchodilator, Solu-Medrol, incentive spirometry and chest physiotherapy. Discussed with the color matcher Dr. Walls. Seen by ID. Agreed on discharge on total 5 days of Zithromax and tapering dose of prednisone. Follow-up in pulmonary clinic in 2 weeks. Respiratory panel positive of rhinovirus. COVID- 19 PCR negative. Low suspicion for COVID-19 pneumonia. 2. pulmonary conditions: COPD, stage IV obstructive sleep apnea, chronic hypoxic respiratory failure. Patient had PFT in June 2019 which showed severe mixed ventilatory defect with symmetric reduction in diffusion capacity.. TLC 3.27 L, 47% of predicted.Patient has FEV1 23% of predicted. Hypertension?continue home medications 3. Hyperlipidemia?continue statin 4. Anxiety depression continue home medications patient is stable 5. DVT prophylaxis?low molecular weight heparin Discharge medication reconciliation done. Discharge follow-up instructions completed. Discharge process discussed with the patient and all questions were answered to patient's satisfaction. Patient was admitted as inpatient but was discharged because of sooner recovery than expected at time of admission. Total time spent, exact 35 minutes on discharge meds reconciliation, examination, coordination of care with nurses and ancillary staff, review of imaging and blood test and discussion with the patient on follow-up instructions Objective: Seen and examined. Patient was admitted with home temperature of about 102 Fahrenheit. In triage, T-max 101.4. No fever or chills thereafter. Patient has chronic cough but there is no change in characteristic or sputum production. No sick contact with outside person. Patient is in isolation. Low suspicion for COVID-19. Physical exam General: Alert, Oriented x3, Cooperative HEENT: Atraumatic, PERRLA, EOMI, Normocephalic Oral: No Gingival or Mucosal Lesions/ Ulcerations Neck: Supple, No JVD, Negative Carotid Bruits Lungs: Left lung hypoplastic except a small portion of left lower lobe. Air entry diminished in bilateral lung bases. Bilateral coarse rhonchi. On 2 L of home oxygen. Cardiovascular: Regular rate, Regular Rhythm, Normal S1, Normal S2, No murmurs Abdomen: Bowel Sounds Present, Soft, Non Tender, Non-Distended : No renal angle tenderness. No suprapubic tenderness. Extremities: No edema, Capillary Refill Less than 3 Seconds. Left upper extremity congenital aplasia. Skin: No rashes, No breakdown Musculoskeletal: No Tenderness to Palpation of Joints or Extremities Neurological: Cranial nerves II-XII grossly intact, Deep Tendon Reflexes 2+/4 and Symmetrical, Neuro grossly intact Psych/Mental Status: Normal Affect, Appropriate - Physical Exam Vitals/I&O's: Vital Signs Temp Pulse Resp BP Pulse Ox 97.6 F L 65 16 135/78 H 92 12/19/19 07:57 12/19/19 07:57 12/19/19 07:57 12/19/19 07:57 12/19/19 07:57 Oxygen Flow Rate (L/min) 2 Oxygen Delivery Method Nasal Cannula Weight: 186 lb 15.232 oz Body Mass Index (BMI) 25.9 Intake and Output for Last 24 Hours 07/05/2612/18/19 12/19/19 23:59 23:59 23:59 Intake Total 50 / 150 355 / 355 Output Total 875 / 875 Balance 50 / -50 -520 / -520 Microbiology Past 72 Hours 12/18/19 19:45 Mucosa - Nasopharyngeal Respiratory Panel (PCR) - Final Rhinovirus Laboratory Results 12/18/19 19:33: WBC 8.4, RBC 5.16, Hgb 14.7, Hct 45.6, MCV 88.4, MCH 28.5, MCHC 32.2, RDW Std Deviation 43.3, RDW Coeff of Bethany 13.3, Plt Count 185, MPV 10.2, Immature Gran % (Auto) 0.200, Neut % (Auto) 85.4 H, Lymph % (Auto) 6.6 L, [place] % (Auto) 7.1, Eos % (Auto) 0.5, Baso % (Auto) 0.2, Absolute Neuts (auto) 7.1, Absolute Lymphs (auto) 0.55 L, Nucleated RBC % 0, Differential Comment SEE COMMENT, Platelet Estimate ADEQUATE, RBC Morphology NORM C+C 12/18/19 19:33: Sodium 135 L, Potassium 4.2, Chloride 100, Carbon Dioxide 31.0, Anion Gap 4 L, BUN 11, Creatinine 0.83, Estim Creat Clear Calc 105.05, Est GFR (MDRD) Af Amer 124, Est GFR (MDRD) Non-Af 102, BUN/Creatinine Ratio 13.2, Glucose 112 H, Calcium 8.8, Total Bilirubin 0.50, AST 24, ALT 25, Alkaline Phosphatase 80, Troponin I < 0.015, Total Protein 8.2, Albumin 3.9, Globulin 4.3 H, Albumin/Globulin Ratio 0.9 12/18/19 19:45: COVID-19 (REED) Not Detected 12/18/19 20:08: Procalcitonin 0.07 12/18/19 23:51: POC Glucose 231 H 12/19/19 06:10: Sodium 138, Potassium 4.1, Chloride 99, Carbon Dioxide 32.0, Anion Gap 7, BUN 10, Creatinine 0.72, Estim Creat Clear Calc 124.92, Est GFR (MDRD) Af Amer 145, Est GFR (MDRD) Non-Af 120, BUN/Creatinine Ratio 13.8, Glucose 155 H, Calcium 8.9 12/19/19 06:10: WBC 6.4, RBC 5.09, Hgb 14.5, Hct 45.6, MCV 89.6, MCH 28.5, MCHC 31.8 L, RDW Std Deviation 43.5, RDW Coeff of Bethany 13.3, Plt Count 192, MPV 10.4, Immature Gran % (Auto) 0.200, Neut % (Auto) 91.1 H, Lymph % (Auto) 7.8 L, Hickman % (Auto) 0.9, Eos % (Auto) 0.0, Baso % (Auto) 0.0, Absolute Neuts (auto) 5.8, Absolute Lymphs (auto) 0.50 L, Nucleated RBC % 0, Differential Comment SCANNED, Reactive Lymphocytes RARE Current Medications Hydrocodone Bitart/Acetaminophen (Kaycee 5mg-325mg) 1 tablet PO Q8H PRN PRN PRN Reason: PAIN 1-03/16 Last Admin: 12/19/19 02:41 Dose: 1 tablet Documented by: Albuterol Sulfate (Ventolin Hfa (Sp)) 2 puff INHALATION Q4H PRN PRN PRN Reason: shortness of breath/wheezing Amlodipine Besylate (Norvasc) 10 mg PO DAILY [facility] Last Admin: 12/19/19 08:10 Dose: 10 mg Documented by: Citalopram Hydrobromide (Celexa) 10 mg PO DAILY [facility] Last Admin: 12/19/19 08:10 Dose: 10 mg Documented by: Dextrose (D50w Syringe) 0 gm IV X1 PRN; Protocol PRN Reason: Hypoglycemia Enoxaparin Sodium (Lovenox) 40 mg SC DAILY [facility] Last Admin: 12/19/19 08:11 Dose: 40 mg Documented by: Furosemide (Lasix) 40 mg PO DAILY PRN PRN PRN Reason: Swelling Glucagon () 1 mg IM .X1 PRN PRN Reason: Hypoglycemia Sodium Chloride () 250 mls @ 15 mls/hr IV .[id number] PRN PRN Reason: Saline Flush Sodium Chloride () 250 mls @ 15 mls/hr IV .[id number] PRN PRN Reason: Additional IVPB Infusion Azithromycin 500 mg/ Dextrose 255 mls @ 250 mls/hr IV Q24@2200 [facility] Ceftriaxone Sodium (Rocephin) 1 gm in 50 mls @ 100 mls/hr IV Q24@2200 [facility] Metformin HCl (Glucophage) 500 mg PO BIDCM [facility] Last Admin: 12/19/19 08:10 Dose: 500 mg Documented by: Methadone HCl () 10 mg PO 0400,1000,1600,2200 [facility] Last Admin: 12/19/19 08:10 Dose: 10 mg Documented by: Methylprednisolone (Solu-Medrol) 40 mg IV Q8 [facility] Stop: 12/19/19 22:01 Last Admin: 12/19/19 06:00 Dose: 40 mg Documented by: Miscellaneous Information (Pocket Chamber) 1 each INHALATION PRN PRN PRN Reason: use with albuterol MDI Sodium Chloride () 10 - 40 ml IV UD PRN PRN Reason: SALINE FLUSH Last Admin: 12/19/19 06:01 Dose: 20 ml Documented by: Discharge Activity: May Not Drive Weight Bearing Status: Weight bearing as tolerated Call your doctor if you observe: Fever of 101 or Higher, Coldness, Increased Pain, Numbness or Tingling, Inability to urinate, Inability to have a bowel movement, Shortness of breath, Dizziness, Fainting spells, Swelling in the ankles, Chest pain, Prolonged hiccoughing, Increased palpitations (irregular heartbeat), Calf discomfort, Uncontrolled pain Home Medications: Medications to take at Discharge Citalopram [Celexa] 10 mg PO DAILY 04/14/19 Hydrocodone/Acetaminophen [Kaycee 5-325 Tablet] 1 ea PO Q8H PRN PRN 04/14/19 Methadone HCl 10 mg PO Q6H 04/14/19 Albuterol Aerosols [Ventolin Aerosols] 2.5 mg INHALATION Q2H PRN PRN #120 vial.neb. 04/30/19 Amlodipine [Norvasc] 10 mg PO DAILY 07/25/19 Fluticasone/Umeclidin/Vilanter [Trelegy Ellipta 100-62.5-25] 1 inh INHALATION DAILY 07/25/19 Metformin HCl 500 mg PO BID 07/25/19 Tizanidine HCl [Zanaflex] 2 - 4 mg PO QHS PRN 07/25/19 Torsemide 20 mg PO DAILY PRN 07/25/19 albuterol sulfate 90 mcg/actuation aerosol inhaler 2 puff INHALATION Q4H PRN #1 ea 09/08/19 fluticasone fur. 100 mcg-umeclid 62.5 mcg-vilant 25 mcg inhalat.powder 1 inh INHALATION DAILY #1 ea 09/08/19 Azithromycin [Zithromax] 500 mg PO DAILY #4 tab 12/19/19 Prednisone 10 mg PO DAILY #30 tab 12/19/19 Following Prescrptions Were Given to Patient: Prednisone 10 mg PO DAILY #30 tab Transmission Status: Received by [facility] Azithromycin [Zithromax] 500 mg PO DAILY #4 tab Transmission Status: Received by [facility] Primary Care Physician: Halima Doctor,Out of [NON-STAFF] - Please follow up with your Primary Care Physician in: in 2 weeks Please Follow Up With: Panda Walls DO When: in 2-4 week Medical Necessity - Tobacco Use Smoking Status: Former smoker Tobacco Use: Chew Meaningful Use Info Meaningful Use Diagnoses (Choose all that apply): None applicable Inpatient E&M: [id number] [facility]
[2019-12-19 10:59] VITALS: BP 116/64; PULSE 72; RESP 18; TEMP 36.6; O2SAT 95
--- NOTE | 2019-12-19 11:04 | PCM.HP.ID ---
Problem List (1) Atypical pneumonia Status: Acute Reason for Consult: fever Consulted by: Dr. Dupree History of Present Illness: The patient is a 54 year old M with severe copd, presented yesterday with 2 days of mild congestion, sore throat, and fever. Has been careful with masking and isolating. No sick contacts. now with some similar sx. No change in chronic cough and SOB. No change in taste/smell, no n/v/d, no aches, no headache. Came to ED, fever to 101.4, started on azithro/ceftriaxone, steroids. Feeling better, no further fever. Full ROS performed and neg except as noted above. - Medical History Past Medical History (Chronic Problems): Chronic Problems (Last Reviewed 09/08/19 @ 12:[address] Panda Walls, DO) Scoliosis of thoracic spine (Chronic) BIA (obstructive sleep apnea) (Chronic) Stage 4 very severe COPD by GOLD classification (Chronic) FEV1 23% of predicted H/O shoulder surgery (Chronic) History of appendectomy (Chronic) COPD (chronic obstructive pulmonary disease) (Chronic) Hyponatremia (Chronic) HTN (hypertension) (Chronic) HLD (hyperlipidemia) (Chronic) Anxiety and depression (Chronic) Chronic pain syndrome (Chronic) Congenital aplasia of lung (Chronic) Allergies/Adverse Reactions: Allergies aspirin Allergy (Verified 12/18/19 18:59) Unknown zolpidem [From Ambien] Allergy (Verified 12/18/19 18:59) Unknown Home Medications: Ambulatory Orders Medication Instructions Recorded Citalopram [Celexa] 10 mg PO DAILY 04/14/19 Hydrocodone/Acetaminophen [[place]pton 1 ea PO Q8H PRN PRN 04/14/19 5-325 Tablet] Methadone HCl 10 mg PO Q6H 04/14/19 Albuterol Aerosols [Ventolin 2.5 mg INHALATION Q2H PRN PRN #120 04/30/19 Aerosols] vial.neb. Amlodipine [Norvasc] 10 mg PO DAILY 07/25/19 Fluticasone/Umeclidin/Vilanter 1 inh INHALATION DAILY 07/25/19 [Trelegy Ellipta 100-62.5-25] Metformin HCl 500 mg PO BID 07/25/19 Tizanidine HCl [Zanaflex] 2 - 4 mg PO QHS PRN 02/18/20 Torsemide 20 mg PO DAILY PRN 07/25/19 albuterol sulfate 90 mcg/actuation 2 puff INHALATION Q4H PRN #1 ea 09/08/19 aerosol inhaler fluticasone fur. 100 mcg-umeclid 1 inh INHALATION DAILY #1 ea 09/08/19 62.5 mcg-vilant 25 mcg inhalat.powder Azithromycin [Zithromax] 500 mg PO DAILY #4 tab 12/19/19 Prednisone 10 mg PO DAILY #30 tab 12/19/19 - Social History SMOKING STATUS:: Former smoker Vital Signs Temp Pulse Resp BP Pulse Ox 97.6 F L 65 16 135/78 H 92 12/19/19 07:57 12/19/19 07:57 12/19/19 07:57 12/19/19 07:57 12/19/19 07:57 Oxygen Flow Rate (L/min) 2 Oxygen Delivery Method Nasal Cannula Weight: 84.8 kg Body Mass Index (BMI) 25.9 Microbiology Past 72 Hours 12/18/19 19:45 Respiratory Panel (PCR) - Final Mucosa - Nasopharyngeal Rhinovirus Laboratory Tests Past 24 Hrs 12/18/19 12/18/19 12/18/19 19:33 19:33 19:45 WBC 8.4 RBC 5.16 Hgb 14.7 Hct 45.6 MCV 88.4 MCH 28.5 MCHC 32.2 RDW Std Deviation 43.3 RDW Coeff of Bethany 13.3 Plt Count 185 MPV 10.2 Immature Gran % (Auto) 0.200 Neut % (Auto) 85.4 H Lymph % (Auto) 6.6 L [place] % (Auto) 7.1 Eos % (Auto) 0.5 Baso % (Auto) 0.2 Absolute Neuts (auto) 7.1 Absolute Lymphs (auto) 0.55 L Nucleated RBC % 0 Differential Comment SEE COMMENT Reactive Lymphocytes Platelet Estimate ADEQUATE RBC Morphology NORM C+C Sodium 135 L Potassium 4.2 Chloride 100 Carbon Dioxide 31.0 Anion Gap 4 L BUN 11 Creatinine 0.83 Estim Creat Clear Calc 105.05 Est GFR (MDRD) Af Amer 124 Est GFR (MDRD) Non-Af 102 BUN/Creatinine Ratio 13.2 Glucose 112 H Calcium 8.8 Total Bilirubin 0.50 AST 24 ALT 25 Alkaline Phosphatase 80 Troponin I < 0.015 Total Protein 8.2 Albumin 3.9 Globulin 4.3 H Albumin/Globulin Ratio 0.9 Procalcitonin COVID-19 (REED) Not Detected 12/18/19 12/19/19 12/19/19 20:08 06:10 06:10 WBC 6.4 RBC 5.09 Hgb 14.5 Hct 45.6 MCV 89.6 MCH 28.5 MCHC 31.8 L RDW Std Deviation 43.5 RDW Coeff of Bethany 13.3 Plt Count 192 MPV 10.4 Immature Gran % (Auto) 0.200 Neut % (Auto) 91.1 H Lymph % (Auto) 7.8 L [place] % (Auto) 0.9 Eos % (Auto) 0.0 Baso % (Auto) 0.0 Absolute Neuts (auto) 5.8 Absolute Lymphs (auto) 0.50 L Nucleated RBC % 0 Differential Comment SCANNED Reactive Lymphocytes RARE Platelet Estimate RBC Morphology Sodium 138 Potassium 4.1 Chloride 99 Carbon Dioxide 32.0 Anion Gap 7 BUN 10 Creatinine 0.72 Estim Creat Clear Calc 124.92 Est GFR (MDRD) Af Amer 145 Est GFR (MDRD) Non-Af 120 BUN/Creatinine Ratio 13.8 Glucose 155 H Calcium 8.9 Total Bilirubin AST ALT Alkaline Phosphatase Troponin I Total Protein Albumin Globulin Albumin/Globulin Ratio Procalcitonin 0.07 COVID-19 (REED) - Other Studies Radiology: [] reviewed Other Studies: [] Route of nutrition/ use of supplements: [] Nutritional Intake: [] IV Site: [] Rajput Catheter: [] - Physical Exam General: Alert, Oriented x3, Cooperative, No apparent distress HEENT: Atraumatic, PERRLA, EOMI Neck: Supple, No Nodes Lungs: Clear to auscultation, Diminished - mild decrease in breath sounds Cardiovascular: Regular rate, Regular Rhythm Abdomen: Soft, Non Tender, Non-Distended Extremities: No edema Skin: No rashes IV Site: Peripheral, without redness Musculoskeletal: No Tenderness to Palpation of Joints or Extremities Neurological: Cranial nerves II-XII grossly intact - Assessment/Plan Antibiotics: [] Assessment/Plan: [] Active and Suspected Problems (Last Reviewed 09/08/19 @ 12:[address] Panda Walls, DO) Atypical pneumonia (Acute) rhinovirus - covid neg, does not have typical covid sx. Cough and dyspnea at baseline. Ok for d/c home off of abx with pulm followup. Recommend continued masking and isolating as best he can. Will follow as needed, d/w Dr. Dupree and nursing, thank you.
--- NOTE | 2019-12-19 11:05 | CASEMGMT ---
RN SHAHRZAD Face to Face with patient for initial transition planning/care coordination assessment. RN CM introduced self and role at [facility]. Patient sitting in chair, alert and oriented. Patient willing to participate in assessment and is able to answer all questions appropriately. Care providers, pharmacy, and demographics verified. Patient wishes to discharge home, denies need for home health at this time. Patient states he has no further needs or concerns at this time. CM to follow for discharge planning needs that may arise. PCP: [facility] Specialists: Titi etcher apprentice; bria Burch Preferred Pharmacy: [facility] Insurance: [facility] Prescription Benefit: yes Living Will/HPOA: none LNOK: Living Arrangements: Patient lives with in a 2 story home with bed and bath on main level. Patient states he is independent at home. Transportation: self/ DME/HHC: Patient states he has oxygen, nebulizer, cpap through [facility]. Patient states he has portable tank that with be bringing. Disposition Plan: Patient to discharge home with family support and follow-up plans in place. Merry JJ, RN, CM
--- NOTE | 2019-12-20 12:34 | CASEMGMT ---
CLEO MARKHAM DC PHONE CALL DC DATE: 12/19/2019 DC DISPOSITION: Home DC DIAGNOSIS: pneumonia, COPD LACE/STRATA: 3 F/U APPTS MADE PRIOR TO DC: no PRESCRIPTIONS ACQUIRED BY PT: yes Intro role of CM to patient via phone. Patient states he is feeling very well and would like to go back to work sooner than 2 weeks. CLEO MARKHAM recommended he call his PCP for an earlier appointment. Pt has his medications, no questions. Is aware of f/u appointments. No care improvement suggestions given, no further concerns. Ivory MORELANDN RN ACM
== END 2019-12-19 11:35 | disposition home or self-care (01) | DRG 193 ==
LOC: ED 19:40 → ICU 22:27
PROVIDERS: Admitting Provider Family Medicine; Emergency Provider Student in an Organized Health Care Education/Training Program; Visit Provider Internal Medicine
DX: J12.9 Viral pneumonia, unspecified (principal); Q33.6 Congenital hypoplasia and dysplasia of lung; J96.21 Acute and chronic respiratory failure with hypoxia; E87.1 Hypo-osmolality and hyponatremia; J44.1 Chronic obstructive pulmonary disease with (acute) exacerbation; B97.89 Other viral agents as the cause of diseases classified elsewhere; G47.33 Obstructive sleep apnea (adult) (pediatric); I10 Essential (primary) hypertension; E78.5 Hyperlipidemia, unspecified; F32.9 Major depressive disorder, single episode, unspecified; F41.9 Anxiety disorder, unspecified; G89.4 Chronic pain syndrome; M41.9 Scoliosis, unspecified; Z90.49 Acquired absence of other specified parts of digestive tract; Z99.81 Dependence on supplemental oxygen; Z79.899 Other long term (current) drug therapy; Z87.891 Personal history of nicotine dependence
CPT/HCPCS: 71045; 80048; 80053; 82962; 84145; 84484; 85025; 87040; 87633; 87635; 93005; 94640; 99251; 99285; G2023; J7030; A4216; G0463; U0003

== ENCOUNTER → 2020-09-03 13:58 | Outpatient (CLI) | payer MEDICARE, SELFPAY ==
[2020-08-08 08:46] VITALS: BMI 28.7
[2020-09-03 14:30] VITALS: PULSE 79; PULSE 83; PULSE 85; PULSE 86; PULSE 87; PULSE 88; O2SAT 84; O2SAT 90; O2SAT 91; O2SAT 92; O2SAT 95; O2SAT 96; O2SAT 97
--- NOTE | 2020-09-03 14:33 | CPS ---
PATIENT ARRIVED FOR TESTING ON ROOM AIR. SPO2 84%, HIS EARS AND NOSE WERE DUSKY, HIS BREATHING WAS BASELINE STATUS FOR HIM. APPLIED 2LPM TO START THE WALK TEST, HE REMAINED ON 2LPM THROUGHOUT PROCEDURE. HE HAS OXYGEN SET UP AT HOME THROUGH [facility] IN [place] FOR USE AT NIGHT AND PRN. I TRIED TO ENCOURAGE HIM TO WEAR AND EDUCATE HIM ON THE IMPORTANCE OF WEARING IT WITH ACTIVITY FOR THE SAFETY OF HIMSELF AND OTHERS
--- NOTE | 2020-09-04 08:17 | PCM.PSN.6M ---
PSN 6 Minute Walk Test - 6 Minute Walk Test 6 Minute Walk Test: 6 Minute Walk Test PSN:6-Minute Walk Test Start: 09/03/20 14:30 Freq: Status: Active Protocol: RESP.6MINW Document 09/03/20 14:30 [facility] (Rec: 09/03/20 14:39 [facility] [id number]) 6 Minute Walk Test Date Performed 09/03/20 Time Performed 14:00 Height 5 ft 11 in Weight: 88.451 kg Weight in Pounds 195.[address]: Panda Walls Assistive device used: None Pre-test Oxygen Delivery Method Room Air Pulse Ox (%) 84 Pulse Rate (60-100 beats/min) 85 Dyspnea Tavon Scale (0-10) 1 Reported Symptoms Cyanotic 1st minute Oxygen Flow Rate (L/min) (L/min) 2 Oxygen Delivery Method Nasal Cannula Pulse Ox (%) 96 Pulse Rate (60-100 beats/min) 83 Dyspnea Tavon Scale (0-10) 1 Number of Rests Taken 0 2nd minute Oxygen Flow Rate (L/min) (L/min) 2 Oxygen Delivery Method Nasal Cannula Pulse Ox (%) 95 Pulse Rate (60-100 beats/min) 87 Dyspnea Tavon Scale (0-10) 1 Number of Rests Taken 0 3rd minute Oxygen Flow Rate (L/min) (L/min) 2 Oxygen Delivery Method Nasal Cannula Pulse Ox (%) 92 Pulse Rate (60-100 beats/min) 86 Dyspnea Tavon Scale (0-10) 2 Number of Rests Taken 0 4th minute Oxygen Flow Rate (L/min) (L/min) 2 Oxygen Delivery Method Nasal Cannula Pulse Ox (%) 91 Pulse Rate (60-100 beats/min) 87 Dyspnea Tavon Scale (0-10) 2 Number of Rests Taken 0 5th minute Oxygen Flow Rate (L/min) (L/min) 2 Oxygen Delivery Method Nasal Cannula Pulse Ox (%) 90 Pulse Rate (60-100 beats/min) 88 Dyspnea Tavon Scale (0-10) 2 Number of Rests Taken 0 6th minute Oxygen Flow Rate (L/min) (L/min) 2 Oxygen Delivery Method Nasal Cannula Pulse Ox (%) 90 Pulse Rate (60-100 beats/min) 87 Dyspnea Tavon Scale (0-10) 2 Number of Rests Taken 0 Post-test Oxygen Flow Rate (L/min) (L/min) 2 Oxygen Delivery Method Nasal Cannula Pulse Ox (%) 97 Pulse Rate (60-100 beats/min) 79 Dyspnea Tavon Scale (0-10) 0 Full Laps Walked 14 Partial Lap, Number of Tiles Walked 27 Total Distance Walked (ft) 853 09/03/20 14:33 Cardiopulmonary Services by Angelique Contreras PATIENT ARRIVED FOR TESTING ON ROOM AIR. SPO2 84%, HIS EARS AND NOSE WERE DUSKY, HIS BREATHING WAS BASELINE STATUS FOR HIM. APPLIED 2LPM TO START THE WALK TEST, HE REMAINED ON 2LPM THROUGHOUT PROCEDURE. HE HAS OXYGEN SET UP AT HOME THROUGH [facility] IN [place] FOR USE AT NIGHT AND PRN. I TRIED TO ENCOURAGE HIM TO WEAR AND EDUCATE HIM ON THE IMPORTANCE OF WEARING IT WITH ACTIVITY FOR THE SAFETY OF HIMSELF AND OTHERS Initialized on 09/03/20 14:33 - END OF NOTE - Interpretation Interpretation: The patient was noted to be 84% on room air on arrival. The patient improved to 96% with a total of 853 feet over the course of 6 minutes on 2 L nasal cannula with no significant tachycardia and an oxygen heena of 90%. - Recommendations Recommendations: The patient should be on 2 L nasal cannula at all times.
== END ==
LOC: PSN 14:00
PROVIDERS: Referring Provider Internal Medicine Critical Care Medicine; Visit Provider Internal Medicine Critical Care Medicine
DX: J44.9 Chronic obstructive pulmonary disease, unspecified (principal)
CPT/HCPCS: 94618

== ENCOUNTER → 2024-05-09 | Outpatient (CLI) | payer MEDICARE, SELFPAY | END | disposition home or self-care (01) | PROVIDERS: Referring Provider Nurse Practitioner Family; Visit Provider Nurse Practitioner Family | DX: J44.9 Chronic obstructive pulmonary disease, unspecified (principal); J96.11 Chronic respiratory failure with hypoxia | CPT/HCPCS: 94060; 94726; 94729 ==

== ENCOUNTER → 2024-12-29 | Outpatient (CLI) | payer MEDICAID, SELFPAY ==
[2024-12-29 12:35] VITALS: PULSE 80; PULSE 81; PULSE 82; PULSE 84; PULSE 85; PULSE 86; PULSE 90; PULSE 91; O2SAT 88; O2SAT 90; O2SAT 92; O2SAT 93; O2SAT 95
--- NOTE | 2024-12-29 12:38 | CPS ---
Patient wears 2 lpm O2 at home.
--- NOTE | 2025-01-03 13:06 | WT_ITS ---
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 Assistive device None used: Pre-test Oxygen Delivery Room Air Method Pulse Ox (%) 90 Pulse Rate (60-100 84 beats/min) Dyspnea Tavon Scale ( 0.5 0-10) Exertion Tavon Scale 6 (6-20) 1st minute Oxygen Delivery Room Air Method Pulse Ox (%) 88 Pulse Rate (60-100 90 beats/min) 2nd minute Oxygen Flow Rate (L/ 2 min) (L/min) Oxygen Delivery Nasal Cannula Method Pulse Ox (%) 93 Pulse Rate (60-100 80 beats/min) 3rd minute Oxygen Flow Rate (L/ 2 min) (L/min) Oxygen Delivery Nasal Cannula Method Pulse Ox (%) 92 Pulse Rate (60-100 81 beats/min) 4th minute Oxygen Flow Rate (L/ 2 min) (L/min) Oxygen Delivery Nasal Cannula Method Pulse Ox (%) 92 Pulse Rate (60-100 85 beats/min) 5th minute Oxygen Flow Rate (L/ 2 min) (L/min) Oxygen Delivery Nasal Cannula Method Pulse Ox (%) 92 Pulse Rate (60-100 86 beats/min) 6th minute Oxygen Flow Rate (L/ 2 min) (L/min) Oxygen Delivery Nasal Cannula Method Pulse Ox (%) 92 Pulse Rate (60-100 91 beats/min) Dyspnea Tavon Scale ( 1 0-10) Exertion Tavon Scale 11 (6-20) Post-test Oxygen Flow Rate (L/ 2 min) (L/min) Oxygen Delivery Nasal Cannula Method Pulse Ox (%) 95 Pulse Rate (60-100 82 beats/min) Full Laps Walked 17 Partial Lap, Number 32 of Tiles Walked Total Distance 1035 Walked (ft) 12/29/24 12:38 Cardiopulmonary Services by Allie Villalpando Patient wears 2 lpm O2 at home. Initialized on 12/29/24 12:38 - END OF NOTE Interpretation Interpretation: The patient ambulated 1035 feet over the course of 6 minutes beginning on room air without assistive devices. Pretesting oxygen saturation was noted to be 90% on room air. With ambulation, the heena oxygen saturation was 88%. 2 L/min of supplemental oxygen was applied and the patient was able to complete the remainder of the testing while maintaining appropriate saturations. Recommendations Recommendations: 2 L/min of supplemental oxygen should be utilized with exertion.
== END | disposition home or self-care (01) ==
LOC: PSN 12:08
PROVIDERS: Referring Provider Nurse Practitioner Acute Care; Visit Provider Nurse Practitioner Acute Care
DX: J96.01 Acute respiratory failure with hypoxia (principal)
CPT/HCPCS: 94618

== ENCOUNTER → 2025-01-16 | Outpatient (CLI) | payer MEDICAID, SELFPAY | END | disposition home or self-care (01) | LOC: SL 09:00 | PROVIDERS: Referring Provider Nurse Practitioner Acute Care; Visit Provider Nurse Practitioner Acute Care | DX: J96.01 Acute respiratory failure with hypoxia (principal) | CPT/HCPCS: 94762 ==

== ENCOUNTER → 2025-03-20 | Outpatient (CLI) | payer MEDICARE, SELFPAY | END | disposition home or self-care (01) | LOC: SL 08:13 | PROVIDERS: Referring Provider Nurse Practitioner Acute Care; Visit Provider Nurse Practitioner Acute Care | DX: J96.11 Chronic respiratory failure with hypoxia (principal) | CPT/HCPCS: 94762 ==